=== PATIENT | male | born 1945 | race Caucasian/White ===

== ENCOUNTER → 2020-04-18 11:00 | Outpatient (BNVA) | payer OTHER, SELFPAY | PROVIDERS: Family Provider Internal Medicine; PCP Internal Medicine; Visit Provider Specialist | DX: G56.02 Carpal tunnel syndrome, left upper limb (principal) | CPT/HCPCS: 73080; 73110 ==

== ENCOUNTER → 2020-05-01 11:45 | Outpatient (BNVA) | payer OTHER, SELFPAY | PROVIDERS: Family Provider Internal Medicine; PCP Internal Medicine; Visit Provider Internal Medicine | DX: G56.02 Carpal tunnel syndrome, left upper limb (principal); G56.22 Lesion of ulnar nerve, left upper limb; Z20.828 Contact with and (suspected) exposure to other viral communicable diseases | CPT/HCPCS: 87635 ==

== ENCOUNTER 2020-05-04 10:02 | Outpatient (CLI) | payer OTHER, SELFPAY ==
[2020-05-03 15:31] VITALS: BMI 34.8
[2020-05-04 10:34] VITALS: BP 126/72; PULSE 68; RESP 20; TEMP 36.1; O2SAT 98
[2020-05-04] MEDS: CELEcoxib 200 mg Capsule 400 MG PO (10:34)
[2020-05-04] MEDS: sodium chloride 0.9% 1,000 ML 30 ML IV (10:51)
--- NOTE | 2020-05-04 10:52 | ANES.PREANE2 ---
Pre-Anesthetic Assessment Pre-Anesthetic Assessment: Height/Weight: Height 1.8 m Weight 113.398 kg Temp Pulse Resp BP Pulse Ox 97 F L 68 20 H 126/72 98 05/04/20 10:34 05/04/20 10:34 05/04/20 10:34 05/04/20 10:34 05/04/20 10:34 Preop Diagnosis: Left carpal tunnel syndrome Proposed Procedure: Operation Date: 05/04/20 11:30 Proposed Procedures p Carpal Tunnel Release 06103 G56.02(Left) - Dorothy Saavedra MD Familial anesthetic complications: None Was Beta Wilberto taken within 24 hours: N/A Last intake: Intake Last Liquid Date 05/03/20 Last Liquid Time 23:30 Last Solid Date 05/03/20 Last Solid Time 21:00 Social: Social History: No alcohol and No tobacco Comment: former smoker Exam: Pre-Anes Outpt Exam: alert, oriented x 3, clear to auscultation bilaterally and regular rate & rhythm Airway: Cervical ROM: WNL MP: 4 Dentition: Chipped and Other (missing) Pulmonary: Pulmonary: Asthma and COPD (2 L NC at [facility]) CV/HEM: CV/HEM: HTN GI: GI: GERD Metabolic: Metabolic: Hyperlipidemia and Morbid obesity Neuropsych: Neuropsych: TIA (last year ) Anesthetic Plan: ASA status: 3 Anesthesia: MAC and Regional (specify below) Risk of > 500 ml blood loss (7ml/kg in children): No Meds/Allergies Current Medications: Current Medications Generic Name Dose Route Start Last Admin Trade Name Freq PRN Reason Stop Dose Admin Sodium Chloride 1,000 mls @ 30 ml s/hr 05/04/20 10:15 05/04/20 10:51 Sodium Chloride 0.9% IV 05/05/20 10:14 30 mls/hr .Q24H CHRISTOPHER Administration PFSH Anesthesia PFSH: Medical History (Updated 04/19/20 @ 08:45 by Dorothy Saavedra MD) Carpal tunnel syndrome of left wrist Cervical radiculopathy Cubital tunnel syndrome on left Family History Denies family history of Diabetes CAD (coronary artery disease) Clotting disorder Dementia Hyperlipidemia Psychiatric illness Chronic kidney disease (CKD) Suicide Anesthesia complication Bleeding disorder Family history of premature coronary artery disease Lung disease Cancer Hypertension Stroke Social History Smoking and tobacco status: smoker, details unknown smokeless tobacco Smokeless tobacco user: chewing tobacco Alcohol intake: never Data Anesthesia Cardiac Studies: No Data to Display
--- NOTE | 2020-05-04 11:29 | P.HPUD_ITS ---
Surgery/Procedure H&P Update DATE OF PROCEDURE: May 04, 2020 DATE H&P PERFORMED: 04/18/20 H&P UPDATE INFORMATION: I have reviewed H&P completed within last 30 days, I have examined patient prior to procedure, No changes to prior documentation and H[place] is in [facility] [place] on date indicated PREOP DIAGNOSIS: Left carpal tunnel syndrome PLANNED PROCEDURE: Operation Date: 05/04/20 11:30 Proposed Procedures p Carpal Tunnel Release 86808 G56.02(Left) - Dorothy Saavedra MD Related Problem List Diagnoses (1) Carpal tunnel syndrome of left wrist:
[2020-05-04 12:23] VITALS: BP 108/60; PULSE 61; RESP 16; TEMP 37.3; O2SAT 98
[2020-05-04 12:36] VITALS: BP 109/62; PULSE 55; RESP 18; O2SAT 97
--- NOTE | 2020-05-04 12:56 | PM.OP ---
Operative Report Date of procedure: May 04, 2020 Pre-op Diagnosis: Left carpal tunnel syndrome Post-op diagnosis: same Procedure Done: Left carpal tunnel release Pathology: none sent Surgeon: Dorothy Saavedra Drug And Alcohol Treatment Specialist: None Anesthesia: MAC (With [place] block) Estimated blood loss (mL): 5 Tourniquet time (min): 31 Tourniquet time: at 250 mmHg IV fluids (mL): 300 Urine output (mL): 0 Urine output: No [place] Complications: None Findings: Significant compression across the median nerve with gross discoloration and purplish median nerve Condition: stable Disposition: same day Brief History: This 74-year-old gentleman presented with complaints consistent with carpal tunnel syndrome. He has significant symptoms which interfere with his activities of daily living. He wished to proceed with operative intervention. Risks and complications were again discussed with him. Consents were signed preoperatively. Procedure: The patient was brought to the operating theater. The patient had a Garry block with MAC. The tourniquet was elevated to 250 mmHg for a total tourniquet time of 31 minutes. The patient was also given Ancef 2 g preoperatively. The arm was then prepped and draped with DuraPrep in usual fashion with the arm draped free. A surgical pause was performed. At the time, the surgical pause, we confirmed the site and side of surgery. We also confirmed the patient's identity, appropriate and timely administration of preoperative antibiotics and preoperative surgical markings. An incision was then made along the thenar crease. The incision crossed the wrist joint in a curvilinear fashion. Dissection continued through skin and soft tissues using a scalpel. The palmaris longus was identified along with the transverse carpal ligament. Each of these was released carefully to avoid injury to the median nerve. We were able to dissect gently into the carpal canal which was noted to be quite tight with significant compression across the median nerve. The nerve was visualized and was an hourglass shape with purplish discoloration. The canal was subsequently palpated to assure there was no bony encroachment upon the canal. There was a quite thickened fibrous tissue within the canal, and this was opened longitudinally as well. The canal was then palpated distally and proximally to assure that my small finger was passed easily without impingement. Finding this to be so, attention was directed to closure. The wound was irrigated with Marcaine plain. It was then closed with 3-0 nylon in an interrupted mattress fashion. Sterile dressing was then placed consisting of Xeroform gauze, fluffed fluffs, sterile soft roll, a volar splint, and an Jaquan wrap. The tourniquet was released after 31 minutes. There were no complications. There were no specimens. The procedure was well tolerated. Plan is the patient will be discharged home. Associated Problem List Diagnoses (1) Carpal tunnel syndrome of left wrist:
[2020-05-04 12:59] VITALS: BP 110/62; PULSE 57; RESP 18
[2020-05-04 13:31] VITALS: BP 101/53; PULSE 56; RESP 18; O2SAT 95
--- NOTE | 2020-05-04 16:00 | ANE.PACU2 ---
Inpatient post-anesthesia follow up: Airway intact: Yes Vital signs: Temperature 99.1 F Pulse Rate 56 Respiratory Rate 18 Blood Pressure 101/53 Pulse Oximetry 95 Oxygen Delivery Me thod Room Air Oxygen Flow Rate 6 Fraction of Inspir ed Oxygen Hydration adequate: Yes Nausea and vomiting: No Pain level: 1 Mental status: Baseline
== END 2020-05-04 14:09 | disposition home or self-care (01) ==
LOC: OPS 10:03
PROVIDERS: PCP Internal Medicine; Visit Provider Specialist
PROC: (CPT 64721; principal; 2020-05-04 10:30)
DX: G56.02 Carpal tunnel syndrome, left upper limb (principal); J44.9 Chronic obstructive pulmonary disease, unspecified; Z99.81 Dependence on supplemental oxygen; I10 Essential (primary) hypertension; K21.9 Gastro-esophageal reflux disease without esophagitis; E78.5 Hyperlipidemia, unspecified; E66.01 Morbid (severe) obesity due to excess calories; Z68.34 Body mass index [BMI] 34.0-34.9, adult; Z86.73 Personal history of transient ischemic attack (TIA), and cerebral infarction without residual deficits; F17.220 Nicotine dependence, chewing tobacco, uncomplicated
CPT/HCPCS: 64721; 12345; 96365; 97760; J0131; J0690; J2405; J2704; J2765; J3010; J3490; J7030; L3908

== ENCOUNTER 2020-07-01 18:27 | Emergency (ER) | payer OTHER, MEDICARE, SELFPAY ==
[2020-07-01 18:32] VITALS: BP 126/80; PULSE 75; RESP 18; TEMP 37.1; O2SAT 93; BMI 37.3
--- NOTE | 2020-07-01 18:50 | W.ED.NECK ---
HPI - Neck Pain/Injury General: Chief Complaint: Neck Pain/Injury Stated Complaint: in pain everywhere/ out of meds Time Seen by Provider: 07/01/20 18:41 Source: patient Mode of arrival: ambulatory Limitations: no limitations History of Present Illness: HPI Narrative: Patient comes in for exacerbation of chronic pain. Patient reports chronic neck and back pain. Patient also has been having some foot and ankle pain. Patient appears well. Patient appears in no acute distress. Patient does appear in moderate pain. Patient denies any injury. Patient states he has not had pregabalin or hydrocodone for the last 2 months. complaint: neck pain Review of Systems General: Reports: 10 or more systems reviewed and unremarkable except in HPI and below Musc: Reports: neck pain and joint pain (Left ankle) PFS ED PFSH: Medical History (Updated 07/01/20 @ 18:57 by DAGMAR Lyman) Carpal tunnel syndrome of left wrist Cervical radiculopathy Cubital tunnel syndrome on left Family History Denies family history of Diabetes CAD (coronary artery disease) Clotting disorder Dementia Hyperlipidemia Psychiatric illness Chronic kidney disease (CKD) Suicide Anesthesia complication Bleeding disorder Family history of premature coronary artery disease Lung disease Cancer Hypertension Stroke Social History Smoking and tobacco status: smoker, details unknown smokeless tobacco Smokeless tobacco user: chewing tobacco Alcohol intake: never Physical Exam Const: COMMON NORMALS: no acute distress and patient oriented x3 GENERAL APPEARANCE: cooperative HENMT: COMMON NORMALS: normocephalic and Normal external nose present HEAD & SCALP: normal to inspection and normocephalic NOSE: Normal external nose present MOUTH: Normal oral and palatal mucosa present Eye: GENERAL EYE: appearance normal, both eyes and all related structures Neck/C-Spine: COMMON NORMALS: full ROM Chest: COMMONS NORMALS: normal inspection of the chest Resp: COMMON NORMALS: normal respiratory effort EFFORT & INSPECTION: Yes able to speak in complete sentences Cardio: COMMON NORMALS: regular rate and regular rhythm RATE: regular rate RHYTHM: regular rhythm GI: COMMON NORMALS: non-tender Back/Pelvis: COMMON NORMALS: thoracic and lumbar spine normal to inspection Extremity: NARRATIVE EXTREMITY EXAM: Bilateral ankle deformity recognizable as Charcot ankle syndrome. Left side is worse than the right. Neuro: COMMON NORMALS: patient oriented x3 and moves all extremities Psych: COMMON NORMALS: mental status grossly normal and cooperative Skin: COMMON NORMALS: no rashes or lesions noted GENERAL SKIN EXAM: no rashes or lesions noted Course Vital Signs: Vital signs: Vital Signs Temperature 98.8 F 07/01/20 18:32 Pulse Rate 75 07/01/20 18:32 Respiratory Rate 18 07/01/20 18:32 Blood Pressure 126/80 07/01/20 18:32 Pulse Oximetry 93 07/01/20 18:32 MDM - Neck Pain/Injury MDM Narrative: Medical decision making narrative: Patient comes in for aggravation of chronic neck pain. Patient has no medication at home to treat his pain. [facility], as voiced by patient. Patient appears well. Patient has some muscle tenderness in the neck. Abdomen soft nontender. Bowel sounds are present. Patient has some chronic deformity to bilateral ankles. Pulses are intact in all extremities. No significant swelling is noted. Differential diagnosis includes but not limited to torticollis, cervical radiculopathy, Charcot ankle syndrome. Reviewed exam with patient with recommendations for treatment and follow-up. Discussed need for pain management for management of chronic pain. [facility]. We will place a recommendation for case management to help with referral to pain management. Patient reported understanding and agreed to plan. Discharge Plan Discharge Patient Disposition: Home Clinical Impression: Cervical radiculopathy Charcot ankle Qualifiers: Laterality: unspecified laterality Qualified Code(s): M14.679 - Charcot's joint, unspecified ankle and foot Condition: Stable Prescriptions: New hydrocodone-acetaminophen 7.5-325 mg tablet 1 tab PO Q8H PRN (Reason: pain) Qty: 7 RF: 0 No Action albuterol sulfate 90 mcg/actuation HFA aerosol inhaler 2 puff INHALATION QID RF: 0 budesonide-formoterol 160-4.5 mcg/actuation HFA aerosol inhaler 2 puff INHALATION BID RF: 0 hydrocodone-acetaminophen 7.5-325 mg tablet 1 tab PO Q8H PRN (Reason: Pain) RF: 0 tamsulosin 0.4 mg capsule 0.4 mg PO DAILY RF: 0 pregabalin 150 mg capsule 150 mg PO BID RF: 0 pantoprazole 40 mg tablet,delayed release (DR/EC) 40 mg PO DAILY RF: 0 aspirin 81 mg tablet,delayed release (DR/EC) 81 mg PO DAILY RF: 0 amlodipine 10 mg tablet 10 mg PO DAILY RF: 0 simvastatin 80 mg tablet 80 mg PO DAILY RF: 0 lisinopril-hydrochlorothiazide 20-12.5 mg tablet 1 tab PO DAILY RF: 0 [place] 7.5-325 mg tablet 1 tab PO Q8H PRN (Reason: pain) Qty: 20 RF: 0 Discharge Orders: Discharge Order (Routine); Ordered 07/01/20 Ordered By: Perez Fernandez Discharge Diet: Usual diet Discharge Activity: Increase activity as tolerated Patient Instructions: Chronic Pain (ED) Activity Restrictions/Additional Instructions: Use hydrocodone sparingly. Use acetaminophen or ibuprofen for routine pain control. Follow-up with primary care for further treatment. Case management will contact you for further treatment and recommendations for referral for pain management. Return to the emergency department for new concerns. Coding Level of Care Code ED Belt Sander Stone for Shyla Ramos Exam Comprehensive
[2020-07-01] MEDS: dexamethasone 10 mg/mL INJ IM (19:08)
[2020-07-01] MEDS: ketorolac 30 mg/mL INJ IM (19:08)
[2020-07-01] MEDS: HYDROcodone-acetaminophen 10-325 mg Tablet 1 TAB PO (19:09)
[2020-07-01 19:16] VITALS: BP 110/58; PULSE 68; RESP 18; O2SAT 93
[2020-07-01 19:27] VITALS: BP 112/72; PULSE 68; RESP 18; TEMP 36.6; O2SAT 92
--- NOTE | 2020-07-02 14:06 | DCPLANNER ---
trauma program manager had message to make a referral to pain management. trauma program manager called patient to speak with patient about referral to pain management. trauma program manager wanted to explain to patient, that spring encaser could not make a referral to pain management, that a referral to pain management would have to come from patients primary care physician. trauma program manager was unable to speak with patient at this time, a voicemail was left for patient to return spring encaser phone call.
== END 2020-07-01 19:25 | disposition home or self-care (01) ==
PROVIDERS: Emergency Provider Nurse Practitioner Family
DX: M54.12 Radiculopathy, cervical region (principal); M14.679 Charcot's joint, unspecified ankle and foot; Z79.82 Long term (current) use of aspirin; F17.220 Nicotine dependence, chewing tobacco, uncomplicated
CPT/HCPCS: 12345; 96372; 99281; 99283; J1100; J1885

== ENCOUNTER 2020-09-07 18:08 | Inpatient (IN) | payer OTHER, MEDICARE, SELFPAY ==
[2020-09-07 18:15] VITALS: BP 124/87; PULSE 90; RESP 18; TEMP 36.8; O2SAT 93; BMI 33.9
--- NOTE | 2020-09-07 18:28 | ECG_ITS ---
[facility] Test Date: 2020-09-07 Pat Name: Caesar Josue Department: Room: Gender: Male Armed Security Officer: : 1945 Requested By: Ani Lr I Order Number: [id number] Markos MD: Filemon Hutchison M.D. Measurements Intervals [place] Rate: 86 P: 83 ME: 186 QRS: -61 QRSD: 151 T: 71 QT: 408 QTc: 488 Interpretive Statements SINUS RHYTHM WITH OCCASIONAL VENTRICULAR PREMATURE COMPLEXES WITH OCCASIONAL SUPRAVENTRICULAR PREMATURE COMPLEXES LEFT AXIS DEVIATION [QRS AXIS < -30] RIGHT BUNDLE BRANCH BLOCK [120+ ms QRS DURATION, UPRIGHT V1, 40+ ms S IN I/aVL/V4/V5/V6] No previous ECG available for comparison Electronically Signed On 09-07-2020 18:37:54 [facility] [place] [facility] by Filemon Hutchison M.D. [id number]
[2020-09-07 19:22] VITALS: BP 112/81; PULSE 81; RESP 26; O2SAT 93
--- NOTE | 2020-09-07 19:44 | PC.NURSE ---
Pt hotlined to [facility] . Spoke with Penny and report completed at this time.
[2020-09-07 20:30] VITALS: BP 124/74; PULSE 83; RESP 21; O2SAT 93
[2020-09-07 20:56] LABS: D Dimer 3.76 ug/mIFEU (0-0.59)
[2020-09-07 20:59] LABS: Lactate (Lactic Acid level) 0.2 mmol/L (0.5-2.2)
--- NOTE | 2020-09-07 21:01 | CTR_ITS ---
PROCEDURE INFORMATION: Exam: CT Angiography Chest With Contrast Exam date and time: 09/07/2020 9:05 PM Age: 75 years old Clinical indication: Shortness of breath; Additional info: SOB TECHNIQUE: Imaging protocol: Computed tomographic angiography of the chest with intravenous contrast. 3D rendering (Not supervised by radiologist): MIP and/or 3D reconstructed images were created by the technologist. Radiation optimization: All CT scans at this facility use at least one of these dose optimization techniques: automated exposure control; mA and/or kV adjustment per patient size (includes targeted exams where dose is matched to clinical indication); or iterative reconstruction. Contrast material: OMNI 350; Contrast volume: 79 ml; Contrast route: INTRAVENOUS (IV); COMPARISON: No relevant prior studies available. RADIATION DOSE METRICS: Total DLP (mGy-cm): 566.39 FINDINGS: Limitations: The study is limited due to patient respiratory motion. Pulmonary arteries: Pulmonary arteries are well opacified. Pulmonary arteries are normal in caliber. No filling defects are demonstrated. No evidence of pulmonary embolism. Aorta: Mild atherosclerosis of the thoracic aorta. No aortic aneurysm. No aortic dissection. Lungs: No consolidative pulmonary infiltrate noted. Pleural space: No pneumothorax. No pleural effusion. Heart: No evidence of RV enlargement or RV dysfunction. Mild cardiomegaly is noted. Lymph nodes: No pathologically enlarged lymph nodes are demonstrated. Bones/joints: Unremarkable. No acute fracture. Soft tissues: Unremarkable. CT/CT angio chest PE protcl [id number] IMPRESSION: 1. The study is limited due to patient respiratory motion. 2. No evidence of pulmonary embolism. 3. No evidence of aortic dissection. 4. Mild cardiomegaly is noted. No evidence of RV enlargement or RV dysfunction. 5. No consolidative pulmonary infiltrate noted. Radiation Dose CTDIVOL = (mGy): DLP = 566.39 (mGy-cm)
--- NOTE | 2020-09-07 21:01 | USR_ITS ---
PROCEDURE INFORMATION: Exam: US Duplex Lower Extremity Veins, Bilateral Exam date and time: 09/07/2020 10:01 PM Age: 75 years old Clinical indication: Swelling (edema) of limb; Lower extremity, bilateral; Additional info: Pain, swelling TECHNIQUE: Imaging protocol: Real-time duplex ultrasound of the extremities with 2-D melara scale, color Doppler flow and spectral waveform analysis with image documentation. Complete exam focused on the bilateral lower extremity veins. COMPARISON: No relevant prior studies available. FINDINGS: Right deep veins: Unremarkable. The common femoral, femoral, proximal profunda femoral and popliteal veins are patent without thrombus. Normal Doppler waveforms. Normal compressibility and/or augmentation response. Right superficial veins: Saphenofemoral junction is patent without thrombus. Left deep veins: Unremarkable. The common femoral, femoral, proximal profunda femoral and popliteal veins are patent without thrombus. Normal Doppler waveforms. Normal compressibility and/or augmentation response. Left superficial veins: Saphenofemoral junction is patent without thrombus. Soft tissues: Unremarkable. US/CV venous duplex [facility] [id number] IMPRESSION: No evidence of deep vein thrombosis, bilateral lower extremities.
[2020-09-07 21:03] LABS: Basophils % 0.1 %; Eosinophils % 0.1 %; Hematocrit 38.7 % (42.0-52.0); Hemoglobin 12.9 g/dL (11.7-16.6); Lymphocytes # 0.8 10^3/uL (0.8-4.8); Lymphocytes % 6.2 %; Mean Corpuscular HGB Conc 33.3 g/dL (30.0-36.0); Mean Corpuscular Hemoglobin 29.4 pg (28.0-34.0); Mean Corpuscular Volume 88.2 fL (80-94); Mean Platelet Volume 11.5 fL (7.4-10.4); Monocytes # 1.4 10^3/uL (0.2-0.9); Monocytes % 10.4 %; Neutrophils # 11.19 10^3/uL (1.8-7.7); Neutrophils % 82.8 %; Nucleated Red Blood Cells % 0 %; Platelet Count 471 10^3/cmm (130-400); Red Blood Count 4.39 10^6/uL (4.1-5.3); Red Cell Distribution Width 14.9 % (12.1-15.1); White Blood Count 13.5 10^3/uL (4.0-10.0)
[2020-09-07 21:10] LABS: Alanine Aminotransferase 22 U/L (0-41); Albumin Level 2.9 g/dL (3.5-5.2); Alkaline Phosphatase 92 IU/L (40-130); Aspartate Amino Transferase 50 U/L (0-40); Blood Urea Nitrogen 20 mg/dL (8-23); C Reactive Protein 280.4 mg/L (0.0-4.9); Calcium 8.5 mg/dL (8.5-10.5); Carbon Dioxide 31 mmol/L (22-29); Chloride 99 mmol/L (98-107); Creatinine Clr Calc Pharmacy 105.3241; Globulin 2.9 g/dL (1.3-4.6); Glucose 161 mg/dL (65-115); NT Pro B Type Natriuretic Pept 1039 pg/mL (0-125); Osmolality Calculated 296 mOsm/kg (285-295); Sodium 140 mmol/L (136-145); Total Bilirubin 0.7 mg/dL (0.15-1.2); Total Protein 5.8 g/dL (6.6-8.7)
--- NOTE | 2020-09-07 21:12 | PC.NURSE ---
patient readjusted in bed for comfort and lights turned off in room per patient request
[2020-09-07 21:15] LABS: Anion Gap 13.2 (5-19); Potassium 3.2 mmol/L (3.5-5.1)
--- NOTE | 2020-09-07 21:21 | PC.NURSE ---
patient given cold wet washcloth for left eye irritation per patient request.
[2020-09-07 21:28] VITALS: BP 124/85; PULSE 70; RESP 22; O2SAT 93
--- NOTE | 2020-09-07 21:43 | PC.NURSE ---
patient to CT
[2020-09-07] MEDS: iohexol 350 mg/mL 100 mL Btl IV (21:51)
[2020-09-07 21:54] LABS: Glucose Urine UA Norm (Normal); Ketones Urine 1+ (Negative); Protein Urine Trace (Negative); Specific Gravity, Urine 1.015 (1.005-1.030); Urine Appearance Clear (CLEAR); Urine Color Yellow (Yellow); pH Urine 5 (5-7)
[2020-09-07 21:55] LABS: Add Urine Microscopic? YES; Bilirubin Urine 1+ (Negative); Blood Urine 2+ (Negative); Leukocyte Esterase Urine Trace (Negative); Nitrate Urine Negative (Negative); Urobilinogen Urine 8 mg/dL (Negative)
[2020-09-07 22:04] LABS: Amphetamines Screen Urine Negative (Negative); Barbiturates Screen Urine Negative (Negative); Benzodiazepines Screen Urine Negative (Negative); Cocaine Screen Urine Negative (Negative); Opiate Screen Urine Negative (Negative); PCP Screen Urine Negative (Negative); THC Screen Urine Negative (Negative)
[2020-09-07 22:07] LABS: Add Urine Culture? No; Amorphous Sediment Urine TRACE /hpf; Bacteria Urine 1+ /hpf; Hyaline Casts Urine 0-4 /lpf; Mucus Urine 3+ /hpf; RBC Urine 0-4 /hpf (0-2); WBC Urine 0-4 /hpf (0-5)
[2020-09-07 22:28] VITALS: BP 133/85; PULSE 80; RESP 14; O2SAT 93
[2020-09-07 23:00] VITALS: BP 134/93; PULSE 78; RESP 16; O2SAT 93
--- NOTE | 2020-09-07 23:03 | PM.HP ---
Providers/Chief Complaint Chief Complaint: general weakness/ failure to thrive History of Present Illness Caesar Josue is a 75 year old male who was sent in via ambulance when neighbors found him soiled in feces and urine in his bed. Patient is stating that his in January 2020, since then he has been living alone, he cooks for himself, most of the time he stays in the bed because his left leg pain is making it impossible to go to the bathroom and that is why he has been voiding and defecating on his bed, he is denying suicidal ideation, suicidal attempt. He is not a reliable historian but able to tell me that he has been having diarrhea for last few weeks, he has not noticed any fever, chest pain or shortness of breath, he is concerned about his numbness of left leg which he feels infrequently. He is not able to tell me his medications, past surgical history. I have tried to access his chart from previous EMR which has limited information. However previous echo showed preserved ejection fraction diastolic dysfunction. Diagnosis in the ER revealed sepsis with tachypnea, leukocytosis high inflammatory markers Covid antigen negative, I requested ESR, left ankle CT scan, high D-dimer however no signs of PE, no signs of DVT. In the ER he was given 0.5 mg Dilaudid, Lyrica for his pain. He was awake alert oriented x3 no signs of meningitis or meningismus. Review of Systems Const: Reports: fever(s), body aches, change in appetite, change in weight, fatigue and malaise Eyes: Denies: change in vision ENMT: Denies: throat pain or dental pain Card: Denies: chest pain Resp: Reports: dyspnea GI: Reports: diarrhea; Denies: abdominal pain, nausea or vomiting : Denies: flank pain Musc: Reports: joint pain, joint swelling, joint stiffness, limited range of motion, muscle cramps and muscle weakness; Denies: neck pain, extremity swelling or joint warmth Skin/Breast: Denies: rash Neuro: Reports: behavioral changes and difficulty communicating thoughts Psych: Reports: depression; Denies: anxiety Endo: Denies: polyuria Truman/Lymph: Denies: easy bruising All/Imm: Denies: urticaria Medications/Allergies Home Medications Medication Instructions Recorded Confirmed Last Taken Type amlodipine 10 mg tablet 10 mg PO DAILY 02/09/07/20 05/04/20 07:30 History aspirin 81 mg tablet,delayed 81 mg PO DAILY 11/11/19 09/07/20 05/03/20 History release lisinopril 20 2 tab PO DAILY 11/11/19 09/07/20 05/04/20 07:30 History mg-hydrochlorothiazide 12.5 mg tablet pantoprazole 40 mg tablet,delayed 40 mg PO DAILY 11/11/19 09/07/20 05/04/20 07:30 History release pregabalin 150 mg capsule 150 mg PO BID 11/11/19 09/07/20 05/04/20 07:30 History simvastatin 80 mg tablet 40 mg PO QPM 11/11/19 09/07/20 05/03/20 History Allergies Allergy/AdvReac Type Severity Reaction Status Date / Time gabapentin Allergy algy-rash Verified 09/07/20 19:48 pravastatin Allergy algy-rash Verified 09/07/20 19:48 PFSH Acute PFSH: Medical History Asthma Carpal tunnel syndrome of left wrist Cervical radiculopathy Charcot's joint, 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 Hyperlipidemia Hypertension SLAC (scapholunate advanced collapse) of wrist Surgical History H/O knee surgery History of carpal tunnel surgery Family History Denies family history of Diabetes CAD (coronary artery disease) Clotting disorder Dementia Hyperlipidemia Psychiatric illness Chronic kidney disease (CKD) Suicide Anesthesia complication Bleeding disorder Family history of premature coronary artery disease Lung disease Cancer Hypertension Stroke Social History Smoking and tobacco status: former smoker Alcohol intake: never Substance/Drug Use: never Lives independently: Yes Housing: House Vitals/I&O/Wt Last Vital Signs Temp 98.3 F 09/07/20 18:15 Pulse 80 09/07/20 22:28 Resp 14 09/07/20 22:28 BP 133/85 09/07/20 22:28 Pulse Ox 93 09/07/20 22:28 Weight last 48 hrs Weight 113.398 kg Physical Exam Narrative: EXAM NARRATIVE: Elderly male who has very ungroomed and unkept appearance Not a good historian However cooperating during my interview Currently saturating well has audible wheezing when I entered the room, he is tachypneic respiratory rate in 20s Saturating well on room air Blood pressure 134 systolic millimeter mercury Not complaining of active chest pain or shortness of breath S1, S2 no tachycardia, did not appreciate any murmur Bilateral breath sounds upper airway bronchial sounds resonance, without active stridor, he is not using respiratory sand bobber muscles but is tachypneic in upper 20s, fine expiratory wheezing Abdomen distended nontender no signs of peritonitis multiple present Lower extremities not showing any signs of cellulitis or abscess collection I examined his back there is no decubitus ulcer Left ankle formed, Charcot arthropathy of left foot, paresthesias positive No signs of stroke NIH 0 Awake alert oriented x3 GCS 15 Data : 09/07/20 19:34 09/07/20 19:34 A&P Assessment and plan (1) Sepsis: Status: Acute (2) Hypokalemia: Status: Acute (3) Diarrhea: Status: Acute (4) Depression: Status: Acute (5) Sciatica: Status: Acute Additional A&P Information Sepsis Source unknown, he meets criteria with tachypnea, leukocytosis high inflammatory markers Covid antigen negative, procalcitonin unremarkable, no pulmonary infiltrate, no sacral ulcer, transaminases are normal, patient is awake and alert no signs of meningitis no meningismus I do have high suspicion for osteomyelitis considering high ESR and CRP &Charcot foot, however patient does not have history of diabetes I will start him on vancomycin and Zosyn, obtain blood cultures Ankle CT scan showed edema of left foot however clinically there are no signs of cellulitis, there is no open wound or abscess collection, currently consider ankle x-ray or MRI in the morning Patient is endorsing diarrhea for last few days, will obtain C. difficile panel, abdomen is nontender no acidosis lactic is normal, no signs of ischemic colitis clinically, will obtain coagulation profile to rule out DIC Hypokalemia most likely due to diarrhea Potassium repleted Would use D5 half-normal potassium supplementation maintenance fluid Check magnesium level Contraction alkalosis most likely secondary to diarrhea: Continue fluid resuscitation for now Sciatica Patient is endorsing tingling and numbness of left leg shooting pain towards his toes He has been taking Lyrica which I would continue for now Does not have typical spinal cord compression symptoms Diastolic congestive heart failure without acute exacerbation however BNP is 1000 PE ruled out clinically does not look fluid overloaded, he has contraction alkalosis evident on his BMP I would continue fluids for time being Full code DVT prophylaxis Lovenox Cardiac diet I would also add antidepressant, patient seems to exhibit signs of depression for which I would start low-dose Escitalopram, most likely he will need home health services versus rehab Attestations Medical Necessity Statement*: Anticipating stay in the hospital cross more than 2 midnights continued IV antibiotics for sepsis, source is unknown, patient seems to exhibit signs of depression with failure to thrive will need long-term rehab Time Spent in Patient Care: (>than 50% of time spent in counselling and/or direct pt care on unit). 50mins Coding Level of Care Code Acute Inspector Publications for [employer] Fwd Diagnoses Sepsis A41.9 Hypokalemia E87.6 Diarrhea R19.7 Depression F32.9 Sciatica M54.30
--- NOTE | 2020-09-07 23:18 | CTR_ITS ---
PROCEDURE INFORMATION: Exam: CT Left Lower Extremity Without Contrast, Ankle Exam date and time: 09/07/2020 11:33 PM Age: 75 years old Clinical indication: Edema; Yes, it is localized; Patient HX: Possible osteomylelitis. ; Additional info: Osteomyelitis TECHNIQUE: Imaging protocol: CT of the Left lower extremity without contrast was performed. Exam focused on the ankle. Radiation optimization: All CT scans at this facility use at least one of these dose optimization techniques: automated exposure control; mA and/or kV adjustment per patient size (includes targeted exams where dose is matched to clinical indication); or iterative reconstruction. COMPARISON: MRI Ankle w/o LEFT* [id number] 04/07/2018 7:33 AM RADIATION DOSE METRICS: Total DLP (mGy-cm): 115.57 FINDINGS: Bones/joints: Distal tibia and distal fibula are unremarkable. No acute abnormality of the talus or calcaneus. The included tarsal bones are intact. There is mild joint narrowing and osteophyte formation of the ankle joint, the subtalar joint, the calcaneocuboid and talonavicular joints. Calcification noted in the interosseous membrane, which may be related to old trauma. Soft tissues: Soft tissue edema noted of the ankle and hindfoot. Vasculature: There are atherosclerotic calcifications demonstrated. CT/CT ankle LT wo con* [id number] IMPRESSION: 1. Soft tissue edema noted of the ankle and hindfoot. This may represent cellulitis in the setting of infection. No fluid collection/abscess demonstrated. 2. Degenerative changes of the ankle and hindfoot. No CT evidence of osteomyelitis. Radiation Dose CTDIVOL = (mGy): DLP = 115.57 (mGy-cm)
[2020-09-07 23:39] LABS: Procalcitonin 0.24 ng/mL (0-0.5)
[2020-09-07 23:39] LABS: SARS Covid-2 Antigen Negative (Negative)
[2020-09-07 23:50] LABS: Creatine Phosphokinase 270 U/L (39-308)
[2020-09-08] VITALS (11 sets, daily range): BP systolic 115–144; BP diastolic 61–92; PULSE 16–82; RESP 16–57; TEMP 36.5–36.9; O2SAT 91–97
[2020-09-08 00:01] LABS: Erythrocyte Sedimentation Rate 98 mm/hr (0-10)
--- NOTE | 2020-09-08 00:20 | ED_ITS ---
HPI - Weakness General: Chief complaint: Weakness Stated complaint: general weakness/ failure to thrive Time Seen by Provider: 09/07/20 18:19 Source: patient and EMS Mode of arrival: EMS Limitations: other (patient is a poor historian.) History of Present Illness: HPI Narrative: Patient is a really poor historian and is unable to give me much of the history. Most of the history is obtained from the EMS staff although the patient told me a few things. Apparently the patient's decline started about 2 months ago when his . Since then he has been depressed and unable to care for himself. He has not left his bed for at least 1 week and has been urinating and defecating on himself in the bed. His neighbor checked in on him today and noticed that he had feces and urine all over himself and was in no shape to be left alone at home. EMS staff also confirmed the state that the patient was in. The patient does not tell me much other than he has neuropathy and he takes medication for this he states he takes gabapentin however on his chart it says he is allergic to gabapentin but he takes pregabalin. Unable to obtain much more from him. Review of Systems General: Reports: ROS unobtainable due to mental status PFSH ED PFSH: Medical History Asthma Carpal tunnel syndrome of left wrist Cervical radiculopathy Charcot's joint, 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 Hyperlipidemia Hypertension SLAC (scapholunate advanced collapse) of wrist Surgical History History of carpal tunnel surgery Family History Denies family history of Diabetes CAD (coronary artery disease) Clotting disorder Dementia Hyperlipidemia Psychiatric illness Chronic kidney disease (CKD) Suicide Anesthesia complication Bleeding disorder Family history of premature coronary artery disease Lung disease Cancer Hypertension Stroke Social History Smoking and tobacco status: smoker, details unknown smokeless tobacco Smokeless tobacco user: chewing tobacco Alcohol intake: never Substance/Drug Use: never Physical Exam Const: COMMON NORMALS: no acute distress, average body habitus, patient oriented x3, no limitations, healthy appearing, alert and well nourished HENMT: COMMON NORMALS: normocephalic, atraumatic and moist oral mucous membranes HEAD & SCALP: normocephalic and atraumatic MOUTH: Abnormal oral and palatal mucosa present other (dry mucus membranes) Neck/C-Spine: COMMON NORMALS: no meningeal signs and no JVD Resp: COMMON NORMALS: normal respiratory effort, No retractions, No use of accessory muscles, clear to auscultation bilaterally and percussion normal AUSCULTATION: clear to auscultation bilaterally PERCUSSION: percussion normal Cardio: COMMON NORMALS: no JVD, regular rate, regular rhythm, S1 normal heart sound present, S2 normal heart sound present, No gallops present (Cardio), No clicks present (Cardio), No murmurs present (Cardio), No rub (Cardio) and Peripheral pulses 2+ throughout RATE: regular rate RHYTHM: regular rhythm HEART SOUNDS: S1 normal heart sound present and S2 normal heart sound present PERIPHERAL PULSES: Peripheral pulses 2+ throughout GI: COMMON NORMALS: Normal to inspection, nondistended, normoactive bowel sounds present, Soft to palpation, non-tender, No hepatosplenomegaly present, no masses and no bruits PALPATION: Yes Soft to palpation and Yes No hepatosplenomegaly present Extremity: COMMON NORMALS: normal to inspection, full ROM, capillary refill normal, no calf tenderness and no pedal edema Neuro: COMMON NORMALS: patient oriented x3 SENSORIUM/ORIENTATION: Yes alert MENINGEAL SIGNS: Yes no meningeal signs Skin: COMMON NORMALS: no rashes or lesions noted, no wounds, turgor normal, no jaundice, no petechiae and no mottling GENERAL SKIN EXAM: no rashes or lesions noted and turgor normal Course Consultations: Consultation #1: Discussed the patient with Dr. Delatorre who kindly accepted the patient to his service Vital Signs: Vital signs: Vital Signs Temperature 98.3 F 09/07/20 18:15 Pulse Rate 78 09/07/20 23:00 Respiratory Rate 16 09/07/20 23:00 Blood Pressure 134/93 09/07/20 23:00 Pulse Oximetry 93 09/07/20 23:00 MDM - Weakness MDM Narrative: Medical decision making narrative: 75-year-old male who has obviously not been caring for himself over the last 2 months after his and is incapable of adequate self-care. He is not safe to be home, and is unable to tell me the medications he takes for his health conditions. Evaluation in the emergency department shows an elevated BNP suggestive of congestive heart failure. He has significantly elevated CRP which is indicative of an inflammatory condition but no source of an infection could be identified. Imaging was unremarkable, urine does not show a UTI. It is very unsafe to send him home and the patient is admitted for further work-up and management. The patient was hotlined and the department of adult services was contacted for safe disposition of this patient following his hospital stay. He will likely benefit from moving to a [facility] facility or long-term placement in a nursing facility. Medical Records: Attestation: I reviewed the patient's medical records. Lab Data: Attestation: I reviewed the patient's lab results. Labs: Lab Results 09/07/20 09/07/20 09/07/20 Range/Units 19:34 19:34 19:34 WBC 13.5 H (4.0-10.0) 10^3/ uL RBC 4.39 (4.1-5.3) 10^6/u L Hgb 12.9 (11.7-16.6) g/dL Hct 38.7 L (42.0-52.0) % MCV 88.2 (80-94) fL MCH 29.4 (28.0-34.0) pg MCHC 33.3 (30.0-36.0) g/dL RDW 14.9 (12.1-15.1) % Plt Count 471 H (130-400) 10^3/c mm MPV 11.5 H (7.4-10.4) fL Neut % (Auto) 82.8 % Lymph % (Auto) 6.2 % Howell % (Auto) 10.4 % Eos % (Auto) 0.1 % Baso % (Auto) 0.1 % Neut # (Auto) 11.19 H (1.8-7.7) 10^3/u L Lymph # (Auto) 0.8 (0.8-4.8) 10^3/u L Howell # (Auto) 1.4 H (0.2-0.9) 10^3/u L Eos # (Auto) 0.0 (0.0-0.8) 10^3/u L Baso # (Auto) 0.0 (0.0-0.1) 10^3/u L Nucleated RBC % (a uto) 0 % Nucleated RBCs # 0.0 /100WBC ESR (0-10) mm/hr D-Dimer 3.76 H (0-0.59) ug/mIFE U Sodium 140 (136-145) mmol/L Potassium 3.2 L (3.5-5.1) mmol/L Chloride 99 (98-107) mmol/L Carbon Dioxide 31 H (22-29) mmol/L Anion Gap 13.2 (5-19) BUN 20 (8-23) mg/dL Creatinine 0.8 (0.7-1.2) mg/dL GFR Calculation Not Reportable Glucose 161 H (65-115) mg/dL Calculated Osmolal ity 296 H (285-295) mOsm/k g Lactate (0.5-2.2) mmol/L Calcium 8.5 (8.5-10.5) mg/dL Total Bilirubin 0.7 (0.15-1.2) mg/dL AST 50 H (0-40) U/L ALT 22 (0-41) U/L Alkaline Phosphata se 92 (40-130) IU/L Creatine Kinase (39-308) U/L C-Reactive Protein 280.4 H (0.0-4.9) mg/L NT-Pro-B Natriuret Pep 1039 H (0-125) pg/mL Total Protein 5.8 L (6.6-8.7) g/dL Albumin 2.9 L (3.5-5.2) g/dL Globulin 2.9 (1.3-4.6) g/dL Procalcitonin (0-0.5) ng/mL Urine Color (Yellow) Urine Appearance (CLEAR) Urine pH (5-7) Ur Specific Gravit y (1.005-1.030) Urine Protein (Negative) Urine Glucose (UA) (Normal) Urine Ketones (Negative) Urine Blood (Negative) Urine Nitrate (Negative) Urine Bilirubin (Negative) Urine Urobilinogen (Negative) mg/dL Ur Leukocyte Mitra ase (Negative) Urine RBC (0-2) /hpf Urine WBC (0-5) /hpf Ur Squamous Epith Cells (0-5) /hpf Amorphous Sediment /hpf Urine Bacteria (NONE) /hpf Hyaline Casts /lpf Urine Mucus /hpf Urine Opiates Scre en (Negative) ng/mL Ur Barbiturates Sc reen (Negative) ng/mL Ur Phencyclidine S crn (Negative) ng/mL Ur Amphetamines Sc reen (Negative) ng/mL U Benzodiazepines Scrn (Negative) ng/mL Urine Cocaine Scre en (Negative) ng/mL U Marijuana (THC) Screen (Negative) ng/mL SARS-CoV-2 Ag (Rap id) (Negative) 09/07/20 09/07/20 09/07/20 Range/Units 19:34 19:39 19:39 WBC (4.0-10.0) 10^3/ uL RBC (4.1-5.3) 10^6/u L Hgb (11.7-16.6) g/dL Hct (42.0-52.0) % MCV (80-94) fL MCH (28.0-34.0) pg MCHC (30.0-36.0) g/dL RDW (12.1-15.1) % Plt Count (130-400) 10^3/c mm MPV (7.4-10.4) fL Neut % (Auto) % Lymph % (Auto) % Howell % (Auto) % Eos % (Auto) % Baso % (Auto) % Neut # (Auto) (1.8-7.7) 10^3/u L Lymph # (Auto) (0.8-4.8) 10^3/u L Howell # (Auto) (0.2-0.9) 10^3/u L Eos # (Auto) (0.0-0.8) 10^3/u L Baso # (Auto) (0.0-0.1) 10^3/u L Nucleated RBC % (a uto) % Nucleated RBCs # /100WBC ESR 98 H (0-10) mm/hr D-Dimer (0-0.59) ug/mIFE U Sodium (136-145) mmol/L Potassium (3.5-5.1) mmol/L Chloride (98-107) mmol/L Carbon Dioxide (22-29) mmol/L Anion Gap (5-19) BUN (8-23) mg/dL Creatinine (0.7-1.2) mg/dL GFR Calculation Glucose (65-115) mg/dL Calculated Osmolal ity (285-295) mOsm/k g Lactate 0.2 L (0.5-2.2) mmol/L Calcium (8.5-10.5) mg/dL Total Bilirubin (0.15-1.2) mg/dL AST (0-40) U/L ALT (0-41) U/L Alkaline Phosphata se (40-130) IU/L Creatine Kinase 270 (39-308) U/L C-Reactive Protein (0.0-4.9) mg/L NT-Pro-B Natriuret Pep (0-125) pg/mL Total Protein (6.6-8.7) g/dL Albumin (3.5-5.2) g/dL Globulin (1.3-4.6) g/dL Procalcitonin 0.24 (0-0.5) ng/mL Urine Color (Yellow) Urine Appearance (CLEAR) Urine pH (5-7) Ur Specific Gravit y (1.005-1.030) Urine Protein (Negative) Urine Glucose (UA) (Normal) Urine Ketones (Negative) Urine Blood (Negative) Urine Nitrate (Negative) Urine Bilirubin (Negative) Urine Urobilinogen (Negative) mg/dL Ur Leukocyte Mitra ase (Negative) Urine RBC (0-2) /hpf Urine WBC (0-5) /hpf Ur Squamous Epith Cells (0-5) /hpf Amorphous Sediment /hpf Urine Bacteria (NONE) /hpf Hyaline Casts /lpf Urine Mucus /hpf Urine Opiates Scre en (Negative) ng/mL Ur Barbiturates Sc reen (Negative) ng/mL Ur Phencyclidine S crn (Negative) ng/mL Ur Amphetamines Sc reen (Negative) ng/mL U Benzodiazepines Scrn (Negative) ng/mL Urine Cocaine Scre en (Negative) ng/mL U Marijuana (THC) Screen (Negative) ng/mL SARS-CoV-2 Ag (Rap id) (Negative) 09/07/20 09/07/20 09/07/20 Range/Units 21:35 21:35 23:13 WBC (4.0-10.0) 10^3/ uL RBC (4.1-5.3) 10^6/u L Hgb (11.7-16.6) g/dL Hct (42.0-52.0) % MCV (80-94) fL MCH (28.0-34.0) pg MCHC (30.0-36.0) g/dL RDW (12.1-15.1) % Plt Count (130-400) 10^3/c mm MPV (7.4-10.4) fL Neut % (Auto) % Lymph % (Auto) % Howell % (Auto) % Eos % (Auto) % Baso % (Auto) % Neut # (Auto) (1.8-7.7) 10^3/u L Lymph # (Auto) (0.8-4.8) 10^3/u L Howell # (Auto) (0.2-0.9) 10^3/u L Eos # (Auto) (0.0-0.8) 10^3/u L Baso # (Auto) (0.0-0.1) 10^3/u L Nucleated RBC % (a uto) % Nucleated RBCs # /100WBC ESR (0-10) mm/hr D-Dimer (0-0.59) ug/mIFE U Sodium (136-145) mmol/L Potassium (3.5-5.1) mmol/L Chloride (98-107) mmol/L Carbon Dioxide (22-29) mmol/L Anion Gap (5-19) BUN (8-23) mg/dL Creatinine (0.7-1.2) mg/dL GFR Calculation Glucose (65-115) mg/dL Calculated Osmolal ity (285-295) mOsm/k g Lactate (0.5-2.2) mmol/L Calcium (8.5-10.5) mg/dL Total Bilirubin (0.15-1.2) mg/dL AST (0-40) U/L ALT (0-41) U/L Alkaline Phosphata se (40-130) IU/L Creatine Kinase (39-308) U/L C-Reactive Protein (0.0-4.9) mg/L NT-Pro-B Natriuret Pep (0-125) pg/mL Total Protein (6.6-8.7) g/dL Albumin (3.5-5.2) g/dL Globulin (1.3-4.6) g/dL Procalcitonin (0-0.5) ng/mL Urine Color Yellow (Yellow) Urine Appearance Clear (CLEAR) Urine pH 5 (5-7) Ur Specific Gravit y 1.015 (1.005-1.030) Urine Protein Trace (Negative) Urine Glucose (UA) Norm (Normal) Urine Ketones 1+ H (Negative) Urine Blood 2+ H (Negative) Urine Nitrate Negative (Negative) Urine Bilirubin 1+ H (Negative) Urine Urobilinogen 8 H (Negative) mg/dL Ur Leukocyte Mitra ase Trace H (Negative) Urine RBC 0-4 H (0-2) /hpf Urine WBC 0-4 H (0-5) /hpf Ur Squamous Epith Cells 5-10 H (0-5) /hpf Amorphous Sediment Trace /hpf Urine Bacteria 1+ H (NONE) /hpf Hyaline Casts 0-4 H /lpf Urine Mucus 3+ /hpf Urine Opiates Scre en Negative (Negative) ng/mL Ur Barbiturates Sc reen Negative (Negative) ng/mL Ur Phencyclidine S crn Negative (Negative) ng/mL Ur Amphetamines Sc reen Negative (Negative) ng/mL U Benzodiazepines Scrn Negative (Negative) ng/mL Urine Cocaine Scre en Negative (Negative) ng/mL U Marijuana (THC) Screen Negative (Negative) ng/mL SARS-CoV-2 Ag (Rap id) Negative (Negative) Imaging Data^: CTA Chest: Radiologist's impression: [address] [address] [address] Scan Report Signed Patient: Caesar Josue #: [id number] : 6Acct#:[id number] Age/Sex: 75 / MADM Date: 09/07/20 Loc: ERRoom/Bed: Attending Dr: Ordering Provider/Ordering MD: Ani Lr MD, [facility] Date of Service: 09/07/20 Procedure(s): CT angio chest PE protcl [id number] Accession Number(s): [id number] Report Number: [id number] PROCEDURE INFORMATION: Exam: CT Angiography Chest With Contrast Exam date and time: 09/07/2020 9:05 PM Age: 75 years old Clinical indication: Shortness of breath; Additional info: SOB TECHNIQUE: Imaging protocol: Computed tomographic angiography of the chest with intravenous contrast. 3D rendering (Not supervised by radiologist): MIP and/or 3D reconstructed images were created by the technologist. Radiation optimization: All CT scans at this facility use at least one of these dose optimization techniques: automated exposure control; mA and/or kV adjustment per patient size (includes targeted exams where dose is matched to clinical indication); or iterative reconstruction. Contrast material: OMNI 350; Contrast volume: 79 ml; Contrast route: INTRAVENOUS (IV); COMPARISON: No relevant prior studies available. RADIATION DOSE METRICS: Total DLP (mGy-cm): 566.39 FINDINGS: Limitations: The study is limited due to patient respiratory motion. Pulmonary arteries: Pulmonary arteries are well opacified. Pulmonary arteries are normal in caliber. No filling defects are demonstrated. No evidence of pulmonary embolism. Aorta: Mild atherosclerosis of the thoracic aorta. No aortic aneurysm. No aortic dissection. Lungs: No consolidative pulmonary infiltrate noted. Pleural space: No pneumothorax. No pleural effusion. Heart: No evidence of RV enlargement or RV dysfunction. Mild cardiomegaly is noted. Lymph nodes: No pathologically enlarged lymph nodes are demonstrated. Bones/joints: Unremarkable. No acute fracture. Soft tissues: Unremarkable. CT/CT angio chest PE protcl [id number] IMPRESSION: 1. The study is limited due to patient respiratory motion. 2. No evidence of pulmonary embolism. 3. No evidence of aortic dissection. 4. Mild cardiomegaly is noted. No evidence of RV enlargement or RV dysfunction. 5. No consolidative pulmonary infiltrate noted. Radiation Dose CTDIVOL = (mGy): DLP = 566.39 (mGy-cm) Dictated By:Adilson Dill MD Signed By:Adilson Dill MDSigned Date/Time:09/07/202210 DD/ 09 US: Radiologist's impression: [address] [address] Ultrasound Report Signed Patient: Caesar Josue #: [id number] : 6[facility]#:[id number] Age/Sex: 75 / MADM Date: 09/07/20 Loc: ERRoom/Bed: Attending Dr: Ordering Provider/Ordering MD: Ani Lr MD, [facility] [place] Date of Service: 09/07/20 Procedure(s): [place] [id number] Accession Number(s): [id number] Report Number: [id number] PROCEDURE INFORMATION: Exam: US Duplex Lower Extremity Veins, Bilateral Exam date and time: 09/07/2020 10:01 PM Age: 75 years old Clinical indication: Swelling (edema) of limb; Lower extremity, bilateral; Additional info: Pain, swelling TECHNIQUE: Imaging protocol: Real-time duplex ultrasound of the extremities with 2-D melara scale, color Doppler flow and spectral waveform analysis with image documentation. Complete exam focused on the bilateral lower extremity veins. COMPARISON: No relevant prior studies available. FINDINGS: Right deep veins: Unremarkable. The common femoral, femoral, proximal profunda femoral and popliteal veins are patent without thrombus. Normal Doppler waveforms. Normal compressibility and/or augmentation response. Right superficial veins: Saphenofemoral junction is patent without thrombus. Left deep veins: Unremarkable. The common femoral, femoral, proximal profunda femoral and popliteal veins are patent without thrombus. Normal Doppler waveforms. Normal compressibility and/or augmentation response. Left superficial veins: Saphenofemoral junction is patent without thrombus. Soft tissues: Unremarkable. US/[place] [id number] IMPRESSION: No evidence of deep vein thrombosis, bilateral lower extremities. Dictated By:Adilson Dill MD Signed By:Adilson Dill MDSigned Date/Time:09/07/202231 DD/ 30 EKG Data^: EKG 1: Attestation: I personally reviewed and interpreted this EKG as follows: EKG interpretation date: 09/07/20 EKG interpretation time: 18: Prior EKG tracings: not available for review Interpretation: Sinus rhythm with occasional PVCs. Heart rate 86 bpm. Left axis deviation. Right bundle branch block. No ST changes. Discharge Plan Discharge Patient Disposition: Admitted As Inpatient Clinical Impression: Heart failure, Adult failure to thrive Condition: Stable Prescriptions: No Action pregabalin 150 mg capsule 150 mg PO BID RF: 0 pantoprazole 40 mg tablet,delayed release (/EC) 40 mg PO DAILY RF: 0 aspirin 81 mg tablet,delayed release (DR/EC) 81 mg PO DAILY RF: 0 amlodipine 10 mg tablet 10 mg PO DAILY RF: 0 simvastatin 80 mg tablet 40 mg PO QPM RF: 0 lisinopril-hydrochlorothiazide 20-12.5 mg tablet 2 tab PO DAILY RF: 0 Coding Level of Care Code ED Multiplex Operator for Shyla Ramos
[2020-09-08] MEDS: pregabalin 150 mg Capsule PO ×3 (00:26→17:45)
[2020-09-08] MEDS: HYDROmorphone 1 mg/mL INJ 1 mL 0.5 MG IVP (01:09)
--- NOTE | 2020-09-08 02:10 | XRR_ITS ---
PROCEDURE INFORMATION: Exam: XR Left Foot Exam date and time: 09/08/2020 9:59 AM Age: 75 years old Clinical indication: Pain; Foot; Left; Additional info: Rule out osteomyelitis, esr 98 TECHNIQUE: Imaging protocol: XR Left foot. Views: 1 or 2 views. COMPARISON: CT ankle LT wo con* [id number] 09/07/2020 11:39 PM FINDINGS: Bones/joints: Prominent chronic degenerative disease is present in the 1st metatarsophalangeal joint with narrowing sclerosis and osteophyte formation. Degenerative changes are present in the ankle and tarsal bones with joint space narrowing and osteophytes. No fracture or other acute abnormalities are seen. Soft tissues: There is soft tissue swelling around the foot. Vasculature: Prominent atherosclerotic calcifications are present. Other findings: The foot is flat. XR/XR foot LT 2V [id number] IMPRESSION: 1. Chronic degenerative joint disease. No acute bony abnormality. 2. Flatfoot. 3. Soft tissue swelling. Prominent atherosclerotic calcifications.
[2020-09-08] MEDS: enoxaparin 40 mg/0.4 mL Syringe SUBCUT (02:48)
[2020-09-08] MEDS: sodium chlor 0.45% +KCl 20 mEq 20 MEQ/1,000 ML BAG 75 MEQ IV ×2 (02:48→17:45)
[2020-09-08] MEDS: piperacillin-tazobactam 3.375 GM in sodium chloride 0.9% (plus) 50 ML IV (06:26)
[2020-09-08 06:58] LABS: Basophils % 0.2 %; Eosinophils # 0.1 10^3/uL (0.0-0.8); Eosinophils % 0.4 %; Hematocrit 34.6 % (42.0-52.0); Hemoglobin 11.2 g/dL (11.7-16.6); Lymphocytes # 1.6 10^3/uL (0.8-4.8); Lymphocytes % 11.8 %; Mean Corpuscular HGB Conc 32.4 g/dL (30.0-36.0); Mean Corpuscular Hemoglobin 28.6 pg (28.0-34.0); Mean Corpuscular Volume 88.3 fL (80-94); Mean Platelet Volume 11.1 fL (7.4-10.4); Monocytes # 1.6 10^3/uL (0.2-0.9); Monocytes % 12.1 %; Neutrophils # 9.88 10^3/uL (1.8-7.7); Nucleated Red Blood Cells % 0 %; Platelet Count 438 10^3/cmm (130-400); Red Blood Count 3.92 10^6/uL (4.1-5.3); Red Cell Distribution Width 15.1 % (12.1-15.1); White Blood Count 13.2 10^3/uL (4.0-10.0)
[2020-09-08 07:17] LABS: INR 1.42 (0.8-1.2)
[2020-09-08 07:18] LABS: Fibrinogen 840 mg/dL (174-498); Partial Thromboplastin Time 44.6 SECONDS (23.9-36.7)
[2020-09-08 07:54] LABS: Alanine Aminotransferase 35 U/L (0-41); Albumin Level 2.4 g/dL (3.5-5.2); Alkaline Phosphatase 93 IU/L (40-130); Anion Gap 12.2 (5-19); Aspartate Amino Transferase 73 U/L (0-40); Blood Urea Nitrogen 21 mg/dL (8-23); Calcium 8.6 mg/dL (8.5-10.5); Carbon Dioxide 30 mmol/L (22-29); Chloride 101 mmol/L (98-107); Creatinine Clr Calc Pharmacy 105.3241; Globulin 3.6 g/dL (1.3-4.6); Glucose 110 mg/dL (65-115); Osmolality Calculated 294 mOsm/kg (285-295); Potassium 3.2 mmol/L (3.5-5.1); Sodium 140 mmol/L (136-145); Total Bilirubin 0.7 mg/dL (0.15-1.2)
--- NOTE | 2020-09-08 08:19 | ECG_ITS ---
[facility] Test Date: 2020-09-08 Pat Name: Caesar Josue Department: Room: 254 Gender: Male Vp Project: : 1945 Requested By: Reggie Siddiqui Order Number: [id number] Markos MD: Rosa Frey M.D. Measurements Intervals [place] Rate: 58 P: 83 NC: 190 QRS: -58 QRSD: 153 T: -10 QT: 470 QTc: 462 Interpretive Statements SINUS BRADYCARDIA WITH FREQUENT VENTRICULAR PREMATURE COMPLEXES IN A BIGEMINAL PATTERN MARKED LEFT AXIS DEVIATION [QRS AXIS < -30] RIGHT BUNDLE BRANCH BLOCK [120+ ms QRS DURATION, UPRIGHT V1, 40+ ms S IN I/aVL/V4/V5/V6] Compared to ECG 09/07/2020 18:21:26 Sinus rhythm no longer present Electronically Signed On 09-08-2020 21:58:53 WEAVER APPRENTICE by Rosa Frey M.D. [id number] f
[2020-09-08] MEDS: aspirin 81 mg EC Tablet PO (08:25)
[2020-09-08] MEDS: lisinopril 20 mg Tablet PO (08:25)
[2020-09-08] MEDS: escitalopram 10 mg Tablet PO (08:25)
[2020-09-08] MEDS: amlodipine 10 mg Tablet PO (08:25)
[2020-09-08 09:23] LABS: Platelet Count 438 10^3/cmm (130-400)
[2020-09-08 09:25] LABS: Magnesium 1.8 mg/dL (1.7-2.3)
[2020-09-08 10:36] LABS: Free T4 Free Thyroxine 0.96 ng/dL (0.82-1.77); Thyroid Stimulating Hormone 1.63 uIU/mL (0.27-4.20)
[2020-09-08 11:19] LABS: Cortisol Random 23.56 ug/mL (2.47-19.5)
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
--- NOTE | 2020-09-08 12:57 | PC.CHAP ---
Pastoral Care Encounter/Spiritual Assessment Type of Contact [] Declined graphic technician visit [] Patient/Family/Request visit [] Outpatient visit [] Follow-up visit [] Physician referral [] Code/Alert [] Routine visit [] Staff referral [] Actively dying [X] Patient sleeping [] Family support [] [] Out of room [] Palliative care [] [] Receiving care in room [] Pre-surgical visit [] Trauma [] Long length of stay [] ICU visit [] Other: Relational/Emotional Strength [] Patient feels connected with others/family/visitors/staff [] Distress [] Loneliness/isolation [] Abandonment Spirituality of Patient [] Person of Fiona [] Attends Rastafarian of their Fiona [] Believes in Prayer [] Reads Bible or Mu-Ism materials [] There are Spiritual issues to be addressed Entry Level Drafter Interventions [] Prayer [] Active listening [] Non-anxious presence [] Spiritual/emotional support [] Crisis/trauma care [] Spiritual counseling [] Bereavement support [] Provided bereavement packet [] Provided Bible/devotional materials [] Provided toy/stuffed animal, coloring book to patient or family member [] Provided Communion [] Anointing/[place] [] Salvation [] Completed spiritual assessment [] Other: Impact on Illness or Injury [] Angry [] Fearful [] Anxious [] Often cries [] Exhaustion [] Unable to work [] Unable to attend amish [] Unable to walk/stand [] Unable to read [] Unable to drive [] Unable to eat/drink [] Unable to sleep [] Unable to be with family [] Patient intubated [] Other: Summary Time spent with patient
[2020-09-08] MEDS: cefTRIAXone 1,000 MG in sodium chloride 0.9% (plus) 50 ML 100 MG IV (13:23)
[2020-09-09] VITALS (9 sets, daily range): BP systolic 99–142; BP diastolic 63–88; PULSE 47–68; RESP 15–22; TEMP 36.6–37; O2SAT 93–95
[2020-09-09] MEDS: enoxaparin 40 mg/0.4 mL Syringe SUBCUT (02:04)
--- NOTE | 2020-09-09 05:22 | PC.NURSE ---
SHIFT SUMMARY Has rested well without c/o. IV fluids infusing at 75ml/hr rate. Wears brace to right wrist. Voids small amts per urinal.
[2020-09-09 05:33] LABS: Basophils % 0.4 %; Eosinophils # 0.2 10^3/uL (0.0-0.8); Eosinophils % 1.9 %; Hematocrit 35.7 % (42.0-52.0); Hemoglobin 11.4 g/dL (11.7-16.6); Lymphocytes # 1.7 10^3/uL (0.8-4.8); Lymphocytes % 16.7 %; Mean Corpuscular HGB Conc 31.9 g/dL (30.0-36.0); Mean Corpuscular Hemoglobin 28.8 pg (28.0-34.0); Mean Corpuscular Volume 90.2 fL (80-94); Monocytes # 1.2 10^3/uL (0.2-0.9); Neutrophils # 6.83 10^3/uL (1.8-7.7); Neutrophils % 68.7 %; Nucleated Red Blood Cells % 0 %; Platelet Count 441 10^3/cmm (130-400); Red Blood Count 3.96 10^6/uL (4.1-5.3); Red Cell Distribution Width 15.8 % (12.1-15.1); White Blood Count 9.9 10^3/uL (4.0-10.0)
[2020-09-09 06:04] LABS: Anion Gap 12.6 (5-19); Blood Urea Nitrogen 31 mg/dL (8-23); Calcium 8.2 mg/dL (8.5-10.5); Carbon Dioxide 28 mmol/L (22-29); Chloride 102 mmol/L (98-107); Creatinine Clr Calc Pharmacy 105.3241; Glucose 91 mg/dL (65-115); Osmolality Calculated 294 mOsm/kg (285-295); Potassium 3.6 mmol/L (3.5-5.1); Sodium 139 mmol/L (136-145)
[2020-09-09] MEDS: pregabalin 150 mg Capsule PO ×2 (08:17→17:19)
[2020-09-09] MEDS: lisinopril 20 mg Tablet PO (08:17)
[2020-09-09] MEDS: amlodipine 10 mg Tablet PO (08:17)
[2020-09-09] MEDS: escitalopram 10 mg Tablet PO (08:17)
[2020-09-09] MEDS: aspirin 81 mg EC Tablet PO (08:17)
[2020-09-09] MEDS: sodium chlor 0.45% +KCl 20 mEq 20 MEQ/1,000 ML BAG 75 MEQ IV ×2 (08:19→18:37)
[2020-09-09] MEDS: cefTRIAXone 1,000 MG in sodium chloride 0.9% (plus) 50 ML 100 MG IV (12:13)
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
[2020-09-10] VITALS (9 sets, daily range): BP systolic 106–124; BP diastolic 53–72; PULSE 54–80; RESP 16–18; TEMP 36.8–37.4; O2SAT 92–96
[2020-09-10] MEDS: enoxaparin 40 mg/0.4 mL Syringe SUBCUT (04:09)
[2020-09-10 05:34] LABS: Basophils % 0.5 %; Eosinophils # 0.2 10^3/uL (0.0-0.8); Eosinophils % 2.5 %; Hematocrit 34.1 % (42.0-52.0); Hemoglobin 10.6 g/dL (11.7-16.6); Lymphocytes # 1.9 10^3/uL (0.8-4.8); Lymphocytes % 22.2 %; Mean Corpuscular HGB Conc 31.1 g/dL (30.0-36.0); Mean Corpuscular Hemoglobin 28.7 pg (28.0-34.0); Mean Corpuscular Volume 92.4 fL (80-94); Mean Platelet Volume 10.7 fL (7.4-10.4); Monocytes # 1.1 10^3/uL (0.2-0.9); Monocytes % 12.4 %; Nucleated Red Blood Cells % 0 %; Platelet Count 429 10^3/cmm (130-400); Red Blood Count 3.69 10^6/uL (4.1-5.3); Red Cell Distribution Width 15.9 % (12.1-15.1); White Blood Count 8.5 10^3/uL (4.0-10.0)
[2020-09-10 05:52] LABS: Anion Gap 12.1 (5-19); Blood Urea Nitrogen 27 mg/dL (8-23); Calcium 8.3 mg/dL (8.5-10.5); Carbon Dioxide 28 mmol/L (22-29); Chloride 106 mmol/L (98-107); Creatinine Clr Calc Pharmacy 105.3241; Glucose 144 mg/dL (65-115); Osmolality Calculated 302 mOsm/kg (285-295); Potassium 4.1 mmol/L (3.5-5.1); Sodium 142 mmol/L (136-145)
--- NOTE | 2020-09-10 06:29 | PC.NURSE ---
Bladder Scan = 91 mls.
[2020-09-10] MEDS: aspirin 81 mg EC Tablet PO (08:31)
[2020-09-10] MEDS: pregabalin 150 mg Capsule PO ×2 (08:31→17:18)
[2020-09-10] MEDS: sodium chlor 0.45% +KCl 20 mEq 20 MEQ/1,000 ML BAG 75 MEQ IV ×2 (08:31→22:44)
[2020-09-10] MEDS: escitalopram 10 mg Tablet PO (08:31)
[2020-09-10] MEDS: amlodipine 10 mg Tablet PO (08:31)
[2020-09-10] MEDS: lisinopril 20 mg Tablet PO (08:31)
[2020-09-10] MEDS: cefTRIAXone 1,000 MG in sodium chloride 0.9% (plus) 50 ML 100 MG IV (12:18)
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
[2020-09-10 15:06] LABS: Uric Acid 5.3 mg/dL (3.4-7.0)
[2020-09-11] MEDS: enoxaparin 40 mg/0.4 mL Syringe SUBCUT (03:04)
[2020-09-11 03:26] VITALS: BP 109/58; PULSE 65; RESP 17; TEMP 37.2; O2SAT 97
[2020-09-11 07:32] VITALS: PULSE 59; RESP 18; O2SAT 95
[2020-09-11 07:55] VITALS: BP 120/70; PULSE 60; RESP 18; TEMP 36.6; O2SAT 97
[2020-09-11] MEDS: pregabalin 150 mg Capsule PO ×2 (08:59→18:01)
[2020-09-11] MEDS: aspirin 81 mg EC Tablet PO (09:00)
[2020-09-11] MEDS: escitalopram 10 mg Tablet PO (09:00)
[2020-09-11] MEDS: amlodipine 10 mg Tablet PO (09:00)
[2020-09-11] MEDS: lisinopril 20 mg Tablet PO (09:00)
[2020-09-11] MEDS: morphine 4 mg/mL SDV 1 mL 2 MG IVP (09:49)
--- NOTE | 2020-09-11 10:32 | PC.SOCIAL ---
IMM Update Pg.2 of IMM updated and reviewed with patient, who verbalized undertanding. Copy provided.
[2020-09-11 11:39] VITALS: BP 136/73; PULSE 41; RESP 18; TEMP 36.6; O2SAT 93
[2020-09-11] MEDS: sodium chlor 0.45% +KCl 20 mEq 20 MEQ/1,000 ML BAG 75 MEQ IV (11:46)
[2020-09-11] MEDS: cefTRIAXone 1,000 MG in sodium chloride 0.9% (plus) 50 ML 100 MG IV (11:47)
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
[2020-09-11 15:58] VITALS: BP 91/64; PULSE 70; RESP 18; TEMP 37.4; O2SAT 98
--- NOTE | 2020-09-11 18:49 | PC.NURSE ---
Patient discharged to [facility], discharge instructions sent with patient. No questions at this time. IV was removed, tip intact. Dressing applied. Patient tolerated well. Discharged with transport, via wheelchair.
[2020-09-11 19:04] VITALS: BP 91/64; PULSE 70; RESP 18; TEMP 37.4; O2SAT 98
== END 2020-09-11 18:45 | disposition skilled nursing facility (03) | DRG 872 ==
LOC: ER 09-08 00:35 → MEDSURG 09-08 01:31
PROVIDERS: Internal Medicine; Admitting Provider Internal Medicine; Emergency Provider Family Medicine; Visit Provider Internal Medicine
DX: A41.9 Sepsis, unspecified organism (principal); A52.16 Charcot's arthropathy (tabetic); I50.30 Unspecified diastolic (congestive) heart failure; T74.01XA Adult neglect or abandonment, confirmed, initial encounter; L03.116 Cellulitis of left lower limb; J44.9 Chronic obstructive pulmonary disease, unspecified; M54.12 Radiculopathy, cervical region; E78.5 Hyperlipidemia, unspecified; I11.0 Hypertensive heart disease with heart failure; Z87.891 Personal history of nicotine dependence; E87.6 Hypokalemia; R19.7 Diarrhea, unspecified; F32.9 Major depressive disorder, single episode, unspecified; M54.32 Sciatica, left side; E86.0 Dehydration; D64.9 Anemia, unspecified; R00.1 Bradycardia, unspecified; R62.7 Adult failure to thrive; Z68.33 Body mass index [BMI] 33.0-33.9, adult; Z79.82 Long term (current) use of aspirin; M79.675 Pain in left toe(s)
CPT/HCPCS: 12345; 36415; 71275; 73620; 73700; 80048; 80053; 80306; 81001; 82533; 82550; 83605; 83735; 83880; 84145; 84439; 84443; 84550; 85025; 85049; 85378; 85384; 85610; 85651; 85730; 86140; 87040; 87426; 93005; 93970; 96372; 96375; 97110; 97161; 97166; 97530; 99283; J0696; J1170; J1650; J2270; J2543; J3370; J7040; Q9967

== ENCOUNTER 2020-10-31 05:45 | Outpatient (CLI) | payer MEDICARE, SELFPAY ==
[2020-10-31 06:20] LABS: Basophils % 0.4 %; Eosinophils # 0.1 10^3/uL (0.0-0.8); Eosinophils % 1.1 %; Hematocrit 28.1 % (42.0-52.0); Hemoglobin 8.7 g/dL (11.7-16.6); Lymphocytes % 19.1 %; Mean Corpuscular Hemoglobin 26.5 pg (28.0-34.0); Mean Corpuscular Volume 85.7 fL (80-94); Mean Platelet Volume 10.3 fL (7.4-10.4); Monocytes # 1.4 10^3/uL (0.2-0.9); Monocytes % 12.8 %; Neutrophils % 65.8 %; Nucleated Red Blood Cells % 0 %; Platelet Count 457 10^3/cmm (130-400); Red Blood Count 3.28 10^6/uL (4.1-5.3); White Blood Count 10.6 10^3/uL (4.0-10.0)
[2020-10-31 06:30] LABS: Anion Gap 13.1 (5-19); Blood Urea Nitrogen 17 mg/dL (8-23); Calcium 7.9 mg/dL (8.5-10.5); Carbon Dioxide 28 mmol/L (22-29); Chloride 102 mmol/L (98-107); Glucose 90 mg/dL (65-115); Osmolality Calculated 289 mOsm/kg (285-295); Potassium 4.1 mmol/L (3.5-5.1); Sodium 139 mmol/L (136-145)
== END 2020-10-31 05:46 | disposition home or self-care (01) ==
PROVIDERS: Visit Provider Internal Medicine
DX: I10 Essential (primary) hypertension (principal); I11.0 Hypertensive heart disease with heart failure; E78.5 Hyperlipidemia, unspecified
CPT/HCPCS: 80048; 84443; 85025

== ENCOUNTER 2021-06-20 14:53 | Inpatient (IN) | payer OTHER, MEDICARE, SELFPAY ==
[2021-06-20 14:56] VITALS: BP 144/77; PULSE 60; RESP 25; TEMP 37.1; O2SAT 96; BMI 31.1
--- NOTE | 2021-06-20 16:01 | CTR_ITS ---
PROCEDURE INFORMATION: Exam: CT Head Without Contrast Exam date and time: 06/20/2021 4:01 PM Age: 75 years old Clinical indication: Altered mental status/memory loss TECHNIQUE: Imaging protocol: Computed tomography of the head without contrast. Radiation optimization: All CT scans at this facility use at least one of these dose optimization techniques: automated exposure control; mA and/or kV adjustment per patient size (includes targeted exams where dose is matched to clinical indication); or iterative reconstruction. COMPARISON: No relevant prior studies available. 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 No hemorrhage. Moderate diffuse cerebral atrophy. No mass effect. Cerebral ventricles: No ventriculomegaly. Paranasal sinuses: Mild mucosal thickening throughout the paranasal sinuses. Mastoid air cells: Visualized mastoid air cells are well aerated. Bones/joints: Unremarkable. No acute fracture. Soft tissues: Unremarkable. CT/CT head wo con* [id number] IMPRESSION: 1. No acute intracranial abnormality. 2. Moderate diffuse cerebral atrophy. 3. 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 Radiation Dose CTDIVOL = (mGy): DLP = 750.32 (mGy-cm)
--- NOTE | 2021-06-20 16:01 | XR_ITS ---
WS: [id number] Exam: XR chest 1V portable [id number] Date/Time of Exam: 06/20/2021 4:27 PM Reason For Exam: dyspnea/cough Comparison 10/11/2006 Mild infiltrate in the right lower lung zone. Remaining lung boo are clear. Heart size is normal. The mediastinum is not widened. Regional bony elements are intact. XR/XR chest 1V portable [id number] IMPRESSION: 1. Mild infiltrate in the right lower lung zone. Developing pneumonia is not ex cluded.
--- NOTE | 2021-06-20 16:07 | ED_ITS ---
HPI - SOB/Dyspnea General: Chief Complaint: Shortness of Breath/Dyspnea Stated Complaint: DIFF BREATHING Time Seen by Provider: 06/20/21 15:26 History of Present Illness: HPI Narrative: 75-year-old male presents emergency room confused and short of breath. He is at a local longterm last 3 to 4 days has had increasing shortness of breath markedly worse last hour and a half he is now requiring 3 to 4 L by nasal cannula were normal he is breathing on room air without difficulty. He is disoriented. He tells me he lives at home he gets confused as to whether or not his is still alive. he cannot really tell me anything about his medical history or reviewing his current symptoms other than he feels short of breath. He makes a mention of the fact that he normally is not on oxygen but was started a few days ago but cannot tell me how much or why they started him on it. MD elicited complaint: shortness of breath Pertinent past history: COPD Onset (ago): day(s) Timing: constant Severity: moderate Exacerbating factors: nothing Relieving factors: nothing Associated symptoms: Reports cough; Deny abdominal pain, chest congestion, chest pain, diaphoresis, dizziness, ext remity pain, fever(s), hemoptysis, lightheadedness, myalgias, nausea, orthopnea, palpitations, paresthesias, polydipsia, polyuria, rash, sense of impending doom, syncope or vomiting Treatment prior to arrival: oxygen Review of Systems Const: Denies: fever(s) or diaphoresis ENMT: Denies: throat pain, ear or mastoid pain, nasal discharge or nasal congestion Card: Denies: chest pain, palpitations, lightheadedness, syncope or orthopnea Resp: Denies: hemoptysis or chest congestion GI: Denies: abdominal pain, nausea or vomiting : Denies: flank pain, dysuria, urinary frequency or urinary urgency Musc: Denies: extremity pain Skin/Breast: Denies: rash or pruritus Neuro: Denies: dizziness Endo: Denies: polyuria or polydipsia PFSH ED 2 PFSH: Medical History Asthma Carpal tunnel syndrome of left wrist Cervical radiculopathy Charcot's joint, 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 Hyperlipidemia Hypertension SLAC (scapholunate advanced collapse) of wrist Surgical History H/O knee surgery History of carpal tunnel surgery Family History Denies family history of Diabetes CAD (coronary artery disease) Clotting disorder Dementia Hyperlipidemia Psychiatric illness Chronic kidney disease (CKD) Suicide Anesthesia complication Bleeding disorder Family history of premature coronary artery disease Lung disease Cancer Hypertension Stroke Social History Smoking and tobacco status: former smoker Alcohol intake: never Lives independently: No Housing: [facility] Physical Exam Const: COMMON NORMALS: no acute distress GENERAL APPEARANCE: cooperative and comfortable ORIENTATION/CONSCIOUSNESS: Yes awake HENMT: COMMON NORMALS: normocephalic, atraumatic and hearing grossly normal bilaterally HEAD & SCALP: normocephalic and atraumatic Resp: AUSCULTATION: rhonchi right lower and wheezes Cardio: COMMON NORMALS: regular rate, regular rhythm and No murmurs present (Cardio) RATE: regular rate RHYTHM: regular rhythm GI: COMMON NORMALS: Soft to palpation and No hepatosplenomegaly present AUSCULTATION: Yes normoactive bowel sounds PALPATION: Yes Soft to palpation, No Tenderness to palpation present (GI), No Guarding due to palpation present (GI) and Yes No hepatosplenomegaly present Extremity: COMMON NORMALS: normal to inspection, capillary refill normal, no clubbing, cyanosis or edema, no calf tenderness and no pedal edema Skin: COMMON NORMALS: no rashes or lesions noted GENERAL SKIN EXAM: no rashes or lesions noted Course Vital Signs: Vital signs: Vital Signs Temperature 97.9 F 06/25/21 07:32 Pulse Rate 57 L 06/25/21 07:32 Respiratory Rate 16 06/25/21 07:32 Blood Pressure 146/74 06/25/21 07:32 Pulse Oximetry 95 06/25/21 07:32 MDM - SOB/Dyspnea MDM Narrative: Medical decision making narrative: Reviewed labs and imaging on the chart. Worsening gotten admit the patient started on antibiotics with Zosyn and Vanco we have screened him for Covid as well. For mild anemia. Discussed Dr. Narvaez orders written Lab Data: Labs: Lab Results 06/20/21 06/20/21 06/20/21 15:28 15:28 15:28 WBC 6.5 10^3/uL 10^3/ uL (4.0-10.0) RBC 4.55 10^6/uL 10^6 /uL (4.1-5.3) Hgb 12.2 g/dL g/dL (11.7-16.6) Hct 39.4 % L % (42.0-52.0) MCV 86.6 fl fl (80-94) MCH 26.8 pg L pg (28.0-34.0) MCHC 31.0 g/dL g/dL (30.0-36.0) RDW 18.9 % H % (12.1-15.1) Plt Count 348 10^3/cmm 10^3 /cmm (130-400) MPV 10.0 fL fL (7.4-10.4) Neut % (Auto) 84.3 % % Lymph % (Auto) 12.6 % % [place] % (Auto) 1.8 % % Eos % (Auto) 0.5 % % Baso % (Auto) 0.5 % % Neut # (Auto) 5.47 10^3/uL 10^3 /uL (1.8-7.7) Lymph # (Auto) 0.8 10^3/uL 10^3/ uL (0.8-4.8) [place] # (Auto) 0.1 10^3/uL L 10^ 3/uL (0.2-0.9) Eos # (Auto) 0.0 10^3/uL 10^3/ uL (0.0-0.8) Baso # (Auto) 0.0 10^3/uL 10^3/ uL (0.0-0.1) Nucleated RBC % (a uto) 0 % % Nucleated RBCs # 0.0 /100WBC /100W BC Specimen Type Sample Site ABG pH ABG pCO2 ABG pO2 ABG HCO3 ABG O2 Saturation ABG Base Excess Shubham Test A-a O2 Gradient Hematocrit Hgb O2 Saturation Carboxyhemoglobin Methemoglobin Total Hemoglobin Ionized Calcium O2 Delivery Device O2 Liters/Min FiO2 American Sign Language Teacher ID Sodium 136 mmol/L mmol/L (136-145) Potassium 4.2 mmol/L mmol/L (3.5-5.1) Chloride 96 mmol/L L mmol/ L (98-107) Carbon Dioxide 33 mmol/L H mmol/ L (22-29) Anion Gap 11.2 (5-19) BUN 16 mg/dL mg/dL (8-23) Creatinine 0.5 mg/dL L mg/dL (0.7-1.2) GFR Calculation Not Reportable Glucose 149 mg/dL H mg/dL (65-115) Calculated Osmolal ity 286 mOsm/kg mOsm/ kg (285-295) Lactic Acid 1.0 mmol/L mmol/L (0.5-2.2) Calcium 8.9 mg/dL mg/dL (8.5-10.5) Magnesium 1.9 mg/dL mg/dL (1.7-2.3) Total Bilirubin 0.2 mg/dL mg/dL (0.15-1.2) AST 13 U/L U/L (0-40) ALT < 5 U/L U/L (0-41) Alkaline Phosphata se 66 IU/L IU/L (40-130) Creatine Kinase 96 U/L U/L (39-308) Total Protein 7.1 g/dL g/dL (6.6-8.7) Albumin 3.7 g/dL g/dL (3.5-5.2) Globulin 3.4 g/dL g/dL (1.3-4.6) Lipase 19 U/L U/L (13-60) Nasal/Oral COVID-1 9 PCR SARS-CoV-2 Ag (Rap id) 06/20/21 06/20/21 06/20/21 16:52 17:35 17:35 WBC RBC Hgb Hct MCV MCH MCHC RDW Plt Count MPV Neut % (Auto) Lymph % (Auto) [place] % (Auto) Eos % (Auto) Baso % (Auto) Neut # (Auto) Lymph # (Auto) [place] # (Auto) Eos # (Auto) Baso # (Auto) Nucleated RBC % (a uto) Nucleated RBCs # Specimen Type Arterial Sample Site Radial, right ABG pH 7.35 (7.35-7.45) ABG pCO2 66.1 mmHg H* mmHg (35-45) ABG pO2 185.0 mmHg H mmHg (80.0-100.0) ABG HCO3 36.6 mmol/L H mmo l/L (22-26) ABG O2 Saturation 99.8 ABG Base Excess 8.7 mmol/L H mmol /L (-2.0-2.0) Shubham Test Pos A-a O2 Gradient Not Reportable Hematocrit 38.3 % L % (42-52) Hgb O2 Saturation 98.1 % % (95-100) Carboxyhemoglobin 0.6 %THgb %THgb (0.4-20.1) Methemoglobin 1.1 % % (0.4-1.5) Total Hemoglobin 12.5 g/dL L g/dL (14-18) Ionized Calcium 1.2 mmol/L mmol/L (1.1-1.4) O2 Delivery Device Nc O2 Liters/Min 3.0 % % FiO2 32.0 % % American Sign Language Teacher ID [place]ro Sodium 143.0 mmol/L mmol /L (131-143) Potassium 4.2 mmol/L mmol/L (3.5-5.0) Chloride Carbon Dioxide Anion Gap BUN Creatinine GFR Calculation Glucose 162.0 mg/dL H mg/ dL (70-115) Calculated Osmolal ity Lactic Acid Calcium Magnesium Total Bilirubin AST ALT Alkaline Phosphata se Creatine Kinase Total Protein Albumin Globulin Lipase Nasal/Oral COVID-1 9 PCR Not detected SARS-CoV-2 Ag (Rap id) Negative (Negative) Discharge Plan Discharge Patient Disposition: Admitted As Inpatient Admit Provider: Jose Narvaez Clinical Impression: Asthma exacerbation, Pneumonia, Hypoxia, Hypertension, Anemia Condition: Stable Coding Level of Care Code ED Medical Policy Specialist for g Fwd Exam Detailed
[2021-06-20 16:13] LABS: Basophils % 0.5 %; Eosinophils % 0.5 %; Hematocrit 39.4 % (42.0-52.0); Hemoglobin 12.2 g/dL (11.7-16.6); Lymphocytes # 0.8 10^3/uL (0.8-4.8); Lymphocytes % 12.6 %; Mean Corpuscular Hemoglobin 26.8 pg (28.0-34.0); Mean Corpuscular Volume 86.6 fl (80-94); Monocytes # 0.1 10^3/uL (0.2-0.9); Monocytes % 1.8 %; Neutrophils # 5.47 10^3/uL (1.8-7.7); Neutrophils % 84.3 %; Nucleated Red Blood Cells % 0 %; Platelet Count 348 10^3/cmm (130-400); Red Blood Count 4.55 10^6/uL (4.1-5.3); Red Cell Distribution Width 18.9 % (12.1-15.1); White Blood Count 6.5 10^3/uL (4.0-10.0)
[2021-06-20 16:24] LABS: Alanine Aminotransferase < 5 U/L (0-41); Albumin Level 3.7 g/dL (3.5-5.2); Alkaline Phosphatase 66 IU/L (40-130); Anion Gap 11.2 (5-19); Aspartate Amino Transferase 13 U/L (0-40); Blood Urea Nitrogen 16 mg/dL (8-23); Calcium 8.9 mg/dL (8.5-10.5); Carbon Dioxide 33 mmol/L (22-29); Chloride 96 mmol/L (98-107); Creatine Phosphokinase 96 U/L (39-308); Creatinine Clr Calc Pharmacy 101.1661; Globulin 3.4 g/dL (1.3-4.6); Glucose 149 mg/dL (65-115); Lipase 19 U/L (13-60); Magnesium 1.9 mg/dL (1.7-2.3); Osmolality Calculated 286 mOsm/kg (285-295); Potassium 4.2 mmol/L (3.5-5.1); Sodium 136 mmol/L (136-145); Total Bilirubin 0.2 mg/dL (0.15-1.2); Total Protein 7.1 g/dL (6.6-8.7)
[2021-06-20 17:05] LABS: ABG PH Result 7.35 (7.35-7.45); Arterial Blood Gas Hematocrit 38.3 % (42-52); Base Excess ABG 8.7 mmol/L (-2.0-2.0); Blood Gas Allen Test Pos; Blood Gas Operator Identificat MONRO; Blood Gas Sample Site Radial, right; Blood Gas Sample Type Arterial; Carboxyhemoglobin 0.6 %THgb (0.4-20.1); HCO3 ABG 36.6 mmol/L (22-26); HGB O2 Sat 98.1 % (95-100); Ionized Calcium Level - ABG 1.2 mmol/L (1.1-1.4); Methemoglobin 1.1 % (0.4-1.5); Oxygen Device NC; Oxygen Saturation ABG 99.8; Potassium Level - ABG 4.2 mmol/L (3.5-5.0); Total Hemoglobin 12.5 g/dL (14-18)
--- NOTE | 2021-06-20 17:38 | PC.PHAR ---
PT IS FROM [facility] SNF-DOXYCYCLINE HYCLATE 100MG BID AND PREDNISONE 40MG DAILY IS NOT ON PTS MAR BUT MELANIE FROM [facility] STATES THE JUST ORDERED THIS MEDICATION FOR THE PT TODAY
[2021-06-20] MEDS: piperacillin-tazobactam 3.375 GM in sodium chloride 0.9% (plus) 50 ML IV (17:50)
[2021-06-20 17:51] VITALS: BP 144/85; PULSE 54; RESP 20; O2SAT 97
[2021-06-20 18:25] LABS: SARS Covid-2 Antigen Negative (Negative)
[2021-06-20 18:38] VITALS: BP 139/80; PULSE 54; RESP 20; O2SAT 98
--- NOTE | 2021-06-20 19:57 | P.HP_ITS ---
Providers/Chief Complaint Chief Complaint: DIFF BREATHING History of Present Illness 75-year-old gentleman prison resident at [facility], nonambulatory, unable to stand to transfer with help of sit to stand, with cognitive impairment, was referred to the hospital ER for evaluation due to respiratory distress noted with respirations in the 30s, audible respirations. Earlier this morning noted to have x-ray showing emphysema, with concern for possible pneumonia started on doxycycline, also prednisone. Also today started on Bumex and potassium. However, without improvement and with worsening of respirations to the condition as noted above. In ER noted to be newly hypoxic, tachypneic to 25 bpm, not normally requiring oxygen, started on 3 L oxygen supplementation. Noted afebrile, without leukocytosis, chest x-ray with mild infiltrate in the right lower lung zone with possible pneumonia. Noted confused. Per discussion with prison staff memory issues are not new and are rather his baseline. Discussing with him he is not aware where he is, but is able to tell the year is 2020. He is not sure entirely why he is here, although states would have been disappointed returning to prison after all the waiting he had done here. Denies any pain or discomfort. Reports some cough. Mild headache. Denies nausea vomiting or diarrhea. Discussion with prison staff, no other recent complaints. Has not had vaccination for COVID-19. Not noted coughing with food or drink. Review of Systems Narrative: ROS limited due to patient's memory problems, obtained from patient, nursing staff, ER staff. Const: Denies: fever(s), chills, body aches or malaise Eyes: Denies: change in vision or eye redness ENMT: Denies: throat pain Card: Denies: chest pain, edema, pre-syncope or dyspnea on exertion Resp: Reports: dyspnea and productive cough GI: Denies: abdominal pain, nausea, vomiting, diarrhea, constipation, hematochezia or melena : Denies: flank pain, difficulty urinating, urinary frequency or hematuria Skin/Breast: Denies: rash, sores or new lesions Neuro: Reports: weakness in extremities (Chronic); Denies: headache(s), numbness in extremities or seizure-like activity All/Imm: Denies: urticaria Medications/Allergies Home Medications Medication Instructions Recorded Confirmed Last Taken Type amlodipine 10 mg tablet 10 mg PO DAILY@08 11/11/19 09/30/21 09/30/21 08:02 History aspirin 81 mg tablet,delayed 81 mg PO DAILY@11/11/19 06/20/21 06/20/21 08:02 History release pantoprazole 40 mg tablet,delayed 40 mg PO DAILY@11/11/19 06/20/21 06/20/21 05:11 History release pregabalin 150 mg capsule 150 mg PO BID 11/11/19 06/20/21 06/20/21 08:02 History acetaminophen [Tylenol] 650 mg PO Q6H PRN 06/20/21 06/20/21 Unknown History albuterol sulfate 2.5 mg INHALATION Q4H PRN 06/20/21 06/20/21 Unknown History bisacodyl [Dulcolax (bisacodyl)] 10 mg PO DAILY PRN 06/20/21 06/20/21 Unknown Hi story bisacodyl [Dulcolax (bisacodyl)] 10 mg FL DAILY PRN 06/20/21 06/20/21 Unknown History budesonide 0.25 mg INHALATION BID 06/20/21 06/20/21 06/20/21 History bumetanide 2 mg PO DAILY@06/20/21 06/20/21 06/20/21 History doxycycline hyclate 100 mg PO BID 06/20/21 06/20/21 06/20/21 12:00 History escitalopram oxalate 20 mg PO DAILY@06/20/21 06/20/21 06/20/21 History ferrous sulfate 325 mg PO DAILY@06/20/21 06/20/21 06/20/21 History ipratropium-albuterol 3 ml INHALATION TID 06/20/21 06/20/21 06/20/21 12:05 History magnesium hydroxide [Milk of 30 ml PO DAILY PRN 06/20/21 06/20/21 Unknown History Magnesia] potassium chloride 20 meq PO DAILY@06/20/21 06/20/21 06/20/21 History prednisone 40 mg PO DAILY 06/20/21 06/20/21 06/20/21 12:00 History simvastatin 40 mg PO BEDTIME@06/20/21 06/20/21 06/19/21 History sodium phosphates [Fleet Enema] 118 ml FL DAILY PRN 06/20/21 06/20/21 Unknown History Allergies Allergy/AdvReac Type Severity Reaction Status Date / Time gabapentin Allergy algy-rash Verified 06/20/21 17:21 pravastatin Allergy algy-rash Verified 06/20/21 17:21 PFSH Acute PFSH: Medical History Asthma Carpal tunnel syndrome of left wrist Cervical radiculopathy Charcot's joint, 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 Hyperlipidemia Hypertension SLAC (scapholunate advanced collapse) of wrist Surgical History H/O knee surgery History of carpal tunnel surgery Family History Denies family history of Diabetes CAD (coronary artery disease) Clotting disorder Dementia Hyperlipidemia Psychiatric illness Chronic kidney disease (CKD) Suicide Anesthesia complication Bleeding disorder Family history of premature coronary artery disease Lung disease Cancer Hypertension Stroke Social History Smoking and tobacco status: former smoker Alcohol intake: never Lives independently: No Housing: Intermediate Vitals/I&O/Wt Last Vital Signs Temp 98.7 F 06/20/21 14:56 Pulse 54 L 06/20/21 18:38 Resp 20 H 06/20/21 18:38 BP 139/80 06/20/21 18:38 Pulse Ox 98 06/20/21 18:38 06/20/21 06/20/21 06/20/21 06:59 14:59 22:59 Intake Total 50 / 50 Balance 50 / 50 Weight last 48 hrs Weight 104.326 kg Physical Exam Const: COMMON NORMALS: no acute distress; negative for patient oriented x3 GENERAL APPEARANCE: cooperative NUTRITIONAL APPEARANCE: obese ORIENTATION/CONSCIOUSNESS: Yes awake and Yes confused HENMT: COMMON NORMALS: oropharynx normal Neck/C-Spine: COMMON NORMALS: no JVD Resp: AUSCULTATION: rhonchi, wheezes and diminished lung sounds Cardio: COMMON NORMALS: no JVD, regular rhythm, S1 normal heart sound present, S2 normal heart sound present and No murmurs present (Cardio) RATE: bradycardic HEART SOUNDS: S1 normal heart sound present and S2 normal heart sound present GI: COMMON NORMALS: Normal to inspection, nondistended, normoactive bowel sounds present, Soft to palpation and non-tender PALPATION: Yes Soft to pal pation Extremity: COMMON NORMALS: no joint enlargement GENERAL: Yes edema (trace) OTHER: BL foot deformities Neuro: COMMON NORMALS: patient oriented x3 and moves all extremities Skin: COMMON NORMALS: no rashes or lesions noted GENERAL SKIN EXAM: no rashes or lesions noted Data : 06/20/21 15:28 06/20/21 15:28 A&P Assessment and plan (1) Asthma exacerbation: Noted in respiratory distress earlier today, with audible breathing, air entry, also rhonchi. Noted asthma history. Continue oxygen support. Breathing treatments, inhaled budesonide. No started on prednisone will switch to methylprednisolone given has not responded well, although appears to be improving overall. Tachypnea improving. Saturating well on 2 L oxygen. Status: Acute (2) Pneumonia: Right lower lobe pneumonia. Continue Zosyn. Collect sputum cultures if will provide. Urine bacterial antigens. MRSA PCR. Monitor for aspiration, although per discussion with prison staff not coughing with food or drink. Rapid COVID-19 negative. PCR pending. Is not vaccinated for COVID-19. Status: Acute (3) Chronic respiratory acidosis: Status: Acute (4) Hypoxia: New Status: Acute Additional A&P Information Nonambulatory at baseline Cognitive impairment at baseline HTN HLD Attestations Medical Necessity Statement*: Admission of over 2 midnights is currently needed for assessment management of new hypoxia with asthma exacerbation, pneumonia with worsening despite initiation of outpatient treatment. Coding Level of Care Code Acute Logistics Account Manager for [facility] Fwd Diagnoses Asthma exacerbation J45.901 Pneumonia J18.9 Chronic respiratory acidosis E87.2 Hypoxia R09.02
[2021-06-20 21:03] VITALS: BP 143/80; PULSE 65; RESP 15; TEMP 36.4; O2SAT 93
[2021-06-20 21:09] VITALS: BP 136/89; PULSE 99; RESP 22; O2SAT 98
[2021-06-20 21:14] VITALS: BMI 30.9
[2021-06-20] MEDS: heparin 5,000 unit/mL INJ 1 mL 5000 UNIT SUBCUT (21:29)
[2021-06-20] MEDS: sodium chloride 0.9% 1,000 ML 100 ML IV (21:29)
[2021-06-20] MEDS: atorvastatin 40 mg Tablet 20 MG PO (21:30)
[2021-06-21] VITALS (12 sets, daily range): BP systolic 115–155; BP diastolic 68–88; PULSE 60–95; RESP 17–18; TEMP 36.4–37.1; O2SAT 88–95
[2021-06-21] MEDS: piperacillin-tazobactam 3.375 GM in sodium chloride 0.9% (plus) 50 ML IV ×3 (00:26→16:31)
[2021-06-21] MEDS: pantoprazole DR 40 mg Tablet PO (05:01)
[2021-06-21] MEDS: heparin 5,000 unit/mL INJ 1 mL 5000 UNIT SUBCUT ×3 (05:01→20:04)
[2021-06-21 06:06] LABS: Basophils % 0.2 %; Hematocrit 37.5 % (42.0-52.0); Lymphocytes # 0.9 10^3/uL (0.8-4.8); Lymphocytes % 17.1 %; Mean Corpuscular Hemoglobin 27.4 pg (28.0-34.0); Mean Corpuscular Volume 85.6 fl (80-94); Mean Platelet Volume 9.9 fL (7.4-10.4); Monocytes % 0.4 %; Neutrophils # 4.12 10^3/uL (1.8-7.7); Neutrophils % 81.9 %; Nucleated Red Blood Cells % 0 %; Platelet Count 338 10^3/cmm (130-400); Red Blood Count 4.38 10^6/uL (4.1-5.3); Red Cell Distribution Width 18.5 % (12.1-15.1)
[2021-06-21 06:23] LABS: Anion Gap 12.8 (5-19); Blood Urea Nitrogen 18 mg/dL (8-23); Calcium 8.9 mg/dL (8.5-10.5); Carbon Dioxide 30 mmol/L (22-29); Chloride 102 mmol/L (98-107); Glucose 144 mg/dL (65-115); Osmolality Calculated 296 mOsm/kg (285-295); Potassium 3.8 mmol/L (3.5-5.1); Sodium 141 mmol/L (136-145)
[2021-06-21] MEDS: ipratropium-albuterol 3 mL Neb INHALATION ×3 (08:02→20:00)
[2021-06-21] MEDS: budesonide 0.5 mg/2 mL Neb 0.25 MG INHALATION ×2 (08:02→19:51)
[2021-06-21] MEDS: sodium chloride 0.9% 1,000 ML 100 ML IV (08:37)
[2021-06-21] MEDS: pregabalin 150 mg Capsule PO ×2 (08:38→17:03)
[2021-06-21] MEDS: amlodipine 10 mg Tablet 5 MG PO (08:38)
[2021-06-21] MEDS: aspirin 81 mg EC Tablet PO (08:39)
[2021-06-21] MEDS: escitalopram 10 mg Tablet 20 MG PO (08:39)
[2021-06-21] MEDS: acetaminophen 325 mg Tablet 650 MG PO (08:55)
--- NOTE | 2021-06-21 14:39 | PC.CHAP ---
Pastoral Care Encounter/Spiritual Assessment Type of Contact [] Declined neuropsychology division chief visit [] Patient/Family/Request visit [] Outpatient visit [] Follow-up visit [] Physician referral [] Code/Alert [] Routine visit [] Staff referral [] Actively dying [] Patient sleeping [] Family support [] [] Out of room [] Palliative care [] [] Receiving care in room [] Pre-surgical visit [] Trauma [] Long length of stay [] ICU visit [XX] Other: ISOLATION Relational/Emotional Strength [] Patient feels connected with others/family/visitors/staff [] Distress [] Loneliness/isolation [] Abandonment Spirituality of Patient [] Person of Fiona [] Attends Quaker of their Fiona [] Believes in Prayer [] Reads Bible or Christian materials [] There are Spiritual issues to be addressed Data Base Administrator Interventions [] Prayer [] Active listening [] Non-anxious presence [] Spiritual/emotional support [] Crisis/trauma care [] Spiritual counseling [] Bereavement support [] Provided bereavement packet [] Provided Bible/devotional materials [] Provided toy/stuffed animal, coloring book to patient or family member [] Provided Communion [] Anointing/[place] [] Salvation [] Completed spiritual assessment [] Other: Impact on Illness or Injury [] Angry [] Fearful [] Anxious [] Often cries [] Exhaustion [] Unable to work [] Unable to attend moravian [] Unable to walk/stand [] Unable to read [] Unable to drive [] Unable to eat/drink [] Unable to sleep [] Unable to be with family [] Patient intubated [] Other: Summary Time spent with patient
[2021-06-21 15:39] LABS: Coronavirus Test Green County Not Detected
[2021-06-21 17:29] LABS: ABG PCO2 66.1 mmHg (35-45)
[2021-06-21] MEDS: atorvastatin 40 mg Tablet 20 MG PO (20:04)
--- NOTE | 2021-06-21 20:33 | P.PN_ITS ---
Subjective Subjective: Interval history: Appears less confused today. Knows he is in some kind of healthcare facility . Reports he is feeling better. Still coughing. Vitals/I&O/Wt Last Vital Signs Temp 98.2 F 06/21/21 16:00 Pulse 72 06/21/21 19:57 Resp 18 06/21/21 19:57 BP 130/82 06/21/21 16:00 Pulse Ox 92 06/21/21 19:57 06/21/21 06/21/21 06/21/21 06:59 14:59 22:59 Intake Total 50 / 100 1290 / 1290 Balance 50 / 100 1290 / 1290 Weight last 48 hrs Weight 103.419 kg Weight 104.326 kg Physical Exam Const: COMMON NORMALS: no acute distress and patient oriented x3 GENERAL APPEARANCE: cooperative NUTRITIONAL APPEARANCE: obese ORIENTATION/CONSCIOUSNESS: Yes awake and Yes confused HENMT: COMMON NORMALS: oropharynx normal Neck/C-Spine: COMMON NORMALS: no JVD Resp: AUSCULTATION: wheezes (Still wheezing, diminished air entry, but wheezing less pronounced compared) and diminished lung sounds (Moving more air) Cardio: COMMON NORMALS: no JVD, regular rhythm, S1 normal heart sound present, S2 normal heart sound present and No murmurs present (Cardio) RATE: br adycardic RHYTHM: regular rhythm HEART SOUNDS: S1 normal heart sound present and S2 normal heart sound present GI: COMMON NORMALS: Normal to inspection, nondistended, normoactive bowel sounds present, Soft to palpation and non-tender PALPATION: Yes Soft to palpation Extremity: COMMON NORMALS: no joint enlargement GENERAL: Yes edema (trace) OTHER: BL foot deformities Neuro: COMMON NORMALS: patient oriented x3 and moves all extremities Skin: COMMON NORMALS: no rashes or lesions noted GENERAL SKIN EXAM: no rashes or lesions noted Data : 06/21/21 05:57 06/21/21 05:57 Micro: Microbiology 06/20/21 21:30 MRSA Culture - Final Nose A&P Assessment and plan (1) Asthma exacerbation: Asthma exacerbation appears to be gradually improving. 92%, but weaning down to room air. Desaturated to as low as 88%. Still wheezing. Continue steroids by IV. Inhaled steroid. Continue Zosyn. Noted asthma history. Status: Acute (2) Pneumonia: Right lower lobe pneumonia. Continue Zosyn. Collect sputum cultures if will provide. Urine bacterial antigens. MRSA PCR. Monitor for aspiration, although per discussion with [facility] staff not coughing with food or drink. Rapid COVID-19 negative. PCR negative. Is not vaccinated for COVID-19. Status: Acute (3) Chronic respiratory acidosis: Status: Acute (4) Hypoxia: New. Improving. Status: Acute Additional A&P Information Nonambulatory at baseline Cognitive impairment at baseline HTN HLD Attestations Medical Necessity Statement*: Continue admission for assessment and management of new hypoxia, bronchospasm with asthma exacerbation and pneumonia. Coding Level of Care Code Acute Senior Manager Quality Assurance for [facility] Fwd Diagnoses Asthma exacerbation J45.901 Pneumonia J18.9 Chronic respiratory acidosis E87.2 Hypoxia R09.02
[2021-06-22] VITALS (13 sets, daily range): BP systolic 124–143; BP diastolic 45–87; PULSE 60–77; RESP 16–18; TEMP 36.6–37; O2SAT 91–96
[2021-06-22] MEDS: piperacillin-tazobactam 3.375 GM in sodium chloride 0.9% (plus) 50 ML IV ×3 (01:38→17:06)
--- NOTE | 2021-06-22 05:01 | PC.NURSE ---
Bladder scan 169 pre-void. Patient was able to void 125 ml and post void residual was 46 ml.
[2021-06-22 05:04] LABS: Add Urine Microscopic? NO; Charge for UA Resulting for Rev
[2021-06-22 05:06] LABS: Bilirubin Urine Neg (Negative); Blood Urine Neg (Negative); Glucose Urine UA Norm (Normal); Ketones Urine Negative (Negative); Leukocyte Esterase Urine Negative (Negative); Nitrate Urine Negative (Negative); Protein Urine Neg (Negative); Urine Appearance Clear (CLEAR); Urine Color Yellow (Yellow); Urobilinogen Urine Norm (Negative); pH Urine 5 (5-7)
[2021-06-22] MEDS: pantoprazole DR 40 mg Tablet PO (05:15)
[2021-06-22] MEDS: heparin 5,000 unit/mL INJ 1 mL 5000 UNIT SUBCUT ×3 (05:15→20:03)
[2021-06-22 05:27] LABS: Hematocrit 35.8 % (42.0-52.0); Hemoglobin 11.4 g/dL (11.7-16.6); Lymphocytes # 1.2 10^3/uL (0.8-4.8); Lymphocytes % 17.6 %; Mean Corpuscular HGB Conc 31.8 g/dL (30.0-36.0); Mean Corpuscular Hemoglobin 27.3 pg (28.0-34.0); Mean Corpuscular Volume 85.6 fl (80-94); Mean Platelet Volume 10.5 fL (7.4-10.4); Monocytes # 0.2 10^3/uL (0.2-0.9); Monocytes % 2.9 %; Neutrophils # 5.52 10^3/uL (1.8-7.7); Neutrophils % 79.1 %; Nucleated Red Blood Cells % 0 %; Platelet Count 335 10^3/cmm (130-400); Red Blood Count 4.18 10^6/uL (4.1-5.3); Red Cell Distribution Width 18.6 % (12.1-15.1)
[2021-06-22 05:55] LABS: Anion Gap 11.8 (5-19); Blood Urea Nitrogen 28 mg/dL (8-23); Calcium 8.9 mg/dL (8.5-10.5); Carbon Dioxide 31 mmol/L (22-29); Chloride 102 mmol/L (98-107); Glucose 141 mg/dL (65-115); Osmolality Calculated 300 mOsm/kg (285-295); Potassium 3.8 mmol/L (3.5-5.1); Sodium 141 mmol/L (136-145)
[2021-06-22] MEDS: escitalopram 10 mg Tablet 20 MG PO (08:39)
[2021-06-22] MEDS: pregabalin 150 mg Capsule PO ×2 (08:39→17:07)
[2021-06-22] MEDS: aspirin 81 mg EC Tablet PO (08:39)
[2021-06-22] MEDS: amlodipine 10 mg Tablet 5 MG PO (08:39)
[2021-06-22] MEDS: ipratropium-albuterol 3 mL Neb INHALATION ×3 (09:58→20:23)
[2021-06-22] MEDS: budesonide 0.5 mg/2 mL Neb 0.25 MG INHALATION ×2 (09:58→20:21)
[2021-06-22] MEDS: atorvastatin 40 mg Tablet 20 MG PO (20:03)
--- NOTE | 2021-06-22 20:37 | PM.PN ---
Subjective Subjective: Interval history: He is doing overall little bit better. He is confused as to his location, states he is at a security facility. Reports breathing is a little better. Still coughing. Vitals/I&O/Wt Last Vital Signs Temp 98.5 F 06/22/21 19:17 Pulse 68 06/22/21 19:17 Resp 18 06/22/21 19:17 BP 127/70 06/22/21 19:17 Pulse Ox 96 06/22/21 19:17 06/22/21 06/22/21 06/22/21 06:59 14:59 22:59 Intake Total 50 / 1390 1650 / 1650 Output Total 125 / 125 Balance -75 / 1265 1650 / 1650 Weight last 48 hrs Weight 104.78 kg Weight 103.419 kg Physical Exam Const: COMMON NORMALS: no acute distress; negative for patient oriented x3 GENERAL APPEARANCE: cooperative NUTRITIONAL APPEARANCE: obese ORIENTATION/CONSCIOUSNESS: Yes awake and Yes confused HENMT: COMMON NORMALS: oropharynx normal Neck/C-Spine: COMMON NORMALS: no JVD Resp: AUSCULTATION: no wheezes (Still wheezing, diminished air entry, but wheezing less pronounced compared) and diminished lung sounds (Moving more air) Cardio: COMMON NORMALS: no JVD, regular rhythm, S1 normal heart sound present, S2 normal heart sound present and No murmurs present (Cardio) RATE: bradycardic RHYTHM: regular rhythm HEART SOUNDS: S1 normal heart sound present and S2 normal heart sound present GI: COMMON NORMALS: Normal to inspection, nondistended, normoactive bowel sounds present, Soft to palpation and non-tender PALPATION: Yes Soft to palpation Extremity: COMMON NORMALS: no joint enlargement GENERAL: Yes edema (trace) OTHER: BL foot deformities Neuro: COMMON NORMALS: moves all extremities; negative for patient oriented x3 Skin: COMMON NORMALS: no rashes or lesions noted GENERAL SKIN EXAM: no rashes or lesions noted Data : 06/22/21 04:09 06/22/21 04:09 Micro: Microbiology 06/22/21 04:56 Legionella Urinary Antigen - Final Urine,Clean Catch Bacterial Antigens - Final A&P Assessment and plan (1) Pneumonia: Still hypoxic. Bronchospasm component appears to be improving. Wean down steroids as below. Continue Zosyn for pneumonia. Continue oxygen support. Currently requiring 3 L of oxygen. Not normally needing oxygen support. Right lower lobe pneumonia. Continue Zosyn. Collect sputum cultures if will provide. Urine bacterial antigens including Legionella negative. MRSA PCR negative. Monitor for aspiration, although per discussion with [facility] staff not coughing with food or drink. If not improving, consider MBS. Rapid COVID-19 negative. PCR negative. Is not vaccinated for COVID-19. Status: Acute (2) Asthma exacerbation: Today for the first time he is not wheezing. He is still sounding tight, but is moving more air. As such we will attempt to transition him off of the IV steroid to prednisone. Asthma exacerbation gradually improving. Inhaled steroid. Continue Zosyn. Noted asthma history. Status: Acute (3) Chronic respiratory acidosis: Status: Acute (4) Hypoxia: New. Improving. Status: Acute Additional A&P Information Nonambulatory at baseline Cognitive impairment at baseline HTN HLD Attestations Medical Necessity Statement*: Continue admission for assessment management of pneumonia, hypoxia, with bronchospasm component/improving asthma exacerbation. Coding Level of Care Code Acute Head Gauge Unit Operator for [facility] Fwd Exam Comprehensive Diagnoses Pneumonia J18.9 Asthma exacerbation J45.901 Chronic respiratory acidosis E87.2 Hypoxia R09.02
[2021-06-23] VITALS (11 sets, daily range): BP systolic 129–148; BP diastolic 68–85; PULSE 57–76; RESP 16–19; TEMP 36.7–36.9; O2SAT 93–97
[2021-06-23] MEDS: piperacillin-tazobactam 3.375 GM in sodium chloride 0.9% (plus) 50 ML IV ×3 (00:54→17:32)
[2021-06-23] MEDS: pantoprazole DR 40 mg Tablet PO (04:59)
[2021-06-23] MEDS: heparin 5,000 unit/mL INJ 1 mL 5000 UNIT SUBCUT ×3 (04:59→21:44)
[2021-06-23 05:14] LABS: Hematocrit 34.6 % (42.0-52.0); Hemoglobin 10.8 g/dL (11.7-16.6); Lymphocytes # 0.8 10^3/uL (0.8-4.8); Lymphocytes % 10.3 %; Mean Corpuscular HGB Conc 31.2 g/dL (30.0-36.0); Mean Corpuscular Volume 86.5 fl (80-94); Mean Platelet Volume 10.7 fL (7.4-10.4); Monocytes # 0.2 10^3/uL (0.2-0.9); Monocytes % 2.7 %; Neutrophils # 6.38 10^3/uL (1.8-7.7); Neutrophils % 86.7 %; Nucleated Red Blood Cells % 0 %; Platelet Count 324 10^3/cmm (130-400); Red Cell Distribution Width 18.9 % (12.1-15.1); White Blood Count 7.4 10^3/uL (4.0-10.0)
[2021-06-23 05:37] LABS: Blood Urea Nitrogen 34 mg/dL (8-23); Calcium 8.3 mg/dL (8.5-10.5); Carbon Dioxide 30 mmol/L (22-29); Chloride 104 mmol/L (98-107); Glucose 143 mg/dL (65-115); Osmolality Calculated 304 mOsm/kg (285-295); Sodium 142 mmol/L (136-145)
[2021-06-23 05:42] LABS: Anion Gap 11.9 (5-19); Potassium 3.9 mmol/L (3.5-5.1)
[2021-06-23] MEDS: ipratropium-albuterol 3 mL Neb INHALATION ×2 (08:35→20:22)
[2021-06-23] MEDS: budesonide 0.5 mg/2 mL Neb 0.25 MG INHALATION ×2 (08:35→20:21)
[2021-06-23] MEDS: pregabalin 150 mg Capsule PO ×2 (09:57→17:32)
[2021-06-23] MEDS: predniSONE 20 mg Tablet 60 MG PO (09:57)
[2021-06-23] MEDS: amlodipine 10 mg Tablet 5 MG PO (09:58)
[2021-06-23] MEDS: escitalopram 10 mg Tablet 20 MG PO (09:58)
[2021-06-23] MEDS: aspirin 81 mg EC Tablet PO (09:58)
--- NOTE | 2021-06-23 11:04 | PC.SOCIAL ---
Pg 2 IMM Explained to pt's sister via phone, Pg 2 IMM. No questions voiced. Provided pt a copy. Initialed, dated, & timed a copy & placed in chart.
--- NOTE | 2021-06-23 15:07 | PC.NURSE ---
updated patient's sister Alexa on patient. her number is [phone].
--- NOTE | 2021-06-23 20:46 | PM.PN ---
Subjective Subjective: Interval history: He overall feels is slowly improving, but still feeling congested. Still coughing. Denies chest pain. No nausea vomiting or diarrhea. Vitals/I&O/Wt Last Vital Signs Temp 98.3 F 06/23/21 15:47 Pulse 67 06/23/21 15:47 Resp 18 06/23/21 15:47 BP 147/82 06/23/21 15:47 Pulse Ox 94 06/23/21 15:47 06/23/21 06/23/21 06/23/21 06:59 14:59 22:59 Intake Total 50 / 1750 50 / 50 240 / 290 Output Total 225 / 225 500 / 725 Balance 50 / 1750 -175 / -175 -260 / -435 Weight last 48 hrs Weight 105.052 kg Weight 104.78 kg Physical Exam Const: COMMON NORMALS: no acute distress; negative for patient oriented x3 GENERAL APPEARANCE: cooperative NUTRITIONAL APPEARANCE: obese ORIENTATION/CONSCIOUSNESS: Yes awake and Yes confused OTHER: Pleasant, conversant. Hard of hearing. HENMT: COMMON NORMALS: oropharynx normal Neck/C-Spine: COMMON NORMALS: no JVD Resp: AUSCULTATION: wheezes and diminished lung sounds (Moving more air) Cardio: COMMON NORMALS: no JVD, regular rhythm, S1 normal heart sound present, S2 normal heart sound present and No murmurs present (Cardio) RATE: bradycardic RHYTHM: regular rhythm HEART SOUNDS: S1 normal heart sound present and S2 normal heart sound present GI: COMMON NORMALS: Normal to inspection, nondistended, normoactive bowel sounds present, Soft to palpation and non-tender PALPATION: Yes Soft to palpation Extremity: COMMON NORMALS: no joint enlargement GENERAL: Yes edema (trace) OTHER: BL foot deformities Neuro: COMMON NORMALS: moves all extremities; negative for patient oriented x3 Skin: COMMON NORMALS: no rashes or lesions noted GENERAL SKIN EXAM: no rashes or lesions noted Data : 06/23/21 04:20 06/23/21 04:20 A&P Assessment and plan (1) Pneumonia: Continues to require 2 L of oxygen. Very slow improvement. Again some wheezing today. Transitioning attempt to oral steroids. Continue Zosyn for pneumonia. Continue oxygen support. Not normally needing oxygen support. Right lower lobe pneumonia. Collect sputum cultures if will provide. Urine bacterial antigens including Legionella negative. MRSA PCR negative. Monitor for aspiration, although per discussion with shelter staff not coughing with food or drink. Will obtain MBS. Rapid COVID-19 negative. PCR negative. Is not vaccinated for COVID-19. PT, OT evaluation. Will need prior to authorization to return back to shelter. Status: Acute (2) Asthma exacerbation: Attempt to transition to oral steroids. Somewhat worse today, again wheezing. Continue for now on higher dose prednisone, but if further worsening switch back to IV steroid. Asthma exacerbation gradually improving. Inhaled steroid. Continue Zosyn. Noted asthma history. Status: Acute (3) Chronic respiratory acidosis: Status: Acute (4) Hypoxia: New. Slowly improving. Status: Acute Additional A&P Information Nonambulatory at baseline Cognitive impairment at baseline HTN HLD Attestations Medical Necessity Statement*: Continue admission for assessment of management of ongoing hypoxia, pneumonia with bronchospasm, additional assessment for aspiration with modified barium swallow evaluation. Coding Level of Care Code Acute [employer]ney Construction Supervisor for [facility] Fwd Diagnoses Pneumonia J18.9 Asthma exacerbation J45.901 Chronic respiratory acidosis E87.2 Hypoxia R09.02
--- NOTE | 2021-06-23 20:57 | PC.NURSE ---
i reported low pulse 58 to nurse
[2021-06-23] MEDS: atorvastatin 40 mg Tablet 20 MG PO (21:41)
[2021-06-24] VITALS (11 sets, daily range): BP systolic 128–156; BP diastolic 73–87; PULSE 50–66; RESP 16–20; TEMP 36.6–37.2; O2SAT 95–97; BMI 31.4
--- NOTE | 2021-06-24 00:03 | PC.NURSE ---
i reported low pulse 56 to nurse
[2021-06-24] MEDS: piperacillin-tazobactam 3.375 GM in sodium chloride 0.9% (plus) 50 ML IV ×3 (00:41→17:33)
--- NOTE | 2021-06-24 04:36 | PC.NURSE ---
i reported low pulse 55 to nurse
[2021-06-24 05:11] LABS: Hematocrit 37.5 % (42.0-52.0); Hemoglobin 11.6 g/dL (11.7-16.6); Lymphocytes # 1.1 10^3/uL (0.8-4.8); Lymphocytes % 14.7 %; Mean Corpuscular HGB Conc 30.9 g/dL (30.0-36.0); Mean Corpuscular Volume 87.2 fl (80-94); Mean Platelet Volume 10.5 fL (7.4-10.4); Monocytes # 0.8 10^3/uL (0.2-0.9); Nucleated Red Blood Cells % 0 %; Platelet Count 317 10^3/cmm (130-400); Red Cell Distribution Width 19.1 % (12.1-15.1); White Blood Count 7.5 10^3/uL (4.0-10.0)
[2021-06-24 05:43] LABS: Anion Gap 10.9 (5-19); Blood Urea Nitrogen 30 mg/dL (8-23); Calcium 8.8 mg/dL (8.5-10.5); Carbon Dioxide 34 mmol/L (22-29); Chloride 106 mmol/L (98-107); Glucose 117 mg/dL (65-115); Osmolality Calculated 311 mOsm/kg (285-295); Potassium 3.9 mmol/L (3.5-5.1); Sodium 147 mmol/L (136-145)
[2021-06-24] MEDS: heparin 5,000 unit/mL INJ 1 mL 5000 UNIT SUBCUT ×3 (05:49→20:20)
[2021-06-24] MEDS: pantoprazole DR 40 mg Tablet PO (05:49)
[2021-06-24] MEDS: pregabalin 150 mg Capsule PO ×2 (08:28→17:33)
[2021-06-24] MEDS: predniSONE 20 mg Tablet 60 MG PO (08:28)
[2021-06-24] MEDS: aspirin 81 mg EC Tablet PO (08:28)
[2021-06-24] MEDS: escitalopram 10 mg Tablet 20 MG PO (08:29)
[2021-06-24] MEDS: amlodipine 10 mg Tablet 5 MG PO (08:29)
[2021-06-24] MEDS: budesonide 0.5 mg/2 mL Neb 0.25 MG INHALATION ×2 (09:36→21:10)
[2021-06-24] MEDS: ipratropium-albuterol 3 mL Neb INHALATION ×2 (09:36→21:10)
--- NOTE | 2021-06-24 11:37 | PC.OT ---
OT EVALUATION ATTEMPTED. PATIENT OFF FLOOR TO X-RAY. WILL ATTEMPT AGAIN AT A LATER TIME.
[2021-06-24 13:12] LABS: NT Pro B Type Natriuretic Pept 890 pg/mL (0-125)
--- NOTE | 2021-06-24 17:37 | P.PN_ITS ---
Subjective Subjective: Interval history: Hospital course, labs appreciated. On examination patient sitting up in chair. On 2 L nasal cannula satting 97%. Complaining of feeling some tightness in chest but states better than before. Denies any nausea vomiting, headache. Does complain of occasional cough while eating. Vitals/I&O/Wt Last Vital Signs Temp 98.5 F 06/24/21 15:36 Pulse 50 L 06/24/21 15:36 Resp 20 H 06/24/21 15:36 BP 128/73 06/24/21 15:36 Pulse Ox 97 06/24/21 15:36 06/24/21 06/24/21 06/24/21 06:59 14:59 22:59 Intake Total 50 / 390 650 / 650 Output Total 100 / 825 Balance -50 / -435 650 / 650 Weight last 48 hrs Weight 105.052 kg Weight 105.052 kg Physical Exam Const: COMMON NORMALS: no acute distress; negative for patient oriented x3 GENERAL APPEARANCE: cooperative NUTRITIONAL APPEARANCE: obese ORIENTATION/CONSCIOUSNESS: Yes awake and Yes confused OTHER: Pleasant, conversant. Hard of hearing. HENMT: COMMON NORMALS: oropharynx normal Neck/C-Spine: COMMON NORMALS: no JVD Resp: AUSCULTATION: wheezes and diminished lung sounds (Moving more air) Cardio: COMMON NORMALS: no JVD, regular rhythm, S1 normal heart sound present, S2 normal heart sound present and No murmurs present (Cardio) RATE: bradycardic RHYTHM: regular rhythm HEART SOUNDS: S1 normal heart sound present and S2 normal heart sound present GI: COMMON NORMALS: Normal to inspection, nondistended, normoactive bowel sounds present, Soft to palpation and non-tender PALPATION: Yes Soft to palpation Extremity: COMMON NORMALS: no joint enlargement GENERAL: Yes edema (trace) OTHER: BL foot deformities Neuro: COMMON NORMALS: moves all extremities; negative for patient oriented x3 Skin: COMMON NORMALS: no rashes or lesions noted GENERAL SKIN EXAM: no rashes or lesions noted Data : 06/24/21 04:35 06/24/21 04:35 Micro: Microbiology 06/23/21 22:10 Gram Stain - Final Sputum - Expectorated Sputum A&P Assessment and plan (1) Pneumonia: Most likely mild aspiration pneumonia. Continue with Zosyn. Follow sputum culture. Urine Legionella bacterial antigen, MRSA swab negative. Modified barium swallow results appreciated. Swallow evaluation and recommendations. PT, OT evaluation. Will need prior to authorization to return back to residential. Status: Acute (2) Asthma exacerbation: Budesonide twice daily, DuoNebs 3 times daily. Continue with oral steroids. Will require slow taper as an outpatient. Noted asthma history. Status: Acute (3) Chronic respiratory acidosis: Status: Acute (4) Hypoxia: New. Slowly improving. Status: Acute Additional A&P Information Nonambulatory at baseline Cognitive impairment at baseline HTN HLD PT/OT/speech evaluation. Discharge planning: Plan to discharge tomorrow back to residential. Awaiting prior authorization. Patient will not require any antibiotics on discharge. Will require home O2 evaluation prior to discharge. Attestations Medical Necessity Statement*: For management of hypoxia secondary to aspiration pneumonia, COPD/asthma exacerbation Time Spent in Patient Care: Greater than 35 minutes (>than 50% of time spent in counselling and/or direct pt care on unit) . Coding Level of Care Code Acute Physical Education Specialist for [facility] Diagnoses Pneumonia J18.9 Asthma exacerbation J45.901 Chronic respiratory acidosis E87.2 Hypoxia R09.02
--- NOTE | 2021-06-24 19:38 | PC.NURSE ---
i reported low pulse 56 to nurse
[2021-06-24] MEDS: atorvastatin 40 mg Tablet 20 MG PO (20:19)
--- NOTE | 2021-06-24 20:49 | FL_ITS ---
WS: [id number] FL barium swallow modifd [id number] REASON FOR EXAM: Oropharyngeal dysphagia FLUOROSCOPY TIME: 2.7 minutes FINDINGS: The swallowing of various consistencies of barium meals was observed and recorded fluoroscopically. A detailed report of the analysis of the fluoroscopic recording of the swallowing will be rendered by the speech therapy department. No aspiration was identified. No significant tertiary contractions. FL/FL barium swallow modifd [id number] IMPRESSION: Modified barium swallow as above.
[2021-06-25] VITALS (10 sets, daily range): BP systolic 118–146; BP diastolic 68–85; PULSE 49–62; RESP 16–18; TEMP 36.5–37.2; O2SAT 95–99
--- NOTE | 2021-06-25 00:04 | PC.NURSE ---
i reported low pulse 58 to nurse
[2021-06-25] MEDS: piperacillin-tazobactam 3.375 GM in sodium chloride 0.9% (plus) 50 ML IV ×2 (01:02→10:00)
[2021-06-25] MEDS: pantoprazole DR 40 mg Tablet PO (05:24)
[2021-06-25] MEDS: heparin 5,000 unit/mL INJ 1 mL 5000 UNIT SUBCUT ×2 (05:24→13:25)
[2021-06-25 06:18] LABS: Hematocrit 35.3 % (42.0-52.0); Hemoglobin 10.9 g/dL (11.7-16.6); Lymphocytes # 1.5 10^3/uL (0.8-4.8); Lymphocytes % 21.7 %; Mean Corpuscular HGB Conc 30.9 g/dL (30.0-36.0); Mean Corpuscular Hemoglobin 26.7 pg (28.0-34.0); Mean Corpuscular Volume 86.3 fl (80-94); Mean Platelet Volume 10.6 fL (7.4-10.4); Monocytes # 0.7 10^3/uL (0.2-0.9); Monocytes % 10.3 %; Neutrophils # 4.66 10^3/uL (1.8-7.7); Neutrophils % 67.7 %; Nucleated Red Blood Cells % 0 %; Platelet Count 283 10^3/cmm (130-400); Red Blood Count 4.09 10^6/uL (4.1-5.3); Red Cell Distribution Width 18.7 % (12.1-15.1); White Blood Count 6.9 10^3/uL (4.0-10.0)
[2021-06-25 06:25] LABS: Anion Gap 8.6 (5-19); Blood Urea Nitrogen 28 mg/dL (8-23); Calcium 8.4 mg/dL (8.5-10.5); Carbon Dioxide 35 mmol/L (22-29); Chloride 105 mmol/L (98-107); Glucose 102 mg/dL (65-115); Osmolality Calculated 306 mOsm/kg (285-295); Potassium 3.6 mmol/L (3.5-5.1); Sodium 145 mmol/L (136-145)
[2021-06-25] MEDS: amlodipine 10 mg Tablet 5 MG PO (08:00)
[2021-06-25] MEDS: escitalopram 10 mg Tablet 20 MG PO (08:00)
[2021-06-25] MEDS: aspirin 81 mg EC Tablet PO (08:00)
[2021-06-25] MEDS: pregabalin 150 mg Capsule PO (08:00)
[2021-06-25] MEDS: predniSONE 20 mg Tablet 60 MG PO (08:01)
[2021-06-25] MEDS: budesonide 0.5 mg/2 mL Neb 0.25 MG INHALATION (08:25)
[2021-06-25] MEDS: ipratropium-albuterol 3 mL Neb INHALATION (08:25)
--- NOTE | 2021-06-25 10:25 | PC.CHAP ---
Pastoral Care Encounter/Spiritual Assessment Type of Contact [] Declined weave room supervisor visit [] Patient/Family/Request visit [] Outpatient visit [] Follow-up visit [] Physician referral [] Code/Alert [] Routine visit [] Staff referral [] Actively dying [] Patient sleeping [] Family support [] [x] Out of room [] Palliative care [] [] Receiving care in room [] Pre-surgical visit [] Trauma [] Long length of stay [] ICU visit [] Other: Relational/Emotional Strength [] Patient feels connected with others/family/visitors/staff [] Distress [] Loneliness/isolation [] Abandonment Spirituality of Patient [] Person of Fiona [] Attends Protestant of their Fiona [] Believes in Prayer [] Reads Bible or Yazdanism materials [] There are Spiritual issues to be addressed Radio Interference Trouble Shooter Interventions [] Prayer [] Active listening [] Non-anxious presence [] Spiritual/emotional support [] Crisis/trauma care [] Spiritual counseling [] Bereavement support [] Provided bereavement packet [] Provided Bible/devotional materials [] Provided toy/stuffed animal, coloring book to patient or family member [] Provided Communion [] Anointing/[place] [] Salvation [] Completed spiritual assessment [] Other: Impact on Illness or Injury [] Angry [] Fearful [] Anxious [] Often cries [] Exhaustion [] Unable to work [] Unable to attend religion [] Unable to walk/stand [] Unable to read [] Unable to drive [] Unable to eat/drink [] Unable to sleep [] Unable to be with family [] Patient intubated [] Other: Summary Time spent with patient
--- NOTE | 2021-06-25 14:13 | P.DS_ITS ---
Discharge Providers Date of Admission: 06/20/21 21:03 Date of Discharge: June 25, 2021 Attending Provider at Admission: Jose Narvaez Attending Provider at Discharge: Mick Banks MD Diagnoses at Discharge Discharge Diagnosis (1) Pneumonia: Status: Acute (2) Asthma exacerbation: Status: Acute (3) Chronic respiratory acidosis: Status: Acute (4) Hypoxia: Status: Acute Reason for Visit Reason for Visit: DIFF BREATHING Hospital Course Hospital Course 75-year-old gentleman snf resident at [facility], nonambulatory, unable to stand to transfer with help of sit to stand, with cognitive impairment, was referred to the hospital ER for evaluation due to respiratory distress noted with respirations in the 30s, audible respirations. Earlier this morning noted to have x-ray showing emphysema, with concern for possible pneumonia started on doxycycline, also prednisone. Also today started on Bumex and potassium. However, without improvement and with worsening of respirations to the condition as noted above. In ER noted to be newly hypoxic, tachypneic to 25 bpm, not normally requiring oxygen, started on 3 L oxygen supplementation. Patient was admitted to hospital for acute hypoxia and worsening respiratory acidosis most likely secondary to aspiration pneumonia leading to asthma exacerbation. He was started on broad-spectrum antibiotics, nebulization treatment and IV steroids. COVID-19 antigen and PCR came back negative. It is believed patient pneumonia is most likely secondary to aspiration. Modified barium swallow was done and diet consistency was changed as per swallow evaluation. Patient's steroids were tapered down gradually. Home O2 evaluation has been done prior to discharge. Patient is being discharged in hemodynamically stable condition on oral Augmentin and Levaquin for 3 more days. He needs to take mechanical soft diet going forward and is advised to make sure that he is sitting up for next 45 minutes to 1 hour post meals. He is discharged on nebulization treatment with duo nebs and budesonide with steroid taper as directed. Bumex has been withheld. Physical Exam Const: COMMON NORMALS: no acute distress; negative for patient oriented x3 GENERAL APPEARANCE: cooperative NUTRITIONAL APPEARANCE: obese ORIENTATION/CONSCIOUSNESS: Yes awake and Yes confused OTHER: Pleasant, conversant. Hard of hearing. HENMT: COMMON NORMALS: oropharynx normal Neck/C-Spine: COMMON NORMALS: no JVD Resp: AUSCULTATION: wheezes and diminished lung sounds (Moving more air) Cardio: COMMON NORMALS: no JVD, regular rhythm, S1 normal heart sound present, S2 normal heart sound present and No murmurs present (Cardio) RATE: bradycardic RHYTHM: regular rhythm HEART SOUNDS: S1 normal heart sound present and S2 normal heart sound present GI: COMMON NORMALS: Normal to inspection, nondistended, normoactive bowel sounds present, Soft to palpation and non-tender PALPATION: Yes Soft to palpation Extremity: COMMON NORMALS: no joint enlargement GENERAL: Yes edema (trace) OTHER: BL foot deformities Neuro: COMMON NORMALS: moves all extremities; negative for patient oriented x3 Skin: COMMON NORMALS: no rashes or lesions noted GENERAL SKIN EXAM: no rashes or lesions noted Discharge Data Data Completed and Pending: Completed Studies During Hospitalization Category Date Time Status CT head wo con* 7 [id number] Stat Cat Scan 06/20/21 16:01 Completed [place] barium swallow modifd 52420 Rout ine Exams 06/24/21 20:49 Completed XR chest 1V tate ble [id number] Stat Exams 06/20/21 16:01 Completed Pending at discharge Category Date Time Status Basic Metabolic P cricket AM LABS Lab 06/26/21 04:00 Ordered Complete Blood Co unt w/Auto AM LABS Lab 06/26/21 04:00 Ordered Sputum Culture an d Gram Stain [facility] ne Lab 06/23/21 22:10 Results Labs from last 24 hours 06/25/21 06/25/21 05:08 05:08 WBC 6.9 RBC 4.09 L Hgb 10.9 L Hct 35.3 L MCV 86.3 MCH 26.7 L MCHC 30.9 RDW 18.7 H Plt Count 283 MPV 10.6 H Neut % (Auto) 67.7 Lymph % (Auto) 21.7 [place] % (Auto) 10.3 Eos % (Auto) 0.0 Baso % (Auto) 0.0 Neut # (Auto) 4.66 Lymph # (Auto) 1.5 [place] # (Auto) 0.7 Eos # (Auto) 0.0 Baso # (Auto) 0.0 Nucleated RBC % (a uto) 0 Nucleated RBCs # 0.0 Sodium 145 Potassium 3.6 Chloride 105 Carbon Dioxide 35 H Anion Gap 8.6 BUN 28 H Creatinine 0.6 L GFR Calculation Not Reportable Glucose 102 Calculated Osmolal ity 306 H Calcium 8.4 L Addt'l Data from Hospital Stay: Laboratory Results WBC 6.9 10^3/uL (4.0- 10.0) 06/25/21 05:08 RBC 4.09 10^6/uL (4.1 -5.3) L 06/25/21 05:08 Hgb 10.9 g/dL (11.7-1 6.6) L 06/25/21 05:08 Hct 35.3 % (42.0-52.0 ) L 06/25/21 05:08 MCV 86.3 fl (80-94) 06/25/21 05:08 MCH 26.7 pg (28.0-34. 0) L 06/25/21 05:08 MCHC 30.9 g/dL (30.0-3 6.0) 06/25/21 05:08 RDW 18.7 % (12.1-15.1 ) H 06/25/21 05:08 Plt Count 283 10^3/cmm (130 -400) 06/25/21 05:08 MPV 10.6 fL (7.4-10.4 ) H 06/25/21 05:08 Neut % (Auto) 67.7 % 06/25/21 05:08 Lymph % (Auto) 21.7 % 06/25/21 05:08 [place] % (Auto) 10.3 % 06/25/21 05:08 Eos % (Auto) 0.0 % 06/25/21 05:08 Baso % (Auto) 0.0 % 06/25/21 05:08 Neut # (Auto) 4.66 10^3/uL (1.8 -7.7) 06/25/21 05:08 Lymph # (Auto) 1.5 10^3/uL (0.8- 4.8) 06/25/21 05:08 [place] # (Auto) 0.7 10^3/uL (0.2- 0.9) 06/25/21 05:08 Eos # (Auto) 0.0 10^3/uL (0.0- 0.8) 06/25/21 05:08 Baso # (Auto) 0.0 10^3/uL (0.0- 0.1) 06/25/21 05:08 Nucleated RBC % (a uto) 0 % 06/25/21 05:08 Nucleated RBCs # 0.0 /100WBC 06/25/21 05:08 Specimen Type Arterial 06/20/21 16:52 Sample Site Radial, right 06/20/21 16:52 ABG pH 7.35 (7.35-7.45) 06/20/21 16:52 ABG pCO2 66.1 mmHg (35-45) H* 06/20/21 16:52 ABG pO2 185.0 mmHg (80.0- 100.0) H 06/20/21 16:52 ABG HCO3 36.6 mmol/L (22-2 6) H 06/20/21 16:52 ABG O2 Saturation 99.8 06/20/21 16:52 ABG Base Excess 8.7 mmol/L (-2.0- 2.0) H 06/20/21 16:52 Shubham Test Pos 06/20/21 16:52 A-a O2 Gradient Not Reportable 06/20/21 16:52 Hematocrit 38.3 % (42-52) L 06/20/21 16:52 Hgb O2 Saturation 98.1 % (95-100) 06/20/21 16:52 Carboxyhemoglobin 0.6 %THgb (0.4-20 .1) 06/20/21 16:52 Methemoglobin 1.1 % (0.4-1.5) 06/20/21 16:52 Total Hemoglobin 12.5 g/dL (14-18) L 06/20/21 16:52 Sodium 143.0 mmol/L (131 -143) 06/20/21 16:52 Potassium 4.2 mmol/L (3.5-5 .0) 06/20/21 16:52 Glucose 162.0 mg/dL (70-1 15) H 06/20/21 16:52 Ionized Calcium 1.2 mmol/L (1.1-1 .4) 06/20/21 16:52 O2 Delivery Device Nc 06/20/21 16:52 O2 Liters/Min 3.0 % 06/20/21 16:52 FiO2 32.0 % 06/20/21 16:52 Electrician Locomotive ID [place] 06/20/21 16:52 Sodium 145 mmol/L (136-1 45) 06/25/21 05:08 Potassium 3.6 mmol/L (3.5-5 .1) 06/25/21 05:08 Chloride 105 mmol/L (98-10 7) 06/25/21 05:08 Carbon Dioxide 35 mmol/L (22-29) H 06/25/21 05:08 Anion Gap 8.6 (5-19) 06/25/21 05:08 BUN 28 mg/dL (8-23) H 06/25/21 05:08 Creatinine 0.6 mg/dL (0.7-1. 2) L 06/25/21 05:08 GFR Calculation Not Reportable 06/25/21 05:08 Glucose 102 mg/dL (65-115 ) 06/25/21 05:08 Calculated Osmolal ity 306 mOsm/kg (285- 295) H 06/25/21 05:08 Lactic Acid 1.0 mmol/L (0.5-2 .2) 06/20/21 15:28 Calcium 8.4 mg/dL (8.5-10 .5) L 06/25/21 05:08 Magnesium 1.9 mg/dL (1.7-2. 3) 06/20/21 15:28 Total Bilirubin 0.2 mg/dL (0.15-1 .2) 06/20/21 15:28 AST 13 U/L (0-40) 06/20/21 15:28 ALT < 5 U/L (0-41) 06/20/21 15:28 Alkaline Phosphata se 66 IU/L (40-130) 06/20/21 15:28 Creatine Kinase 96 U/L (39-308) 06/20/21 15:28 NT-Pro-B Natriuret Pep 890 pg/mL (0-125) H 06/24/21 04:35 Total Protein 7.1 g/dL (6.6-8.7 ) 06/20/21 15:28 Albumin 3.7 g/dL (3.5-5.2 ) 06/20/21 15:28 Globulin 3.4 g/dL (1.3-4.6 ) 06/20/21 15:28 Lipase 19 U/L (13-60) 06/20/21 15:28 Urine Color Yellow (Yellow) 06/22/21 04:56 Urine Appearance Clear (CLEAR) 06/22/21 04:56 Urine pH 5 (5-7) 06/22/21 04:56 Ur Specific Gravit y 1.020 (1.005-1.0 30) 06/22/21 04:56 Urine Protein Neg (Negative) 06/22/21 04:56 Urine Glucose (UA) Norm (Normal) 06/22/21 04:56 Urine Ketones Negative (Negati ve) 06/22/21 04:56 Urine Blood Neg (Negative) 06/22/21 04:56 Urine Nitrate Negative (Negati ve) 06/22/21 04:56 Urine Bilirubin Neg (Negative) 06/22/21 04:56 Urine Urobilinogen Norm mg/dL (Negat nu) 06/22/21 04:56 Ur Leukocyte Mitra ase Negative (Negati ve) 06/22/21 04:56 Nasal/Oral COVID-1 9 PCR Not detected 06/20/21 17:35 SARS-CoV-2 Ag (Rap id) Negative (Negati ve) 06/20/21 17:35 Impressions Chest X-Ray 06/20/21 16:01 IMPRESSION: 1. Mild infiltrate in the right lower lung zone. Developing pneumonia is not excluded. Head CT 06/20/21 16:01 IMPRESSION: 1. No acute intracranial abnormality. 2. Moderate diffuse cerebral atrophy. 3. 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 Radiation Dose CTDIVOL = (mGy): DLP = 750.32 (mGy-cm) Modified Barium Swallow 06/24/21 20:49 IMPRESSION: Modified barium swallow as above. Vitals: Last Vital Signs Temp 97.7 F 06/25/21 11:27 Pulse 52 L 06/25/21 11:27 Resp 17 06/25/21 11:27 BP 139/85 06/25/21 11:27 Pulse Ox 97 06/25/21 11:27 Discharge Plan Discharge Patient Disposition: Xfer SNF Condition: Stable Prescriptions: New levofloxacin 500 mg tablet 500 mg PO Q24H 3 Days Qty: 3 RF: 0 Augmentin 500-125 mg tablet 1 tab PO BID 3 Days Qty: 6 RF: 0 prednisone 10 mg tablet See Taper mg PO DAILY Qty: 42 RF: 0 Continued pregabalin 150 mg capsule 150 mg PO BID RF: 0 pantoprazole 40 mg tablet,delayed release (DR/EC) 40 mg PO DAILY@05 RF: 0 aspirin 81 mg tablet,delayed release (DR/EC) 81 mg PO DAILY@08 RF: 0 amlodipine 10 mg tablet 10 mg PO DAILY@08 RF: 0 Tylenol 325 mg Tablet 650 mg PO Q6H PRN (Reason: Pain) RF: 0 albuterol sulfate 2.5 mg /3 mL (0.083 %) Solution For Nebulization 2.5 mg INHALATION Q4H PRN (Reason: Dyspnea) RF: 0 simvastatin 40 mg Tablet 40 mg PO BEDTIME@20 RF: 0 Milk of Magnesia 400 mg/5 mL Suspension 30 ml PO DAILY PRN (Reason: Constipation) RF: 0 Dulcolax (bisacodyl) 10 mg Suppository 10 mg NH DAILY PRN (Reason: Constipation) RF: 0 ferrous sulfate 325 mg (65 mg iron) Tablet 325 mg PO DAILY@08 RF: 0 Fleet Enema 19-7 gram/118 mL Enema 118 ml NH DAILY PRN (Reason: Constipation) RF: 0 budesonide 0.25 mg/2 mL Suspension For Nebulization 0.25 mg INHALATION BID RF: 0 Dulcolax (bisacodyl) 5 mg Tablet,Delayed Release (Dr/Ec) 10 mg PO DAILY PRN (Reason: Constipation) RF: 0 ipratropium-albuterol 0.5 mg-3 mg(2.5 mg base)/3 mL solution for nebulization 3 ml inhalation TID RF: 0 escitalopram oxalate 10 mg tablet 20 mg PO DAILY@08 RF: 0 Discontinued doxycycline hyclate 100 mg Capsule 100 mg PO BID RF: 0 bumetanide 2 mg Tablet 2 mg PO DAILY@08 RF: 0 prednisone 20 mg Tablet 40 mg PO DAILY RF: 0 potassium chloride 20 mEq Tablet Extended Release 20 meq PO DAILY@08 RF: 0 Discharge Orders: Discharge Order (Routine); Ordered 06/25/21 Ordered By: Mick Banks Discharge Diet: As Directed and Soft Mechanical Discharge Activity: Resume usual activity Patient Instructions: Prednisone (By mouth), Amoxicillin/Clavulanate Potassium (By mouth), Levofloxacin (By mouth), Opioid Safety Activity Restrictions/Additional Instructions: Diet has been changed to mechanical soft as per swallow evaluation and modified barium swallow evaluation. Continue taking Augmentin and levofloxacin for 3 more days. Home O2 evaluation has been done. Please make sure patient is sitting up for at least 45 minutes to 1 hour post meals Discharge Attestations Time Spent in Discharge Care*: greater than 30 min Specific Discharge Activities: educating patient, discussing with pcp/other providers, discussing with nurse case manager/social workers/dc planners, documenting/other paperwork and evaluating patient/reviewing data Status at Discharge: Cognitive status at discharge: mildly impaired cognition , Behavioral status at discharge: cooperative , Functional status at discharge: other assisted ambulation Overall status at discharge: patient is back to baseline Quality Metrics Clinical Quality Measures During this hospital stay, did patient experience: None Coding Level of Care Code Acute Chg FW DC note Exam Comprehensive Diagnoses Pneumonia J18.9 Asthma exacerbation J45.901 Chronic respiratory acidosis E87.2 Hypoxia R09.02
--- NOTE | 2021-06-25 14:36 | PC.SOCIAL ---
IMM Update pg 2 of IMM updated and reviewed w/ patient. Copy provided. IMM also updated via phone w/ patients contact Arnold Saha.
--- NOTE | 2021-06-26 13:15 | PC.SOCIAL ---
discharge follow up call made, spoke with Juhi, patients nurse at [facility]. she reports pt is doing good, sitting up in his room at the present time. she denies any questions or concerns with discharge plan and orders.
== END 2021-06-25 16:00 | disposition skilled nursing facility (03) | DRG 178 ==
LOC: ER 19:43 → MEDSURG 21:00
PROVIDERS: Admitting Provider Internal Medicine; Emergency Provider Family Medicine; Visit Provider Student in an Organized Health Care Education/Training Program
DX: J69.0 Pneumonitis due to inhalation of food and vomit (principal); J45.901 Unspecified asthma with (acute) exacerbation; A52.16 Charcot's arthropathy (tabetic); E87.2 Acidosis; M54.12 Radiculopathy, cervical region; E78.5 Hyperlipidemia, unspecified; I10 Essential (primary) hypertension; Z87.891 Personal history of nicotine dependence; D64.9 Anemia, unspecified; J43.9 Emphysema, unspecified; Z79.82 Long term (current) use of aspirin; Z79.51 Long term (current) use of inhaled steroids
CPT/HCPCS: 36415; 36600; 51798; 70450; 71045; 74230; 80048; 80051; 80053; 81003; 82330; 82550; 82805; 83605; 83690; 83735; 83880; 85025; 86403; 87070; 87205; 87426; 87449; 87635; 87641; 92610; 92611; 94640; 94664; 96365; 96372; 97161; 97165; 97530; 99285; J1644; J2543; J2930; J7030; J7512; J7626

== ENCOUNTER 2021-08-27 11:51 | Outpatient (CLI) | payer MEDICARE, SELFPAY ==
[2021-08-27 13:47] VITALS: BP 150/91; PULSE 56; RESP 20; TEMP 36.9; O2SAT 97; BMI 36.6
[2021-08-27 14:09] VITALS: BP 137/85; PULSE 56; RESP 20; O2SAT 94
[2021-08-27 15:08] VITALS: BP 129/85; PULSE 56; RESP 20; O2SAT 94
== END 2021-08-27 11:52 | disposition home or self-care (01) ==
LOC: OPS 11:53
PROVIDERS: PCP Internal Medicine; Visit Provider Internal Medicine
DX: U07.1 COVID-19 (principal)
CPT/HCPCS: 96365

== ENCOUNTER 2021-09-06 17:28 | Inpatient (IN) | payer OTHER, MEDICARE, SELFPAY ==
--- NOTE | 2021-09-06 17:34 | W.ED.SEIZURE ---
Documented by User: Abel Garcia DO 09/10/21 06:51 HPI - Seizure General: Chief Complaint: ER Hold Stated Complaint: SEIZURES Time Seen by Provider: 09/06/21 17:33 History of Present Illness: HPI Narrative: 76-year-old male [facility] the [facility] completely unresponsive he was reported to have several seizures and was given Ativan. He has no known history of seizures he is not on any anticoagulants. There is no reported trauma. He was given 2 doses of Ativan in route they witnessed 2 grand mal seizures and one episode of what sounds like a partial complex seizure affecting his right side particularly the right arm. complaint: seizure Onset (ago): minute(s) Witnessed: No Trauma: No Seizure History: No Possible Precipitating Event: none Associated symptoms: Reports no associated symptoms Treatments prior to arrival: none Review of Systems General: Reports: ROS unobtainable due to medical condition PFS ED PFSH: Medical History Anemia Asthma Carpal tunnel syndrome of left wrist Cervical radiculopathy Charcot's joint, 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 Hyperlipidemia Hypertension Hypertension SLAC (scapholunate advanced collapse) of wrist Surgical History H/O knee surgery History of carpal tunnel surgery Family History Denies family history of Diabetes CAD (coronary artery disease) Clotting disorder Dementia Hyperlipidemia Psychiatric illness Chronic kidney disease (CKD) Suicide Anesthesia complication Bleeding disorder Family history of premature coronary artery disease Lung disease Cancer Hypertension Stroke Social History Smoking and tobacco status: former smoker Alcohol intake: never Lives independently: No Housing: Longterm Physical Exam HENMT: COMMON NORMALS: normocephalic, atraumatic and hearing grossly normal bilaterally HEAD & SCALP: normocephalic and atraumatic Resp: COMMON NORMALS: normal respiratory effort, No retractions, No use of accessory muscles and clear to auscultation bilaterally AUSCULTATION: clear to auscultation bilaterally Cardio: COMMON NORMALS: regular rate, regular rhythm and No murmurs present (Cardio) RATE: regular rate RHYTHM: regular rhythm GI: COMMON NORMALS: Soft to palpation and No hepatosplenomegaly present AUSCULTATION: Yes normoactive bowel sounds PALPATION: Yes Soft to palpation, No Tenderness to palpation present (GI), No Guarding due to palpation present (GI) and Yes No hepatosplenomegaly present Extremity: GENERAL: Yes edema (+1) Skin: COMMON NORMALS: no rashes or lesions noted GENERAL SKIN EXAM: no rashes or lesions noted Course Vital Signs: Vital signs: Vital Signs Temperature 98.0 F 09/09/21 15:46 Pulse Rate 77 09/09/21 15:46 Respiratory Rate 16 09/09/21 15:46 Blood Pressure 144/85 09/09/21 15:46 Pulse Oximetry 95 09/09/21 15:46 MDM - Seizure MDM Narrative: Medical decision making narrative: Care turned over to Dr. Mcqueen at change shift see his note from diagnosis and disposition. Lab Data: Labs: Lab Results 09/06/21 09/06/21 09/06/21 18:25 18:25 18:25 WBC 15.0 10^3/uL H 10 ^3/uL (4.0-10.0) RBC 4.80 10^6/uL 10^6 /uL (4.1-5.3) Hgb 13.3 g/dL g/dL (11.7-16.6) Hct 41.3 % L % (42.0-52.0) MCV 86.0 fl fl (80-94) MCH 27.7 pg L pg (28.0-34.0) MCHC 32.2 g/dL g/dL (30.0-36.0) RDW 18.0 % H % (12.1-15.1) Plt Count 311 10^3/cmm 10^3 /cmm (130-400) MPV 10.4 fL fL (7.4-10.4) Neut % (Auto) 69.3 % % Lymph % (Auto) 17.2 % % Crockett % (Auto) 11.7 % % Eos % (Auto) 0.9 % % Baso % (Auto) 0.3 % % Neut # (Auto) 10.39 10^3/uL H 1 0^3/uL (1.8-7.7) Lymph # (Auto) 2.6 10^3/uL 10^3/ uL (0.8-4.8) [place]ett # (Auto) 1.8 10^3/uL H 10^ 3/uL (0.2-0.9) Eos # (Auto) 0.1 10^3/uL 10^3/ uL (0.0-0.8) Baso # (Auto) 0.1 10^3/uL 10^3/ uL (0.0-0.1) Nucleated RBC % (a uto) 0 % % Nucleated RBCs # 0.0 /100WBC /100W BC PT INR APTT D-Dimer Specimen Type Sample Site ABG pH ABG pCO2 ABG pO2 ABG HCO3 ABG O2 Saturation ABG Base Excess Shubham Test A-a O2 Gradient Hematocrit Hgb O2 Saturation Carboxyhemoglobin Methemoglobin Total Hemoglobin Ionized Calcium O2 Delivery Device O2 Liters/Min FiO2 Clam Digger ID Sodium 138 mmol/L mmol/L (136-145) Potassium 4.2 mmol/L mmol/L (3.5-5.1) Chloride 98 mmol/L mmol/L (98-107) Carbon Dioxide 19 mmol/L L mmol/ L (22-29) Anion Gap 25.2 H (5-19) BUN 24 mg/dL H mg/dL (8-23) Creatinine 0.9 mg/dL mg/dL (0.7-1.2) GFR Calculation Not Reportable Glucose 146 mg/dL H mg/dL (65-115) Calculated Osmolal ity 293 mOsm/kg mOsm/ kg (285-295) Lactic Acid 6.6 mmol/L H* mmo l/L (0.5-2.2) Lactic Acid (Sepsi s) Calcium 8.2 mg/dL L mg/dL (8.5-10.5) Magnesium 2.0 mg/dL mg/dL (1.7-2.3) Total Bilirubin 0.2 mg/dL mg/dL (0.15-1.2) AST 11 U/L U/L (0-40) ALT 9 U/L U/L (0-41) Alkaline Phosphata se 72 IU/L IU/L (40-130) Creatine Kinase 60 U/L U/L (39-308) Troponin T Baselin e Troponin T 120 Min chilkat Delta Troponin T C-Reactive Protein Total Protein 6.7 g/dL g/dL (6.6-8.7) Albumin 3.9 g/dL g/dL (3.5-5.2) Globulin 2.8 g/dL g/dL (1.3-4.6) Urine Color Urine Appearance Urine pH Ur Specific Gravit y Urine Protein Urine Glucose (UA) Urine Ketones Urine Blood Urine Nitrate Urine Bilirubin Urine Urobilinogen Ur Leukocyte Mitra ase Urine RBC Urine WBC Ur Squamous Epith Cells Amorphous Sediment Urine Bacteria Hyaline Casts 09/06/21 09/06/21 09/06/21 18:25 18:25 18:25 WBC RBC Hgb Hct MCV MCH MCHC RDW Plt Count MPV Neut % (Auto) Lymph % (Auto) Crockett % (Auto) Eos % (Auto) Baso % (Auto) Neut # (Auto) Lymph # (Auto) [place] # (Auto) Eos # (Auto) Baso # (Auto) Nucleated RBC % (a uto) Nucleated RBCs # PT 14.00 SECONDS SEC ONDS (12.1-14.9) INR 1.05 (0.8-1.2) APTT 29.3 SECONDS SECO NDS (23.9-36.7) D-Dimer Specimen Type Sample Site ABG pH ABG pCO2 ABG pO2 ABG HCO3 ABG O2 Saturation ABG Base Excess Shubham Test A-a O2 Gradient Hematocrit Hgb O2 Saturation Carboxyhemoglobin Methemoglobin Total Hemoglobin Ionized Calcium O2 Delivery Device O2 Liters/Min FiO2 Clam Digger ID Sodium Potassium Chloride Carbon Dioxide Anion Gap BUN Creatinine GFR Calculation Glucose Calculated Osmolal ity Lactic Acid Lactic Acid (Sepsi s) Calcium Magnesium Total Bilirubin AST ALT Alkaline Phosphata se Creatine Kinase Troponin T Baselin e 26 ng/L H ng/L (0-15) Troponin T 120 Min chilkat Delta Troponin T C-Reactive Protein 22.5 mg/L H mg/L (0.0-4.9) Total Protein Albumin Globulin Urine Color Urine Appearance Urine pH Ur Specific Gravit y Urine Protein Urine Glucose (UA) Urine Ketones Urine Blood Urine Nitrate Urine Bilirubin Urine Urobilinogen Ur Leukocyte Mitra ase Urine RBC Urine WBC Ur Squamous Epith Cells Amorphous Sediment Urine Bacteria Hyaline Casts 09/06/21 09/06/21 09/06/21 18:25 18:30 18:45 WBC RBC Hgb Hct MCV MCH MCHC RDW Plt Count MPV Neut % (Auto) Lymph % (Auto) Crockett % (Auto) Eos % (Auto) Baso % (Auto) Neut # (Auto) Lymph # (Auto) [place] # (Auto) Eos # (Auto) Baso # (Auto) Nucleated RBC % (a uto) Nucleated RBCs # PT INR APTT D-Dimer 1.37 ug/mIFEU H u g/mIFEU (0-0.59) Specimen Type Arterial Sample Site Radial, right ABG pH 7.32 L (7.35-7.45) ABG pCO2 55.3 mmHg H mmHg (35-45) ABG pO2 93.3 mmHg mmHg (80.0-100.0) ABG HCO3 28.3 mmol/L H mmo l/L (22-26) ABG O2 Saturation 96.9 ABG Base Excess 1.1 mmol/L mmol/L (-2.0-2.0) Shubham Test Pos A-a O2 Gradient 16.1 mmHg H mmHg (5-10) Hematocrit 40.8 % L % (42-52) Hgb O2 Saturation 95.3 % % (95-100) Carboxyhemoglobin 0.6 %THgb %THgb (0.4-20.1) Methemoglobin 1.0 % % (0.4-1.5) Total Hemoglobin 13.3 g/dL L g/dL (14-18) Ionized Calcium 1.2 mmol/L mmol/L (1.1-1.4) O2 Delivery Device Nc O2 Liters/Min 5.0 % % FiO2 40.0 % % Clam Digger ID Monro Sodium 139.0 mmol/L mmol /L (131-143) Potassium 4.2 mmol/L mmol/L (3.5-5.0) Chloride Carbon Dioxide Anion Gap BUN Creatinine GFR Calculation Glucose 141.0 mg/dL H mg/ dL (70-115) Calculated Osmolal ity Lactic Acid Lactic Acid (Sepsi s) Calcium Magnesium Total Bilirubin AST ALT Alkaline Phosphata se Creatine Kinase Troponin T Baselin e Troponin T 120 Min ch[place] Troponin T C-Reactive Protein Total Protein Albumin Globulin Urine Color Yellow (Yellow) Urine Appearance Clear (CLEAR) Urine pH 5 (5-7) Ur Specific Gravit y 1.025 (1.005-1.030) Urine Protein Neg (Negative) Urine Glucose (UA) Norm (Normal) Urine Ketones Negative (Negative) Urine Blood 2+ H (Negative) Urine Nitrate Negative (Negative) Urine Bilirubin Neg (Negative) Urine Urobilinogen 1 mg/dL H mg/dL (Negative) Ur Leukocyte Mitra ase Negative (Negative) Urine RBC 5-10 /hpf H /hpf (0-2) Urine WBC 0-4 /hpf H /hpf (0-5) Ur Squamous Epith Cells 15-25 /hpf H /hpf (0-5) Amorphous Sediment Not Reportable Urine Bacteria 2+ /hpf H /hpf (NONE) Hyaline Casts 10-15 /lpf H /lpf 09/06/21 09/06/21 21:00 21:00 WBC RBC Hgb Hct MCV MCH MCHC RDW Plt Count MPV Neut % (Auto) Lymph % (Auto) Crockett % (Auto) Eos % (Auto) Baso % (Auto) Neut # (Auto) Lymph # (Auto) [place] # (Auto) Eos # (Auto) Baso # (Auto) Nucleated RBC % (a uto) Nucleated RBCs # PT INR APTT D-Dimer Specimen Type Sample Site ABG pH ABG pCO2 ABG pO2 ABG HCO3 ABG O2 Saturation ABG Base Excess Shubham Test A-a O2 Gradient Hematocrit Hgb O2 Saturation Carboxyhemoglobin Methemoglobin Total Hemoglobin Ionized Calcium O2 Delivery Device O2 Liters/Min FiO2 Clam Digger ID Sodium Potassium Chloride Carbon Dioxide Anion Gap BUN Creatinine GFR Calculation Glucose Calculated Osmolal ity Lactic Acid Lactic Acid (Sepsi s) 0.7 mmol/L mmol/L (0.5-2.2) Calcium Magnesium Total Bilirubin AST ALT Alkaline Phosphata se Creatine Kinase Troponin T Baselin e Troponin T 120 Min chilkat 37.09 ng/L H ng/L (0-15) Delta Troponin T 11.09 ABS# H* ABS # (0-10) C-Reactive Protein Total Protein Albumin Globulin Urine Color Urine Appearance Urine pH Ur Specific Gravit y Urine Protein Urine Glucose (UA) Urine Ketones Urine Blood Urine Nitrate Urine Bilirubin Urine Urobilinogen Ur Leukocyte Mitra ase Urine RBC Urine WBC Ur Squamous Epith Cells Amorphous Sediment Urine Bacteria Hyaline Casts Discharge Plan Discharge Patient Disposition: Admitted As Inpatient Admit Provider: Valerie Cosby Clinical Impression: Generalized seizure, Acute alteration in mental status Condition: Stable Coding Level of Care Code ED Currency Exchange Specialist for g Fwd Exam Detailed Documented by User: Vijay Mcqueen, DO 09/07/21 01:55 HPI - Seizure General: Chief Complaint: ER Hold Stated Complaint: SEIZURES Time Seen by Provider: 09/06/21 17:33 PFSH ED PFSH: Medical History Anemia Asthma Carpal tunnel syndrome of left wrist Cervical radiculopathy Charcot's joint, 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 Hyperlipidemia Hypertension Hypertension SLAC (scapholunate advanced collapse) of wrist Surgical History H/O knee surgery History of carpal tunnel surgery Family History Denies family history of Diabetes CAD (coronary artery disease) Clotting disorder Dementia Hyperlipidemia Psychiatric illness Chronic kidney disease (CKD) Suicide Anesthesia complication Bleeding disorder Family history of premature coronary artery disease Lung disease Cancer Hypertension Stroke Social History Smoking and tobacco status: former smoker Alcohol intake: never Lives independently: No Housing: Longterm Course Consultations: Consultation #1: judi Time: 22:18 Vital Signs: Vital signs: Vital Signs Temperature 98.0 F 09/09/21 15:46 Pulse Rate 77 09/09/21 15:46 Respiratory Rate 16 09/09/21 15:46 Blood Pressure 144/85 09/09/21 15:46 Pulse Oximetry 95 09/09/21 15:46 MDM - Seizure MDM Narrative: Medical decision making narrative: 76[facility] patient checked out to me by Dr. Garcia at shift change. This gentleman came in after having seizures in the [facility]. He was given Ativan in route to the hospital for tonic-clonic seizure. On arrival, he has been minimally responsive. He withdraws purposefully to pain. He was not opening his eyes or saying words. Currently, he has opened his eyes spontaneously at times, makes purposeful movements to noxious stimuli, and makes sounds. I believe some of his obtundation is likely Ativan, although some of it is likely his seizure/postictal state. 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 CTA did not reveal any occlusion. Because of his seizure at presentation, obtundation, etc., he is not a good TPA candidate. Laboratory shows white blood cell count of 15, hemoglobin 13, bicarbonate 19. He does have a 2-hour delta of 11 with no acute changes of ST elevation [place] on EKG. Currently vital signs show heart rate 70, blood pressure 138/93, saturations 96% on 4 L. He has some coarse breath sounds now on repeat exam. Had a lengthy discussion with his family. The question is how he will do post seizure, and is this or is this not a sequelae of stroke. It was made clear to them that we do not have neurology service here this weekend, and would not be able to obtain an EEG. Neurology and EEG services would require transfer to an outside facility. The option was given to them to keep him here, mainly on comfort measures, as a DO NOT INTUBATE DO NOT RESUSCITATE status patient. They discussed with other family members, and agreed to admission here, to keep the patient comfortable, treat seizures as necessary, and see how he recovers. Hospitalist was consulted, has seen the patient in the ER, and agrees with plan Lab Data: Labs: Lab Results 09/06/21 09/06/21 09/06/21 18:25 18:25 18:25 WBC 15.0 10^3/uL H 10 ^3/uL (4.0-10.0) RBC 4.80 10^6/uL 10^6 /uL (4.1-5.3) Hgb 13.3 g/dL g/dL (11.7-16.6) Hct 41.3 % L % (42.0-52.0) MCV 86.0 fl fl (80-94) MCH 27.7 pg L pg (28.0-34.0) MCHC 32.2 g/dL g/dL (30.0-36.0) RDW 18.0 % H % (12.1-15.1) Plt Count 311 10^3/cmm 10^3 /cmm (130-400) MPV 10.4 fL fL (7.4-10.4) Neut % (Auto) 69.3 % % Lymph % (Auto) 17.2 % % Crockett % (Auto) 11.7 % % Eos % (Auto) 0.9 % % Baso % (Auto) 0.3 % % Neut # (Auto) 10.39 10^3/uL H 1 0^3/uL (1.8-7.7) Lymph # (Auto) 2.6 10^3/uL 10^3/ uL (0.8-4.8) [place] # (Auto) 1.8 10^3/uL H 10^ 3/uL (0.2-0.9) Eos # (Auto) 0.1 10^3/uL 10^3/ uL (0.0-0.8) Baso # (Auto) 0.1 10^3/uL 10^3/ uL (0.0-0.1) Nucleated RBC % (a uto) 0 % % Nucleated RBCs # 0.0 /100WBC /100W BC PT INR APTT D-Dimer Specimen Type Sample Site ABG pH ABG pCO2 ABG pO2 ABG HCO3 ABG O2 Saturation ABG Base Excess Shubham Test A-a O2 Gradient Hematocrit Hgb O2 Saturation Carboxyhemoglobin Methemoglobin Total Hemoglobin Ionized Calcium O2 Delivery Device O2 Liters/Min FiO2 Clam Digger ID Sodium 138 mmol/L mmol/L (136-145) Potassium 4.2 mmol/L mmol/L (3.5-5.1) Chloride 98 mmol/L mmol/L (98-107) Carbon Dioxide 19 mmol/L L mmol/ L (22-29) Anion Gap 25.2 H (5-19) BUN 24 mg/dL H mg/dL (8-23) Creatinine 0.9 mg/dL mg/dL (0.7-1.2) GFR Calculation Not Reportable Glucose 146 mg/dL H mg/dL (65-115) Calculated Osmolal ity 293 mOsm/kg mOsm/ kg (285-295) Lactic Acid 6.6 mmol/L H* mmo l/L (0.5-2.2) Lactic Acid (Sepsi s) Calcium 8.2 mg/dL L mg/dL (8.5-10.5) Magnesium 2.0 mg/dL mg/dL (1.7-2.3) Total Bilirubin 0.2 mg/dL mg/dL (0.15-1.2) AST 11 U/L U/L (0-40) ALT 9 U/L U/L (0-41) Alkaline Phosphata se 72 IU/L IU/L (40-130) Creatine Kinase 60 U/L U/L (39-308) Troponin T Baselin e Troponin T 120 Min chilkat Delta Troponin T C-Reactive Protein Total Protein 6.7 g/dL g/dL (6.6-8.7) Albumin 3.9 g/dL g/dL (3.5-5.2) Globulin 2.8 g/dL g/dL (1.3-4.6) Urine Color Urine Appearance Urine pH Ur Specific Gravit y Urine Protein Urine Glucose (UA) Urine Ketones Urine Blood Urine Nitrate Urine Bilirubin Urine Urobilinogen Ur Leukocyte Mitra ase Urine RBC Urine WBC Ur Squamous Epith Cells Amorphous Sediment Urine Bacteria Hyaline Casts 09/06/21 09/06/21 09/06/21 18:25 18:25 18:25 WBC RBC Hgb Hct MCV MCH MCHC RDW Plt Count MPV Neut % (Auto) Lymph % (Auto) [place] % (Auto) Eos % (Auto) Baso % (Auto) Neut # (Auto) Lymph # (Auto) [place] # (Auto) Eos # (Auto) Baso # (Auto) Nucleated RBC % (a uto) Nucleated RBCs # PT 14.00 SECONDS SEC ONDS (12.1-14.9) INR 1.05 (0.8-1.2) APTT 29.3 SECONDS SECO NDS (23.9-36.7) D-Dimer Specimen Type Sample Site ABG pH ABG pCO2 ABG pO2 ABG HCO3 ABG O2 Saturation ABG Base Excess Shubham Test A-a O2 Gradient Hematocrit Hgb O2 Saturation Carboxyhemoglobin Methemoglobin Total Hemoglobin Ionized Calcium O2 Delivery Device O2 Liters/Min FiO2 Clam Digger ID Sodium Potassium Chloride Carbon Dioxide Anion Gap BUN Creatinine GFR Calculation Glucose Calculated Osmolal ity Lactic Acid Lactic Acid (Sepsi s) Calcium Magnesium Total Bilirubin AST ALT Alkaline Phosphata se Creatine Kinase Troponin T Baselin e 26 ng/L H ng/L (0-15) Troponin T 120 Min chil[place] Troponin T C-Reactive Protein 22.5 mg/L H mg/L (0.0-4.9) Total Protein Albumin Globulin Urine Color Urine Appearance Urine pH Ur Specific Gravit y Urine Protein Urine Glucose (UA) Urine Ketones Urine Blood Urine Nitrate Urine Bilirubin Urine Urobilinogen Ur Leukocyte Mitra ase Urine RBC Urine WBC Ur Squamous Epith Cells Amorphous Sediment Urine Bacteria Hyaline Casts 09/06/21 09/06/21 09/06/21 18:25 18:30 18:45 WBC RBC Hgb Hct MCV MCH MCHC RDW Plt Count MPV Neut % (Auto) Lymph % (Auto) [place]ett % (Auto) Eos % (Auto) Baso % (Auto) Neut # (Auto) Lymph # (Auto) [place] # (Auto) Eos # (Auto) Baso # (Auto) Nucleated RBC % (a uto) Nucleated RBCs # PT INR APTT D-Dimer 1.37 ug/mIFEU H u g/mIFEU (0-0.59) Specimen Type Arterial Sample Site Radial, right ABG pH 7.32 L (7.35-7.45) ABG pCO2 55.3 mmHg H mmHg (35-45) ABG pO2 93.3 mmHg mmHg (80.0-100.0) ABG HCO3 28.3 mmol/L H mmo l/L (22-26) ABG O2 Saturation 96.9 ABG Base Excess 1.1 mmol/L mmol/L (-2.0-2.0) Shubham Test Pos A-a O2 Gradient 16.1 mmHg H mmHg (5-10) Hematocrit 40.8 % L % (42-52) Hgb O2 Saturation 95.3 % % (95-100) Carboxyhemoglobin 0.6 %THgb %THgb (0.4-20.1) Methemoglobin 1.0 % % (0.4-1.5) Total Hemoglobin 13.3 g/dL L g/dL (14-18) Ionized Calcium 1.2 mmol/L mmol/L (1.1-1.4) O2 Delivery Device Nc O2 Liters/Min 5.0 % % FiO2 40.0 % % Clam Digger ID Monro Sodium 139.0 mmol/L mmol /L (131-143) Potassium 4.2 mmol/L mmol/L (3.5-5.0) Chloride Carbon Dioxide Anion Gap BUN Creatinine GFR Calculation Glucose 141.0 mg/dL H mg/ dL (70-115) Calculated Osmolal ity Lactic Acid Lactic Acid (Sepsi s) Calcium Magnesium Total Bilirubin AST ALT Alkaline Phosphata se Creatine Kinase Troponin T Baselin e Troponin T 120 Min ch[place] Troponin T C-Reactive Protein Total Protein Albumin Globulin Urine Color Yellow (Yellow) Urine Appearance Clear (CLEAR) Urine pH 5 (5-7) Ur Specific Gravit y 1.025 (1.005-1.030) Urine Protein Neg (Negative) Urine Glucose (UA) Norm (Normal) Urine Ketones Negative (Negative) Urine Blood 2+ H (Negative) Urine Nitrate Negative (Negative) Urine Bilirubin Neg (Negative) Urine Urobilinogen 1 mg/dL H mg/dL (Negative) Ur Leukocyte Mitra ase Negative (Negative) Urine RBC 5-10 /hpf H /hpf (0-2) Urine WBC 0-4 /hpf H /hpf (0-5) Ur Squamous Epith Cells 15-25 /hpf H /hpf (0-5) Amorphous Sediment Not Reportable Urine Bacteria 2+ /hpf H /hpf (NONE) Hyaline Casts 10-15 /lpf H /lpf 09/06/21 09/06/21 21:00 21:00 WBC RBC Hgb Hct MCV MCH MCHC RDW Plt Count MPV Neut % (Auto) Lymph % (Auto) Crockett % (Auto) Eos % (Auto) Baso % (Auto) Neut # (Auto) Lymph # (Auto) [place] # (Auto) Eos # (Auto) Baso # (Auto) Nucleated RBC % (a uto) Nucleated RBCs # PT INR APTT D-Dimer Specimen Type Sample Site ABG pH ABG pCO2 ABG pO2 ABG HCO3 ABG O2 Saturation ABG Base Excess Shubham Test A-a O2 Gradient Hematocrit Hgb O2 Saturation Carboxyhemoglobin Methemoglobin Total Hemoglobin Ionized Calcium O2 Delivery Device O2 Liters/Min FiO2 Clam Digger ID Sodium Potassium Chloride Carbon Dioxide Anion Gap BUN Creatinine GFR Calculation Glucose Calculated Osmolal ity Lactic Acid Lactic Acid (Sepsi s) 0.7 mmol/L mmol/L (0.5-2.2) Calcium Magnesium Total Bilirubin AST ALT Alkaline Phosphata se Creatine Kinase Troponin T Baselin e Troponin T 120 Min chilkat 37.09 ng/L H ng/L (0-15) Delta Troponin T 11.09 ABS# H* ABS # (0-10) C-Reactive Protein Total Protein Albumin Globulin Urine Color Urine Appearance Urine pH Ur Specific Gravit y Urine Protein Urine Glucose (UA) Urine Ketones Urine Blood Urine Nitrate Urine Bilirubin Urine Urobilinogen Ur Leukocyte Mitra ase Urine RBC Urine WBC Ur Squamous Epith Cells Amorphous Sediment Urine Bacteria Hyaline Casts Discharge Plan Discharge Patient Disposition: Admitted As Inpatient Admit Provider: Valerie Cosby Clinical Impression: Generalized seizure, Acute alteration in mental status Condition: Stable Coding Level of Care Code ED Currency Exchange Specialist for Chg Fwd Exam Detailed
--- NOTE | 2021-09-06 17:35 | CTR_ITS ---
PROCEDURE INFORMATION: Exam: CT Head Without Contrast Exam date and time: 09/06/2021 5:35 PM Age: 76 years old Clinical indication: Patient HX: New onset seizures TECHNIQUE: Imaging protocol: Computed tomography of the head without contrast. Radiation optimization: All CT scans at this facility use at least one of these dose optimization techniques: automated exposure control; mA and/or kV adjustment per patient size (includes targeted exams where dose is matched to clinical indication); or iterative reconstruction. COMPARISON: CT head wo con* [id number] 06/20/2021 4:19 PM RADIATION DOSE METRICS: Total DLP (mGy-cm): 1780.23 FINDINGS: Brain: There is bilateral occipital encephalomalacia, greater on the left. There is mild diffuse cerebral atrophy. There is no acute intracranial hemorrhage. Cerebral ventricles: There is mild ex vacuo dilation of the lateral ventricles. The basal cisterns are unremarkable. Paranasal sinuses: The paranasal sinuses are clear. Mastoid air cells: The mastoid air cells are clear. Bones/joints: The calvarium is intact. Soft tissues: The visible extracranial soft tissues are unremarkable. CT/CT head wo con* [id number] IMPRESSION: 1. No acute intracranial abnormality. 2. 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
--- NOTE | 2021-09-06 17:35 | ECG_ITS ---
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 Measurements Intervals [place] Rate: 88 P: 85 [place]: 209 QRS: -69 QRSD: 153 T: 65 QT: 396 QTc: 481 Interpretive Statements SINUS RHYTHM WITH FREQUENT VENTRICULAR PREMATURE COMPLEXES LEFT AXIS DEVIATION [QRS AXIS < -30] RIGHT BUNDLE BRANCH BLOCK [120+ ms QRS DURATION, UPRIGHT V1, 40+ ms S IN I/aVL/V4/V5/V6] Compared to ECG 09/08/2020 08:16:33 Sinus bradycardia no longer present Electronically Signed On 09-07-2021 7:32:00 APPLIED PSYCHOLOGY PROFESSOR by Rosa Frey M.D. [id number]
--- NOTE | 2021-09-06 18:31 | ECG_ITS ---
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 Measurements Intervals [place] Rate: 90 P: 67 ID: [id number] QRS: -68 QRSD: 149 T: 65 QT: 398 QTc: 488 Interpretive Statements SINUS RHYTHM WITH FIRST DEGREE AV BLOCK WITH FREQUENT VENTRICULAR PREMATURE COMPLEXES LEFT AXIS DEVIATION [QRS AXIS < -30] RIGHT BUNDLE BRANCH BLOCK [120+ ms QRS DURATION, UPRIGHT V1, 40+ ms S IN I/aVL/V4/V5/V6] Compared to ECG 09/08/2020 08:16:33 First degree AV block now present Sinus bradycardia no longer present Electronically Signed On 09-07-2021 7:31:38 EXTENSION EDUCATOR by Rosa Frey M.D. [id number]
[2021-09-06 18:35] LABS: Basophils # 0.1 10^3/uL (0.0-0.1); Basophils % 0.3 %; Eosinophils # 0.1 10^3/uL (0.0-0.8); Eosinophils % 0.9 %; Hematocrit 41.3 % (42.0-52.0); Hemoglobin 13.3 g/dL (11.7-16.6); Lymphocytes # 2.6 10^3/uL (0.8-4.8); Lymphocytes % 17.2 %; Mean Corpuscular HGB Conc 32.2 g/dL (30.0-36.0); Mean Corpuscular Hemoglobin 27.7 pg (28.0-34.0); Mean Platelet Volume 10.4 fL (7.4-10.4); Monocytes # 1.8 10^3/uL (0.2-0.9); Monocytes % 11.7 %; Neutrophils # 10.39 10^3/uL (1.8-7.7); Neutrophils % 69.3 %; Nucleated Red Blood Cells % 0 %; Platelet Count 311 10^3/cmm (130-400)
[2021-09-06 18:42] LABS: ABG PCO2 55.3 mmHg (35-45); ABG PH Result 7.32 (7.35-7.45); Arterial Blood Gas Hematocrit 40.8 % (42-52); Base Excess ABG 1.1 mmol/L (-2.0-2.0); Blood Gas Allen Test Pos; Blood Gas Sample Type Arterial; Carboxyhemoglobin 0.6 %THgb (0.4-20.1); HCO3 ABG 28.3 mmol/L (22-26); HGB O2 Sat 95.3 % (95-100); Ionized Calcium Level - ABG 1.2 mmol/L (1.1-1.4); Oxygen Saturation ABG 96.9; PO2 ABG 93.3 mmHg (80.0-100.0); Potassium Level - ABG 4.2 mmol/L (3.5-5.0); Total Hemoglobin 13.3 g/dL (14-18)
[2021-09-06 18:43] LABS: Alveolar-Arterial Oxygen Gradi 16.1 mmHg (5-10); Blood Gas Operator Identificat MONRO; Blood Gas Sample Site Radial, right; Oxygen Device NC
--- NOTE | 2021-09-06 18:43 | CTR_ITS ---
PROCEDURE INFORMATION: Exam: CT Angiography Head With Contrast, Arteriography Exam date and time: 09/06/2021 6:43 PM Age: 76 years old Clinical indication: Convulsions / seizures; Additional info: AMS TECHNIQUE: Imaging protocol: Computed tomography angiography of the head with contrast. Exam focused on the arteries. 3D rendering (Not supervised by radiologist): MIP and/or 3D reconstructed images were created by the technologist. Radiation optimization: All CT scans at this facility use at least one of these dose optimization techniques: automated exposure control; mA and/or kV adjustment per patient size (includes targeted exams where dose is matched to clinical indication); or iterative reconstruction. Contrast material: OMNI 350; Contrast volume: 95 ml; Contrast route: INTRAVENOUS (IV); COMPARISON: CT head wo con* [id number] 09/06/2021 5:54 PM RADIATION DOSE METRICS: Total DLP (mGy-cm): 2610.98 FINDINGS: ANTERIOR CIRCULATION: Right internal carotid artery: Unremarkable. Intracranial segment is patent with no significant stenosis. No aneurysm. Right middle cerebral artery: Unremarkable. No occlusion or significant stenosis. No aneurysm. Right anterior cerebral artery: Unremarkable. No occlusion or significant stenosis. No aneurysm. Left internal carotid artery: Unremarkable. Intracranial segment is patent with no significant stenosis. No aneurysm. Left middle cerebral artery: Unremarkable. No occlusion or significant stenosis. No aneurysm. Left anterior cerebral artery: Unremarkable. No occlusion or significant stenosis. No aneurysm. POSTERIOR CIRCULATION: Right vertebral artery: The right vertebral artery is markedly hypoplastic and there is no definite contrast in the vessel beyond the skull base. The right vertebral artery does not contribute to the basilar artery. Left vertebral artery: Unremarkable. No occlusion or significant stenosis. No aneurysm. Basilar artery: Unremarkable. No occlusion or significant stenosis. No aneurysm. Right posterior cerebral artery: Unremarkable. No occlusion or significant stenosis. No aneurysm. Left posterior cerebral artery: Unremarkable. No occlusion or significant stenosis. No aneurysm. Veins: Dural venous sinuses are patent. Brain: There is bilateral occipital encephalomalacia. There is mild diffuse cerebral atrophy. Cerebral ventricles: There is mild ex vacuo dilation of the lateral ventricles. The basal cisterns are unremarkable. Bones/joints: Unremarkable. No acute fracture. Soft tissues: Unremarkable. PROCEDURE INFORMATION: Exam: CT Angiography Neck With Contrast Exam date and time: 09/06/2021 6:43 PM Age: 76 years old Clinical indication: Convulsions / seizures; Additional info: AMS TECHNIQUE: Imaging protocol: Computed tomography angiography of the neck with contrast. 3D rendering (Not supervised by radiologist): MIP and/or 3D reconstructed images were created by the technologist. Radiation optimization: All CT scans at this facility use at least one of these dose optimization techniques: automated exposure control; mA and/or kV adjustment per patient size (includes targeted exams where dose is matched to clinical indication); or iterative reconstruction. Contrast material: OMNI 350; Contrast volume: 95 ml; Contrast route: INTRAVENOUS (IV); COMPARISON: CT head wo con* [id number] 09/06/2021 5:54 PM RADIATION DOSE METRICS: Total DLP (mGy-cm): 2610.98 FINDINGS: Right common carotid artery: No stenosis. No dissection or occlusion. Right internal carotid artery: There is mild atherosclerotic disease at the origin of the right internal carotid artery with less than 50% stenosis. Right external carotid artery: No occlusion or stenosis of the origin. Left common carotid artery: No stenosis. No dissection or occlusion. Left internal carotid artery: There is mild atherosclerotic disease at the origin of the left internal carotid artery with less than 50% stenosis. Left external carotid artery: No occlusion or stenosis of the origin. Right vertebral artery: Right vertebral artery is hypoplastic but patent in the neck. Left vertebral artery: The left dominant vertebral artery is normal. Soft tissues: Soft tissues in the neck and thoracic inlet are unremarkable. Bones/joints: No acute fracture. Multilevel disc findings: There is moderate degenerative disc disease in the cervical spine. Lungs: Lung apices are clear. CT/CT angio headneck* [id number] IMPRESSION: 1. No acute arterial occlusion or aneurysm. 2. 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 Patency is uncertain. This vessel does not contribute to the basilar artery. IMPRESSION: No significant arterial stenosis, occlusion or dissection. REFERENCES: NASCET CRITERIA. The degree of internal carotid artery stenosis is based on NASCET criteria. Normal is no stenosis. Mild is less than 50% stenosis. Moderate is 50-69% stenosis. Severe is 70% to 99% stenosis. Total occlusion is no detectable patent lumen.
[2021-09-06 18:47] VITALS: BP 102/71; PULSE 88; RESP 19; TEMP 36.3; O2SAT 94
[2021-09-06 18:49] LABS: INR 1.05 (0.8-1.2)
[2021-09-06 18:50] LABS: Partial Thromboplastin Time 29.3 SECONDS (23.9-36.7)
[2021-09-06 18:53] LABS: Troponin(5th) Baseline 26 ng/L (0-15)
[2021-09-06 18:54] VITALS: BP 102/71; PULSE 88; RESP 19; TEMP 36.3; O2SAT 94
[2021-09-06 18:54] LABS: Alanine Aminotransferase 9 U/L (0-41); Albumin Level 3.9 g/dL (3.5-5.2); Alkaline Phosphatase 72 IU/L (40-130); Anion Gap 25.2 (5-19); Aspartate Amino Transferase 11 U/L (0-40); Blood Urea Nitrogen 24 mg/dL (8-23); Calcium 8.2 mg/dL (8.5-10.5); Carbon Dioxide 19 mmol/L (22-29); Chloride 98 mmol/L (98-107); Creatine Phosphokinase 60 U/L (39-308); Globulin 2.8 g/dL (1.3-4.6); Glucose 146 mg/dL (65-115); Lactic Sepsis W/Reflex 6.6 mmol/L (0.5-2.2); Osmolality Calculated 293 mOsm/kg (285-295); Potassium 4.2 mmol/L (3.5-5.1); Sodium 138 mmol/L (136-145); Total Bilirubin 0.2 mg/dL (0.15-1.2); Total Protein 6.7 g/dL (6.6-8.7)
[2021-09-06] MEDS: iohexol 350 mg/mL 100 mL Btl IV (19:14)
[2021-09-06 19:21] LABS: Add Urine Microscopic? YES; Bilirubin Urine Neg (Negative); Blood Urine 2+ (Negative); Glucose Urine UA Norm (Normal); Ketones Urine Negative (Negative); Leukocyte Esterase Urine Negative (Negative); Nitrate Urine Negative (Negative); Protein Urine Neg (Negative); Specific Gravity, Urine 1.025 (1.005-1.030); Urine Appearance Clear (CLEAR); Urine Color Yellow (Yellow); Urobilinogen Urine 1 mg/dL (Negative); pH Urine 5 (5-7)
--- NOTE | 2021-09-06 19:21 | PC.NURSE ---
Pt arrived via EMS from care facility where he lives. Staff reports pt was witnessed to have multiple Grand Mal seizures over roughly 15 minutes. EMS reports when they arrived pt was still seizing, EMS gave 2mg Ativan on scene and transported pt, pt seized approximately 5 minutes after recieving Ativan . Per staff at care facility pt is on 4L NC at baseline. EMS reports pt was placed on non rebreather @ 15L. Pt arrived and noted to have teofilo blood coming from right side of mouth, bleeding is controlled. Blood appears to be from pt biting tongue. Pt has a hx of COPD, HTN, no known seizure hx, pts blood glucose 199. Per EMS pt responds to painful stimuli. VS taken, pt placed on monitor, daughter at bedside
[2021-09-06 19:22] LABS: Squamous Epithelial Cell Urine 15-25 /hpf (0-5); WBC Urine 0-4 /hpf (0-5)
[2021-09-06 19:23] LABS: Add Urine Culture? No; Bacteria Urine 2+ /hpf
[2021-09-06 20:00] VITALS: BP 113/74; PULSE 71; RESP 18; O2SAT 97
[2021-09-06 20:19] LABS: Reflex Lactate Order REFLEX LACTIC ORDERD
--- NOTE | 2021-09-06 20:31 | ECG_ITS ---
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 Measurements Intervals [place] Rate: 78 P: 62 DC: 231 QRS: -67 QRSD: 169 T: 60 QT: 436 QTc: 498 Interpretive Statements SINUS RHYTHM WITH FIRST DEGREE AV BLOCK WITH OCCASIONAL VENTRICULAR PREMATURE COMPLEXES RIGHT BUNDLE BRANCH BLOCK [120+ ms QRS DURATION, UPRIGHT V1, 40+ ms S IN I/aVL/V4/V5/V6] LEFT ANTERIOR FASCICULAR BLOCK [QRS AXIS <= -45, QR IN I, RS IN II] Compared to ECG 09/06/2021 18:49:42 Left anterior fascicular block now present Left-axis deviation no longer present Electronically Signed On 09-07-2021 7:39:45 ADVANCED MANUFACTURING ENGINEER by Rosa Frey M.D. [id number]
[2021-09-06 21:01] VITALS: PULSE 86; RESP 18; O2SAT 95
[2021-09-06] MEDS: ipratropium-albuterol 3 mL Neb INHALATION (21:01)
[2021-09-06 21:11] VITALS: PULSE 88; RESP 18; O2SAT 97
[2021-09-06 21:24] LABS: Troponin 5 2HR 37.09 ng/L (0-15)
[2021-09-06 21:26] LABS: Lactic Acid level (Lactate) 0.7 mmol/L (0.5-2.2); Troponin 5 2HR Delta 11.09 ABS# (0-10)
[2021-09-07] VITALS (17 sets, daily range): BP systolic 116–146; BP diastolic 71–81; PULSE 58–82; RESP 15–20; TEMP 36.9; O2SAT 94–98; BMI 33.7
--- NOTE | 2021-09-07 00:07 | XRR_ITS ---
PROCEDURE INFORMATION: Exam: XR Chest Exam date and time: 09/07/2021 12:07 AM Age: 76 years old Clinical indication: Dyspnea; Additional info: [place] for pneumonia, recent covid TECHNIQUE: Imaging protocol: XR of the chest. Views: 1 view. COMPARISON: CR XR chest 1V portable [id number] 06/20/2021 4:26 PM FINDINGS: Lungs: There is no consolidation. Pleural spaces: There is no pleural effusion or pneumothorax. Heart/Mediastinum: There is moderate enlargement of the cardiac silhouette. Bones/joints: Bones are unremarkable. XR/XR chest 1V portable [id number] IMPRESSION: No acute findings.
--- NOTE | 2021-09-07 00:31 | ECG_ITS ---
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1945 Requested By: Vijay Chaney Order Number: [id number] Reading MD: JERSON BROWER Measurements Intervals [place] Rate: 70 P: 43 UT: 232 QRS: -60 QRSD: 160 T: 60 QT: 442 QTc: 479 Interpretive Statements SINUS RHYTHM WITH FIRST DEGREE AV BLOCK LEFT AXIS DEVIATION [QRS AXIS < -30] RIGHT BUNDLE BRANCH BLOCK [120+ ms QRS DURATION, UPRIGHT V1, 40+ ms S IN I/aVL/V4/V5/V6] Compared to ECG 09/06/2021 21:07:09 Left-axis deviation now present Ventricular premature complex(es) no longer present Left anterior fascicular block no longer present Electronically Signed On 09-08-2021 20:00:12 MACHINE SHOP INSPECTOR by JERSON BROWER [id number]
[2021-09-07 01:05] LABS: D Dimer 1.37 ug/mIFEU (0-0.59)
[2021-09-07 01:11] LABS: C Reactive Protein 22.5 mg/L (0.0-4.9)
[2021-09-07] MEDS: famotidine 20 mg/2 mL INJ IVP ×2 (01:26→15:17)
[2021-09-07] MEDS: enoxaparin 40 mg/0.4 mL Syringe SUBCUT (01:26)
[2021-09-07] MEDS: cefTRIAXone 1,000 MG in sodium chloride 0.9% (plus) 50 ML 100 MG IV (01:27)
[2021-09-07] MEDS: azithromycin 500 MG in sodium chloride 0.9% 250 ML 250 MG IV (01:27)
[2021-09-07 02:20] LABS: Troponin 5 6HR 43.97 ng/L (0-15)
[2021-09-07 02:28] LABS: Troponin 5 6HR Delta 17.97 ng/L (0-12)
[2021-09-07] MEDS: ipratropium-albuterol 3 mL Neb INHALATION ×4 (05:25→20:46)
--- NOTE | 2021-09-07 06:57 | P.HP_ITS ---
Providers/Chief Complaint Admitting Physician: Valerie Cosby MD Primary Care Provider: Walter Marte DO Chief Complaint: SEIZURES History of Present Illness Caesar Josue is a 76 year old male with past medical history of COPD, retirement resident at [facility], recently with Covid nineteen diagnosis on August 22, 2021 following which patient had a monoclonal antibody infusion. Reportedly per retirement had been relatively asymptomatic from a Covid standpoint. He was continuing to be on room air. He had been afebrile. He had been sitting up and extended time through the day today when suddenly he was noted to have violent shaking movements all over followed by an episode of unresponsiveness. He was afebrile at the time, temperature 97.6, no hypoxia noted at the retirement. In route into the ER reportedly had 2 other episodes for which she received Ativan. There have been no further seizures since arrival into the emergency room. His GCS was low at 6, initially intubation was recommended by ER physician for airway protection to the family, however after an extensive discussion patient has in fact been changed CODE STATUS to DNR/DNI with goals to remain on medical management only. CT head is negative for any acute intracranial events. Review of Systems General: Reports: ROS unobtainable due to medical condition and ROS unobtainable due to mental status Medications/Allergies Home Medications Medication Instructions Recorded Confirmed Last Taken Type amlodipine 10 mg tablet 10 mg PO DAILY@11/11/19 06/20/21 06/20/21 08:02 History aspirin 81 mg tablet,delayed 81 mg PO DAILY@11/11/19 06/20/21 06/20/21 08:02 History release pantoprazole 40 mg tablet,delayed 40 mg PO DAILY@11/11/19 06/20/21 06/20/21 05:11 History release pregabalin 150 mg capsule 150 mg PO BID 11/11/19 06/20/21 06/20/21 08:02 History Dulcolax (bisacodyl) 10 mg PO DAILY PRN 06/20/21 06/20/21 Unknown History Dulcolax (bisacodyl) 10 mg DE DAILY PRN 06/20/21 06/20/21 Unknown History Fleet Enema 118 ml DE DAILY PRN 06/20/21 06/20/21 Unknown History Milk of Magnesia 30 ml PO DAILY PRN 06/20/21 06/20/21 Unknown History Tylenol 650 mg PO Q6H PRN 06/20/21 06/20/21 Unknown History albuterol sulfate 2.5 mg INHALATION Q4H PRN 06/20/21 06/20/21 Unknown History budesonide 0.25 mg INHALATION BID 06/20/21 06/20/21 06/20/21 History escitalopram oxalate 20 mg PO DAILY@06/20/21 06/20/21 06/20/21 History ferrous sulfate 325 mg PO DAILY@06/20/21 06/20/21 06/20/21 History ipratropium-albuterol 3 ml INHALATION TID 06/20/21 06/20/21 06/20/21 12:05 History simvastatin 40 mg PO BEDTIME@06/20/21 06/20/21 06/19/21 History prednisone See Taper PO DAILY #42 tab 06/25/21 Unknown Rx Allergies Allergy/AdvReac Type Severity Reaction Status Date / Time gabapentin Allergy algy-rash Verified 06/20/21 17:21 pravastatin Allergy algy-rash Verified 06/20/21 17:21 PFSH Acute PFSH: Medical History Anemia Asthma Carpal tunnel syndrome of left wrist Cervical radiculopathy Charcot's joint, 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 Hyperlipidemia Hypertension Hypertension SLAC (scapholunate advanced collapse) of wrist Surgical History H/O knee surgery History of carpal tunnel surgery Family History Denies family history of Diabetes CAD (coronary artery disease) Clotting disorder Dementia Hyperlipidemia Psychiatric illness Chronic kidney disease (CKD) Suicide Anesthesia complication Bleeding disorder Family history of premature coronary artery disease Lung disease Cancer Hypertension Stroke Social History Smoking and tobacco status: former smoker Alcohol intake: never Lives independently: No Housing: [facility] Vitals/I&O/Wt Last Vital Signs Temp 97.3 F L 09/06/21 18:54 Pulse 59 L 09/07/21 05:30 Resp 20 H 09/07/21 05:25 BP 146/77 09/07/21 05:04 Pulse Ox 97 09/07/21 05:25 Physical Exam Narrative: EXAM NARRATIVE: General: Elderly male laying in bed, lethargic, winces to pain, opens eyes to calling name, however unable to follow commands. Does withdraw from pain, attempts to resist placement of Driscoll catheter. HEENT: PERRLA, pupils bilaterally equal and reactive, pallors not present Chest: Coarse crackles to auscultation CVS: S1-S2 regular, no murmurs, no tachycardia, no gallops, no rubs Abdomen: Soft, nontender, no organomegaly, bowel sounds present Neuro:As above Ext: mild non pitting edema B/L Data : 09/06/21 18:25 09/06/21 18:25 A&P Assessment and plan (1) Generalized seizure: Presenting today with 3 episodes of seizures without any past history of the same. Received Ativan in route, no further seizure episodes since presentation to the ER. Start Keppra 500 mg IV every 12 hours. As needed Ativan for seizures. Currently alteration in mental status appears to be related to postictal state most likely given acuity of onset of symptoms immediately after the seizure episode. Low GCS of 6 upon arrival, recommended intubation, however goals of care changed to DNR/DNI with close observation with medical management. Status: Acute (2) Acute alteration in mental status: Status: Acute (3) Hypoxia: Likely related to poor respiratory effort from low GCS. ABG with mild hypercapnia PCO2 55, appears to be out of proportion to level of obtundation. Last PCO2 dating back to May 2021 at 66 with normal pH. Patient has a history of COPD and may have a higher than normal baseline. Will repeat blood gas in the morning. Repeat chest x-ray to be taken given recent history of Covid, may have secondary bacterial pneumonia, given also leukocytosis. Ceftriaxone 1 g IV every 24 hours in the interim. Check UA and urine culture. Status: Acute Additional A&P Information Recent Covid pneumonia, positive PCR on 08/22/2021 status post monoclonal antibody. Reportedly patient had been on room air and afebrile at the retirement. Since over 14 days have passed since his diagnosis and no current symptoms will likely not need isolation precautions if chest x-ray currently comes back without any acute infiltrates. Baseline troponin mildly elevated at 37, 2-hour delta at 11, suspect this to be related to demand supply mismatch from acute stress of his seizure, will await 6-hour troponin. Attestations Medical Necessity Statement*: Anticipate greater than 2 midnight admission for management of above issues Coding Level of Care Code Acute Moto Mix Operator for Darreng Fwd Diagnoses Generalized seizure R56.9 Acute alteration in mental status R41.82 Hypoxia R09.02
[2021-09-07 07:40] LABS: ABG PCO2 50.4 mmHg (35-45); ABG PH Result 7.41 (7.35-7.45); Arterial Blood Gas Hematocrit 34.5 % (42-52); Base Excess ABG 5.8 mmol/L (-2.0-2.0); Blood Gas Sample Site Brachial, right; Blood Gas Sample Type Arterial; HCO3 ABG 31.5 mmol/L (22-26); Oxygen Device NC; PO2 ABG 99.2 mmHg (80.0-100.0)
--- NOTE | 2021-09-07 08:14 | USR_ITS ---
PROCEDURE INFORMATION: Exam: US Duplex Lower Extremity Veins, Bilateral Exam date and time: 09/07/2021 8:14 AM Age: 76 years old Clinical indication: Edema, localized; Lower extremity, bilateral; Additional info: HX of raiza teixeirae TECHNIQUE: Imaging protocol: Real-time duplex ultrasound of the extremities with 2-D melara scale, color Doppler flow and spectral waveform analysis with image documentation. Complete exam focused on the bilateral lower extremity veins. COMPARISON: CT ankle LT wo con* [id number] 09/07/2020 11:39 PM FINDINGS: Right deep veins: No deep venous thrombosis in the visualized right common femoral, profunda femoris, superficial femoral, popliteal, or posterior tibial veins. Right superficial veins: Saphenofemoral junction is patent without thrombus. Left deep veins: No deep venous thrombosis in the visualized left common femoral, profunda femoris, superficial femoral, popliteal, or posterior tibial veins. Left superficial veins: Saphenofemoral junction is patent without thrombus. Soft tissues: Subcutaneous edema. US/CV venous duplex [facility] [id number] IMPRESSION: No deep venous thrombosis in the visualized bilateral lower extremities.
--- NOTE | 2021-09-07 08:14 | CTR_ITS ---
PROCEDURE INFORMATION: Exam: CTA Chest With Contrast Exam date and time: 09/07/2021 8:14 AM Age: 76 years old Clinical indication: Other: Elevated trop, resp failure, covid 19 HX TECHNIQUE: Imaging protocol: Computed tomographic angiography of the chest with contrast. 3D rendering (Not supervised by radiologist): MIP and/or 3D reconstructed images were created by the technologist. Radiation optimization: All CT scans at this facility use at least one of these dose optimization techniques: automated exposure control; mA and/or kV adjustment per patient size (includes targeted exams where dose is matched to clinical indication); or iterative reconstruction. Contrast material: OMNI 350; Contrast volume: 95 ml; Contrast route: INTRAVENOUS (IV); COMPARISON: CT angio chest PE protcl [id number] 09/07/2020 9:39 PM RADIATION DOSE METRICS: Total DLP (mGy-cm): 621.94 FINDINGS: Pulmonary arteries: Evaluation of the pulmonary arteries is limited by motion artifact. No gross evidence for pulmonary embolus in the visualized pulmonary arteries. Aorta: Ectasia of the thoracic aorta. Lungs: Evaluation of the lung boo is limited by motion artifact. Trace basilar airspace disease. Pleural spaces: No pleural effusion. Heart: Cardiomegaly and coronary artery calcification. Lymph nodes: Subcentimeter lymph nodes. Bones/joints: Schmorl's nodes, degenerative change, and mild scoliosis. Soft tissues: Subcutaneous edema. Upper abdomen: 2.4 cm nodular lesion of fat attenuation in the hepatic dome. Prominent stool. CT/CT angio chest PE protcl [id number] IMPRESSION: 1. Evaluation of the pulmonary arteries is limited by motion artifact. No gross evidence for pulmonary embolus in the visualized pulmonary arteries. 2. Additional findings as described above.
--- NOTE | 2021-09-07 08:14 | USCV_ITS ---
Caesar Josue Age: 76 Gender: M : 1945 Exam Date: 09/07/2021 09:04 Ordering Phys: Syed Jose MD Technologist: ARSENIO Exam Location: [facility] Indication: NSTEMI BP: 146 / 77 HR: 54 Rhythm: Sinus Technical Quality: Fair MEASUREMENTS (Male / Female) Normal Values 2D ECHO LV Diastolic Diameter PLAX 5.8 cm 4.2 - 5.9 / 3.9 - 5.3 cm LV Systolic Diameter PLAX 3.4 cm IVS Diastolic Thickness 1.4 cm 0.6 - 1.0 / 0.6 - 0.9 cm IVS Systolic Thickness 1.6 cm LVPW Diastolic Thickness 1.1 cm 0.6 - 1.0 / 0.6 - 0.9 cm LVPW Systolic Thickness 1.1 cm RV Chamber Size 2.8 cm LVOT Diameter 2.0 cm LV Ejection Fraction 2D Teich 71.8 % LV Ejection Fraction MOD 2C 57.6 % LV Ejection Fraction 2C AL 58.2 % LA Diameter 3.5 cm LA Width 4.0 cm LA Height 6.3 cm RA Width 3.1 cm RA Height 5.9 cm Aorta at Sinotubular Diameter 2.6 cm M-MODE Aortic Annulus Diameter 3.3 cm LA Ao Ratio MM 1.3 DOPPLER AV Peak Velocity 145.0 cm/s LVOT Peak Velocity 117.0 cm/s AV Area Cont Eq vti 2.3 cm squared AV Area Cont Eq pk 2.5 cm squared MV Area PHT 4.6 cm squared Mitral E to A Ratio 0.8 MV E' Velocity 50.5 cm/s Mitral E to MV E' Ratio 8.0 Mitral E to LV E' Lateral Ratio 6.2 Mitral E to LV E' Septal Ratio 11.1 TR Peak Velocity 226.3 cm/s TR Peak Gradient 20.5 mmHg TV Peak E Velocity 45.0 cm/s Right Atrial Pressure 3.0 mmHg Pulmonary Artery Systolic Pressu 23.5 mmHg RV Acceleration Time 0.1 s RV Ejection Time 0.3 s RV AcT/ET 0.3 FINDINGS Left Ventricle Normal left ventricular cavity size. Normal left ventricular systolic function. Left ventricular ejection fraction is estimated at 60 %. Abnormal septal motion consistent with conduction abnormality. Grade I/IV diastolic dysfunction (abnormal relaxation filling pattern), normal to mildly elevated filling pressures. Right Ventricle The right ventricle is normal in size and function. Right Atrium The right atrium is normal in size. Left Atrium The left atrium is normal in size. Mitral Valve Structurally normal mitral valve without significant stenosis or prolapse. There is no mitral regurgitation. Aortic Valve Structurally normal aortic valve without significant sclerosis or stenosis. There is no aortic regurgitation. Tricuspid Valve Structurally normal tricuspid valve without significant stenosis or regurgitation. Pulmonary artery systolic pressure is normal. Pulmonic Valve Structurally normal pulmonic valve without significant stenosis. There is no pulmonic regurgitation. Pericardium Normal pericardium without effusion. Aorta Normal ascending aorta dimension. CONCLUSIONS 1-Normal left ventricular cavity size. Normal left ventricular systolic function. Left ventricular ejection fraction is estimated at 60 %. Abnormal septal motion consistent with conduction abnormality. Grade I/IV diastolic dysfunction (abnormal relaxation filling pattern), normal to mildly elevated filling pressures. 2-There is no pericardial effusion. 3-No significant valve abnormalities. 4-Pulmonary artery systolic pressure is within normal limits. 5-Right atrial pressure is around 5 mm of mercury. 6-There are no prior echocardiogram studies to compare. Tha Williamson MD (Electronically Signed) Final Date: 07 September 2021 15:44 S
[2021-09-07] MEDS: budesonide 0.5 mg/2 mL Neb INHALATION ×2 (08:19→20:46)
[2021-09-07 09:47] LABS: NT Pro B Type Natriuretic Pept 331 pg/mL (0-450)
[2021-09-07] MEDS: piperacillin-tazobactam 3.375 GM in sodium chloride 0.9% (plus) 50 ML IV ×2 (10:37→17:19)
[2021-09-07] MEDS: vancomycin 1,500 MG/300 ML PIGGYBACK 200 MG IV ×2 (12:42→21:13)
--- NOTE | 2021-09-07 13:34 | PM.PN ---
Subjective Subjective: Interval history: Patient was seen this morning, he is alert to person, not to place, time, he does follow commands, squeezes my fingers, wiggles his toes, he is on nasal cannula, normotensive, normal sinus rhythm, he has no complaints, he does not know where he is, he falls back asleep is quite drowsy Patient was reexamined this afternoon, son is at bedside, son tells me that his mentation has improved compared to last night, he actually recognized him Vitals/I&O/Wt Last Vital Signs Temp 97.3 F L 09/06/21 18:54 Pulse 67 09/07/21 12:45 Resp 15 09/07/21 12:45 BP 121/71 09/07/21 12:45 Pulse Ox 94 09/07/21 12:45 09/06/21 09/07/21 09/07/21 22:59 06:59 14:59 Intake Total 105 / 105 Balance 105 / 105 Weight last 48 hrs Weight 109.769 kg Physical Exam Const: COMMON NORMALS: no acute distress ORIENTATION/CONSCIOUSNESS: Yes awake, Yes oriented to person and Yes confused; not oriented to place and not oriented to time Resp: COMMON NORMALS: normal respiratory effort, No retractions and No use of accessory muscles Cardio: COMMON NORMALS: regular rate, regular rhythm, S1 normal heart sound present and S2 normal heart sound present RATE: regular rate RHYTHM: regular rhythm HEART SOUNDS: S1 normal heart sound present and S2 normal heart sound present GI: COMMON NORMALS: Normal to inspection, nondistended, normoactive bowel sounds present, Soft to palpation and non-tender PALPATION: Yes Soft to palpation Extremity: NARRATIVE EXTREMITY EXAM: 2+ pitting edema bilateral extremities Neuro: SENSORIUM/ORIENTATION: Yes oriented to person, No oriented to place and No oriented to time Urinary Catheter Management^: Driscoll: Cath Placed During This Visit: no Reason for Continuing Indwelling Catheter: Other Data : 09/06/21 18:25 09/06/21 18:25 A&P Assessment and plan (1) Generalized seizure: Presenting today with 3 episodes of seizures without any past history of the same. Received Ativan in route, no further seizure episodes since presentation to the ER. Currently alert to person, to place, not to time, no recurrent seizure-like episodes, continues to be confused Continue Keppra 500 mg IV every 12 hours. As needed Ativan for seizures. Low GCS of 6 upon arrival, recommended intubation, however goals of care changed to DNR/DNI with close observation with medical management. Remains on room air, maintaining his airway, continue to monitor Status: Acute (2) Acute alteration in mental status: -Secondary to generalized seizure, postictal state, -Possible aspiration event -CT of the head shows bilateral occipital encephalomalacia consistent with remote infarction -CT angiogram head and neck -1. No acute arterial occlusion or aneurysm. 2. 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 Patency is uncertain. This vessel does not contribute to the basilar artery. -Start broad-spectrum antibiotic therapy vancomycin, Zosyn -Neurochecks, aspiration precautions, seizure precautions Status: Acute (3) Hypoxia: Aspiration event ABG with mild hypercapnia PCO2 55, appears to be out of proportion to level of obtundation. Last PCO2 dating back to May 2021 at 66 with normal pH. Patient has a history of COPD and may have a higher than normal baseline. Will repeat blood gas in the morning. Does have leukocytosis Will do CT angiogram the chest to evaluate for pulmonary emboli Continue broad-spectrum antibiotic therapy UA unremarkable for UTI Bilateral hand edema, Lasix 40 mg IV every 12 hours for 2 doses Status: Acute (4) Altered mental status: Status: Acute (5) NSTEMI (non-ST elevated myocardial infarction): -Secondary to post ictal state, hypoxia, however cannot rule out underlying cardiac etiology -EKG no acute ST-T wave changes -6-hour troponin 43.9, delta 17.97 -Continue aspirin, statin -Cardiac echo Status: Acute Additional A&P Information Recent Covid pneumonia, positive PCR on 08/22/2021 status post monoclonal antibody. Reportedly patient had been on room air and afebrile at the group home. work-up as above Baseline troponin mildly elevated at 37, 2-hour delta at 11, suspect this to be related to demand supply mismatch from acute stress of his seizure, will await 6-hour troponin. Attestations Medical Necessity Statement*: Patient requires hospitalization for altered mental status, seizures, hypoxia, NSTEMI, inpatient, greater than 2 midnights Coding Level of Care Code Acute Director Patient for [facility] Richard Diagnoses Generalized seizure R56.9 Acute alteration in mental status R41.82 Hypoxia R09.02 Altered mental status R41.82 NSTEMI (non-ST elevated myocardial infarction) I21.4
[2021-09-07] MEDS: iohexol 350 mg/mL 100 mL Btl IV (14:09)
[2021-09-07 14:59] LABS: Lactate (Lactic Acid level) 0.8 mmol/L (0.5-2.2)
[2021-09-07] MEDS: FUROsemide 10 mg/mL SDV 4mL 40 MG IVP (15:17)
[2021-09-07 17:27] LABS: Glucose Point of Care 89 mg/dL (70-110)
[2021-09-08] VITALS (13 sets, daily range): BP systolic 131–145; BP diastolic 72–86; PULSE 57–79; RESP 15–18; TEMP 36.9–37.1; O2SAT 91–95
[2021-09-08] MEDS: piperacillin-tazobactam 3.375 GM in sodium chloride 0.9% (plus) 50 ML IV ×3 (00:12→17:49)
[2021-09-08] MEDS: famotidine 20 mg/2 mL INJ IVP ×2 (00:12→12:46)
[2021-09-08] MEDS: enoxaparin 40 mg/0.4 mL Syringe SUBCUT (00:12)
[2021-09-08] MEDS: FUROsemide 10 mg/mL SDV 4mL 40 MG IVP (00:12)
--- NOTE | 2021-09-08 00:24 | PC.NURSE ---
During shift assessment pt would not speak to this nurse but would answer RT. Uncooperative or unable to follow commands and assist with assesment. At this time ELECTRICAL CONTROLS ENGINEER notified RN that patient refused blood pressure and temperature and laughed. This RN went to administer medication as ordered. Pt allowed RN to administer medication and verbalized understanding. During administration of lovenox injection pt pushed RN away. When RN asked pt where he believes he is at he laughed and stated where do you think we are? . RN encouraged pt to answer the question. Pt laughed and stated in a parking lot . When asked what year it is pt stated hell if I know . Then continued to decline to answer and further questions for this RN.
--- NOTE | 2021-09-08 00:35 | PC.NURSE ---
patient refused to let aide get bp and a temp
[2021-09-08] MEDS: ipratropium-albuterol 3 mL Neb INHALATION ×4 (03:29→20:40)
--- NOTE | 2021-09-08 04:46 | PC.NURSE ---
RT notified this nurse that pt refused neb tx and told her to get out . Pt refused for this RN to flush IV after zosyn completed and then began laughing as he pulled his arm away and grabbed this nurse's wrist. Education completed. Pt unable to comprehend.
--- NOTE | 2021-09-08 05:08 | PC.NURSE ---
Lily in lab attempted to get mornings. Pt agreeable then pulled arm away and began laughing. Education performed. Pt continued to refuse. Someone in lab will reattempt later this morning.
--- NOTE | 2021-09-08 06:39 | PC.NURSE ---
Pt refused morning blood sugar check
[2021-09-08 07:15] LABS: Glucose Point of Care 127 mg/dL (70-110)
[2021-09-08] MEDS: vancomycin 1,500 MG/300 ML PIGGYBACK 200 MG IV ×2 (09:16→21:17)
[2021-09-08] MEDS: budesonide 0.5 mg/2 mL Neb INHALATION ×2 (10:12→20:40)
--- NOTE | 2021-09-08 10:15 | PC.CHAP ---
Pastoral Care Encounter/Spiritual Assessment Type of Contact [] Declined wool carder visit [] Patient/Family/Request visit [] Outpatient visit [] Follow-up visit [] Physician referral [] Code/Alert [x] Routine visit [] Staff referral [] Actively dying [] Patient sleeping [] Family support [] [] Out of room [] Palliative care [] [] Receiving care in room [] Pre-surgical visit [] Trauma [] Long length of stay [] ICU visit [] Other: Relational/Emotional Strength [x] Patient feels connected with others/family/visitors/staff [] Distress [] Loneliness/isolation [] Abandonment Spirituality of Patient [x] Person of Fiona [] Attends Adventist of their Fiona [x] Believes in Prayer [] Reads Bible or Christianity materials [] There are Spiritual issues to be addressed Distribution Systems Serviceperson Interventions [x] Prayer [x] Active listening [x] Non-anxious presence [x] Spiritual/emotional support [] Crisis/trauma care [] Spiritual counseling [] Bereavement support [] Provided bereavement packet [] Provided Bible/devotional materials [] Provided toy/stuffed animal, coloring book to patient or family member [] Provided Communion [] Anointing/[place] [] Salvation [x] Completed spiritual assessment [] Other: Impact on Illness or Injury [] Angry [] Fearful [] Anxious [] Often cries [] Exhaustion [] Unable to work [] Unable to attend jainism [] Unable to walk/stand [] Unable to read [] Unable to drive [] Unable to eat/drink [] Unable to sleep [] Unable to be with family [] Patient intubated [] Other: Summary Distribution Systems Serviceperson prayed with Patient. Time spent with patient 8 minutes.
--- NOTE | 2021-09-08 14:43 | P.PN_ITS ---
Subjective Subjective: Interval history: Patient was seen this morning, he is alert to person, not to place, not to time, he does follow commands, according to nursing staff he was very agitated, is very agitated with lens grinder rough, he has no complaints, denies chest pain, denies any shortness of breath, when I tell him if he is in the hospital he starts laughing, I told him that he had a seizure he laughing, he asks for his son Vitals/I&O/Wt Last Vital Signs Temp 98.5 F 09/08/21 12:00 Pulse 68 09/08/21 12:00 Resp 16 09/08/21 12:00 BP 132/72 09/08/21 12:00 Pulse Ox 95 09/08/21 12:00 09/07/21 09/08/21 09/08/21 22:59 06:59 14:59 Intake Total 1225 / 1330 50 / 1380 465 / 465 Output Total 3000 / 3000 3900 / 6900 Balance -1775 / -1670 -3850 / -5520 465 / 465 Weight last 48 hrs Weight 109.769 kg Weight 109.769 kg Physical Exam Const: COMMON NORMALS: no acute distress ORIENTATION/CONSCIOUSNESS: Yes awake and Yes oriented to person; not oriented to place and not oriented to time Resp: COMMON NORMALS: normal respiratory effort, No retractions, No use of accessory muscles and clear to auscultation bilaterally AUSCULTATION: clear to auscultation bilaterally Cardio: COMMON NORMALS: regular rate, regular rhythm, S1 normal heart sound present and S2 normal heart sound present RATE: regular rate RHYTHM: regular rhythm HEART SOUNDS: S1 normal heart sound present and S2 normal heart sound present GI: COMMON NORMALS: Normal to inspection, nondistended, normoactive bowel sounds present, Soft to palpation and non-tender PALPATION: Yes Soft to palpation Neuro: SENSORIUM/ORIENTATION: Yes oriented to person, No oriented to place and No oriented to time OTHER: He does follow commands such as squeezing my fingers bilaterally He Has Good Strength Upper Extremities, Good Strength Bilateral Extremities, Wiggles His Toes, Is Able to Smile for Me at Other Times He Does Not Follow Commands Urinary Catheter Management^: Driscoll: Cath Placed During This Visit: no Reason for Continuing Indwelling Catheter: Accurate Measurement of Urinary Output in Critically Ill Patients Data : 09/06/21 18:25 09/06/21 18:25 Micro: Microbiology 09/08/21 11:55 Bacterial Antigens - Final Urine,Clean Catch A&P Assessment and plan (1) Generalized seizure: Presenting today with 3 episodes of seizures without any past history of the same. Received Ativan in route, no further seizure episodes since presentation to the ER. Currently alert to person, to place, not to time, no recurrent seizure-like episodes, continues to be confused Continue Keppra 500 mg IV every 12 hours. As needed Ativan for seizures. Low GCS of 6 upon arrival, recommended intubation, however goals of care changed to DNR/DNI with close observation with medical management. Remains on room air, maintaining his airway, continue to monitor We will do EEG Continue to monitor mentation Status: Acute (2) Acute alteration in mental status: -Secondary to generalized seizure, postictal state, possible infection -Possible aspiration event -Urine culture pending -CT of the head shows bilateral occipital encephalomalacia consistent with remote infarction -CT angiogram head and neck -1. No acute arterial occlusion or aneurysm. 2. 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 Patency is uncertain. This vessel does not contribute to the basilar artery. -Venous lower extremity negative for DVT -Start broad-spectrum antibiotic therapy vancomycin, Zosyn -Neurochecks, aspiration precautions, seizure precautions Status: Acute (3) Hypoxia: Aspiration event ABG with mild hypercapnia PCO2 55, appears to be out of proportion to level of obtundation. Last PCO2 dating back to May 2021 at 66 with normal pH. Patient has a history of COPD and may have a higher than normal baseline. Will repeat blood gas in the morning. Does have leukocytosis CT angiogram negative for PE Continue broad-spectrum antibiotic therapy UA unremarkable for UTI Edema has resolved, hold Lasix Status: Acute (4) Altered mental status: Status: Acute (5) NSTEMI (non-ST elevated myocardial infarction): -Secondary to post ictal state, hypoxia, however cannot rule out underlying cardiac etiology -EKG no acute ST-T wave changes -6-hour troponin 43.9, delta 17.97 -Continue aspirin, statin -Cardiac echo shows an EF of 60%, grade 1 out of 4 diastolic dysfunction, abnormal septal motion consistent with conduction abnormalities Status: Acute Additional A&P Information Recent Covid pneumonia, positive PCR on 08/22/2021 status post monoclonal antibody. Reportedly [facility] work-up as above Baseline troponin mildly elevated at 37, 2-hour delta at 11, suspect this to be related to demand supply mismatch from acute stress of his seizure, will await 6-hour troponin. Attestations Medical Necessity Statement*: Patient requires hospitalization for generalized seizure, hypoxia, leukocytosis, aspiration pneumonia Coding Level of Care Code Acute Client Server Programmer for [facility] Richard Diagnoses Generalized seizure R56.9 Acute alteration in mental status R41.82 Hypoxia R09.02 Altered mental status R41.82 NSTEMI (non-ST elevated myocardial infarction) I21.4
[2021-09-08 17:31] LABS: Glucose Point of Care 99 mg/dL (70-110)
[2021-09-08 19:51] LABS: Basophils # 0.1 10^3/uL (0.0-0.1); Basophils % 0.4 %; Eosinophils # 0.1 10^3/uL (0.0-0.8); Hematocrit 39.2 % (42.0-52.0); Hemoglobin 12.8 g/dL (11.7-16.6); Lymphocytes # 1.7 10^3/uL (0.8-4.8); Lymphocytes % 14.8 %; Mean Corpuscular HGB Conc 32.7 g/dL (30.0-36.0); Mean Corpuscular Hemoglobin 27.6 pg (28.0-34.0); Mean Corpuscular Volume 84.5 fl (80-94); Mean Platelet Volume 10.3 fL (7.4-10.4); Monocytes # 1.1 10^3/uL (0.2-0.9); Monocytes % 10.2 %; Neutrophils # 8.14 10^3/uL (1.8-7.7); Neutrophils % 73.2 %; Nucleated Red Blood Cells % 0 %; Platelet Count 294 10^3/cmm (130-400); Red Blood Count 4.64 10^6/uL (4.1-5.3); Red Cell Distribution Width 17.8 % (12.1-15.1); White Blood Count 11.1 10^3/uL (4.0-10.0)
[2021-09-08 20:30] LABS: Alanine Aminotransferase 6 U/L (0-41); Albumin Level 3.7 g/dL (3.5-5.2); Alkaline Phosphatase 63 IU/L (40-130); Anion Gap 18.2 (5-19); Aspartate Amino Transferase 11 U/L (0-40); Blood Urea Nitrogen 12 mg/dL (8-23); Calcium 8.3 mg/dL (8.5-10.5); Carbon Dioxide 28 mmol/L (22-29); Chloride 97 mmol/L (98-107); Globulin 2.5 g/dL (1.3-4.6); Glucose 128 mg/dL (65-115); Osmolality Calculated 291 mOsm/kg (285-295); Potassium 3.2 mmol/L (3.5-5.1); Sodium 140 mmol/L (136-145); Thyroid Stimulating Hormone 4.38 uIU/mL (0.27-4.20); Total Bilirubin 0.5 mg/dL (0.15-1.2); Total Protein 6.2 g/dL (6.6-8.7)
[2021-09-08 20:31] LABS: Procalcitonin 0.07 ng/mL (0-0.5)
[2021-09-08 20:50] LABS: Magnesium 1.7 mg/dL (1.7-2.3); NT Pro B Type Natriuretic Pept 284 pg/mL (0-450); Phosphorus 2.7 mg/dL (2.5-4.5)
[2021-09-08 20:51] LABS: C Reactive Protein 46.3 mg/L (0.0-4.9)
[2021-09-08 20:59] LABS: Glucose Point of Care 140 mg/dL (70-110)
[2021-09-08] MEDS: atorvastatin 40 mg Tablet PO (21:16)
[2021-09-09] VITALS (9 sets, daily range): BP systolic 128–145; BP diastolic 74–85; PULSE 56–77; RESP 16–18; TEMP 36.6–37.1; O2SAT 91–95
[2021-09-09] MEDS: enoxaparin 40 mg/0.4 mL Syringe SUBCUT (01:05)
[2021-09-09 03:45] LABS: C Reactive Protein 47.2 mg/L (0.0-4.9); Magnesium 1.7 mg/dL (1.7-2.3); NT Pro B Type Natriuretic Pept 287 pg/mL (0-450); Phosphorus 2.8 mg/dL (2.5-4.5)
[2021-09-09] MEDS: piperacillin-tazobactam 3.375 GM in sodium chloride 0.9% (plus) 50 ML IV (04:01)
[2021-09-09 06:44] LABS: Glucose Point of Care 91 mg/dL (70-110)
[2021-09-09] MEDS: vancomycin 1,500 MG/300 ML PIGGYBACK 200 MG IV (08:09)
[2021-09-09] MEDS: aspirin 81 mg EC Tablet PO (08:09)
--- NOTE | 2021-09-09 09:34 | PC.CHAP ---
Pastoral Care Encounter/Spiritual Assessment Type of Contact [] Declined x ray equipment servicer visit [] Patient/Family/Request visit [] Outpatient visit [] Follow-up visit [] Physician referral [] Code/Alert [x] Routine visit [] Staff referral [] Actively dying [] Patient sleeping [] Family support [] [] Out of room [] Palliative care [] [] Receiving care in room [] Pre-surgical visit [] Trauma [] Long length of stay [] ICU visit [] Other: Relational/Emotional Strength [x] Patient feels connected with others/family/visitors/staff [] Distress [] Loneliness/isolation [] Abandonment Spirituality of Patient [x] Person of Fiona [x] Attends Yazidi of their Fiona [x] Believes in Prayer [] Reads Bible or Jainism materials [] There are Spiritual issues to be addressed Security Shift Supervisor Interventions [x] Prayer [x] Active listening [] Non-anxious presence [] Spiritual/emotional support [] Crisis/trauma care [] Spiritual counseling [] Bereavement support [] Provided bereavement packet [] Provided Bible/devotional materials [] Provided toy/stuffed animal, coloring book to patient or family member [] Provided Communion [] Anointing/[place] [] Salvation [x] Completed spiritual assessment [] Other: Impact on Illness or Injury [] Angry [] Fearful [] Anxious [] Often cries [] Exhaustion [] Unable to work [] Unable to attend religion [] Unable to walk/stand [] Unable to read [] Unable to drive [] Unable to eat/drink [] Unable to sleep [] Unable to be with family [] Patient intubated [] Other: Summary Time spent with patient 5 min
[2021-09-09] MEDS: budesonide 0.5 mg/2 mL Neb INHALATION (09:42)
[2021-09-09] MEDS: ipratropium-albuterol 3 mL Neb INHALATION ×2 (09:42→14:19)
--- NOTE | 2021-09-09 09:51 | PC.NURSE ---
returned call to patient's sister Alexa [phone].
--- NOTE | 2021-09-09 10:46 | PM.DCS ---
Discharge Providers Date of Admission: 09/07/21 00:00 Date of Discharge: September 09, 2021 Attending Provider at Admission: Valerie Cosby MD Attending Provider at Discharge: Reggie Siddiqui MD Primary Care Provider: Walter Marte DO Diagnoses at Discharge Discharge Diagnosis (1) Generalized seizure: Status: Acute (2) Acute alteration in mental status: Status: Acute (3) Hypoxia: Status: Acute (4) Altered mental status: Status: Acute (5) NSTEMI (non-ST elevated myocardial infarction): Status: Acute Reason for Visit Reason for Visit: SEIZURES Hospital Course Hospital Course 76 year old male with past medical history of COPD, detention resident at [facility], recently with Covid nineteen diagnosis on August 22, 2021 following which patient had a monoclonal antibody infusion. Reportedly per detention had been relatively asymptomatic from a Covid standpoint. He was continuing to be on room air. He had been afebrile. On the day of admission he was sitting up for extended time through the day today when suddenly he was noted to have violent shaking movements all over followed by an episode of unresponsiveness. He was admitted for the management of generalized tonic-clonic seizure: 3 episodes no past medical history of seizure, he had received Ativan en route to hospital. Upon arrival in the ER he was worked up for above-mentioned complaint.C.T Head Without contrast no acute intracranial pathology, shows bilateral occipital encephalomalacia consistent with remote infarction.C T angiogram head and neck: No acute arterial occlusion or aneurysm. 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 Venous lower extremity negative for DVT. Patient was started on Keppra IV, and was discharged on p.o. Keppra.Neurochecks, aspiration precautions, seizure precautions. He was empirically kept on broad-spectrum antibiotic for hypoxia likely secondary to aspiration, CT angiogram negative for PE, patient was also managed for NSTEMI type II, EKG showed no acute ST-T wave changes, he was continued on aspirin and statin, 2D echo EF of 60%, grade 1 out of 4 diastolic dysfunction, abnormal septal motion consistent with conduction abnormalities. Patient responded well to above medical management and was discharged in stable condition to detention. Follow neurology as an outpatient, EEG can be done as an outpatient, no seizure episode while in hospital. Physical Exam Narrative: EXAM NARRATIVE: Alert and awake HENMT: COMMON NORMALS: normocephalic and atraumatic HEAD & SCALP: normocephalic and atraumatic Resp: COMMON NORMALS: clear to auscultation bilaterally AUSCULTATION: clear to auscultation bilaterally Cardio: COMMON NORMALS: regular rate, regular rhythm, S1 normal heart sound present, S2 normal heart sound present, No gallops present (Cardio), No murmurs present (Cardio), No rub (Cardio) and Peripheral pulses 2+ throughout RATE: regular rate RHYTHM: regular rhythm HEART SOUNDS: S1 normal heart sound present and S2 normal heart sound present PERIPHERAL PULSES: Peripheral pulses 2+ throughout GI: COMMON NORMALS: Normal to inspection, nondistended, normoactive bowel sounds present, Soft to palpation, non-tender, No hepatosplenomegaly present and no masses AUSCULTATION: Yes normoactive bowel sounds PALPATION: Yes Soft to palpation and Yes No hepatosplenomegaly present RECTAL EXAM: Yes deferred Extremity: COMMON NORMALS: no clubbing, cyanosis or edema and no pedal edema Urinary Catheter Management^: Driscoll: Cath Placed During This Visit: yes Reason for Continuing Indwelling Catheter: Accurate Measurement of Urinary Output in Critically Ill Patients Urinary Catheter Date of Insertion: 09/06/21 Discharge Data Data Completed and Pending: Completed Studies During Hospitalization Category Date Time Status CT angio chest PE protcl [id number] Rout ine Cat Scan 09/07/21 08:[address] angio headneck * [id number] Urge nt Cat Scan 09/06/21 18:[address] head wo con* [id number] Stat Cat Scan 09/06/21 17:35 Completed XR chest 1V tate ble [id number] Stat Exams 09/07/21 00:07 [place] [id number] Routin e Ultrasound 09/07/21 08:14 Completed CV. echo complete * [id number] Routine Ultrasound 09/07/21 08:14 Completed Pending at discharge Category Date Time Status EEG electroenceph alogram Routine Exams 09/08/21 10:18 Ordered Bacterial Antigen Stat Lab 09/08/21 11:55 Results Blood Culture AM LABS Lab 09/08/21 19:40 Results C Reactive Protei n AM LABS Lab 09/10/21 04:00 Ordered Magnesium AM LABS Lab 09/10/21 04:00 Ordered NT Pro B Type May riuretic Pept QAM Lab 09/10/21 06:00 Ordered Phosphorus AM LAB S Lab 09/10/21 04:00 Ordered Sputum Culture an d Gram Stain Stat Lab 09/08/21 10:16 Uncollected Urine Culture Sta t Lab 09/08/21 11:55 Results Labs from last 24 hours 09/09/21 09/09/21 09/08/21 06:33 02:55 20:45 WBC RBC Hgb Hct MCV MCH MCHC RDW Plt Count MPV Neut % (Auto) Lymph % (Auto) [place] % (Auto) Eos % (Auto) Baso % (Auto) Neut # (Auto) Lymph # (Auto) [place] # (Auto) Eos # (Auto) Baso # (Auto) Nucleated RBC % (a uto) Nucleated RBCs # Sodium Potassium Chloride Carbon Dioxide Anion Gap BUN Creatinine GFR Calculation Glucose POC Glucose 91 140 H Calculated Osmolal ity Calcium Phosphorus 2.8 Magnesium 1.7 Total Bilirubin AST ALT Alkaline Phosphata se C-Reactive Protein 47.2 H NT-Pro-B Natriuret Pep 287 Total Protein Albumin Globulin Procalcitonin TSH Vancomycin Trough 09/08/21 09/08/21 09/08/21 19:40 19:40 19:40 WBC RBC Hgb Hct MCV MCH MCHC RDW Plt Count MPV Neut % (Auto) Lymph % (Auto) [place] % (Auto) Eos % (Auto) Baso % (Auto) Neut # (Auto) Lymph # (Auto) [place] # (Auto) Eos # (Auto) Baso # (Auto) Nucleated RBC % (a uto) Nucleated RBCs # Sodium Potassium Chloride Carbon Dioxide Anion Gap BUN Creatinine GFR Calculation Glucose POC Glucose Calculated Osmolal ity Calcium Phosphorus 2.7 Magnesium 1.7 Total Bilirubin AST ALT Alkaline Phosphata se C-Reactive Protein 46.3 H NT-Pro-B Natriuret Pep 284 Total Protein Albumin Globulin Procalcitonin 0.07 TSH Vancomycin Trough 18.0 H 09/08/21 09/08/21 09/08/21 19:40 19:40 17:07 WBC 11.1 H RBC 4.64 Hgb 12.8 Hct 39.2 L MCV 84.5 MCH 27.6 L MCHC 32.7 RDW 17.8 H Plt Count 294 MPV 10.3 Neut % (Auto) 73.2 Lymph % (Auto) 14.8 [place] % (Auto) 10.2 Eos % (Auto) 1.0 Baso % (Auto) 0.4 Neut # (Auto) 8.14 H Lymph # (Auto) 1.7 [place] # (Auto) 1.1 H Eos # (Auto) 0.1 Baso # (Auto) 0.1 Nucleated RBC % (a uto) 0 Nucleated RBCs # 0.0 Sodium 140 Potassium 3.2 L Chloride 97 L Carbon Dioxide 28 Anion Gap 18.2 BUN 12 Creatinine 0.6 L GFR Calculation Not Reportable Glucose 128 H POC Glucose 99 Calculated Osmolal ity 291 Calcium 8.3 L Phosphorus Magnesium Total Bilirubin 0.5 AST 11 ALT 6 Alkaline Phosphata se 63 C-Reactive Protein NT-Pro-B Natriuret Pep Total Protein 6.2 L Albumin 3.7 Globulin 2.5 Procalcitonin TSH 4.38 H Vancomycin Trough Vitals: Last Vital Signs Temp 97.9 F 09/09/21 08:14 Pulse 77 09/09/21 09:51 Resp 16 09/09/21 09:51 BP 132/82 09/09/21 08:14 Pulse Ox 94 09/09/21 09:51 Discharge Plan Discharge Patient Disposition: Home Condition: Stable Prescriptions: New Keppra 500 mg tablet 500 mg PO BID Qty: 60 RF: 3 Continued pregabalin 150 mg capsule 150 mg PO BID RF: 0 pantoprazole 40 mg tablet,delayed release (DR/EC) 40 mg PO DAILY@05 RF: 0 aspirin 81 mg tablet,delayed release (DR/EC) 81 mg PO DAILY@08 RF: 0 amlodipine 10 mg tablet 10 mg PO DAILY@08 RF: 0 acetaminophen [Tylenol] 325 mg Tablet 650 mg PO Q6H PRN (Reason: Pain) RF: 0 albuterol sulfate 2.5 mg /3 mL (0.083 %) Solution For Nebulization 2.5 mg INHALATION Q4H PRN (Reason: Dyspnea) RF: 0 simvastatin 40 mg Tablet 40 mg PO BEDTIME@20 RF: 0 magnesium hydroxide [Milk of Magnesia] 400 mg/5 mL Suspension 30 ml PO DAILY PRN (Reason: Constipation) RF: 0 bisacodyl [Dulcolax (bisacodyl)] 10 mg Suppository 10 mg [place] DAILY PRN (Reason: Constipation) RF: 0 ferrous sulfate 325 mg (65 mg iron) Tablet 325 mg PO DAILY@08 RF: 0 Fleet Enema 19-7 gram/118 mL Enema 118 ml [place] DAILY PRN (Reason: Constipation) RF: 0 bisacodyl [Dulcolax (bisacodyl)] 5 mg Tablet,Delayed Release (Dr/Ec) 10 mg PO DAILY PRN (Reason: Constipation) RF: 0 ipratropium-albuterol 0.5 mg-3 mg(2.5 mg base)/3 mL solution for nebulization 3 ml inhalation TID RF: 0 escitalopram oxalate 10 mg tablet 20 mg PO DAILY@08 RF: 0 Discharge Orders: Discharge Order (Routine); Ordered 09/09/21 Ordered By: Reggie Siddiqui Referrals: Ibis Stout MD [Physician] - 10/10/21 10:00 am Walter Marte DO [Primary Care Provider] - 2 weeks (Please call to make an appointment to be seen in two weeks.) Patient Instructions: Levetiracetam (By mouth), Opioid Safety Discharge Attestations Time Spent in Discharge Care*: less than 30 min Specific Discharge Activities: educating patient, educating and/or supporting family/caregiver, discussing with pcp/other providers, discussing with residential case manager/social workers/dc planners, documenting/other paperwork and evaluating patient/reviewing data Status at Discharge: Cognitive status at discharge: mildly impaired cognition, Behavioral status at discharge: cooperative, Quality Metrics Clinical Quality Measures During this hospital stay, did patient experience: None Coding Level of Care Code Acute Chg FW DC note Diagnoses Generalized seizure R56.9 Acute alteration in mental status R41.82 Hypoxia R09.02 Altered mental status R41.82 NSTEMI (non-ST elevated myocardial infarction) I21.4
--- NOTE | 2021-09-09 12:14 | PC.NURSE ---
rcvd verbal order from Dr Siddiqui to remove johnson catheter.
--- NOTE | 2021-09-09 12:56 | PC.NURSE ---
Called report to [facility] and spoke with ARIANA Hernandez. Notified Patient's sister Alexa [phone] that patient is being discharged today to SNF
[2021-09-09 13:32] LABS: Adenovirus Not Detected (NOT DETECT); Chlamydia Pneumoniae Not Detected (NOT DETECT); Coronavirus 229E,HKU1,NL63,OC4 Not Detected (NOT DETECT); Human Metapneumovirus Not Detected (NOT DETECT); Human Rhinovirus/Enterovirus Not Detected (NOT DETECT); Influenza A Not Detected (NOT DETECT); Influenza A H1 Not Detected (NOT DETECT); Influenza A H1-2009 Not Detected (NOT DETECT); Influenza A H3 Not Detected (NOT DETECT); Influenza B Not Detected (NOT DETECT); Mycoplasma Pneumoniae Not Detected (NOT DETECT); Parainfluenza Virus Type 1 Not Detected (NOT DETECT); Parainfluenza Virus Type 2 Not Detected (NOT DETECT); Parainfluenza Virus Type 3 Not Detected (NOT DETECT); Parainfluenza Virus Type 4 Not Detected (NOT DETECT); Respiratory Syncytial Virus A Not Detected (NOT DETECT); Respiratory Syncytial Virus B Not Detected (NOT DETECT); SARS-COV-2 Not Detected (NOT DETECT)
--- NOTE | 2021-09-09 15:42 | PC.NURSE ---
patient discharged to SNF via wheelchair by SNF Staff.
[2021-09-09 17:26] LABS: Glucose Point of Care 103 mg/dL (70-110)
== END 2021-09-09 15:47 | disposition skilled nursing facility (03) | DRG 100 ==
LOC: ER 22:26 → ER IP 23:01 → MEDSURG 09-07 15:29
PROVIDERS: Family Medicine; Admitting Provider Student in an Organized Health Care Education/Training Program; Emergency Provider Emergency Medicine; PCP Internal Medicine; Visit Provider Internal Medicine
DX: G40.209 Localization-related (focal) (partial) symptomatic epilepsy and epileptic syndromes with complex partial seizures, not intractable, without status epilepticus (principal); J69.0 Pneumonitis due to inhalation of food and vomit; I21.A1 Myocardial infarction type 2; A52.16 Charcot's arthropathy (tabetic); D64.9 Anemia, unspecified; J44.9 Chronic obstructive pulmonary disease, unspecified; M54.12 Radiculopathy, cervical region; E78.5 Hyperlipidemia, unspecified; I10 Essential (primary) hypertension; Z87.891 Personal history of nicotine dependence; Z86.16 Personal history of COVID-19; Z66 Do not resuscitate; I69.398 Other sequelae of cerebral infarction; G93.89 Other specified disorders of brain; Z87.01 Personal history of pneumonia (recurrent); Z79.82 Long term (current) use of aspirin
CPT/HCPCS: 36415; 36416; 36600; 70450; 70496; 70498; 71045; 71275; 80051; 80053; 80202; 81001; 82330; 82550; 82803; 82805; 82962; 83605; 83735; 83880; 84100; 84145; 84443; 84484; 85025; 85378; 85610; 85730; 86140; 86403; 87040; 87086; 87635; 92526; 92610; 93005; 93306; 93970; 94640; 94664; 96365; 96367; 96372; 96375; 99285; J0456; J0696; J1650; J1940; J1953; J2543; J3370; J3490; J7050; J7626; Q9967

== ENCOUNTER 2021-11-03 03:55 | Emergency (ER) | payer OTHER, MEDICARE, SELFPAY ==
[2021-11-03 03:56] VITALS: BP 137/70; PULSE 70; RESP 18; O2SAT 92; BMI 34.8
--- NOTE | 2021-11-03 04:06 | ED_ITS ---
HPI - Fall General: Chief Complaint: Fall Stated Complaint: FALL/ LACERATION TO HEAD Time Seen by Provider: 11/03/21 03:57 Source: patient and EMS History of Present Illness: 76-year-old residential patient who fell, apparently after getting up to change the channel this morning. He does not remember how he fell. He states that he was feeling fine prior. He denies any chest discomfort. He does complain of headache after his fall. Onset (ago): minute(s) Fall from: standing Fall witnessed: no Place fall occurred: residential/SNF Loss of consciousness: None Prolonged down time: no Symptoms prior to fall: none Context: other Location of injury: head Severity: moderate Quality: aching Associated symptoms-after fall: Reports headache(s); Denies abdominal pain, chest pain, confusion (at baseline), neck pain, numbness, short of breath or weakness Review of Systems Const: Denies: fever(s) Eyes: Denies: change in vision Card: Denies: chest pain GI: Denies: abdominal pain Musc: Denies: neck pain Neuro: Reports: headache(s); Denies: confusion (at baseline) PFSH ED PFSH: Medical History Anemia Asthma Carpal tunnel syndrome of left wrist Cervical radiculopathy Charcot's joint, 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 Hyperlipidemia Hypertension Hypertension SLAC (scapholunate advanced collapse) of wrist Surgical History H/O knee surgery History of carpal tunnel surgery Family History Denies family history of Diabetes CAD (coronary artery disease) Clotting disorder Dementia Hyperlipidemia Psychiatric illness Chronic kidney disease (CKD) Suicide Anesthesia complication Bleeding disorder Family history of premature coronary artery disease Lung disease Cancer Hypertension Stroke Social History Smoking and tobacco status: former smoker Alcohol intake: never Lives independently: No Housing: [facility] Physical Exam HENMT: COMMON NORMALS: Normal external nose present HEAD & SCALP: contusion (small forehead) and laceration (6 cm forehead lac) FACE & SINUS: normal facial exam NOSE: Normal external nose present and Normal nares present MOUTH: Normal oral and palatal mucosa present Eye: COMMON NORMALS: Equal, round and reactive pupils present and EOMs intact bilaterally PUPIL: Yes Equal, round and reactive pupils present Chest: COMMONS NORMALS: normal inspection of the chest Resp: COMMON NORMALS: normal respiratory effort, No use of accessory muscles and clear to auscultation bilaterally AUSCULTATION: clear to auscultation bilaterally Cardio: COMMON NORMALS: regular rate and regular rhythm RATE: regular rate RHYTHM: regular rhythm PERIPHERAL PULSES: radial pulses present GI: COMMON NORMALS: Normal to inspection, nondistended, normoactive bowel sounds present, Soft to palpation and non-tender PALPATION: Yes Soft to palpation Procedures Laceration Laceration 1: Site: face Side (If applicable): left Size (cm): 6 Description: linear Depth: simple, single layer Local Anesthetic: lidocaine 1% and with epi Amount of anesthesia used (mL): 6 Skin layer closed with: nylon (5-0) Number of sutures: 9 Course Vital Signs: Vital signs: Vital Signs Pulse Rate 70 11/03/21 03:56 Respiratory Rate 18 11/03/21 05:33 Blood Pressure 137/70 11/03/21 03:56 Pulse Oximetry 92 11/03/21 03:56 MDM - Fall Medical Decision Making Labs benign, head CT negative. Chest x-ray negative. Left tib-fib x-ray due to patient pain when weightbearing. It is negative as well. He will be allowed back to the residential. Laceration is repaired. Lab Data : 11/03/21 04:23 11/03/21 04:23 Radiology Impressions Chest X-Ray 11/03/21 04:07 IMPRESSION: No acute findings. Head CT 11/03/21 04:07 IMPRESSION: 1. Soft tissue swelling/hematoma over the left forehead with soft tissue emphysema suggesting laceration. 2. No acute intracranial findings. Tibia/Fibula X-Ray 11/03/21 04:26 IMPRESSION: No acute findings. Laboratory Results WBC 7.0 10^3/uL (4.0-10.0) 11/03/21 04:23 RBC 4.03 10^6/uL (4.1-5.3) L 11/03/21 04:23 Hgb 11.7 g/dL (11.7-16.6) 11/03/21 04:23 Hct 36.1 % (42.0-52.0) L 11/03/21 04:23 MCV 89.6 fl (80-94) 11/03/21 04:23 MCH 29.0 pg (28.0-34.0) 11/03/21 04:23 MCHC 32.4 g/dL (30.0-36.0) 11/03/21 04:23 RDW 16.2 % (12.1-15.1) H 11/03/21 04:23 Plt Count 279 10^3/cmm (130-400) 11/03/21 04:23 MPV 10.5 fL (7.4-10.4) H 11/03/21 04:23 Neut % (Auto) 49.3 % 11/03/21 04:23 Lymph % (Auto) 29.8 % 11/03/21 04:23 [place] % (Auto) 13.5 % 11/03/21 04:23 Eos % (Auto) 6.2 % 11/03/21 04:23 Baso % (Auto) 1.1 % 11/03/21 04:23 Neut # (Auto) 3.44 10^3/uL (1.8-7.7) 11/03/21 04:23 Lymph # (Auto) 2.1 10^3/uL (0.8-4.8) 11/03/21 04:23 [place] # (Auto) 0.9 10^3/uL (0.2-0.9) 11/03/21 04: Eos # (Auto) 0.4 10^3/uL (0.0-0.8) 11/03/21 04:23 Baso # (Auto) 0.1 10^3/uL (0.0-0.1) 11/03/21 04:23 Nucleated RBC % (auto) 0 % 11/03/21 04: Nucleated RBCs # 0.0 /100WBC 11/03/21 04:23 Sodium 139 mmol/L (136-145) 11/03/21 04:23 Potassium 4.2 mmol/L (3.5-5.1) 11/03/21 04:23 Chloride 98 mmol/L (98-107) 11/03/21 04:23 Carbon Dioxide 31 mmol/L (22-29) H 11/03/21 04:23 Anion Gap 14.2 (5-19) 11/03/21 04:23 BUN 20 mg/dL (8-23) 11/03/21 04:23 Creatinine 0.8 mg/dL (0.7-1.2) 11/03/21 04:23 GFR Calculation Not Reportable 11/03/21 04:23 Glucose 96 mg/dL (65-115) 11/03/21 04:23 Calculated Osmolality 290 mOsm/kg (285-295) 11/03/21 04:23 Calcium 8.6 mg/dL (8.5-10.5) 11/03/21 04:23 Total Bilirubin 0.4 mg/dL (0.15-1.2) 11/03/21 04:23 AST 20 U/L (0-40) 11/03/21 04:23 ALT 7 U/L (0-41) 11/03/21 04:23 Alkaline Phosphatase 75 IU/L (40-130) 11/03/21 04:23 Total Protein 6.6 g/dL (6.6-8.7) 11/03/21 04:23 Albumin 3.9 g/dL (3.5-5.2) 11/03/21 04:23 Globulin 2.7 g/dL (1.3-4.6) 11/03/21 04:23 Discharge Plan Discharge Patient Disposition: Home Clinical Impression: Concussion without loss of consciousness, Forehead laceration Condition: Stable Prescriptions: No Action pregabalin 150 mg capsule 150 mg PO BID 0RF pantoprazole 40 mg tablet,delayed release (DR/EC) 40 mg PO DAILY@05 0RF aspirin 81 mg tablet,delayed release (DR/EC) 81 mg PO DAILY@08 0RF amlodipine 10 mg tablet 10 mg PO DAILY@08 0RF acetaminophen [Tylenol] 325 mg Tablet 650 mg PO Q6H PRN (Reason: Pain) 0RF albuterol sulfate 2.5 mg /3 mL (0.083 %) Solution For Nebulization 2.5 mg INHALATION Q4H PRN (Reason: Dyspnea) 0RF simvastatin 40 mg Tablet 40 mg PO BEDTIME@20 0RF magnesium hydroxide [Milk of Magnesia] 400 mg/5 mL Suspension 30 ml PO DAILY PRN (Reason: Constipation) 0RF Rx Instructions: IF NO BM IN 3 DAYS, DO NOT GIVE TO RENAL PTS GO TO DULCOLAX ORDERS bisacodyl [Dulcolax (bisacodyl)] 10 mg Suppository 10 mg [place] DAILY PRN (Reason: Constipation) 0RF ferrous sulfate 325 mg (65 mg iron) Tablet 325 mg PO DAILY@08 0RF Fleet Enema 19-7 gram/118 mL Enema 118 ml [place] DAILY PRN (Reason: Constipation) 0RF Rx Instructions: GIVE IF NO RESULTS FROM MOM AND DULCOLAX bisacodyl [Dulcolax (bisacodyl)] 5 mg Tablet,Delayed Release (Dr/Ec) 10 mg PO DAILY PRN (Reason: Constipation) 0RF Rx Instructions: GIVE IF NO RESULTS FROM MOM ipratropium-albuterol 0.5 mg-3 mg(2.5 mg base)/3 mL solution for nebulization 3 ml inhalation TID 0RF escitalopram oxalate 10 mg tablet 20 mg PO DAILY@08 0RF Keppra 500 mg tablet 500 mg PO BID Qty: 60 3RF Discharge Orders: Discharge ED (Routine); Ordered 11/03/21 Ordered By: Vijay Mcqueen Referrals: Walter Marte DO [Primary Care Provider] - 4-7 days Patient Instructions: Opioid Safety Activity Restrictions/Additional Instructions: Return for mental status changes, worsening headache despite treatment, vomiting, other concerning symptoms. Coding Level of Care Code ED Fuel Cell Test Engineer for Shyla Fwd Exam Detailed
--- NOTE | 2021-11-03 04:07 | XRR_ITS ---
PROCEDURE INFORMATION: Exam: XR Chest Exam date and time: 11/03/2021 4:07 AM Age: 76 years old Clinical indication: Injury or trauma; Fall; Blunt trauma (contusions or hematomas) TECHNIQUE: Imaging protocol: XR of the chest. Views: 1 view. COMPARISON: CR XR chest 1V portable [id number] 09/07/2021 12:17 AM FINDINGS: Lungs: Unremarkable. No consolidation. Pleural spaces: Unremarkable. No pleural effusion. No pneumothorax. Heart/Mediastinum: Stable valve annulus calcifications. 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 XR/XR chest 1V portable [id number] IMPRESSION: No acute findings.
--- NOTE | 2021-11-03 04:07 | ECG_ITS ---
[facility] Test Date: 2021-11-03 Pat Name: Caesar Josue Department: Room: Gender: Male Apron Man: : 1945 Requested By: Vijay Chaney Order Number: [id number] Markos MD: Lambert Sierra M.D. Measurements Intervals [place] Rate: 66 P: 241 AK: 326 QRS: -64 QRSD: 155 T: 68 QT: 463 QTc: 487 Interpretive Statements ELECTRONIC ATRIAL PACEMAKER RIGHT BUNDLE BRANCH BLOCK [120+ ms QRS DURATION, UPRIGHT V1, 40+ ms S IN I/aVL/V4/V5/V6] LEFT ANTERIOR FASCICULAR BLOCK [QRS AXIS <= -45, QR IN I, RS IN II] Compared to ECG 09/07/2021 00:14:18 Left anterior fascicular block now present Sinus rhythm no longer present First degree AV block no longer present Left-axis deviation no longer present Electronically Signed On 11-04-2021 8:52:34 BRANDS EDITOR by Lambert Sierra M.D. [email or web address]
--- NOTE | 2021-11-03 04:07 | CTR_ITS ---
PROCEDURE INFORMATION: Exam: CT Head Without Contrast Exam date and time: 11/03/2021 4:07 AM Age: 76 years old Clinical indication: Injury or trauma; Fall; Blunt trauma (contusions or hematomas); Consciousness not specified; Additional info: Fall head injury TECHNIQUE: Imaging protocol: Computed tomography of the head without contrast. Radiation optimization: All CT scans at this facility use at least one of these dose optimization techniques: automated exposure control; mA and/or kV adjustment per patient size (includes targeted exams where dose is matched to clinical indication); or iterative reconstruction. 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 Mild to moderate cerebral atrophy and ischemic leukoencephalopathy. Cerebral ventricles: No ventriculomegaly. Paranasal sinuses: Visualized sinuses are unremarkable. No fluid levels. Mastoid air cells: Visualized mastoid air cells are well aerated. Vasculature: Moderate calcified intracranial atherosclerotic vessel disease. Bones/joints: Unremarkable. No acute fracture. Soft tissues: Soft tissue swelling/hematoma over the left forehead with soft tissue emphysema suggesting laceration. Other findings: Examination is limited secondary to motion artifact. CT/CT head wo con* [id number] IMPRESSION: 1. Soft tissue swelling/hematoma over the left forehead with soft tissue emphysema suggesting laceration. 2. No acute intracranial findings.
--- NOTE | 2021-11-03 04:26 | XRR_ITS ---
PROCEDURE INFORMATION: Exam: XR Left Tibia and Fibula Exam date and time: 11/03/2021 4:26 AM Age: 76 years old Clinical indication: Injury or trauma; Fall; Blunt trauma; Lower leg; Left; Additional info: Fall injury TECHNIQUE: Imaging protocol: XR Left tibia and fibula. Views: 2 views. COMPARISON: CT ankle LT wo con* [id number] 09/07/2020 11:39 PM FINDINGS: Bones/joints: Mild lateral knee compartment primary osteoarthritis. Mild to moderate patellofemoral primary osteoarthritis. Probable secondary posttraumatic talotibial osteoarthritis. Calcaneal spur. Soft tissues: Normal. Vasculature: Moderate calcified peripheral vascular disease. XR/XR tibia fibula LT 2V [id number] IMPRESSION: No acute findings.
[2021-11-03 04:27] LABS: Basophils # 0.1 10^3/uL (0.0-0.1); Basophils % 1.1 %; Eosinophils # 0.4 10^3/uL (0.0-0.8); Eosinophils % 6.2 %; Hematocrit 36.1 % (42.0-52.0); Hemoglobin 11.7 g/dL (11.7-16.6); Lymphocytes # 2.1 10^3/uL (0.8-4.8); Lymphocytes % 29.8 %; Mean Corpuscular HGB Conc 32.4 g/dL (30.0-36.0); Mean Corpuscular Volume 89.6 fl (80-94); Mean Platelet Volume 10.5 fL (7.4-10.4); Monocytes # 0.9 10^3/uL (0.2-0.9); Monocytes % 13.5 %; Neutrophils # 3.44 10^3/uL (1.8-7.7); Neutrophils % 49.3 %; Nucleated Red Blood Cells % 0 %; Platelet Count 279 10^3/cmm (130-400); Red Blood Count 4.03 10^6/uL (4.1-5.3); Red Cell Distribution Width 16.2 % (12.1-15.1)
--- NOTE | 2021-11-03 04:28 | PC.NURSE ---
patient received s/p fall, does not remember why he fell, history of confusion/ dementia, noted with laceration to forehead, 3+ pitting edema to right leg 2+ edema to left leg reports pain to right leg around the knee. pain to right arm and back. speech clear.
[2021-11-03] MEDS: morphine 4 mg/mL SDV 1 mL IVP (04:32)
[2021-11-03] MEDS: ondansetron 2 mg/ML SDV 2 mL 4 MG IVP (04:33)
[2021-11-03 04:48] LABS: Alanine Aminotransferase 7 U/L (0-41); Albumin Level 3.9 g/dL (3.5-5.2); Alkaline Phosphatase 75 IU/L (40-130); Blood Urea Nitrogen 20 mg/dL (8-23); Calcium 8.6 mg/dL (8.5-10.5); Carbon Dioxide 31 mmol/L (22-29); Chloride 98 mmol/L (98-107); Globulin 2.7 g/dL (1.3-4.6); Glucose 96 mg/dL (65-115); Osmolality Calculated 290 mOsm/kg (285-295); Sodium 139 mmol/L (136-145); Total Bilirubin 0.4 mg/dL (0.15-1.2); Total Protein 6.6 g/dL (6.6-8.7)
[2021-11-03 04:57] LABS: Anion Gap 14.2 (5-19); Aspartate Amino Transferase 20 U/L (0-40); Potassium 4.2 mmol/L (3.5-5.1)
[2021-11-03 05:33] VITALS: RESP 18
[2021-11-03] MEDS: fentaNYL 50 mcg/mL INJ 2mL IVP (05:33)
[2021-11-03 07:49] VITALS: BP 123/72; PULSE 57; RESP 18; O2SAT 96
[2021-11-03 08:10] VITALS: BP 123/72; PULSE 57; RESP 18; O2SAT 96
== END 2021-11-03 08:25 | disposition home or self-care (01) ==
PROVIDERS: Emergency Provider Emergency Medicine; PCP Internal Medicine
DX: S06.0X0A Concussion without loss of consciousness, initial encounter (principal); S01.81XA Laceration without foreign body of other part of head, initial encounter; Z79.82 Long term (current) use of aspirin; E78.5 Hyperlipidemia, unspecified; I10 Essential (primary) hypertension; Z87.891 Personal history of nicotine dependence; W19.XXXA Unspecified fall, initial encounter
CPT/HCPCS: 12014; 70450; 71045; 73590; 80053; 85025; 93005; 96374; 96375; 99284; J2270; J2405; J3010

== ENCOUNTER 2022-04-02 11:22 | Inpatient (IN) | payer OTHER, MEDICARE, SELFPAY ==
[2022-04-02] VITALS (43 sets, daily range): BP systolic 93–182; BP diastolic 59–110; PULSE 54–112; RESP 16–24; TEMP 36.8; O2SAT 84–97; BMI 34.8
--- NOTE | 2022-04-02 11:35 | CT_ITS ---
WS: [id number] CT HEAD NONCONTRAST HISTORY: Seizures. TECHNIQUE: Contiguous axial imaging performed through the brain in 2.5 mm imaging. Bone and soft tiss ue windows. Sagittal and coronal reformats reviewed. All CT scans at [facility] use at least one of these dose optimization techniques: automated exposure control; mA and/or kV adjustment per pa tient size (includes targeted exams where dose is matched to clinical indication); or iterative recon struction. DLP: 1102.05 mGy.cm COMPARISON: 11/03/2021 No acute intracranial hemorrhage, midline shift or mass effect. Large remote LEFT occipital lobe infarct with encephalomalacia. Smaller infarct in the RIGHT occipita l lobe is also unchanged. Small lacunar infarcts insular ribbons bilaterally. Prior lacunar infarct i n the RIGHT caudate. Ventricles: Mild ventriculomegaly on the basis of atrophy and prior infarcts. No inferior displacement of cerebellar tonsils. Paranasal sinuses: As visualized are clear. Mastoid air cells: Well pneumatized. Calvarium and scalp: Skull is intact with no soft tissue edema or swelling. CT/CT head wo con* [id number] IMPRESSION: 1. No acute intracranial hemorrhage or edema. 2. 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 Small er RIGHT occipital lobe infarct. 3. Additional small vessel ischemic disease and lacunar infarcts as above. No change since 11/03/2021.
[2022-04-02] MEDS: LORazepam 2 mg/mL INJ 1 mL (11:40)
[2022-04-02 11:49] LABS: Basophils # 0.1 10^3/uL (0.0-0.1); Basophils % 0.9 %; Eosinophils # 0.4 10^3/uL (0.0-0.8); Hemoglobin 14.7 g/dL (11.7-16.6); Lymphocytes # 5.6 10^3/uL (0.8-4.8); Lymphocytes % 39.4 %; Mean Corpuscular HGB Conc 32.7 g/dL (30.0-36.0); Mean Corpuscular Volume 88.8 fl (80-94); Mean Platelet Volume 10.5 fL (7.4-10.4); Monocytes # 1.2 10^3/uL (0.2-0.9); Monocytes % 8.6 %; Neutrophils # 6.71 10^3/uL (1.8-7.7); Neutrophils % 47.5 %; Nucleated Red Blood Cells % 0 %; Platelet Count 379 10^3/cmm (130-400); Red Blood Count 5.07 10^6/uL (4.1-5.3); Red Cell Distribution Width 15.4 % (12.1-15.1); White Blood Count 14.1 10^3/uL (4.0-10.0)
[2022-04-02 12:02] LABS: Alanine Aminotransferase 11 U/L (0-41); Albumin Level 4.3 g/dL (3.5-5.2); Alkaline Phosphatase 73 IU/L (40-130); Anion Gap 18.9 (5-19); Aspartate Amino Transferase 17 U/L (0-40); Blood Urea Nitrogen 16 mg/dL (8-23); Calcium 9.2 mg/dL (8.5-10.5); Carbon Dioxide 27 mmol/L (22-29); Chloride 97 mmol/L (98-107); Globulin 3.4 g/dL (1.3-4.6); Glucose 130 mg/dL (65-115); Magnesium 2.1 mg/dL (1.7-2.3); Osmolality Calculated 291 mOsm/kg (285-295); Potassium 3.9 mmol/L (3.5-5.1); Sodium 139 mmol/L (136-145); Total Bilirubin 0.3 mg/dL (0.15-1.2); Total Protein 7.7 g/dL (6.6-8.7)
--- NOTE | 2022-04-02 12:12 | XR_ITS ---
WS: [id number] PORTABLE CHEST HISTORY: ET tube placement COMPARISON: 11/03/2021 Endotracheal tube terminates 1.5 cm above the aura. Mild elevation of the LEFT hemidiaphragm with LEFT basilar atelectasis. Mild stranding at the RIGHT h ilum may be due to supine position. This can be further evaluated on follow-up radiographs. No pleura l effusion or pneumothorax. Cardiac size: Normal. Mediastinum/Aorta: Mild atherosclerosis aorta. No osseous abnormality seen. XR/XR chest 1V portable [id number] IMPRESSION: 1. Endotracheal tube terminates 1.5 cm above the aura. 2. Mild fullness at the RIGHT hilum may be due to supine position of the patie nt and rotation. This can be reevaluated on follow-up radiographs.
--- NOTE | 2022-04-02 12:13 | PC.PHAR ---
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
[2022-04-02 12:41] LABS: ABG PCO2 46.3 mmHg (35-45); ABG PH Result 7.39 (7.35-7.45); Alveolar-Arterial Oxygen Gradi 46.9 mmHg (5-10); Arterial Blood Gas Hematocrit 44.9 % (42-52); Base Excess ABG 2.1 mmol/L (-2.0-2.0); Blood Gas Allen Test Pos; Blood Gas Operator Identificat CAK; Blood Gas Sample Site Radial, left; Blood Gas Sample Type Arterial; Blood Gas Tidal Volume 0.55; Carboxyhemoglobin 0.3 %THgb (0.4-20.1); HCO3 ABG 27.8 mmol/L (22-26); HGB O2 Sat 99.2 % (95-100); Ionized Calcium Level - ABG 1.2 mmol/L (1.1-1.4); Methemoglobin 0.5 % (0.4-1.5); Oxygen Device VENT; Potassium Level - ABG 3.9 mmol/L (3.5-5.0); Total Hemoglobin 14.6 g/dL (14-18)
[2022-04-02 12:42] LABS: Lipase 23 U/L (13-60)
[2022-04-02 12:44] LABS: Lactic Sepsis W/Reflex 5.2 mmol/L (0.5-2.2)
[2022-04-02 12:54] LABS: Slide Review Slide Review Perform
--- NOTE | 2022-04-02 13:04 | XR_ITS ---
WS: [id number] Portable AP semiupright chest, 04/02/2022, 1 3159 hours Clinical Data: OG tube placement Comparison: Portable chest, 04/02/2022, 1220 hours Findings: The OG tube barely enters the fundus of the stomach. The endotracheal tube is above the car chandler. XR/XR chest 1V [id number] Impression: NG tube barely enteris the fundus of the stomach.
[2022-04-02] MEDS: propofol 10 mg/mL SDV 20 mL 200 MG (13:29)
--- NOTE | 2022-04-02 13:41 | ED_ITS ---
HPI - Seizure General: Chief Complaint: Seizure Stated Complaint: seizure Time Seen by Provider: 04/02/22 11:33 Source: EMS Mode of arrival: EMS Limitations: altered mental status History of Present Illness: HPI Narrative: 76-year-old male brought in by EMS from local [facility] is a history of seizures. He had a witnessed seizures reported lasted for minutes at the [facility]dc he had 2 more in route he was given Ativan and then seized after he arrived here. Quick review his medication showed that he is on Keppra who given another dose of Ativan and then Keppra was ordered. Is concerned that he may have some head injury so a CT was ordered nursing and RT reported that while at the CT suite he began to decompensate and deoxygenated he was given supplemental oxygen and emergently return to the trauma bay. When I came to find the patient he was mildly hypoxic and was had poor respiratory effort when witnessed another small seizure. Patient was not able at any time to give any information or express any symptoms. He was intubated emergently. MD complaint: seizure Onset (ago): minute(s) Description of Episode: tonic-clonic movement Witnessed: Yes - by EMS Seizure History: No Place: Home Review of Systems General: Reports: ROS unobtainable due to medical condition PFSH ED PFSH: Medical History Acute alteration in mental status Altered mental status Anemia Asthma Carpal tunnel syndrome of left wrist Cervical radiculopathy Charcot's joint, 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 Generalized seizure Hyperlipidemia Hypertension Hypertension Hypoxia NSTEMI (non-ST elevated myocardial infarction) SLAC (scapholunate advanced collapse) of wrist Surgical History H/O knee surgery History of carpal tunnel surgery Family History Denies family history of Diabetes CAD (coronary artery disease) Clotting disorder Dementia Hyperlipidemia Psychiatric illness Chronic kidney disease (CKD) Suicide Anesthesia complication Bleeding disorder Family history of premature coronary artery disease Lung disease Cancer Hypertension Stroke Social History Smoking and tobacco status: former smoker Alcohol intake: never Lives independently: No Housing: [facility] Physical Exam Const: GENERAL APPEARANCE: lethargic ORIENTATION/CONSCIOUSNESS: Yes patient obtunded and Yes lethargic HENMT: COMMON NORMALS: normocephalic and atraumatic HEAD & SCALP: normocephalic and atraumatic Resp: EFFORT & INSPECTION: Yes abnormal respiratory pattern and Yes decreased respiratory effort Cardio: COMMON NORMALS: regular rate, regular rhythm and No murmurs present (Cardio) RATE: regular rate RHYTHM: regular rhythm GI: COMMON NORMALS: Soft to palpation and No hepatosplenomegaly present AUSCULTATION: Yes normoactive bowel sounds PALPATION: Yes Soft to palpation, No Tenderness to palpation present (GI), No Guarding due to palpation present (GI) and Yes No hepatosplenomegaly present Extremity: GENERAL: Yes edema Neuro: SENSORIUM/ORIENTATION: Yes lethargic Skin: COMMON NORMALS: no rashes or lesions noted GENERAL SKIN EXAM: no rashes or lesions noted Procedures Intubation Time out performed: Yes sedative: Etomidate paralytic: Vecuronium Laryngoscope: fiber optic video scope Assist Device Used: fiber optic device ET Tube Size: 8 ET Tube Uncuffed: No Tube Secured Depth (cm): 24 Tube Secured Location: teeth Tube Placement Confirmation: visualized tube passing through cords, equal breath sounds bilaterally, no breath sounds over epigastrium and confirmation by capnometry Patient Tolerated Procedure: well Intubation Complications: none Additional Comments: Initial ET tube placed confirmed placement went back to laryngoscope and confirmed again however having trouble ventilating him when I went to confirm placement could see air leaking around the tube in the form of bubbles with every ventilation. Tube was removed and he was reintubated with a slightly larger tube and 8 5 did well at that point was easily ventilated. Course Vital Signs: Vital signs: Vital Signs Pulse Rate 54 L 04/02/22 15:00 Respiratory Rate 16 04/02/22 15:07 Blood Pressure 151/92 04/02/22 15:00 Pulse Oximetry 97 04/02/22 15:00 MDM - Seizure Lab Data Result diagrams: 04/02/22 11:30 04/02/22 11:30 Labs: Radiology Impressions Head CT 04/02/22 11:35 IMPRESSION: 1. No acute intracranial hemorrhage or edema. 2. 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 Smaller RIGHT occipital lobe infarct. 3. Additional small vessel ischemic disease and lacunar infarcts as above. No change since 11/03/2021. Chest X-Ray 04/02/22 13:04 Impression: NG tube barely enteris the fundus of the stomach. Laboratory Results WBC 14.1 10^3/uL (4.0-10.0) H 04/02/22 11:30 RBC 5.07 10^6/uL (4.1-5.3) 04/02/22 11:30 Hgb 14.7 g/dL (11.7-16.6) 04/02/22 11:30 Hct 45.0 % (42.0-52.0) 04/02/22 11:30 MCV 88.8 fl (80-94) 04/02/22 11:30 MCH 29.0 pg (28.0-34.0) 04/02/22 11:30 MCHC 32.7 g/dL (30.0-36.0) 04/02/22 11:30 RDW 15.4 % (12.1-15.1) H 04/02/22 11:30 Plt Count 379 10^3/cmm (130-400) 04/02/22 11:30 MPV 10.5 fL (7.4-10.4) H 04/02/22 11:30 Neut % (Auto) 47.5 % 04/02/22 11:30 Lymph % (Auto) 39.4 % 04/02/22 11:30 [place] % (Auto) 8.6 % 04/02/22 11:30 Eos % (Auto) 3.0 % 04/02/22 11:30 Baso % (Auto) 0.9 % 04/02/22 11:30 Neut # (Auto) 6.71 10^3/uL (1.8-7.7) 04/02/22 11:30 Lymph # (Auto) 5.6 10^3/uL (0.8-4.8) H 04/02/22 11:30 [place] # (Auto) 1.2 10^3/uL (0.2-0.9) H 04/02/22 11:30 Eos # (Auto) 0.4 10^3/uL (0.0-0.8) 04/02/22 11:30 Baso # (Auto) 0.1 10^3/uL (0.0-0.1) 04/02/22 11:30 Nucleated RBC % (auto) 0 % 04/02/22 11:30 Nucleated RBCs # 0.0 /100WBC 04/02/22 11:30 Specimen Type Arterial 04/02/22 12:29 Sample Site Radial, left 04/02/22 12:29 ABG pH 7.39 (7.35-7.45) 04/02/22 12:29 ABG pCO2 46.3 mmHg (35-45) H 04/02/22 12:29 ABG pO2 291.0 mmHg (80.0-100.0) H 04/02/22 12:29 ABG HCO3 27.8 mmol/L (22-26) H 04/02/22 12:29 ABG O2 Saturation 100.0 04/02/22 12: ABG Base Excess 2.1 mmol/L (-2.0-2.0) H 04/02/22 12:29 Shubham Test Pos 04/02/22 12:29 A-a O2 Gradient 46.9 mmHg (5-10) H 04/02/22 12:29 Hematocrit 44.9 % (42-52) 04/02/22 12:29 Hgb O2 Saturation 99.2 % (95-100) 04/02/22 12:29 Carboxyhemoglobin 0.3 %THgb (0.4-20.1) L 04/02/22 12:29 Methemoglobin 0.5 % (0.4-1.5) 04/02/22 12:29 Total Hemoglobin 14.6 g/dL (14-18) 04/02/22 12:29 Sodium 140.0 mmol/L (131-143) 04/02/22 12:29 Potassium 3.9 mmol/L (3.5-5.0) 04/02/22 12:29 Glucose 167.0 mg/dL (70-115) H 04/02/22 12:29 Ionized Calcium 1.2 mmol/L (1.1-1.4) 04/02/22 12:29 O2 Delivery Device Vent 04/02/22 12:29 FiO2 100.0 % 04/02/22 12:29 Tidal Volume 0.55 04/02/22 12:29 PEEP 10.0 cmH20 04/02/22 12:29 Unarmed Security Guard ID Cak 04/02/22 12:29 Sodium 139 mmol/L (136-145) 04/02/22 11:30 Potassium 3.9 mmol/L (3.5-5.1) 04/02/22 11:30 Chloride 97 mmol/L (98-107) L 04/02/22 11:30 Carbon Dioxide 27 mmol/L (22-29) 04/02/22 11:30 Anion Gap 18.9 (5-19) 04/02/22 11:30 BUN 16 mg/dL (8-23) 04/02/22 11:30 Creatinine 0.9 mg/dL (0.7-1.2) 04/02/22 11:30 GFR Calculation Not Reportable 04/02/22 11:30 Glucose 130 mg/dL (65-115) H 04/02/22 11:30 Calculated Osmolality 291 mOsm/kg (285-295) 04/02/22 11:30 Lactic Acid 5.2 mmol/L (0.5-2.2) H* 04/02/22 11:30 Calcium 9.2 mg/dL (8.5-10.5) 04/02/22 11:30 Magnesium 2.1 mg/dL (1.7-2.3) 04/02/22 11:30 Total Bilirubin 0.3 mg/dL (0.15-1.2) 04/02/22 11:30 AST 17 U/L (0-40) 04/02/22 11:30 ALT 11 U/L (0-41) 04/02/22 11:30 Alkaline Phosphatase 73 IU/L (40-130) 04/02/22 11:30 Total Protein 7.7 g/dL (6.6-8.7) 04/02/22 11:30 Albumin 4.3 g/dL (3.5-5.2) 04/02/22 11:30 Globulin 3.4 g/dL (1.3-4.6) 04/02/22 11:30 Lipase 23 U/L (13-60) 04/02/22 11:30 Urine Color Yellow (Yellow) 04/02/22 13:40 Urine Appearance Clear (CLEAR) 04/02/22 13:40 Urine pH 5 (5-7) 04/02/22 13:40 Ur Specific [place] 1.015 (1.005-1.030) 04/02/22 13:40 Urine Protein Neg (Negative) 04/02/22 13:40 Urine Glucose (UA) Norm (Normal) 04/02/22 13:40 Urine Ketones Negative (Negative) 04/02/22 13:40 Urine Blood 2+ (Negative) H 04/02/22 13:40 Urine Nitrate Negative (Negative) 04/02/22 13:40 Urine Bilirubin Neg (Negative) 04/02/22 13:40 Urine Urobilinogen Norm mg/dL (Negative) 04/02/22 13:40 Ur Leukocyte Esterase Negative (Negative) 04/02/22 13:40 Urine RBC 0-4 /hpf (0-2) H 04/02/22 13:40 Urine WBC None /hpf (0-5) 04/02/22 13:40 Ur Squamous Epith Cells 0-4 /hpf (0-5) H 04/02/22 13:40 Amorphous Sediment Not Reportable 04/02/22 13:40 Urine Bacteria None /hpf (NONE) 04/02/22 13:40 Serum Ketones Negative (Negative) 04/02/22 13:10 Critical Care Time Critical Care Time: Critical Care Time: Yes Total Critical Care Time: 60 Attestation: The high probability of a clinically significant, sudden or life threatening deterioration of the patient's neurologic respiratory system(s) required my full and direct attention, intervention and personal management. The critical care time is as shown. This time is in addition to time spent performing any reported procedures but includes the following: [x] Data and vital sign review and interpretation [x] Patient assessment, examination and intervention [x] Documentation [x] Medication orders and management Discharge Plan Discharge Patient Disposition: Admitted As Inpatient Admit Provider: Horacio Russell Clinical Impression: Seizure, Respiratory failure Condition: Stable Coding Level of Care Code ED Art Objects Salesperson for Shyla Ramos
[2022-04-02 13:53] LABS: Add Urine Microscopic? YES; Bilirubin Urine Neg (Negative); Blood Urine 2+ (Negative); Glucose Urine UA Norm (Normal); Ketones Urine Negative (Negative); Leukocyte Esterase Urine Negative (Negative); Nitrate Urine Negative (Negative); Protein Urine Neg (Negative); Specific Gravity, Urine 1.015 (1.005-1.030); Urine Appearance Clear (CLEAR); Urine Color Yellow (Yellow); Urobilinogen Urine Norm (Negative); pH Urine 5 (5-7)
--- NOTE | 2022-04-02 13:55 | P.HP_ITS ---
Providers/Chief Complaint Admitting Physician: Horacio Russell Primary Care Provider: Walter Marte DO Chief Complaint: seizure History of Present Illness Caesar Josue is a 76 year old male who presents from [facility]. He has past history of seizure disorder for which she is on Keppra. Apparently at the nursing facility he was wheeling down the hallway in his wheelchair and nursing noted that he did not look good. He became unresponsive, eyes rolled back in his head, and he had generalized shaking. They report they lowered him to the floor, put him on his side and the shaking eventually subsided. EMR was called. He began to awaken, and look around. They report that there was some concerns that he just did not feel good the day prior, but had not been ill with any fever, cough, or any other symptoms. In route I heard that he had several short generalized shaking episodes consistent with seizures, and in the emergency department he had generalized shaking as well. He received Ativan in route as well as Ativan in the ER. Upon returning from CT scan he did not appear to be adequately protecting his airway and he was intubated. Transient hypotension was noted with intubation. In the emergency department besides getting a dose of Ativan 2 mg he was started on fentanyl and Versed following intubation. He has received 1000 mg of Keppra IV. prison staff report that his baseline is conversant, very weak in his lo wer extremities, requiring a wheelchair but can feed himself. They report he is a full code and a daughter helps him make medical decisions. Review of Systems General: Reports: ROS unobtainable due to endotracheal tube and ROS unobtainable due to mental status Medications/Allergies Home Medications Medication Instructions Recorded Confirmed Last Taken Type aspirin 81 mg tablet,delayed 81 mg PO DAILY@11/11/19 04/02/22 04/02/22 08:21 History release pantoprazole 40 mg tablet,delayed 40 mg PO DAILY@11/11/19 04/02/22 04/02/22 08:21 History release acetaminophen 325 mg tablet 650 mg PO Q6H PRN 06/20/21 04/02/22 Unknown History (Tylenol) bisacodyl 10 mg rectal suppository 10 mg WI DAILY PRN 06/20/21 04/02/22 Unknown History (Dulcolax (bisacodyl)) bisacodyl 5 mg tablet,delayed 10 mg PO DAILY PRN 06/20/21 04/02/22 Unknown History release (Dulcolax (bisacodyl)) ferrous sulfate 325 mg (65 mg 325 mg PO DAILY@06/20/21 04/02/22 04/02/22 History iron) tablet ipratropium 0.5 mg-albuterol 3 mg 3 ml INHALATION TID PRN 06/20/21 04/02/22 06/20/21 12:05 History (2.5 mg base)/3 mL nebulization soln magnesium hydroxide 400 mg/5 mL 30 ml PO DAILY PRN 06/20/21 04/02/22 Unknown History oral suspension (Milk of Magnesia) simvastatin 40 mg tablet 40 mg PO BEDTIME@06/20/21 04/02/22 04/01/22 History sodium phosphates 19 gram-7 118 ml WI DAILY PRN 06/20/21 04/02/22 Unknown History gram/118 mL enema (Fleet Enema) levetiracetam 500 mg tablet 500 mg PO BID #60 tab 09/09/21 04/02/22 04/02/22 Rx (Keppra) amlodipine 5 mg tablet 5 mg PO DAILY@04/02/22 04/02/22 04/02/22 08:21 History furosemide 20 mg tablet 20 mg PO DAILY@04/02/22 04/02/22 04/02/22 History levofloxacin 750 mg tablet 750 mg PO EVERY OTHER DAY 04/02/22 04/02/22 04/01/22 History potassium chloride 10 mEq 10 meq PO DAILY@04/02/22 04/02/22 04/02/22 History tablet,extended release Allergies Allergy/AdvReac Type Severity Reaction Status Date / Time gabapentin Allergy Unknown Verified 04/02/22 11:53 pravastatin Allergy Unknown Verified 04/02/22 11:53 PFSH Acute PFSH: Medical History Acute alteration in mental status Altered mental status Anemia Asthma Carpal tunnel syndrome of left wrist Cervical radiculopathy Charcot's joint, 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 Generalized seizure Hyperlipidemia Hypertension Hypertension Hypoxia NSTEMI (non-ST elevated myocardial infarction) SLAC (scapholunate advanced collapse) of wrist Surgical History H/O knee surgery History of carpal tunnel surgery Family History Denies family history of Diabetes CAD (coronary artery disease) Clotting disorder Dementia Hyperlipidemia Psychiatric illness Chronic kidney disease (CKD) Suicide Anesthesia complication Bleeding disorder Family history of premature coronary artery disease Lung disease Cancer Hypertension Stroke Social History Smoking and tobacco status: former smoker Alcohol intake: never Lives independently: No Housing: [facility] Vitals/I&O/Wt Last Vital Signs Pulse 67 04/02/22 13:38 Resp 16 04/02/22 13:38 BP 151/92 04/02/22 13:38 Pulse Ox 96 04/02/22 13:38 04/01/22 04/02/22 04/02/22 22:59 06:59 14:59 Intake Total 110 / 110 Balance 110 / 110 Weight last 48 hrs Weight 113.398 kg Physical Exam Narrative: General exam is an intubated and sedated white male. HEENT: No obvious trauma. Pupils equally round. Oropharynx with endotracheal tube, and orogastric tube. Neck is supple no lymphadenopathy or thyromegaly Cardiovascular regular rate and rhythm, no murmur Lungs few coarse breath sounds bilaterally. No wheezes. No crackles. Abdomen is soft, positive bowel sounds. No obvious organomegaly. exam demonstrates [place] Extremities show trace edema bilaterally. No cyanosis or clubbing. Skin no rash Neurologic: Intubated and sedated. From discussion with nursing when sedation had been lessened he does spontaneously move. Data : 04/02/22 11:30 04/02/22 11:30 Other Labs: ABG performed presumably after intubation demonstrated a pH of 7.39, PCO2 46, PO2 of 291 on 100% FiO2 with a 550 tidal volume and 10 of PEEP. Lactic acid 5.2 LFTs normal Calcium 9.2 Urinalysis negative Keppra level sent Ketones pending Magnesium level normal Chest x-ray tubes okay, NG somewhat high and is already been advanced. No obvious pneumonia. Head CT demonstrated prior large remote left occipital lobe infarct and smaller right occipital lobe infarct. No acute findings. Micro: Microbiology 04/02/22 13:14 Blood Culture - Preliminary Blood SPECIMEN COLLECTED 04/02/22 13:10 Blood Culture - Preliminary Blood SPECIMEN COLLECTED A&P Assessment and plan (1) Seizure: Patient with history of seizure at the nursing facility, and then at least 3 seizure episodes subsequent, 2 in route and 1 in the emergency department. This was consistent with status considering 4 separate seizures in a limited timespan and respiratory difficulty. Keppra 1000 mg IV was initiated by the emergency department physician. Continue with 1000 mg of Keppra every 12 hours Try to lessen sedation, and extubate quickly to be able to determine neurologic status. Will need outpatient neurology follow-up for his seizure disorder. Ativan for any breakthrough seizures Note that he was recently placed on Levaquin for LRI. This was started on 03/26. Will check Covid rapid and PCR Status: Acute (2) Respiratory failure: Patient's respiratory failure presumably secondary to seizure and/or Ativan use to treat. Currently intubated and sedated Try to wean sedation and ventilator and proceed with extubation as soon as possible so neurologic evaluation can occur. I do not see any reason to continue antibiotics at this time. Status: Acute Plan History of asthma. DuoNeb scheduled. Budesonide scheduled. Past history of CVA, on CT with encephalomalacia. Continue statin and aspirin Attestations Medical Necessity Statement*: Will need greater than 2 midnight stay for evaluation and treatment of multiple seizures leading to respiratory failure Critical Care Time: The high probability of a clinically significant, sudden or life threatening deterioration of the patient's [neurologic, pulmonary system(s) required my full and direct attention, intervention and personal management. The critical care time is as shown. This time is in addition to time spent performing any reported procedures but includes the following: [x] Data and vital sign review and interpretation [x] Patient assessment, examination and intervention [x] Documentation [x] Medication orders and management Critical Care Time (min): 66 Coding Level of Care Code Acute School Nurse for Shyla Ramos Diagnoses Seizure R56.9 Respiratory failure J96.90
[2022-04-02 14:01] LABS: RBC Urine 0-4 /hpf (0-2); Squamous Epithelial Cell Urine 0-4 /hpf (0-5)
[2022-04-02 14:02] LABS: Add Urine Culture? No
[2022-04-02 14:12] LABS: Reflex Lactate Order REFLEX LACTIC ORDERD
[2022-04-02 14:16] LABS: Ketone (Acetest) Serum Negative (Negative)
--- NOTE | 2022-04-02 15:11 | ECG_ITS ---
[facility] Test Date: 2022-04-02 Pat Name: Caesar Josue Department: Room: Gender: Male Employment Attorney: : 1945 Requested By: Abel Mcelroy Order Number: [id number] Markos MD: Filemon Hutchison M.D. Measurements Intervals [place] Rate: 103 P: 130 SD: 223 QRS: -73 QRSD: 148 T: 84 QT: 358 QTc: 469 Interpretive Statements ECTOPIC ATRIAL TACHYCARDIA WITH FIRST DEGREE AV BLOCK WITH OCCASIONAL VENTRICULAR PREMATURE COMPLEXES LEFT AXIS DEVIATION [QRS AXIS < -30] RIGHT BUNDLE BRANCH BLOCK [120+ ms QRS DURATION, UPRIGHT V1, 40+ ms S IN I/aVL/V4/V5/V6] Compared to ECG 11/03/2021 04:16:49 First degree AV block now present Ventricular premature complex(es) now present Left-axis deviation now present Atrial-paced complex(es) or rhythm no longer present Left anterior fascicular block no longer present Electronically Signed On 04-02-2022 23:47:24 CDT by Filemon Hutchison M.D. [id number]
[2022-04-02 15:57] LABS: Lactic Acid level (Lactate) 1.1 mmol/L (0.5-2.2)
[2022-04-02] MEDS: budesonide 0.5 mg/2 mL Neb INHALATION (16:14)
--- NOTE | 2022-04-02 16:31 | P.CONIM_ITS ---
Providers/Reason For Consult Consulting Physician/Specialty*: Dr. Pascual and Dr. Garcia Reason for Consult*: status epilepticus Requesting Physician: Dr. Garcia Attending Physician: Horacio Russell MD Primary Care Provider: Walter Marte DO History of Present Illness History of Present Illness Caesar Josue is a 76 year old man who is been a resident at [facility] for some time. Normally he is unable to ambulate and he has significant cognitive impairment. He came here with new onset of a generalized tonic-clonic seizure 09/06/2021 and was hospitalized. He had 2 generalized tonic-clonic seizures before he got here. He was loaded with Keppra and was discharged on oral Keppra 500 mg twice daily Today he presented with multiple generalized tonic-clonic seizures. He had 2 generalized seizures at the retirement and then another seizure in the emergency department. Dr. Garcia called me after he had already intubated the patient for airway protection and gave him the 1000 mg of Keppra IV. Since he arrived in the ICU he has not had any further seizures. Looks like he was admitted to the retirement in August 2020. His in January and he had been trying to function on his own but he was brought to the ER drenched in excrement. He has severe ankle deformities and severe chronic pain. He has had several visits back for shortness of breath and has demonstrated cognitive impairment and inability to stand up because of his foot deformities. His dementia has been established to be progressive. He had CT scan of the head that shows remote left occipital infarct and smaller right occipital infarct. He has marked diffuse atrophy. No change since October of this year. Those images were reviewed. Review of Systems General: Reports: ROS unobtainable due to endotracheal tube and Other (Reportedly, he was being wheeled down the [place]ar[place] when he had a seizure ) Medications/Allergies Home Medications Medication Instructions Recorded Confirmed Last Taken Type aspirin 81 mg tablet,delayed 81 mg PO DAILY@11/11/19 04/02/22 04/02/22 08:21 History release pantoprazole 40 mg tablet,delayed 40 mg PO DAILY@11/11/19 04/02/22 04/02/22 08:21 History release acetaminophen 325 mg tablet 650 mg PO Q6H PRN 06/20/21 04/02/22 Unknown History (Tylenol) bisacodyl 10 mg rectal suppository [address] DAILY PRN 06/20/21 04/02/22 Unknown History (Dulcolax (bisacodyl)) bisacodyl 5 mg tablet,delayed 10 mg PO DAILY PRN 06/20/21 04/02/22 Unknown History release (Dulcolax (bisacodyl)) ferrous sulfate 325 mg (65 mg 325 mg PO DAILY@06/20/21 04/02/22 04/02/22 History iron) tablet ipratropium 0.5 mg-albuterol 3 mg 3 ml INHALATION TID PRN 06/20/21 04/02/22 06/20/21 12:05 History (2.5 mg base)/3 mL nebulization soln magnesium hydroxide 400 mg/5 mL 30 ml PO DAILY PRN 06/20/21 04/02/22 Unknown History oral suspension (Milk of Magnesia) simvastatin 40 mg tablet 40 mg PO BEDTIME@06/20/21 04/02/22 04/01/22 History sodium phosphates 19 gram-[address] DAILY PRN 06/20/21 04/02/22 Unknown History gram/118 mL enema (Fleet Enema) levetiracetam 500 mg tablet 500 mg PO BID #60 tab 09/09/21 04/02/22 04/02/22 Rx (Toña) amlodipine 5 mg tablet 5 mg PO DAILY@04/02/22 04/02/22 04/02/22 08:21 History furosemide 20 mg tablet 20 mg PO DAILY@04/02/22 04/02/22 04/02/22 History levofloxacin 750 mg tablet 750 mg PO EVERY OTHER DAY 04/02/22 04/02/22 04/01/22 History potassium chloride 10 mEq 10 meq PO DAILY@04/02/22 04/02/22 04/02/22 History tablet,extended release Allergies Allergy/AdvReac Type Severity Reaction Status Date / Time gabapentin Allergy Unknown Verified 04/02/22 11:53 pravastatin Allergy Unknown Verified 04/02/22 11:53 Current Medications Generic Name Dose Route Start Last Admin Trade Name Freq PRN Reason Stop Dose Admin Fentanyl 2,500 mcg/ Sodium 250 mls @ 0 mls/hr 04/02/22 12:15 04/02/22 13:26 Chloride IV 75 mcg/hr .Q0M CHRISTOPHER 7.5 mls/hr Administration Protocol Per Protocol Midazolam HCl 100 mg/ Sodium 100 mls @ 0 mls/hr 04/02/22 12:15 04/02/22 14:50 Chloride IV 5 mg/hr .Q0M CHRISTOPHER 5 mls/hr Titration Protocol Per Protocol PFSH Acute PFSH: Medical History Acute alteration in mental status Altered mental status Anemia Asthma Carpal tunnel syndrome of left wrist Cervical radiculopathy Charcot's joint, 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 Generalized seizure Hyperlipidemia Hypertension Hypertension Hypoxia NSTEMI (non-ST elevated myocardial infarction) SLAC (scapholunate advanced collapse) of wrist Surgical History H/O knee surgery History of carpal tunnel surgery Family History Denies family history of Diabetes CAD (coronary artery disease) Clotting disorder Dementia Hyperlipidemia Psychiatric illness Chronic kidney disease (CKD) Suicide Anesthesia complication Bleeding disorder Family history of premature coronary artery disease Lung disease Cancer Hypertension Stroke Social History Smoking and tobacco status: former smoker Alcohol intake: never Lives independently: No Housing: Senior Care Vitals/I&O/Wt Last Vital Signs Pulse 68 04/02/22 16:23 Resp 16 04/02/22 16:23 BP 151/92 04/02/22 15:00 Pulse Ox 97 04/02/22 16:23 04/02/22 04/02/22 04/02/22 06:59 14:59 22:59 Intake Total 118.2 / 118.2 Balance 118.2 / 118.2 Weight last 48 hrs Weight 250 lb Physical Exam Narrative: The patient is intubated in ICU 3. Mental status exam he does not follow commands. He responds to pain by appropriate withdrawal in all 4 extremities. Cranial nerves: Corneals intact. PERRL. Oculocephalic movements intact. Facial grimace to brow pressure. Sensory/motor: He appropriately withdraws from pain in all 4 extremities. Deep tendon reflexes absent at the knees and ankles. Toes are upgoing bilaterally. Motor: He has severe foot deformities on both sides consistent with neuropathic joints. Cardiac: S1 and S2 normal without murmur or gallop. Chest: Clear to auscultation Data : 04/02/22 11:30 04/02/22 11:30 Micro: Microbiology 04/02/22 13:14 Blood Culture - Preliminary Blood SPECIMEN COLLECTED 04/02/22 13:10 Blood Culture - Preliminary Blood SPECIMEN COLLECTED A&P Assessment and plan (1) Status epilepticus due to complex partial seizure: 76-year-old man with multiple generalized tonic-clonic seizures. Focal onset was not witnessed but his age it is presumed that these are focal in origin. These may be related to his advanced dementia as patients with Alzheimer disease are at increased risk of seizures. Is appropriate to increase his Keppra 1000 mg twice daily and would be very reasonable to discharge him on that dosage if it keeps him from having further seizures. I will be nearbyif needed. I came as soon as I could from the clinic and I talked with Dr. Garcia earlier today. Status: Acute (2) Alzheimer disease: Progressive cognitive dysfunction I would presume he has Alzheimer disease. His gait disorder is explained by his severe neuropathy. Status: Acute (3) Peripheral neuropathy: He has severe neuropathic joints in the feet. I would presume this is from a chronic neuropathy but he is no longer ambulatory and there is no reason to work it up further. Status: Acute Coding Level of Care Code Acute Industrial Energy Engineer for [facility] Fwd Diagnoses Status epilepticus due to complex partial seizure G40.201 Alzheimer disease G30.9; F02.80 Peripheral neuropathy G62.9
[2022-04-02] MEDS: ipratropium-albuterol 3 mL Neb INHALATION ×2 (16:37→20:13)
[2022-04-02 16:47] LABS: SARS Covid-2 Antigen Negative (Negative)
[2022-04-02] MEDS: sodium chlor 0.9% + KCl 20 mEq 20 MEQ/1,000 ML BAG 75 MEQ IV (17:33)
[2022-04-02] MEDS: enoxaparin 40 mg/0.4 mL Syringe SUBCUT (17:33)
[2022-04-02 18:36] LABS: ABG PCO2 36.6 mmHg (35-45); Base Excess ABG 4.9 mmol/L (-2.0-2.0); Blood Gas Allen Test Pos; Blood Gas Operator Identificat CAK; Blood Gas Sample Site Radial, left; Blood Gas Sample Type Arterial; HCO3 ABG 28.3 mmol/L (22-26); Oxygen Device VENT; PO2 ABG 79.9 mmHg (80.0-100.0)
--- NOTE | 2022-04-02 19:40 | PC.NURSE ---
Pt's sister and stepdaughter discussed pt's wishes and decided to change code status to AND. Dr Russell notified.
--- NOTE | 2022-04-02 20:24 | XRR_ITS ---
PROCEDURE INFORMATION: Exam: XR Abdomen Exam date and time: 04/02/2022 8:32 PM Age: 76 years old Clinical indication: Device placement; Gi device; Nasogastric tube; Patient HX: Ng tube placement; Additional info: Line placement verification TECHNIQUE: Imaging protocol: Radiologic exam of the abdomen. Views: Frontal supine view of the abdomen. 1 View. COMPARISON: CR XR chest 1V [id number] 04/02/2022 1:12 PM FINDINGS: Gastrointestinal tract: NG tube terminates in the stomach. Bones/joints: Unremarkable. XR/XR KUB portable [id number] IMPRESSION: NG tube terminates in the stomach.
--- NOTE | 2022-04-02 20:48 | PC.NURSE ---
KUB ordered for OGT placement verification. Currently measuring 67.5cm at Lip. ETT 24 at Lip, size 8.5
[2022-04-02] MEDS: atorvastatin 40 mg Tablet 20 MG PO (21:09)
--- NOTE | 2022-04-02 23:27 | PC.NURSE ---
Leti from [facility] called for update on patient. All questions answered.
[2022-04-03] VITALS (84 sets, daily range): BP systolic 80–168; BP diastolic 50–94; PULSE 57–100; RESP 8–34; TEMP 37.2–37.8; O2SAT 92–97
[2022-04-03] MEDS: ipratropium-albuterol 3 mL Neb INHALATION ×4 (03:19→19:59)
[2022-04-03 04:46] LABS: ABG PCO2 42.4 mmHg (35-45); ABG PH Result 7.44 (7.35-7.45); Arterial Blood Gas Hematocrit 38.4 % (42-52); Base Excess ABG 4.3 mmol/L (-2.0-2.0); Blood Gas Operator Identificat JB; Blood Gas Sample Site Brachial, right; Blood Gas Sample Type Arterial; Carboxyhemoglobin 0.5 %THgb (0.4-20.1); HGB O2 Sat 93.2 % (95-100); Ionized Calcium Level - ABG 1.2 mmol/L (1.1-1.4); Methemoglobin 1.2 % (0.4-1.5); Oxygen Device VENT; Oxygen Saturation ABG 94.8; Potassium Level - ABG 3.5 mmol/L (3.5-5.0); Total Hemoglobin 12.5 g/dL (14-18)
[2022-04-03 04:47] LABS: Alveolar-Arterial Oxygen Gradi 16.2 mmHg (5-10)
[2022-04-03 06:22] LABS: Basophils # 0.1 10^3/uL (0.0-0.1); Basophils % 0.7 %; Eosinophils # 0.1 10^3/uL (0.0-0.8); Eosinophils % 1.4 %; Hematocrit 33.6 % (42.0-52.0); Hemoglobin 11.4 g/dL (11.7-16.6); Lymphocytes # 1.7 10^3/uL (0.8-4.8); Lymphocytes % 19.8 %; Mean Corpuscular HGB Conc 33.9 g/dL (30.0-36.0); Mean Corpuscular Hemoglobin 28.5 pg (28.0-34.0); Mean Platelet Volume 10.7 fL (7.4-10.4); Monocytes # 1.1 10^3/uL (0.2-0.9); Monocytes % 12.5 %; Neutrophils # 5.75 10^3/uL (1.8-7.7); Neutrophils % 65.1 %; Nucleated Red Blood Cells % 0 %; Platelet Count 302 10^3/cmm (130-400); Red Cell Distribution Width 14.8 % (12.1-15.1); White Blood Count 8.8 10^3/uL (4.0-10.0)
[2022-04-03 06:51] LABS: Alanine Aminotransferase 23 U/L (0-41); Albumin Level 3.1 g/dL (3.5-5.2); Alkaline Phosphatase 88 IU/L (40-130); Anion Gap 14.3 (5-19); Aspartate Amino Transferase 38 U/L (0-40); Blood Urea Nitrogen 22 mg/dL (8-23); Calcium 8.6 mg/dL (8.5-10.5); Carbon Dioxide 26 mmol/L (22-29); Chloride 102 mmol/L (98-107); Creatinine Clr Calc Pharmacy 81.7368; Globulin 2.6 g/dL (1.3-4.6); Glucose 119 mg/dL (65-115); Magnesium 1.7 mg/dL (1.7-2.3); Osmolality Calculated 292 mOsm/kg (285-295); Potassium 3.3 mmol/L (3.5-5.1); Sodium 139 mmol/L (136-145); Total Bilirubin 0.6 mg/dL (0.15-1.2); Total Protein 5.7 g/dL (6.6-8.7)
--- NOTE | 2022-04-03 07:02 | XRR_ITS ---
PROCEDURE INFORMATION: Exam: XR Chest Exam date and time: 04/03/2022 7:15 AM Age: 76 years old Clinical indication: Condition or disease; Lung condition and disease; Respiratory failure; Status not specified; Additional info: Resp failure TECHNIQUE: Imaging protocol: Radiologic exam of the chest. Views: 1 view. COMPARISON: CR XR chest 1V [id number] 04/02/2022 1:12 PM FINDINGS: Tubes, catheters and devices: Endotracheal tube is once again seen with tip in the midline. The tip is noted to be 7 mm from the aura. Recommend repositioning. Interval advancement of the nasogastric tube with proximal side hole seen in the midline upper abdominal region. The tip is not visualized on the exam. Lungs: There are decreased lung volumes with increased mild perihilar pulmonary vascular congestion and minimal bibasilar atelectasis. Pleural spaces: Tiny left pleural effusion is seen. No pneumothorax. Heart/Mediastinum: Mild prominence of the cardiac silhouette on this chest radiograph. Unchanged mild to moderately tortuous thoracic aorta is seen. The trachea is midline. Bones/joints: No acute osseous abnormalities seen. Mild bilateral shoulder degenerative changes are seen. Soft tissues: Multiple external densities are seen overlying the chest, limiting assessment. XR/XR chest 1V portable [id number] IMPRESSION: 1. Endotracheal tube and nasogastric tube, as noted above. 2. Decreased lung volumes with increased mild perihilar pulmonary vascular congestion and minimal bibasilar atelectasis. Tiny left pleural effusion.
[2022-04-03] MEDS: sodium chlor 0.9% + KCl 20 mEq 20 MEQ/1,000 ML BAG 75 MEQ IV (07:41)
[2022-04-03] MEDS: aspirin 81 mg EC Tablet PO (07:41)
[2022-04-03] MEDS: pantoprazole DR 40 mg Tablet PO (07:41)
[2022-04-03] MEDS: lidocaine 1% 5 ML in potassium chloride premix 100 ML 25 ML IV (07:43)
--- NOTE | 2022-04-03 08:49 | P.PN_ITS ---
Subjective Subjective: Caesar awakens on the ventilator. There hopes he can be extubated today. He is still sedated. Medications: Reviewed: Yes Vitals/I&O/Wt Last Vital Signs Temp 99.3 F 04/03/22 00:00 Pulse 84 04/03/22 08:09 Resp 16 04/03/22 08:04 BP 96/57 04/03/22 06:30 Pulse Ox 94 04/03/22 08:04 04/02/22 04/03/22 04/03/22 22:59 06:59 14:59 Intake Total 92.375 / 879.324 9491.350 / 1440.925 10.783 / 10.783 Output Total 150 / 150 100 / 250 Balance -57.625 / 60.575 1130.350 / 1190.925 10.783 / 10.783 Weight last 48 hrs Weight 117.934 kg Weight 113.398 kg Physical Exam Narrative: General exam is an intubated and sedated white male. HEENT: No obvious trauma. Pupils equally round. Oropharynx with endotracheal tube, and orogastric tube. Neck is supple no lymphadenopathy or thyromegaly Cardiovascular regular rate and rhythm, no murmur Lungs clear bilaterally Abdomen is soft, positive bowel sounds. No obvious organomegaly. exam demonstrates Driscoll Extremities show trace edema bilaterally. No cyanosis or clubbing. Skin no rash Neurologic: Intubated and sedated. He appears to be moving extremities spontaneously. Data : 04/03/22 05:38 04/03/22 05:38 Micro: Microbiology 04/02/22 13:14 Blood Culture - Preliminary Blood SPECIMEN COLLECTED 04/02/22 13:10 Blood Culture - Preliminary Blood SPECIMEN COLLECTED A&P Assessment and plan (1) Seizure: Patient with history of seizure at the nursing facility, and then at least 3 seizure episodes subsequent, 2 in route and 1 in the emergency department. This was consistent with status considering 4 separate seizures in a limited timespan and respiratory difficulty. Keppra 1000 mg IV was initiated by the emergency department physician. Continuing Keppra 1000 mg IV every 12 hours. Changed to p.o. once extubated and taking p.o. Try to lessen sedation, and extubate quickly to be able to determine neurologic status. Will need outpatient neurology follow-up for his seizure disorder. Ativan for any breakthrough seizures Note that he was recently placed on Levaquin for LRI. This was started on 03/26. Rapid COVID-negative. PCR pending Status: Acute (2) Respiratory failure: Patient's respiratory failure presumably secondary to seizure and/or Ativan use to treat. Currently intubated and sedated Try to wean off ventilator and extubate today. No evidence of pneumonia currently. Status: Acute Plan History of asthma. DuoNeb scheduled. Budesonide scheduled. Past history of CVA, on CT with encephalomalacia. Continue statin and aspirin Attestations Medical Necessity Statement*: Needs continued hospital stay secondary to respiratory failure from status epilepticus requiring mechanical ventilation. Critical Care Time: The high probability of a clinically significant, sudden or life threatening deterioration of the patient's [pulmonary, neurologic system(s) required my full and direct attention, intervention and personal management. The critical care time is as shown. This time is in addition to time spent performing any reported procedures but includes the following: [x] Data and vital sign review and interpretation [x] Patient assessment, examination and intervention [x] Documentation [x] Medication orders and management Critical Care Time (min): 35 Coding Level of Care Code Acute Belt Puncher for [facility] Fwd Diagnoses Seizure R56.9 Respiratory failure J96.90
--- NOTE | 2022-04-03 09:01 | P.PN_ITS ---
Subjective Subjective: Sedation is being weaned. He is restless and moving about. Vitals/I&O/Wt Last Vital Signs Temp 99.3 F 04/03/22 00:00 Pulse 84 04/03/22 08:30 Resp 16 04/03/22 08:04 BP 110/70 04/03/22 08:30 Pulse Ox 93 04/03/22 08:30 04/02/22 04/03/22 04/03/22 22:59 06:59 14:59 Intake Total 92.375 / 913.647 7685.350 / 1440.925 10.783 / 10.783 Output Total 150 / 150 100 / 250 Balance -57.625 / 60.575 1130.350 / 1190.925 10.783 / 10.783 Weight last 48 hrs Weight 260 lb Weight 250 lb Physical Exam Narrative: He is moving all 4 extremities vigorously. He does not follow commands. Data : 04/03/22 05:38 04/03/22 05:38 Micro: Microbiology 04/02/22 13:14 Blood Culture - Preliminary Blood SPECIMEN COLLECTED 04/02/22 13:10 Blood Culture - Preliminary Blood SPECIMEN COLLECTED A&P Assessment and plan (1) Alzheimer disease: Status: Acute (2) Peripheral neuropathy: Status: Acute (3) Seizure: He had multiple witnessed generalized tonic-clonic seizures at the [facility], in route and again in the ER. He received a loading dose of Keppra. Plan on increasing his Keppra 1000 mg twice daily when he returns to the [facility]. Dr. Russell is in the process of weaning him from respiratory support. Discussed with Dr. Russell. Status: Acute Attestations Medical Necessity Statement*: Status epilepticus requiring ICU care and intubation for airway protection. Coding Level of Care Code Acute Microelectronics Engineer for [facility] Fw Diagnoses Alzheimer disease G30.9; F02.80 Peripheral neuropathy G62.9 Seizure R56.9
[2022-04-03 09:18] LABS: Levetiracetam Immunoassy 27.2 mcg/mL (6.0-46.0)
[2022-04-03 14:24] LABS: Quest SARS-CoV-2 RNA NOT DETECTED (NOT DETECTED)
[2022-04-03] MEDS: enoxaparin 40 mg/0.4 mL Syringe SUBCUT (16:14)
--- NOTE | 2022-04-03 17:30 | PC.NURSE ---
NUrse recieved report from KISHOR flanagan. Currently weaning off of thevent. Sedation has been turn off completely for 9 hours. Patient withdraws pain. Patient occaisonally responds to commands to squeeze hands or open eyes, but it is very unreliable. Patient is having occaisonal periods of apnea lasting 8-10 seconds.
--- NOTE | 2022-04-03 18:12 | PC.NURSE ---
SHift SUmmary: Patient has remained intubated throughout the shift. Sedation was turned off at 0700. Patient has become more alert, but is still unable to reliably follow commands. Still is having periods of apnea, but they are decreasing in frequency.
[2022-04-03] MEDS: FUROsemide 10 mg/mL SDV 4mL 40 MG IVP (19:17)
[2022-04-03] MEDS: piperacillin-tazobactam 3.375 GM in sodium chloride 0.9% (plus) 50 ML IV (19:17)
--- NOTE | 2022-04-03 19:51 | XRR_ITS ---
PROCEDURE INFORMATION: Exam: XR Abdomen Exam date and time: 04/03/2022 8:03 PM Age: 76 years old Clinical indication: Device placement; Gi device; Nasogastric tube; Additional info: Ogt verification, ogt advanced 44cm, need reverification. TECHNIQUE: Imaging protocol: Radiologic exam of the abdomen. Views: Frontal supine view of the abdomen. 1 View. COMPARISON: CR (ABDOMEN, ) 04/02/2022 8:32 PM FINDINGS: Tubes, catheters and devices: Enteric tube position is significantly advanced compared with prior and may cross the pylorus extending to the duodenal jejunal junction. Endotracheal tube position is unremarkable. Gastrointestinal tract: Normal. No bowel dilation. Bones/joints: Unremarkable. XR/XR KUB portable [id number] IMPRESSION: Enteric tube is likely post pyloric terminating at the duodenal jejunal junction.
--- NOTE | 2022-04-03 20:16 | PC.NURSE ---
Patient anxious, currently easy to soothe. OGT very clearly advanced. Current measurements 23.5cm, advanced 44cm since last measurement, new KUB ordered for verification. Unable to aspirate gastric contents. ETT measures at 24cm at lip, site CDI. Bilateral wrist restraints in place, no breakdown noted. Patient continues to intermittently follow commands at this time. He is able to answer simple yes or no questions by nodding his head but he does appear to gag on ETT and OGT when answering questions. Called [facility] and spoke with Griselda to obtain patient baseline to compare to current patient condition. Reported that patient intermittently follows commands and can be gruff with staff depending on mood. Dislikes being rolled but is generally agreeable. Oriented x2 recently. Focusing on wanting to go home, unable to reorient at facility. Elopement risk, did leave facility and make it to stoplight before staff was able to stop him. Griselda did report that patient not recognizing family is a new symptom and that he is generally able to recognize most staff. This baseline is consistent with current findings for patient.
--- NOTE | 2022-04-03 20:57 | PC.NURSE ---
Addendum entered by Juhi Toro RN 04/03/22 22:43: Witnessed narcotic waste with KISHOR Jimenez Fentanyl 118.625cc Versed 29.667cc Original Note: Wasted narcotics. Deposited in Black pharmaceutical box Fentanyl 118.625cc Versed 29.667cc Witnessed by Lindsey Toro RN
--- NOTE | 2022-04-03 21:32 | PC.NURSE ---
No apnea alarms during this shift, patient adequately ventilating on CPAP support from ventilator. Currently resting without signs of discomfort.
[2022-04-03 21:45] LABS: ABG PCO2 44.8 mmHg (35-45); ABG PH Result 7.43 (7.35-7.45); Alveolar-Arterial Oxygen Gradi 10.6 mmHg (5-10); Arterial Blood Gas Hematocrit 40.7 % (42-52); Base Excess ABG 4.7 mmol/L (-2.0-2.0); Blood Gas Operator Identificat JB; Blood Gas Sample Site Brachial, right; Blood Gas Sample Type Arterial; Carboxyhemoglobin 0.8 %THgb (0.4-20.1); HCO3 ABG 29.8 mmol/L (22-26); HGB O2 Sat 93.3 % (95-100); Ionized Calcium Level - ABG 1.1 mmol/L (1.1-1.4); Methemoglobin 0.8 % (0.4-1.5); Oxygen Device VENT; Oxygen Saturation ABG 94.9; PO2 ABG 77.3 mmHg (80.0-100.0); Potassium Level - ABG 3.5 mmol/L (3.5-5.0); Total Hemoglobin 13.3 g/dL (14-18)
[2022-04-03] MEDS: atorvastatin 40 mg Tablet 20 MG PO (21:46)
--- NOTE | 2022-04-03 22:12 | PC.NURSE ---
Extubated at 2205, notified Daughter of extubation, she had no further questions at this time. Patient currently on 3L NC, sleeping without signs of distress.
--- NOTE | 2022-04-03 22:20 | PC.NURSE ---
Restraints removed 2204 by DEONTE IVERSON
--- NOTE | 2022-04-03 22:30 | PC.RESP ---
pt was extubated to 3lm nc without incident
[2022-04-04] VITALS (64 sets, daily range): BP systolic 130–159; BP diastolic 64–90; PULSE 55–81; RESP 16–33; TEMP 36.8–37.3; O2SAT 91–98
--- NOTE | 2022-04-04 00:36 | PC.NURSE ---
Patient sleeping, easy to rouse, voice is hoarse and patient is unable to verbalize meaningful statements at this time. Intermittently answering yes and no questions by shaking his head. This is still consistent with baseline received earlier in report from Griselda at [facility].
[2022-04-04] MEDS: piperacillin-tazobactam 3.375 GM in sodium chloride 0.9% (plus) 50 ML IV ×3 (02:20→17:36)
[2022-04-04] MEDS: ipratropium-albuterol 3 mL Neb INHALATION ×4 (03:36→20:15)
--- NOTE | 2022-04-04 04:00 | PC.NURSE ---
0315, patient woke up, confused and irritated. Repeatedly saying Torture . Patient pulled right upper arm IV out and was attempting to remove other attached equipment. Easily redirected and soothed. Patient still only answering yes or no questions, oriented to person only. Attempted to place new IV x2, when blood return was achieved, patient jerked both times and said Torture . Patient then fell asleep while cleaning up, will attempt to place new IV if needed, otherwise, will allow patient to rest.
[2022-04-04 05:21] LABS: Basophils # 0.1 10^3/uL (0.0-0.1); Basophils % 0.7 %; Eosinophils # 0.4 10^3/uL (0.0-0.8); Eosinophils % 4.4 %; Hematocrit 36.8 % (42.0-52.0); Hemoglobin 12.2 g/dL (11.7-16.6); Lymphocytes # 1.8 10^3/uL (0.8-4.8); Lymphocytes % 18.1 %; Mean Corpuscular HGB Conc 33.2 g/dL (30.0-36.0); Mean Corpuscular Hemoglobin 28.7 pg (28.0-34.0); Mean Corpuscular Volume 86.6 fl (80-94); Mean Platelet Volume 10.8 fL (7.4-10.4); Monocytes # 1.3 10^3/uL (0.2-0.9); Monocytes % 12.9 %; Neutrophils % 63.5 %; Nucleated Red Blood Cells % 0 %; Platelet Count 291 10^3/cmm (130-400); Red Blood Count 4.25 10^6/uL (4.1-5.3); Red Cell Distribution Width 15.9 % (12.1-15.1); White Blood Count 10.1 10^3/uL (4.0-10.0)
[2022-04-04 05:47] LABS: Anion Gap 11.3 (5-19); Blood Urea Nitrogen 14 mg/dL (8-23); Calcium 8.5 mg/dL (8.5-10.5); Carbon Dioxide 32 mmol/L (22-29); Chloride 102 mmol/L (98-107); Glucose 102 mg/dL (65-115); Magnesium 1.6 mg/dL (1.7-2.3); Osmolality Calculated 295 mOsm/kg (285-295); Potassium 3.3 mmol/L (3.5-5.1); Sodium 142 mmol/L (136-145)
[2022-04-04] MEDS: lidocaine 1% 5 ML in potassium chloride premix 100 ML 25 ML IV (06:41)
--- NOTE | 2022-04-04 07:18 | PM.PN ---
Subjective Subjective: Sleepy but awakens with stimulation. Denies any pain. Reports he is thirsty. Extubated last night. Medications: Reviewed: Yes Vitals/I&O/Wt Last Vital Signs Temp 98.9 F 04/04/22 04:00 Pulse 67 04/04/22 06:15 Resp 23 H 04/04/22 06:15 BP 137/69 04/04/22 06:15 Pulse Ox 94 04/04/22 06:15 04/03/22 04/04/22 04/04/22 22:59 06:59 14:59 Intake Total 215 / 225.783 210 / 435.783 Output Total 2300 / 2300 1950 / 4250 Balance -2085 / -2074.217 -1740 / -3814.217 Weight last 48 hrs Weight 117.934 kg Weight 113.398 kg Physical Exam Narrative: General exam sleeping male who awakens with stimulation Neck is supple no lymphadenopathy or thyromegaly Cardiovascular regular rate and rhythm, no murmur Lungs a few coarse breath sounds bibasilar Abdomen is soft, positive bowel sounds. No obvious organomegaly. exam demonstrates Driscoll Extremities show no cyanosis clubbing or edema. Skin no rash Neurologic: Moves extremities. Converses. No obvious neurologic deficit. Urinary Catheter Management: Drisocll: Cath Placed During This Visit: yes Reason for Continuing Indwelling Catheter: Accurate Measurement of Urinary Output in Critically Ill Patients Urinary Catheter Date of Insertion: 04/02/22 Urinary Catheter Time of Insertion: 13:40 Data : 04/04/22 04:26 04/04/22 04:26 Micro: Microbiology 04/02/22 13:14 Blood Culture - Preliminary Blood NEGATIVE TO DATE 04/02/22 13:10 Blood Culture - Preliminary Blood NEGATIVE TO DATE 04/02/22 12:30 Gram Stain - Final Sputum - Endotracheal Tube Aspirate Sputum Culture - Preliminary A&P Assessment and plan (1) Seizure: Patient with history of seizure at the nursing facility, and then at least 3 seizure episodes subsequent, 2 in route and 1 in the emergency department. This was consistent with status considering 4 separate seizures in a limited timespan and respiratory difficulty. Keppra 1000 mg IV was initiated by the emergency department physician. Continuing Keppra 1000 mg IV every 12 hours. Changed to p.o. once extubated and taking p.o. Will need outpatient neurology follow-up for his seizure disorder. Consultation was obtained inpatient as well. Ativan for any breakthrough seizures Note that he was recently placed on Levaquin for LRI. This was started on 03/26. Rapid COVID-negative. PCR negative Status: Acute (2) Respiratory failure: Patient's respiratory failure presumably secondary to seizure and/or Ativan use to treat. Currently intubated and sedated Extubated 04/03 evening. On 04/03 he had some low-grade temperatures. X-ray that morning could not rule out a bibasilar infiltrate. Zosyn was initiated. Sputum culture pending. Following extubation he is somewhat sleepy. Speech therapy evaluation has been entered. Await their evaluation prior to p.o. intake. Wean oxygen as tolerated. Currently on 2 to 3 L. Status: Acute Plan History of asthma. DuoNeb scheduled. Budesonide scheduled. Past history of CVA, on CT with encephalomalacia. Continue statin and aspirin Hypokalemia, supplement Hypomagnesemia, supplement Allow natural Lovenox for DVT prophylaxis Attestations Medical Necessity Statement*: Needs continued hospitalization for close monitoring following extubation for status epilepticus. Need speech therapy evaluation, initiation of medicines to p.o., Wean oxygen to room air. Possible discharge back to the nursing facility 1 to 2 days. Coding Level of Care Code Acute Filler Machine Operator for [facility] Diagnoses Seizure R56.9 Respiratory failure J96.90
[2022-04-04] MEDS: magnesium sulfate premix 2 GM/50 ML PIGGYBACK IV (07:36)
[2022-04-04] MEDS: pantoprazole DR 40 mg Tablet PO (07:37)
[2022-04-04] MEDS: aspirin 81 mg EC Tablet PO (07:37)
--- NOTE | 2022-04-04 08:04 | PC.NURSE ---
Patient is sleeping very soundly, tried rousing him to take his PO meds and he did not wake up. Patients vitals are stable.
[2022-04-04] MEDS: levETIRAcetam 500 mg Tablet 1000 MG PO ×2 (09:53→17:36)
--- NOTE | 2022-04-04 11:03 | PC.CHAP ---
Pastoral Care Encounter/Spiritual Assessment Type of Contact [] Declined flow worker visit [] Patient/Family/Request visit [] Outpatient visit [] Follow-up visit [] Physician referral [] Code/Alert [x] Routine visit [] Staff referral [] Actively dying [x] Patient sleeping [] Family support [] [] Out of room [] Palliative care [] [] Receiving care in room [] Pre-surgical visit [] Trauma [] Long length of stay [x] ICU visit [] Other: Relational/Emotional Strength [] Patient feels connected with others/family/visitors/staff [] Distress [] Loneliness/isolation [] Abandonment Spirituality of Patient [] Person of Fiona [] Attends Faith of their Fiona [] Believes in Prayer [] Reads Bible or Zoroastrianism materials [] There are Spiritual issues to be addressed Drawing Hand Interventions [x] Prayer [] Active listening [] Non-anxious presence [] Spiritual/emotional support [] Crisis/trauma care [] Spiritual counseling [] Bereavement support [] Provided bereavement packet [] Provided Bible/devotional materials [] Provided toy/stuffed animal, coloring book to patient or family member [] Provided Communion [] Anointing/[place] [] Salvation [x] Completed spiritual assessment [] Other: Impact on Illness or Injury [] Angry [] Fearful [] Anxious [] Often cries [] Exhaustion [] Unable to work [] Unable to attend pentecostal [] Unable to walk/stand [] Unable to read [] Unable to drive [] Unable to eat/drink [] Unable to sleep [] Unable to be with family [] Patient intubated [] Other: Summary Time spent with patient
--- NOTE | 2022-04-04 15:19 | PC.NURSE ---
report given and transfered to floor at this time
--- NOTE | 2022-04-04 15:24 | PC.SLP ---
Two attempts made to assess patient's ability to swallow safely. Patient was not alert enough to fully participate in his evaluation. Will continue to follow and assess when he can fully participate in his evaluation.
--- NOTE | 2022-04-04 15:32 | PC.NURSE ---
received report, assumed care of patient. oriented pt to room, call light, tv. verbalized understanding, no needs identified at this time. pt repositioned in bed for optimal ventilation. tele and cont pulse ox placed on patient.
[2022-04-04] MEDS: enoxaparin 40 mg/0.4 mL Syringe SUBCUT (17:35)
--- NOTE | 2022-04-04 17:56 | XRR_ITS ---
PROCEDURE INFORMATION: Exam: XR Left Wrist Exam date and time: 04/04/2022 6:13 PM Age: 76 years old Clinical indication: Pain; Wrist; Left TECHNIQUE: Imaging protocol: Radiologic exam of the Left wrist. Views: 1 or 2 views. 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 There is interposition of the capitate between the dysmorphic lunate and scaphoid with foreshortening of the wrist and overlapping of the proximal and distal carpal row. There is marked widening of the scapholunate interval. There is marked 1st carpometacarpal DJD. No acute fracture. Soft tissues: Vascular calcification is present. Visible soft tissues are unremarkable. XR/XR wrist LT 2V [id number] IMPRESSION: 1. No acute fracture. 2. 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
[2022-04-04] MEDS: atorvastatin 40 mg Tablet 20 MG PO (19:24)
[2022-04-05] VITALS (10 sets, daily range): BP systolic 129–189; BP diastolic 75–98; PULSE 60–72; RESP 17–20; TEMP 36.4–36.7; O2SAT 93–97
[2022-04-05] MEDS: piperacillin-tazobactam 3.375 GM in sodium chloride 0.9% (plus) 50 ML IV ×2 (02:34→10:14)
[2022-04-05] MEDS: ipratropium-albuterol 3 mL Neb INHALATION ×2 (02:51→08:46)
[2022-04-05 05:33] LABS: Basophils # 0.1 10^3/uL (0.0-0.1); Basophils % 0.5 %; Eosinophils # 0.4 10^3/uL (0.0-0.8); Eosinophils % 3.6 %; Hematocrit 37.8 % (42.0-52.0); Hemoglobin 12.1 g/dL (11.7-16.6); Lymphocytes # 1.7 10^3/uL (0.8-4.8); Lymphocytes % 13.5 %; Mean Corpuscular Hemoglobin 28.8 pg (28.0-34.0); Mean Platelet Volume 10.2 fL (7.4-10.4); Monocytes # 1.4 10^3/uL (0.2-0.9); Monocytes % 11.1 %; Neutrophils # 8.66 10^3/uL (1.8-7.7); Neutrophils % 70.9 %; Nucleated Red Blood Cells % 0 %; Platelet Count 275 10^3/cmm (130-400); Red Cell Distribution Width 16.1 % (12.1-15.1); White Blood Count 12.2 10^3/uL (4.0-10.0)
[2022-04-05 06:00] LABS: Anion Gap 11.8 (5-19); Blood Urea Nitrogen 9 mg/dL (8-23); Calcium 8.3 mg/dL (8.5-10.5); Carbon Dioxide 30 mmol/L (22-29); Chloride 103 mmol/L (98-107); Glucose 94 mg/dL (65-115); Magnesium 2.1 mg/dL (1.7-2.3); Osmolality Calculated 290 mOsm/kg (285-295); Potassium 3.8 mmol/L (3.5-5.1); Sodium 141 mmol/L (136-145)
[2022-04-05] MEDS: pantoprazole DR 40 mg Tablet PO (09:20)
[2022-04-05] MEDS: aspirin 81 mg EC Tablet PO (09:20)
[2022-04-05] MEDS: levETIRAcetam 500 mg Tablet 1000 MG PO (09:20)
--- NOTE | 2022-04-05 10:24 | PC.SOCIAL ---
Pg 2 IMM Explained to pt Pg 2 IMM. No questions voiced. Provided pt a copy. Initialed, dated, & timed a copy & placed in chart.
--- NOTE | 2022-04-05 12:41 | PM.DCS ---
Discharge Providers Date of Admission: 04/02/22 16:33 Date of Discharge: April 05, 2022 Attending Provider at Admission: Horacio Russell MD Attending Provider at Discharge: Tha Delatorre MD Primary Care Provider: Walter Marte DO Diagnoses at Discharge Discharge Diagnosis (1) Seizure: Status: Acute (2) Respiratory failure: Status: Acute Reason for Visit Reason for Visit: seizure Hospital Course Hospital Course 76-year-old gentleman who carries history of seizure takes Keppra at the long-term, he was noted to have multiple tonic-clonic seizures on 04/02, in the ER he was not able to protect his airway after getting Ativan, he was intubated, successfully extubated on 04/03, patient was treated for possible aspiration pneumonia, chest x-ray consistent with vascular congestion, he is requiring 2 L of nasal cannula, his EF is 60% grade 1 diastolic dysfunction, he does carry history of COPD, previous history of COVID-19 as well in 2020 at this point I am not clear whether he required oxygen Dr. Siddiqui's discharge summary did not mention oxygen supplementation at the time of discharge however 06/25/[address] Norton mention patient requiring 3 L of oxygen. Patient will be discharged on Keppra 1000 mg twice daily as per Dr. Stout's recommendation. At baseline patient is nonambulatory resident of [facility]. He has been treated for aspiration pneumonia multiple times last year. Medication at the time of discharge Keppra 1000 mg twice daily, Augmentin 5-day course. Continue Lasix with potassium supplementation CODE STATUS is DNR/DNI White count is 12,000 at the time of discharge, he has been afebrile, cultures negative to date Physical Exam Narrative: Patient is somnolent however when awake able to tell me his name, date of and tell me that he is in the hospital Abdomen is soft, he had 1 bowel movement this morning Driscoll catheter with clear urine Lower extremity with trace edema Currently on 2 to 3 L nasal cannula Urinary Catheter Management: Driscoll: Cath Placed During This Visit: yes Reason for Continuing Indwelling Catheter: Accurate Measurement of Urinary Output in Critically Ill Patients Urinary Catheter Date of Insertion: 04/02/22 Urinary Catheter Time of Insertion: 13:40 Discharge Data Studies Completed and Pending Completed Studies During Hospitalization Category Date Time Status CT head wo con* [id number] Stat Cat Scan 04/02/22 11:35 Completed XR KUB portable [id number] Routine Exams 04/02/22 20:24 Completed XR KUB portable [id number] Routine Exams 04/03/22 19:51 Completed XR chest 1V [id number] Stat Exams 04/02/22 13:04 Completed XR chest 1V portable [id number] Routine Exams 04/03/22 07:02 Completed XR chest 1V portable [id number] Stat Exams 04/02/22 12:12 Completed XR wrist LT 2V [id number] Routine Exams 04/04/22 17:56 Completed Pending at discharge Category Date Time Status Blood Culture Stat Lab 04/02/22 13:14 Results Radiology Impressions Head CT 04/02/22 11:35 IMPRESSION: 1. No acute intracranial hemorrhage or edema. 2. 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 Smaller RIGHT occipital lobe infarct. 3. Additional small vessel ischemic disease and lacunar infarcts as above. No change since 11/03/2021. Chest X-Ray 04/03/22 07:02 IMPRESSION: 1. Endotracheal tube and nasogastric tube, as noted above. 2. Decreased lung volumes with increased mild perihilar pulmonary vascular congestion and minimal bibasilar atelectasis. Tiny left pleural effusion. KUB X-Ray 04/03/22 19:51 IMPRESSION: Enteric tube is likely post pyloric terminating at the duodenal jejunal junction. Wrist X-Ray 04/04/22 17:56 IMPRESSION: 1. No acute fracture. 2. 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 Laboratory Results WBC 12.2 10^3/uL (4.0-10.0) H 04/05/22 05:15 RBC 4.20 10^6/uL (4.1-5.3) 04/05/22 05:15 Hgb 12.1 g/dL (11.7-16.6) 04/05/22 05:15 Hct 37.8 % (42.0-52.0) L 04/05/22 05:15 MCV 90.0 fl (80-94) 04/05/22 05:15 MCH 28.8 pg (28.0-34.0) 04/05/22 05:15 MCHC 32.0 g/dL (30.0-36.0) 04/05/22 05:15 RDW 16.1 % (12.1-15.1) H 04/05/22 05:15 Plt Count 275 10^3/cmm (130-400) 04/05/22 05:15 MPV 10.2 fL (7.4-10.4) 04/05/22 05:15 Neut % (Auto) 70.9 % 04/05/22 05:15 Lymph % (Auto) 13.5 % 04/05/22 05:15 [place] % (Auto) 11.1 % 04/05/22 05:15 Eos % (Auto) 3.6 % 04/05/22 05:15 Baso % (Auto) 0.5 % 04/05/22 05:15 Neut # (Auto) 8.66 10^3/uL (1.8-7.7) H 04/05/22 05:15 Lymph # (Auto) 1.7 10^3/uL (0.8-4.8) 04/05/22 05:15 [place] # (Auto) 1.4 10^3/uL (0.2-0.9) H 04/05/22 05:15 Eos # (Auto) 0.4 10^3/uL (0.0-0.8) 04/05/22 05:15 Baso # (Auto) 0.1 10^3/uL (0.0-0.1) 04/05/22 05:15 Nucleated RBC % (auto) 0 % 04/05/22 05:15 Nucleated RBCs # 0.0 /100WBC 04/05/22 05:15 Specimen Type Arterial 04/03/22 21:31 Sample Site Brachial, right 04/03/22 21:31 ABG pH 7.43 (7.35-7.45) 04/03/22 21:31 ABG pCO2 44.8 mmHg (35-45) 04/03/22 21:31 ABG pO2 77.3 mmHg (80.0-100.0) L 04/03/22 21:31 ABG HCO3 29.8 mmol/L (22-26) H 04/03/22 21:31 ABG O2 Saturation 94.9 04/03/22 21:31 ABG Base Excess 4.7 mmol/L (-2.0-2.0) H 04/03/22 21:31 Shubham Test N/a 04/03/22 21:31 A-a O2 Gradient 10.6 mmHg (5-10) H 04/03/22 21:31 Hematocrit 40.7 % (42-52) L 04/03/22 21:31 Hgb O2 Saturation 93.3 % (95-100) L 04/03/22 21:31 Carboxyhemoglobin 0.8 %THgb (0.4-20.1) 04/03/22 21:31 Methemoglobin 0.8 % (0.4-1.5) 04/03/22 21:31 Total Hemoglobin 13.3 g/dL (14-18) L 04/03/22 21:31 Sodium 143.0 mmol/L (131-143) 04/03/22 21:31 Potassium 3.5 mmol/L (3.5-5.0) 04/03/22 21:31 Glucose 118.0 mg/dL (70-115) H 04/03/22 21:31 Ionized Calcium 1.1 mmol/L (1.1-1.4) 04/03/22 21:31 O2 Delivery Device Vent 04/03/22 21:31 FiO2 30.0 % 04/03/22 21:31 Tidal Volume 0.50 04/03/22 04:33 PEEP 6.0 cmH20 04/03/22 21:31 Medical Billing Associate ID Matthew 04/03/22 21:31 Sodium 141 mmol/L (136-145) 04/05/22 05:15 Potassium 3.8 mmol/L (3.5-5.1) 04/05/22 05:15 Chloride 103 mmol/L (98-107) 04/05/22 05:15 Carbon Dioxide 30 mmol/L (22-29) H 04/05/22 05:15 Anion Gap 11.8 (5-19) 04/05/22 05:15 BUN 9 mg/dL (8-23) 04/05/22 05:15 Creatinine 0.6 mg/dL (0.7-1.2) L 04/05/22 05:15 GFR Calculation Not Reportable 04/05/22 05:15 Glucose 94 mg/dL (65-115) 04/05/22 05:15 Calculated Osmolality 290 mOsm/kg (285-295) 04/05/22 05:15 Lactic Acid 5.2 mmol/L (0.5-2.2) H* 04/02/22 11:30 Lactic Acid (Sepsis) 1.1 mmol/L (0.5-2.2) 04/02/22 15:28 Calcium 8.3 mg/dL (8.5-10.5) L 04/05/22 05:15 Magnesium 2.1 mg/dL (1.7-2.3) 04/05/22 05:15 Total Bilirubin 0.6 mg/dL (0.15-1.2) 04/03/22 05:38 AST 38 U/L (0-40) 04/03/22 05:38 ALT 23 U/L (0-41) 04/03/22 05:38 Alkaline Phosphatase 88 IU/L (40-130) 04/03/22 05:38 Total Protein 5.7 g/dL (6.6-8.7) L D 04/03/22 05:38 Albumin 3.1 g/dL (3.5-5.2) L 04/03/22 05:38 Globulin 2.6 g/dL (1.3-4.6) 04/03/22 05:38 Lipase 23 U/L (13-60) 04/02/22 11:30 Urine Color Yellow (Yellow) 04/02/22 13:40 Urine Appearance Clear (CLEAR) 04/02/22 13:40 Urine pH 5 (5-7) 04/02/22 13:40 Ur Specific [place] 1.015 (1.005-1.030) 04/02/22 13:40 Urine Protein Neg (Negative) 04/02/22 13:40 Urine Glucose (UA) Norm (Normal) 04/02/22 13:40 Urine Ketones Negative (Negative) 04/02/22 13:40 Urine Blood 2+ (Negative) H 04/02/22 13:40 Urine Nitrate Negative (Negative) 04/02/22 13:40 Urine Bilirubin Neg (Negative) 04/02/22 13:40 Urine Urobilinogen Norm mg/dL (Negative) 04/02/22 13:40 Ur Leukocyte Esterase Negative (Negative) 04/02/22 13:40 Urine RBC 0-4 /hpf (0-2) H 04/02/22 13:40 Urine WBC None /hpf (0-5) 04/02/22 13:40 Ur Squamous Epith Cells 0-4 /hpf (0-5) H 04/02/22 13:40 Amorphous Sediment Not Reportable 04/02/22 13:40 Urine Bacteria None /hpf (NONE) 04/02/22 13:40 Levetiracetam 27.2 mcg/mL (6.0-46.0) 04/02/22 11:30 Serum Ketones Negative (Negative) 04/02/22 13:10 SARS-CoV-2 RNA (RT-PCR) Not detected (NOT DETECTED) 04/02/22 16:10 SARS-CoV-2 Ag (Rapid) Negative (Negative) 04/02/22 16:10 Vitals Last Vital Signs Temp 98.0 F 04/05/22 07:53 Pulse 68 04/05/22 11:24 Resp 20 H 04/05/22 11:24 BP 146/81 04/05/22 11:24 Pulse Ox 94 04/05/22 11:24 Discharge Plan Discharge Patient Disposition: Xfer SNF Condition: Stable Prescriptions: New levetiracetam 500 mg Tablet 1,000 mg PO BID Qty: 60 3RF Augmentin 500-125 mg tablet 1 tab PO BID Qty: 10 0RF Continued pantoprazole 40 mg tablet,delayed release (DR/EC) 40 mg PO DAILY@08 0RF aspirin 81 mg tablet,delayed release (DR/EC) 81 mg PO DAILY@08 0RF acetaminophen [Tylenol] 325 mg Tablet 650 mg PO Q6H PRN (Reason: Pain) 0RF simvastatin 40 mg Tablet 40 mg PO BEDTIME@20 0RF magnesium hydroxide [Milk of Magnesia] 400 mg/5 mL Suspension 30 ml PO DAILY PRN (Reason: Constipation) 0RF Rx Instructions: IF NO BM IN 3 DAYS, DO NOT GIVE TO RENAL PTS GO TO DULCOLAX ORDERS bisacodyl [Dulcolax (bisacodyl)] 10 mg Suppository 10 mg [place] DAILY PRN (Reason: Constipation) 0RF Rx Instructions: give pr if cant take po -if no results from mom ferrous sulfate 325 mg (65 mg iron) Tablet 325 mg PO DAILY@08 0RF Fleet Enema 19-7 gram/118 mL Enema 118 ml [place] DAILY PRN (Reason: Constipation) 0RF Rx Instructions: GIVE IF NO RESULTS FROM MOM AND DULCOLAX bisacodyl [Dulcolax (bisacodyl)] 5 mg Tablet,Delayed Release (Dr/Ec) 10 mg PO DAILY PRN (Reason: Constipation) 0RF Rx Instructions: GIVE IF NO RESULTS FROM MOM ipratropium-albuterol 0.5 mg-3 mg(2.5 mg base)/3 mL solution for nebulization 3 ml inhalation TID PRN (Reason: copd) 0RF amlodipine 5 mg tablet 5 mg PO DAILY@08 0RF furosemide 20 mg Tablet 20 mg PO DAILY@08 0RF potassium chloride 10 mEq Tablet Extended Release 10 meq PO DAILY@08 0RF Discontinued levetiracetam [Keppra] 500 mg tablet 500 mg PO BID Qty: 60 3RF levofloxacin 750 mg tablet 750 mg PO EVERY OTHER DAY 0RF Rx Instructions: end date 04/05/22 Discharge Orders: Discharge Order (Routine); Ordered 04/05/22 Ordered By: Tha Delatorre Referrals: [facility] [Outside] Ibis Stout MD [Physician] - 7-10 days (Please call Dr. Stout's Office at [phone] to schedule a follow up appointment for 7-10 days. Thank you.) Discharge Diet: As Directed Discharge Activity: Wheelchair as instructed and Bedrest Patient Instructions: Amoxicillin/Clavulanate Potassium (By mouth) (Augmentin, Augmentin..., Levetiracetam (By mouth) (Keppra, Keppra XR, Spritam), Seizures Activity Restrictions/Additional Instructions: Patient will need dysphagia level 3 diet Discharge Attestations Time Spent in Discharge Care*: less than 30 min Status at Discharge: Cognitive status at discharge: mildly impaired cognition, Behavioral status at discharge: cooperative, Quality Metrics Clinical Quality Measures [ No reported AMI, CVA or VTE this stay] Coding Level of Care Code Acute Chg FW DC note Diagnoses Seizure R56.9 Respiratory failure J96.90
--- NOTE | 2022-04-05 14:27 | PC.NURSE ---
Report called to Lani at [facility] for patient to return to facility.
== END 2022-04-05 15:00 | disposition skilled nursing facility (03) | DRG 100 ==
LOC: ER 12:44 → ICU 15:48 → MEDSURG 04-04 17:07
PROVIDERS: Admitting Provider Internal Medicine; Emergency Provider Family Medicine; PCP Internal Medicine; Visit Provider Internal Medicine
DX: G40.201 Localization-related (focal) (partial) symptomatic epilepsy and epileptic syndromes with complex partial seizures, not intractable, with status epilepticus (principal); J69.0 Pneumonitis due to inhalation of food and vomit; J96.90 Respiratory failure, unspecified, unspecified whether with hypoxia or hypercapnia; A52.16 Charcot's arthropathy (tabetic); J44.9 Chronic obstructive pulmonary disease, unspecified; E78.5 Hyperlipidemia, unspecified; I10 Essential (primary) hypertension; I25.2 Old myocardial infarction; Z87.891 Personal history of nicotine dependence; I69.398 Other sequelae of cerebral infarction; G93.89 Other specified disorders of brain; G89.29 Other chronic pain; G30.9 Alzheimer's disease, unspecified; F02.80 Dementia in other diseases classified elsewhere, unspecified severity, without behavioral disturbance, psychotic disturbance, mood disturbance, and anxiety; G62.9 Polyneuropathy, unspecified; Z79.82 Long term (current) use of aspirin; Z66 Do not resuscitate; Z86.16 Personal history of COVID-19; M19.032 Primary osteoarthritis, left wrist
CPT/HCPCS: 31500; 36415; 36600; 51702; 70450; 71045; 73100; 74018; 80048; 80051; 80053; 80177; 81001; 82009; 82330; 82803; 82805; 83605; 83690; 83735; 85025; 87040; 87070; 87205; 87426; 87635; 92523; 92610; 93005; 94002; 94003; 94640; 94799; 96365; 96366; 96367; 96372; 99291; 99292; J1650; J1940; J1953; J2060; J2250; J2543; J2704; J3010; J3475; J3480; J7050; J7626

== ENCOUNTER 2022-07-19 11:32 | Emergency (ER) | payer OTHER, SELFPAY ==
--- NOTE | 2022-07-19 11:36 | W.ED.ABDPA2 ---
HPI - Abdominal Pain General: Chief Complaint: General Medical Stated Complaint: LEFT INGUINAL HERNIA PAIN Time Seen by Provider: 07/19/22 11:34 History of Present Illness: Mr. Josue is a 76-year-old gentleman with history of asthma, depression, heart failure, cognitive decline presenting to the emergency room due to concern over hernia. [facility] and they noticed a hernia today which they apparently tried to reduce but was unsuccessful. Patient does report intermittent mild discomfort rarely, he felt that they thought that he had a crystal umbilical hernia though he more often notices left groin swelling. Denies changes in amount of pain or nature of pain. No changes in bowel habits. No other specific changes in health, exacerbating, or alleviating factors identified. Onset (ago): month(s) Pain Consistency: intermittent Location: Periumbilical and Groin Severity: mild Associated Symptoms: Denies change in bowel habits, change in stool character, constipation, hematochezia, hematemesis and melena Review of Systems General: Reports: 10 or more systems reviewed and unremarkable except in HPI and below GI: Denies: hematemesis, constipation, change in bowel habits, change in stool character, hematochezia or melena PFSH ED PFSH: Medical History Acute alteration in mental status Altered mental status Alzheimer disease Anemia Asthma Carpal tunnel syndrome of left wrist Cervical radiculopathy Charcot's joint, 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 Generalized seizure Hyperlipidemia Hypertension Hypertension Hypoxia NSTEMI (non-ST elevated myocardial infarction) Peripheral neuropathy SLAC (scapholunate advanced collapse) of wrist Surgical History H/O knee surgery History of carpal tunnel surgery Family History Denies family history of Diabetes CAD (coronary artery disease) Clotting disorder Dementia Hyperlipidemia Psychiatric illness Chronic kidney disease (CKD) Suicide Anesthesia complication Bleeding disorder Family history of premature coronary artery disease Lung disease Cancer Hypertension Stroke Social History Smoking and tobacco status: former smoker Alcohol intake: never Lives independently: No Housing: Longterm Physical Exam Const: COMMON NORMALS: alert GENERAL APPEARANCE: cooperative and well developed HENMT: COMMON NORMALS: normocephalic and atraumatic HEAD & SCALP: normocephalic and atraumatic Eye: COMMON NORMALS: conjunctivae normal CONJUNCTIVA: Yes conjunctivae normal SCLERA: sclerae normal Neck/C-Spine: COMMON NORMALS: supple GENERAL: Yes trachea midline Resp: COMMON NORMALS: normal respiratory effort EFFORT & INSPECTION: Yes able to speak in complete sentences Cardio: COMMON NORMALS: regular rate and regular rhythm RATE: regular rate RHYTHM: regular rhythm GI: COMMON NORMALS: Soft to palpation PALPATION: Yes Soft to palpation and No Tenderness to palpation present (GI) : OTHER: Left reducible inguinal hernia, no significant tenderness to palpation, no overlying skin changes Extremity: GENERAL: Yes normal exam except as noted and No edema Neuro: COMMON NORMALS: moves all extremities SENSORIUM/ORIENTATION: Yes alert and No Orientation impaired Psych: COMMON NORMALS: mental status grossly normal and Normal thought process present THOUGHT PROCESS: Normal thought process present Course Vital Signs: Vital signs: Vital Signs Pulse Rate 68 07/19/22 11:44 Respiratory Rate 20 H 07/19/22 11:44 Pulse Oximetry 100 07/19/22 15:11 MDM - Abdominal Pain Medical Decision Making 76-year-old gentleman presenting for evaluation of hernia. On exam no periumbilical hernia is identified however there is a left inguinal hernia, somewhat unclear history compared to reported history. Patient overall somewhat worse historian though denies any red flags regarding hernias. Laboratory studies without significant abnormality compared to prior. CT with diastases recti without umbilical hernia, left indirect inguinal hernia containing colon without obstruction or strangulation. This correlates with physical exam. Plan to have patient follow-up in the outpatient setting with general surgery. The results of ED evaluation were discussed with the patient including prescriptions and/or symptomatic cares (if applicable) including appropriate and responsible use, followup plan, and return precautions. The patient verbalized understanding and felt safe for discharge. Medical Records I reviewed the patient's medical records. Lab Data I reviewed the patient's lab results. : 07/19/22 12:10 07/19/22 12:10 Labs/Radiology: Radiology Impressions Abdomen/Pelvis CT 07/19/22 12:03 IMPRESSION: 1. Diastasis recti without a teofilo umbilical hernia. 2. Left indirect inguinal hernia containing colon without bowel obstruction or strangulation. Laboratory Results WBC 9.7 10^3/uL (4.0-10.0) 07/19/22 12:10 RBC 4.04 10^6/uL (4.1-5.3) L 07/19/22 12:10 Hgb 12.2 g/dL (11.7-16.6) 07/19/22 12:10 Hct 37.7 % (42.0-52.0) L 07/19/22 12:10 MCV 93.3 fl (80-94) 07/19/22 12:10 MCH 30.2 pg (28.0-34.0) 07/19/22 12:10 MCHC 32.4 g/dL (30.0-36.0) 07/19/22 12:10 RDW 14.9 % (12.1-15.1) 07/19/22 12:10 Plt Count 295 10^3/cmm (130-400) 07/19/22 12:10 MPV 10.0 fL (7.4-10.4) 07/19/22 12:10 Neut % (Auto) 81.7 % 07/19/22 12:10 Lymph % (Auto) 11.9 % 07/19/22 12:10 [place] % (Auto) 4.9 % 07/19/22 12:10 Eos % (Auto) 0.6 % 07/19/22 12:10 Baso % (Auto) 0.3 % 07/19/22 12:10 Neut # (Auto) 7.89 10^3/uL (1.8-7.7) H 07/19/22 12:10 Lymph # (Auto) 1.2 10^3/uL (0.8-4.8) 07/19/22 12:10 [place] # (Auto) 0.5 10^3/uL (0.2-0.9) 07/19/22 12:10 Eos # (Auto) 0.1 10^3/uL (0.0-0.8) 07/19/22 12:10 Baso # (Auto) 0.0 10^3/uL (0.0-0.1) 07/19/22 12:10 Nucleated RBC % (auto) 0 % 07/19/22 12:10 Nucleated RBCs # 0.0 /100WBC 07/19/22 12:10 Sodium 138 mmol/L (136-145) 07/19/22 12:10 Potassium 4.6 mmol/L (3.5-5.1) 07/19/22 12:10 Chloride 99 mmol/L (98-107) 07/19/22 12:10 Carbon Dioxide 30 mmol/L (22-29) H 07/19/22 12:10 Anion Gap 13.6 (5-19) 07/19/22 12:10 BUN 28 mg/dL (8-23) H 07/19/22 12:10 Creatinine 1.0 mg/dL (0.7-1.2) 07/19/22 12:10 GFR Calculation Not Reportable 07/19/22 12:10 Glucose 124 mg/dL (65-115) H 07/19/22 12:10 Calculated Osmolality 293 mOsm/kg (285-295) 07/19/22 12:10 Lactate 1.7 mmol/L (0.5-2.2) 07/19/22 12:10 Calcium 8.8 mg/dL (8.5-10.5) 07/19/22 12:10 Total Bilirubin 0.2 mg/dL (0.15-1.2) 07/19/22 12:10 AST 16 U/L (0-40) 07/19/22 12:10 ALT 8 U/L (0-41) 07/19/22 12:10 Alkaline Phosphatase 65 U/L (40-130) 07/19/22 12:10 Total Protein 6.8 g/dL (6.6-8.7) 07/19/22 12:10 Albumin 3.8 g/dL (3.5-5.2) 07/19/22 12:10 Globulin 3.0 g/dL (1.3-4.6) 07/19/22 12:10 Discharge Plan Discharge Patient Disposition: Home Clinical Impression: Inguinal hernia, Diastasis recti Condition: Stable Prescriptions: No Action pantoprazole 40 mg tablet,delayed release (DR/EC) 40 mg PO DAILY@08 aspirin 81 mg tablet,delayed release (DR/EC) 81 mg PO DAILY@08 acetaminophen [Tylenol] 325 mg Tablet 650 mg PO Q6H PRN (Reason: Pain) simvastatin 40 mg Tablet 40 mg PO BEDTIME@20 magnesium hydroxide [Milk of Magnesia] 400 mg/5 mL Suspension 30 ml PO DAILY PRN (Reason: Constipation) Rx Instructions: IF NO BM IN 3 DAYS, DO NOT GIVE TO RENAL PTS GO TO DULCOLAX ORDERS bisacodyl [Dulcolax (bisacodyl)] 10 mg Suppository 10 mg [place] DAILY PRN (Reason: Constipation) Rx Instructions: give pr if cant take po -if no results from mom ferrous sulfate 325 mg (65 mg iron) Tablet 325 mg PO DAILY@08 Fleet Enema 19-7 gram/118 mL Enema 118 ml [place] DAILY PRN (Reason: Constipation) Rx Instructions: GIVE IF NO RESULTS FROM MOM AND DULCOLAX bisacodyl [Dulcolax (bisacodyl)] 5 mg Tablet,Delayed Release (Dr/Ec) 10 mg PO DAILY PRN (Reason: Constipation) Rx Instructions: GIVE IF NO RESULTS FROM MOM ipratropium-albuterol 0.5 mg-3 mg(2.5 mg base)/3 mL solution for nebulization 3 ml inhalation TID PRN (Reason: copd) amlodipine 5 mg tablet 5 mg PO DAILY@08 furosemide 20 mg Tablet 20 mg PO DAILY@08 potassium chloride 10 mEq Tablet Extended Release 10 meq PO DAILY@08 levetiracetam 500 mg Tablet 1,000 mg PO BID Qty: 60 3RF Augmentin 500-125 mg tablet 1 tab PO BID Qty: 10 0RF Discharge Orders: Discharge ED (Routine); Ordered 07/19/22 Ordered By: Layo Leyva Referrals: Walter Marte DO [Primary Care Provider] - Discharge Diet: Usual diet Discharge Activity: Increase activity as tolerated Patient Instructions: Inguinal Hernia (ED) Activity Restrictions/Additional Instructions: Thank you for visiting the emergency department. You were seen and evaluated for concern over hernia. You do have what is called diastases recti which is separation of abdominal wall muscles and also a left inguinal hernia. I will message case management for a referral to general surgery. Please also follow-up with your primary care provider. Return to the emergency department for any change in ability to have bowel movements, overlying skin changes in the groin region or abdominal region, increased pain, or anything else that you are concerned about a feel needs emergency department evaluation. Coding Level of Care Code ED Signal Intelligence/Electronic Warfare for Shyla Ramos
[2022-07-19 11:44] VITALS: PULSE 68; RESP 20; BMI 33.9
--- NOTE | 2022-07-19 12:03 | CTR_ITS ---
PROCEDURE INFORMATION: Exam: CT Abdomen And Pelvis With Contrast Exam date and time: 07/19/2022 1:06 PM Age: 76 years old Clinical indication: Abdominal pain; Periumbilical; Additional info: Periumbilical pain, ? hernia TECHNIQUE: Imaging protocol: Computed tomography of the abdomen and pelvis with contrast. Radiation optimization: All CT scans at this facility use at least one of these dose optimization techniques: automated exposure control; mA and/or kV adjustment per patient size (includes targeted exams where dose is matched to clinical indication); or iterative reconstruction. Contrast material: OMNI 350; Contrast volume: 100 ml; Contrast route: INTRAVENOUS (IV); COMPARISON: 1. CR XR KUB portable [id number] 04/03/2022 8:[address] angio chest PE protcl [id number] 09/07/2021 2:07 PM RADIATION DOSE METRICS: Total DLP (mGy-cm): 1277.87 FINDINGS: Limitations: The study is technically limited by breathing motion artifact. Heart: Calcified coronary artery atherosclerotic plaque visualized. Liver: No change in the low-attenuation lesion in the superior right lobe of the liver near the hepatic vein confluence. Gallbladder and bile ducts: The gallbladder appears absent. No biliary ductal dilatation allowing for this. Pancreas: No pancreatic mass. No peripancreatic inflammation. No pancreatic ductal dilation. Spleen: The spleen is homogeneous and is not enlarged. Adrenal glands: No adrenal mass. Kidneys and ureters: No hydronephrosis, nephrolithiasis, or renal mass. Stomach and bowel: No bowel obstruction or diverticulitis. Appendix: No evidence of appendicitis. Intraperitoneal space: No ascites or pneumoperitoneum. Vasculature: No abdominal aortic aneurysm. Lymph nodes: No enlarged lymph nodes. Urinary bladder: The urinary bladder is not distended. There is mild concentric bladder wall thickening which can be due to lack of distension, chronic bladder outlet obstruction and/or cystitis. Reproductive: The prostate is enlarged. Bones/joints: There is a curvature of the lumbar spine convex to the right associated with multilevel disc degeneration and facet arthropathy. Soft tissues: There is diastasis recti without a teofilo hernia formation. There is an indirect left inguinal hernia containing colon without bowel obstruction or strangulation. CT/CT abdomen pelvis w con* [id number] IMPRESSION: 1. Diastasis recti without a teofilo umbilical hernia. 2. Left indirect inguinal hernia containing colon without bowel obstruction or strangulation.
[2022-07-19 12:24] LABS: Basophils % 0.3 %; Eosinophils # 0.1 10^3/uL (0.0-0.8); Eosinophils % 0.6 %; Hematocrit 37.7 % (42.0-52.0); Hemoglobin 12.2 g/dL (11.7-16.6); Lymphocytes # 1.2 10^3/uL (0.8-4.8); Lymphocytes % 11.9 %; Mean Corpuscular HGB Conc 32.4 g/dL (30.0-36.0); Mean Corpuscular Hemoglobin 30.2 pg (28.0-34.0); Mean Corpuscular Volume 93.3 fl (80-94); Monocytes # 0.5 10^3/uL (0.2-0.9); Monocytes % 4.9 %; Neutrophils # 7.89 10^3/uL (1.8-7.7); Neutrophils % 81.7 %; Nucleated Red Blood Cells % 0 %; Platelet Count 295 10^3/cmm (130-400); Red Blood Count 4.04 10^6/uL (4.1-5.3); Red Cell Distribution Width 14.9 % (12.1-15.1); White Blood Count 9.7 10^3/uL (4.0-10.0)
[2022-07-19 12:52] LABS: Alanine Aminotransferase 8 U/L (0-41); Albumin Level 3.8 g/dL (3.5-5.2); Alkaline Phosphatase 65 U/L (40-130); Blood Urea Nitrogen 28 mg/dL (8-23); Calcium 8.8 mg/dL (8.5-10.5); Carbon Dioxide 30 mmol/L (22-29); Chloride 99 mmol/L (98-107); Creatinine Clr Calc Pharmacy 82.9826; Glucose 124 mg/dL (65-115); Osmolality Calculated 293 mOsm/kg (285-295); Sodium 138 mmol/L (136-145); Total Bilirubin 0.2 mg/dL (0.15-1.2); Total Protein 6.8 g/dL (6.6-8.7)
[2022-07-19 12:53] LABS: Lactate (Lactic Acid level) 1.7 mmol/L (0.5-2.2)
[2022-07-19 12:55] LABS: Anion Gap 13.6 (5-19); Aspartate Amino Transferase 16 U/L (0-40); Potassium 4.6 mmol/L (3.5-5.1)
[2022-07-19] MEDS: iohexol 350 mg/mL 100 mL Btl IV (13:08)
--- NOTE | 2022-07-19 15:07 | PC.NURSE ---
NURSE ENTERED ROOM AND INFORMED PATIENT OF THE WAIT TIME FOR HIS RIDE BACK TO [facility] (1-3HRS) AND THAT HE WOULD BE MOVED TO A [facility] BED TO WAIT FOR RIDE. PT AND SON DID NOT WANT TO WAIT THAT LONG FOR A RIDE. SON DECIDED TO TAKE PT HOME. NURSE INFORMED PT AND SON THAT PATIENT DID NOT HAVE A PORTABLE OXYGEN TANK TO TAKE WITH HIM. PT WEARS 4L NC AT HOME. PT AND SON VERBALIZED UNDERSTANDING OF RISK ASSOCIATED WITH THIS CHOICE AND DECIDED TO PROCEED TO TAKE PT HOME POV WITH NO PORTABLE OXYGEN. PT WAS AT 100% ON THE 4L NC AT TIME THE OXYGEN WAS REMOVED.
[2022-07-19 15:11] VITALS: O2SAT 100
--- NOTE | 2022-07-22 12:26 | DCPLANNER ---
Addendum entered by Marianna Luna 07/31/22 15:49: telecom network manager received notification from general surgery that the clinic is holding off with [facility] at this time. telecom network manager was told that Dr. Smith does not have any surgery dates at this time. telecom network manager called the [facility] where [facility] and informed the staff of this. telecom network manager was told that the patient is fine at this time, and that if the patients gets worse then the [facility] will call [facility] to refer patient elsewhere. Original Note: telecom network manager had message to schedule a follow up appointment for patient with general surgery. telecom network manager sent patients information to the front office staff at general surgery. Patients information will be printed and reviewed. Clinic will call patient with appointment information.
== END 2022-07-19 15:14 | disposition home or self-care (01) ==
PROVIDERS: Emergency Provider Emergency Medicine; PCP Internal Medicine
DX: K40.90 Unilateral inguinal hernia, without obstruction or gangrene, not specified as recurrent (principal); M62.08 Separation of muscle (nontraumatic), other site; Z87.891 Personal history of nicotine dependence; Z79.82 Long term (current) use of aspirin; G30.9 Alzheimer's disease, unspecified; F02.80 Dementia in other diseases classified elsewhere, unspecified severity, without behavioral disturbance, psychotic disturbance, mood disturbance, and anxiety; E78.5 Hyperlipidemia, unspecified; I10 Essential (primary) hypertension; I25.2 Old myocardial infarction
CPT/HCPCS: 74177; 80053; 83605; 85025; 99285; Q9967

== ENCOUNTER 2022-08-31 10:41 | Emergency (ER) | payer OTHER, SELFPAY ==
[2022-08-31 10:43] VITALS: BP 150/97; PULSE 67; RESP 12; TEMP 36.3; O2SAT 91
--- NOTE | 2022-08-31 10:50 | W.ED.COVID ---
HPI - COVID General: Chief Complaint: COVID symptoms Stated Complaint: SOB; COVID+ 08-25-22 Time Seen by Provider: 08/31/22 10:50 Limitations: altered mental status History of Present Illness: Mr. Josue is a 77-year-old gentleman with history of asthma, heart failure, chronic respiratory acidosis presenting to the emergency department due to respiratory symptoms. Apparently the patient tested positive for COVID at outside facility on 08/25/2022. He endorses worsening shortness of breath and cough. He reports generalized malaise and poor p.o. intake. Intensity symptoms is moderate. Course has worsened. History is mildly limited by patient's mental status. COVID Results: SARS-CoV-2 Antigen (Rapid) negative (Negative) 08/31/22 14:27 SARS-CoV-2 RNA (RT-PCR) Not detected (NOT DETECTED) 04/02/22 16:10 Nasal/Oral Coronavirus 2019 PCR Not detected 06/20/21 17:35 SARS-CoV-2 (PCR) Not detected (NOT DETECT) 09/09/21 11:00 Coronavirus Type 229E (PCR) Not detected (NOT DETECT) 09/09/21 11:00 Review of Systems General: Reports: ROS unobtainable due to mental status PFSH ED PFSH: Medical History Acute alteration in mental status Altered mental status Alzheimer disease Anemia Asthma Carpal tunnel syndrome of left wrist Cervical radiculopathy Charcot's joint, 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 Generalized seizure Hyperlipidemia Hypertension Hypertension Hypoxia NSTEMI (non-ST elevated myocardial infarction) Peripheral neuropathy SLAC (scapholunate advanced collapse) of wrist Surgical History H/O knee surgery History of carpal tunnel surgery Family History Denies family history of Diabetes CAD (coronary artery disease) Clotting disorder Dementia Hyperlipidemia Psychiatric illness Chronic kidney disease (CKD) Suicide Anesthesia complication Bleeding disorder Family history of premature coronary artery disease Lung disease Cancer Hypertension Stroke Social History Smoking and tobacco status: former smoker Alcohol intake: never Lives independently: No Housing: Intermediate Physical Exam Const: COMMON NORMALS: patient oriented x3 and alert GENERAL APPEARANCE: cooperative, well developed and ill appearing (Somewhat) HENMT: COMMON NORMALS: normocephalic and atraumatic HEAD & SCALP: normocephalic and atraumatic THROAT: posterior oropharynx normal Eye: COMMON NORMALS: conjunctivae normal CONJUNCTIVA: Yes conjunctivae normal SCLERA: sclerae normal Neck/C-Spine: COMMON NORMALS: supple GENERAL: Yes trachea midline Resp: COMMON NORMALS: normal respiratory effort EFFORT & INSPECTION: Yes able to speak in complete sentences AUSCULTATION: diminished lung sounds Cardio: COMMON NORMALS: regular rate and regular rhythm RATE: regular rate RHYTHM: regular rhythm GI: COMMON NORMALS: Soft to palpation PALPATION: Yes Soft to palpation and No Tenderness to palpation present (GI) Extremity: GENERAL: Yes normal exam except as noted and No edema Neuro: COMMON NORMALS: patient oriented x3, CN's II-XII intact bilaterally, moves all extremities, no focal motor deficits and no sensory deficits noted SENSORIUM/ORIENTATION: Yes alert and No Orientation impaired Psych: COMMON NORMALS: mental status grossly normal and Normal thought process present THOUGHT PROCESS: Normal thought process present Course Vital Signs: Vital signs: Vital Signs Temperature 97.4 F L 08/31/22 16:15 Pulse Rate 65 08/31/22 16:15 Respiratory Rate 23 H 08/31/22 16:15 Blood Pressure 128/86 08/31/22 16:15 Pulse Oximetry 91 08/31/22 16:15 Oxygen Delivery Me thod 08/31/22 14:31 Oxygen Flow Rate 3 08/31/22 14:31 MDM - COVID Medical Decision Making 77-year-old gentleman with recent diagnosis of COVID presenting to the emergency department due to worsening respiratory symptoms. Patient is a poor historian however there are no focal neurologic deficits. EKG demonstrates sinus rhythm with right bundle branch block, no STEMI. Labs without significant hematologic panel abnormality. Metabolic panel with mild evidence of dehydration. ABG is compensated. 2-hour delta troponin is negative. Chest x-ray with mild infiltrates, no lobar consolidation or pneumothorax. Patient felt significantly proved after albuterol treatment and dexamethasone. Collateral information obtained is that patient is on his baseline oxygen currently. Given vital signs and physical exam the patient can safely be discharged for continued outpatient therapy with strict return precautions. The results of ED evaluation were discussed with the patient including prescriptions and/or symptomatic cares (if applicable) including appropriate and responsible use, followup plan, and return precautions. The patient verbalized understanding and felt safe for discharge. Medical Records I reviewed the patient's medical records. Lab Data I reviewed the patient's lab results. 08/31/22 12:27 08/31/22 12:27 Radiology Impressions Chest X-Ray 08/31/22 11: IMPRESSION: Minimal left infrahilar pulmonary subsegmental atelectasis. Laboratory Results WBC 7.5 10^3/uL (4.0-10.0) 08/31/22 12:27 RBC 4.61 10^6/uL (4.1-5.3) 08/31/22 12:27 Hgb 13.8 g/dL (11.7-16.6) 08/31/22 12:27 Hct 43.2 % (42.0-52.0) 08/31/22 12:27 MCV 93.7 fl (80-94) 08/31/22 12:27 MCH 29.9 pg (28.0-34.0) 08/31/22 12:27 MCHC 31.9 g/dL (30.0-36.0) 08/31/22 12:27 RDW 14.3 % (12.1-15.1) 08/31/22 12:27 Plt Count 304 10^3/cmm (130-400) 08/31/22 12:27 MPV 10.2 fL (7.4-10.4) 08/31/22 12:27 Neut % (Auto) 56.4 % 08/31/22 12:27 Lymph % (Auto) 28.6 % 08/31/22 12:27 [place] % (Auto) 11.2 % 08/31/22 12:27 Eos % (Auto) 2.8 % 08/31/22 12:27 Baso % (Auto) 0.7 % 08/31/22 12:27 Neut # (Auto) 4.24 10^3/uL (1.8-7.7) 08/31/22 12:27 Lymph # (Auto) 2.2 10^3/uL (0.8-4.8) 08/31/22 12:27 [place] # (Auto) 0.8 10^3/uL (0.2-0.9) 08/31/22 12: Eos # (Auto) 0.2 10^3/uL (0.0-0.8) 08/31/22 12: Baso # (Auto) 0.1 10^3/uL (0.0-0.1) 08/31/22 12: Nucleated RBC % (auto) 0 % 08/31/22 12: Nucleated RBCs # 0.0 /100WBC 08/31/22 12:27 Specimen Type Arterial 08/31/22 15:04 Sample Site Radial, right 08/31/22 15:04 ABG pH 7.42 (7.35-7.45) 08/31/22 15:04 ABG pCO2 52.3 mmHg (35-45) H 08/31/22 15:04 ABG pO2 76.6 mmHg (80.0-100.0) L 08/31/22 15:04 ABG HCO3 33.5 mmol/L (22-26) H 08/31/22 15:04 ABG Base Excess 7.3 mmol/L (-2.0-2.0) H 08/31/22 15:04 Shubham Test Pos 08/31/22 15:04 Hematocrit 43.4 % (42-52) 08/31/22 15:04 O2 Delivery Device Nc 08/31/22 15:04 O2 Liters/Min 3.0 % 08/31/22 15:04 FiO2 32.0 % 08/31/22 15:04 Hydroelectric Station Operator Chief ID [place] 08/31/22 15:04 Sodium 135 mmol/L (136-145) L 08/31/22 12: Potassium 3.6 mmol/L (3.5-5.1) 08/31/22 12: Chloride 97 mmol/L (98-107) L 08/31/22 12:27 Carbon Dioxide 30 mmol/L (22-29) H 08/31/22 12:27 Anion Gap 11.6 (5-19) 08/31/22 12:27 BUN 20 mg/dL (8-23) 08/31/22 12:27 Creatinine 0.7 mg/dL (0.7-1.2) 08/31/22 12: GFR Calculation Not Reportable 08/31/22 12:27 Glucose 115 mg/dL (65-115) 08/31/22 12:27 Calculated Osmolality 284 mOsm/kg (285-295) L 08/31/22 12:27 Calcium 9.1 mg/dL (8.5-10.5) 08/31/22 12:27 Total Bilirubin 0.2 mg/dL (0.15-1.2) 08/31/22 12:27 AST 12 U/L (0-40) 08/31/22 12:27 ALT < 5 U/L (0-41) 08/31/22 12:27 Alkaline Phosphatase 57 U/L (40-130) 08/31/22 12:27 Troponin T Baseline 18 ng/L (0-15) H 08/31/22 12:27 Troponin T 120 Minute 18.51 ng/L (0-15) H 08/31/22 14:23 Delta Troponin T 0.51 ABS# (0-10) 08/31/22 14:23 C-Reactive Protein 3.0 mg/L (0.0-4.9) 08/31/22 12:27 NT-Pro-B Natriuret Pep 99 pg/mL (0-450) 08/31/22 12:27 Total Protein 6.5 g/dL (6.6-8.7) L 08/31/22 12:27 Albumin 3.4 g/dL (3.5-5.2) L 08/31/22 12:27 Globulin 3.1 g/dL (1.3-4.6) 08/31/22 12:27 Procalcitonin 0.02 ng/mL (0-0.5) 08/31/22 12:27 TSH 3.87 uIU/mL (0.27-4.20) 08/31/22 12:27 Influenza Type A Ag negative (Negative) 08/31/22 14:27 Influenza Type B Ag negative (Negative) 08/31/22 14:27 SARS-CoV-2 Ag (Rapid) negative (Negative) 08/31/22 14:27 SARS-CoV-2 Antigen (Rapid) negative (Negative) 08/31/22 14:27 SARS-CoV-2 RNA (RT-PCR) Not detected (NOT DETECTED) 04/02/22 16:10 Nasal/Oral Coronavirus 2019 PCR Not detected 06/20/21 17:35 SARS-CoV-2 (PCR) Not detected (NOT DETECT) 09/09/21 11:00 Coronavirus Type 229E (PCR) Not detected (NOT DETECT) 09/09/21 11:00 Discharge Plan Discharge Patient Disposition: [facility] Clinical Impression: COVID-19, Chronic respiratory failure with hypoxia Condition: Stable Discharge Orders: Discharge ED (Routine); Ordered 08/31/22 Ordered By: Layo Leyva Referrals: Walter Marte DO [Primary Care Provider] - Discharge Diet: Usual diet Discharge Activity: Increase activity as tolerated Patient Instructions: Using Oxygen at Home (ED), COVID-19 (Coronavirus Disease 2019) (ED) Activity Restrictions/Additional Instructions: Thank you for visiting the emergency department. You were seen and evaluated for shortness of breath. The most likely cause of your symptoms is related to COVID-19. Given baseline oxygen use I do not feel that inpatient evaluation is required. Please ensure that you are staying hydrated. Please also use oxygen and adjust flow rate up to 6 LPM to maintain oxygen saturation greater than 90%. Please be evaluated by your primary care provider within the next 1 to 3 days. I will prescribe steroids. Please also use your albuterol metered-dose inhaler 2 puffs every 4 hours for 24 hours followed by 2 puffs every 6 hours for 24 hours followed by 2 puffs every 8 hours for 24 hours and then return to the normal schedule. Please return to the emergency department for oxygen saturation less than 90%, worsening symptoms, changes in mental status, or anything else that you are concerned about a feel needs emergency department evaluation. Coding Level of Care Code ED Reeling [employer] Tubing Machine Operator for Shyla Ramos
--- NOTE | 2022-08-31 11:26 | XRR_ITS ---
PROCEDURE INFORMATION: Exam: XR Chest Exam date and time: 08/31/2022 11:42 AM Age: 77 years old Clinical indication: Shortness of breath; Additional info: SOB TECHNIQUE: Imaging protocol: Radiologic exam of the chest. Views: 1 view. Other technique: Frontal portable upright view of the chest. COMPARISON: CR XR chest 1V portable [id number] 04/03/2022 7:15 AM FINDINGS: Tubes, catheters and devices: EKG leads are present overlying the chest. Lungs: Minimal left infrahilar pulmonary subsegmental atelectasis. The lungs are otherwise peripherally clear bilaterally. The pulmonary vasculature is normal. Pleural spaces: No pleural effusion. No pneumothorax. Heart/Mediastinum: The heart is normal in size and contour. Mediastinum: Stable. Vasculature: Moderate aortic arch atherosclerotic calcification without ectasia. Bones/joints: Right severe subacromial space narrowing, with superior humeral head subluxation and pseudoarthrosis/remodeling. Stable. XR/XR chest 1V portable [id number] IMPRESSION: Minimal left infrahilar pulmonary subsegmental atelectasis.
--- NOTE | 2022-08-31 11:40 | ECG_ITS ---
[facility] Test Date: 2022-08-31 Pat Name: Caesar Josue Department: Room: Gender: Male Program Checker: : 1945 Requested By: Layo Leyva Order Number: [id number] Markos MD: Galo Griffin M.D. Measurements Intervals [place] Rate: 64 P: 80 VT: 236 QRS: -65 QRSD: 154 T: 49 QT: 425 QTc: 440 Interpretive Statements SINUS RHYTHM WITH FIRST DEGREE AV BLOCK LEFT AXIS DEVIATION [QRS AXIS < -30] RIGHT BUNDLE BRANCH BLOCK [120+ ms QRS DURATION, UPRIGHT V1, 40+ ms S IN I/aVL/V4/V5/V6] MINIMAL VOLTAGE CRITERIA FOR LVH, CONSIDER NORMAL VARIANT [MEETS CRITERIA IN ONE OF: R(aVL), S(V1), R(V5), R(V5/V6)+S(V1)] Compared to ECG 04/02/2022 12:09:00 Ventricular premature complex(es) no longer present Electronically Signed On 08-31-2022 12:53:52 [employer]CULAR [employer] by Galo Griffin M.D. [id number]
[2022-08-31 12:34] LABS: Basophils # 0.1 10^3/uL (0.0-0.1); Basophils % 0.7 %; Eosinophils # 0.2 10^3/uL (0.0-0.8); Eosinophils % 2.8 %; Hematocrit 43.2 % (42.0-52.0); Hemoglobin 13.8 g/dL (11.7-16.6); Lymphocytes # 2.2 10^3/uL (0.8-4.8); Lymphocytes % 28.6 %; Mean Corpuscular HGB Conc 31.9 g/dL (30.0-36.0); Mean Corpuscular Hemoglobin 29.9 pg (28.0-34.0); Mean Corpuscular Volume 93.7 fl (80-94); Mean Platelet Volume 10.2 fL (7.4-10.4); Monocytes # 0.8 10^3/uL (0.2-0.9); Monocytes % 11.2 %; Neutrophils # 4.24 10^3/uL (1.8-7.7); Neutrophils % 56.4 %; Nucleated Red Blood Cells % 0 %; Platelet Count 304 10^3/cmm (130-400); Red Blood Count 4.61 10^6/uL (4.1-5.3); Red Cell Distribution Width 14.3 % (12.1-15.1); White Blood Count 7.5 10^3/uL (4.0-10.0)
[2022-08-31 13:09] VITALS: BP 140/93; PULSE 70; RESP 18; O2SAT 91; O2SAT 92
[2022-08-31 13:10] LABS: Troponin(5th) Baseline 18 ng/L (0-15)
[2022-08-31 13:16] LABS: NT Pro B Type Natriuretic Pept 99 pg/mL (0-450); Procalcitonin 0.02 ng/mL (0-0.5); Thyroid Stimulating Hormone 3.87 uIU/mL (0.27-4.20)
[2022-08-31 13:27] LABS: Alanine Aminotransferase < 5 U/L (0-41); Albumin Level 3.4 g/dL (3.5-5.2); Alkaline Phosphatase 57 U/L (40-130); Anion Gap 11.6 (5-19); Aspartate Amino Transferase 12 U/L (0-40); Blood Urea Nitrogen 20 mg/dL (8-23); Calcium 9.1 mg/dL (8.5-10.5); Carbon Dioxide 30 mmol/L (22-29); Chloride 97 mmol/L (98-107); Globulin 3.1 g/dL (1.3-4.6); Glucose 115 mg/dL (65-115); Osmolality Calculated 284 mOsm/kg (285-295); Potassium 3.6 mmol/L (3.5-5.1); Sodium 135 mmol/L (136-145); Total Bilirubin 0.2 mg/dL (0.15-1.2); Total Protein 6.5 g/dL (6.6-8.7)
--- NOTE | 2022-08-31 13:50 | ECG_ITS ---
[facility] Test Date: 2022-08-31 Pat Name: Caesar Joseu Department: Room: Gender: Male Crystallography Teacher: : 1945 Requested By: Layo Leyva Order Number: [id number] Markos MD: Galo Griffin M.D. Measurements Intervals [place] Rate: 62 P: 47 VT: 241 QRS: -62 QRSD: 157 T: 60 QT: 428 QTc: 435 Interpretive Statements SINUS RHYTHM WITH FIRST DEGREE AV BLOCK LEFT AXIS DEVIATION [QRS AXIS < -30] RIGHT BUNDLE BRANCH BLOCK [120+ ms QRS DURATION, UPRIGHT V1, 40+ ms S IN I/aVL/V4/V5/V6] MINIMAL VOLTAGE CRITERIA FOR LVH, CONSIDER NORMAL VARIANT [MEETS CRITERIA IN ONE OF: R(aVL), S(V1), R(V5), R(V5/V6)+S(V1)] Compared to ECG 08/31/2022 11:40:34 No significant changes Electronically Signed On 09-01-2022 15:00:38 [employer]PER[employer]OR [employer] by Galo Griffin M.D. [id number]
[2022-08-31] MEDS: dexamethasone 10 mg/mL INJ 6 MG IVP (14:19)
[2022-08-31] MEDS: ipratropium-albuterol 3 mL Neb INHALATION (14:25)
[2022-08-31 14:28] VITALS: PULSE 63; RESP 18; O2SAT 89
[2022-08-31 14:31] VITALS: PULSE 65; RESP 18; O2SAT 90
[2022-08-31 14:47] LABS: Troponin 5 2HR 18.51 ng/L (0-15); Troponin 5 2HR Delta 0.51 ABS# (0-10)
[2022-08-31 15:11] LABS: Influenza A by IFA negative (Negative); Influenza B by IFA negative (Negative)
[2022-08-31 15:12] LABS: SARS Covid-2 Antigen negative (Negative)
[2022-08-31 15:17] LABS: ABG PCO2 52.3 mmHg (35-45); ABG PH Result 7.42 (7.35-7.45); Arterial Blood Gas Hematocrit 43.4 % (42-52); Base Excess ABG 7.3 mmol/L (-2.0-2.0); Blood Gas Allen Test Pos; Blood Gas Operator Identificat MONRO; Blood Gas Sample Site Radial, right; Blood Gas Sample Type Arterial; HCO3 ABG 33.5 mmol/L (22-26); Oxygen Device NC; PO2 ABG 76.6 mmHg (80.0-100.0)
[2022-08-31 15:38] VITALS: BP 128/86; PULSE 65; RESP 23; O2SAT 91
[2022-08-31 16:15] VITALS: BP 128/86; PULSE 65; RESP 23; TEMP 36.3; O2SAT 91
== END 2022-08-31 16:10 ==
PROVIDERS: Emergency Provider Emergency Medicine; PCP Internal Medicine
DX: U07.1 COVID-19 (principal); J96.11 Chronic respiratory failure with hypoxia; Z87.891 Personal history of nicotine dependence; G30.9 Alzheimer's disease, unspecified; F02.80 Dementia in other diseases classified elsewhere, unspecified severity, without behavioral disturbance, psychotic disturbance, mood disturbance, and anxiety; E78.5 Hyperlipidemia, unspecified; I10 Essential (primary) hypertension; I25.2 Old myocardial infarction
CPT/HCPCS: 36600; 71045; 80053; 82803; 83880; 84145; 84443; 84484; 85025; 86140; 87426; 87804; 93005; 94640; 96374; 99285; J1100

== ENCOUNTER 2022-12-08 12:45 | Emergency (ER) | payer OTHER, SELFPAY ==
[2022-12-08] VITALS (21 sets, daily range): BP systolic 101–167; BP diastolic 70–119; PULSE 56–127; RESP 13–30; TEMP 37.2; O2SAT 92–99; BMI 29.8
--- NOTE | 2022-12-08 12:46 | W.ED.SEIZURE ---
HPI - Seizure General: Chief Complaint: Seizure Stated Complaint: SEIZURES Time Seen by Provider: 12/08/22 12:46 Limitations: altered mental status History of Present Illness: HPI Narrative: Mr Josue is a 77-year-old gentleman with seizure history presenting to the emergency department for seizure episode with altered mental status. Exact onset and characterization of symptoms is unclear as the patient still is altered mental status. He apparently woke up around 8:00 this morning with headache. He is taking his medications. Began having right-sided upper and lower extremity as well as torso twitching that appears approximately 1/s in frequency. This is inconsistent with my review of reported prior seizure history. Patient does not answer questions. He will grimace to sternal rub and spontaneously moves the left upper extremity. EMS administered intramuscular Ativan without significant improvement. They did note some degree of waxing waning of symptoms. History otherwise limited by mental state. Seizure History: Yes Review of Systems General: Reports: ROS unobtainable due to mental status PFSH ED PFSH: Medical History Acute alteration in mental status Altered mental status Alzheimer disease Anemia Asthma Carpal tunnel syndrome of left wrist Cervical radiculopathy Charcot's joint, 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 Generalized seizure Hyperlipidemia Hypertension Hypertension Hypoxia NSTEMI (non-ST elevated myocardial infarction) Peripheral neuropathy SLAC (scapholunate advanced collapse) of wrist Surgical History H/O knee surgery History of carpal tunnel surgery Family History Denies family history of Diabetes CAD (coronary artery disease) Clotting disorder Dementia Hyperlipidemia Psychiatric illness Chronic kidney disease (CKD) Suicide Anesthesia complication Bleeding disorder Family history of premature coronary artery disease Lung disease Cancer Hypertension Stroke Social History Smoking and tobacco status: former smoker Alcohol intake: never Lives independently: No Housing: [facility] Physical Exam Const: GENERAL APPEARANCE: ill appearing HENMT: COMMON NORMALS: normocephalic and atraumatic HEAD & SCALP: normocephalic and atraumatic Eye: COMMON NORMALS: Equal, round and reactive pupils present and conjunctivae normal CONJUNCTIVA: Yes conjunctivae normal SCLERA: sclerae normal PUPIL: Yes Equal, round and reactive pupils present Neck/C-Spine: COMMON NORMALS: supple GENERAL: Yes trachea midline Resp: EFFORT & INSPECTION: Yes abnormal respiratory pattern and Yes tachypneic AUSCULTATION: rhonchi Cardio: COMMON NORMALS: regular rhythm RATE: tachycardic RHYTHM: regular rhythm GI: COMMON NORMALS: Soft to palpation PALPATION: Yes Soft to palpation and No Tenderness to palpation present (GI) Extremity: GENERAL: Yes normal exam except as noted and No edema Neuro: OTHER: Abnormal neurological exam. Patient has right upper and lower extremity as well as abdominal wall right-sided episodic twitching like movements of sleep frequency concerning for atypical seizure. Patient moans to painful stimuli however otherwise does not respond. He did spontaneously move the left upper and left lower extremity. Procedures Intubation Time out performed: Yes sedative: Etomidate Mg Given: 30 paralytic: Vecuronium Mg Given: 10 Laryngoscope: fiber optic video scope ET Tube Size: 8 ET Tube Uncuffed: No Tube Secured Depth (cm): 23 Tube Secured Location: lips Tube Placement Confirmation: visualized tube passing through cords, equal breath sounds bilaterally, no breath sounds over epigastrium and confirmation by capnometry Patient Tolerated Procedure: well and no complications Course Vital Signs: Vital signs: Vital Signs Temperature 99.0 F 12/08/22 12:47 Pulse Rate 56 L 12/08/22 17:30 Respiratory Rate 19 H 12/08/22 17:30 Blood Pressure 101/70 12/08/22 17:45 Pulse Oximetry 97 12/08/22 16:45 Oxygen Delivery Me thod 12/08/22 12:47 Oxygen Flow Rate 4 12/08/22 12:47 Fraction of Inspir ed Oxygen 60 12/08/22 16:58 MDM - Seizure MDM Narrative Medical decision making narrative: 77-year-old male with baseline dementia though communicative, history of stroke, seizure disorder on antiepileptic medication presenting to the emergency department for mental status change. Patient developed headache at approximately 8 AM however history/timing regarding his abnormal muscle movements and other mental status changes somewhat unclear. Patient in the past has had tonic-clonic seizures per chart review. Right-sided fairly regular lower frequency muscles twitching/spasming as noted above. Keppra and IV Ativan ordered. Patient received IM Ativan from EMS. On reassessment shortly after IV Ativan administration patient has cessation of abnormal muscle movements. Initial ABG 7.3/72.3/75.9. This was after patient's persistent abnormal muscle movements however and I will closely reevaluate the patient as clinically his respiratory status appears improved with more regular respirations after Ativan. EKG demonstrates sinus tachycardia with first-degree AV block and right bundle branch block morphology. Occasional PVCs, and review of telemetry correlating with pulse oximetry of the PVCs are non-perfusing. Hematologic panel with leukocytosis, normal hemoglobin and platelet count. Metabolic panel with similar findings to prior, mild hypokalemia. Initial troponin mildly elevated though not significantly above prior. Elevated TSH with normal free T4. Urinalysis is a cath sample, there is small amount of blood however no evidence of urinary tract infection. Toxic ingestions and UDS are negative. On repeat ABG patient has worsening of hypercapnic respiratory failure. I discussed with the patient's daughter at bedside and we will proceed with intubation. Patient intubated successfully without complication as noted in procedures. Post x-ray x-ray reviewed with satisfactory ET tube placement. CTA notable for no acute hemorrhage, no evidence of large vessel occlusion. Most likely etiology of patient's symptoms is unclear. Seizure morphology is atypical for patient's baseline seizures I think based on note review. He certainly has acute on chronic respiratory failure with hypercapnia and hypoxia as well as persistent alteration in mental status. Discussed with hospitalist service however given concern for seizure and our inability to perform EEG in the outpatient setting he recommended transfer for neurology assessment and EEG monitoring. Medical Records Attestation: I reviewed the patient's medical records. Lab Data Attestation: I reviewed the patient's lab results. 12/08/22 12:06 12/08/22 12:06 Labs: Radiology Impressions Head/Neck CTA 12/08/22 13:17 IMPRESSION: 1. No arterial stenosis, occlusion or aneurysm. 2. Left mastoid and middle ear effusion. Possible mastoiditis. 3. Left greater than right occipital encephalomalacia consistent with sequelae of chronic infarction or trauma. IMPRESSION: 1. No hemodynamically significant arterial stenosis or occlusion. 2. Less than 50% stenosis of the left internal carotid artery. REFERENCES: NASCET CRITERIA. The degree of stenosis in the cervical segment of the internal carotid artery is based on NASCET criteria. Normal is no stenosis. Mild is less than 50% stenosis. Moderate is 50-69% stenosis. Severe is 70% to 99% stenosis. Total occlusion is no detectable patent lumen. Chest X-Ray 12/08/22 14:40 Impression: Satisfactory insertion of nasogastric tube and endotracheal tube. Laboratory Results WBC 13.1 10^3/uL (4.0-10.0) H 12/08/22 12:06 RBC 4.80 10^6/uL (4.1-5.3) 12/08/22 12:06 Hgb 14.2 g/dL (11.7-16.6) 12/08/22 12:06 Hct 44.3 % (42.0-52.0) 12/08/22 12:06 MCV 92.3 fl (80-94) 12/08/22 12:06 MCH 29.6 pg (28.0-34.0) 12/08/22 12:06 MCHC 32.1 g/dL (30.0-36.0) 12/08/22 12:06 RDW 13.8 % (12.1-15.1) 12/08/22 12:06 Plt Count 326 10^3/cmm (130-400) 12/08/22 12:06 MPV 10.5 fL (7.4-10.4) H 12/08/22 12:06 Neut % (Auto) 69.6 % 12/08/22 12:06 Lymph % (Auto) 21.3 % 12/08/22 12:06 [place] % (Auto) 6.5 % 12/08/22 12:06 Eos % (Auto) 1.8 % 12/08/22 12:06 Baso % (Auto) 0.5 % 12/08/22 12:06 Neut # (Auto) 9.12 10^3/uL (1.8-7.7) H 12/08/22 12:06 Lymph # (Auto) 2.8 10^3/uL (0.8-4.8) 12/08/22 12:06 [place] # (Auto) 0.9 10^3/uL (0.2-0.9) 12/08/22 12:06 Eos # (Auto) 0.2 10^3/uL (0.0-0.8) 12/08/22 12:06 Baso # (Auto) 0.1 10^3/uL (0.0-0.1) 12/08/22 12:06 Nucleated RBC % (auto) 0 % 12/08/22 12:06 Nucleated RBCs # 0.0 /100WBC 12/08/22 12:06 Specimen Type Arterial 12/08/22 16:38 Sample Site Radial, left 12/08/22 16:38 ABG pH 7.51 (7.35-7.45) H 12/08/22 16:38 ABG pCO2 40.3 mmHg (35-45) 12/08/22 16:38 ABG pO2 352.0 mmHg (80.0-100.0) H 12/08/22 16:38 ABG HCO3 31.9 mmol/L (22-26) H 12/08/22 16:38 ABG O2 Saturation 96.3 12/08/22 13:39 ABG Base Excess 8.1 mmol/L (-2.0-2.0) H 12/08/22 16:38 Shubham Test Pos 12/08/22 16:38 A-a O2 Gradient Not Reportable 12/08/22 13:39 Hematocrit 39.9 % (42-52) L 12/08/22 16:38 Hgb O2 Saturation 94.2 % (95-100) L 12/08/22 13:39 Carboxyhemoglobin 1.0 %THgb (0.4-20.1) 12/08/22 13:39 Methemoglobin 1.1 % (0.4-1.5) 12/08/22 13:39 Total Hemoglobin 13.4 g/dL (14-18) L 12/08/22 13:39 Sodium 140.0 mmol/L (131-143) 12/08/22 13:39 Potassium 3.1 mmol/L (3.5-5.0) L 12/08/22 13:39 Glucose 148.0 mg/dL (70-115) H 12/08/22 13:39 Ionized Calcium 1.2 mmol/L (1.1-1.4) 12/08/22 13:39 O2 Delivery Device Vent 12/08/22 16:38 O2 Liters/Min 4.0 % 12/08/22 13:08 FiO2 100.0 % 12/08/22 16:38 Tidal Volume 0.60 12/08/22 16:38 PEEP 5.0 cmH20 12/08/22 16:38 Small Arms Repairer ID glc 12/08/22 16:38 Sodium 138 mmol/L (136-145) 12/08/22 12:06 Potassium 3.2 mmol/L (3.5-5.1) L 12/08/22 12:06 Chloride 95 mmol/L (98-107) L 12/08/22 12:06 Carbon Dioxide 34 mmol/L (22-29) H 12/08/22 12:06 Anion Gap 12.2 (5-19) 12/08/22 12:06 BUN 15 mg/dL (8-23) 12/08/22 12:06 Creatinine 0.7 mg/dL (0.7-1.2) 12/08/22 12:06 GFR Calculation Not Reportable 12/08/22 12:06 Glucose 148 mg/dL (65-115) H 12/08/22 12:06 Calculated Osmolality 290 mOsm/kg (285-295) 12/08/22 12:06 Calcium 9.4 mg/dL (8.5-10.5) 12/08/22 12:06 Total Bilirubin 0.4 mg/dL (0.15-1.2) 12/08/22 12:06 AST 20 U/L (0-40) 12/08/22 12:06 ALT 12 U/L (0-41) 12/08/22 12:06 Alkaline Phosphatase 48 U/L (40-130) 12/08/22 12:06 Troponin T Baseline 24 ng/L (0-15) H 12/08/22 12:06 Troponin T 120 Minute 24.31 ng/L (0-15) H 12/08/22 15:01 Delta Troponin T 0.31 ABS# (0-10) 12/08/22 15:01 Total Protein 7.2 g/dL (6.6-8.7) 12/08/22 12:06 Albumin 4.0 g/dL (3.5-5.2) 12/08/22 12:06 Globulin 3.2 g/dL (1.3-4.6) 12/08/22 12:06 TSH 7.79 uIU/mL (0.27-4.20) H 12/08/22 12:06 Free T4 1.07 ng/dL (0.82-1.77) 12/08/22 12:06 Urine Color Light yellow (Yellow) 12/08/22 13:25 Urine Appearance Clear (CLEAR) 12/08/22 13:25 Urine pH 5 (5-7) 12/08/22 13:25 Ur Specific [place] 1.015 (1.005-1.030) 12/08/22 13:25 Urine Protein Neg (Negative) 12/08/22 13:25 Urine Glucose (UA) Norm (Normal) 12/08/22 13:25 Urine Ketones Negative (Negative) 12/08/22 13:25 Urine Blood 2+ (Negative) H 12/08/22 13:25 Urine Nitrate Negative (Negative) 12/08/22 13:25 Urine Bilirubin Neg (Negative) 12/08/22 13:25 Urine Urobilinogen Neg mg/dL (Negative) 12/08/22 13:25 Ur Leukocyte Esterase Negative (Negative) 12/08/22 13:25 Urine RBC 0-4 /hpf (0-2) H 12/08/22 13:25 Urine WBC None /hpf (0-5) 12/08/22 13:25 Ur Squamous Epith Cells None /hpf (0-5) 12/08/22 13:25 Amorphous Sediment Not Reportable 12/08/22 13:25 Urine Bacteria None /hpf (NONE) 12/08/22 13:25 Nasal Influ A H1 2008 PCR Not detected (NOT DETECT) 12/08/22 13:54 Salicylates < 0.3 mg/dL (3-10) L 12/08/22 12:06 Urine Opiates Screen Negative ng/mL (Negative) 12/08/22 13:25 Acetaminophen < 5.0 ug/mL (10-30) L 12/08/22 12:06 Ur Barbiturates Screen Negative ng/mL (Negative) 12/08/22 13:25 Ur Phencyclidine Scrn Negative ng/mL (Negative) 12/08/22 13:25 Ur Amphetamines Screen Negative ng/mL (Negative) 12/08/22 13:25 U Benzodiazepines Scrn Negative ng/mL (Negative) 12/08/22 13:25 Urine Cocaine Screen Negative ng/mL (Negative) 12/08/22 13:25 U Marijuana (THC) Screen Negative ng/mL (Negative) 12/08/22 13:25 Ethyl Alcohol < 10 mg/dL (0-10) 12/08/22 12:06 Adenovirus (PCR) Not detected (NOT DETECT) 12/08/22 13:54 C. pneumoniae DNA (PCR) Not detected (NOT DETECT) 12/08/22 13:54 Coronavirus 229E (PCR) Not detected (NOT DETECT) 12/08/22 13:54 Human Metapneumovir PCR Not detected (NOT DETECT) 12/08/22 13:54 Influenza A (H1) PCR Not detected (NOT DETECT) 12/08/22 13:54 Influenza A (H3) PCR Not detected (NOT DETECT) 12/08/22 13:54 Influenza Type A (PCR) Not detected (NOT DETECT) 12/08/22 13:54 Influenza Type B (PCR) Not detected (NOT DETECT) 12/08/22 13:54 M. pneumoniae (PCR) Not detected (NOT DETECT) 12/08/22 13:54 Parainfluenza 1 (PCR) Not detected (NOT DETECT) 12/08/22 13:54 Parainfluenza 2 (PCR) Not detected (NOT DETECT) 12/08/22 13:54 Parainfluenza 3 (PCR) Not detected (NOT DETECT) 12/08/22 13:54 Parainfluenza 4 (PCR) Not detected (NOT DETECT) 12/08/22 13:54 RSV Type A (PCR) Not detected (NOT DETECT) 12/08/22 13:54 RSV Type B (PCR) Not detected (NOT DETECT) 12/08/22 13:54 Entero/Rhino (PCR) Not detected (NOT DETECT) 12/08/22 13:54 SARS-CoV-2 (PCR) Not detected (NOT DETECT) 12/08/22 13:54 Critical Care Time Critical Care Time: Critical Care Time: Yes Total Critical Care Time: 55 Attestation: Due to a high probability of clinically significant, possibly life threatening deterioration, the patient required my highest level of attention and preparedness to intervene emergently and I personally spent this critical care time directly and personally managing the patient. This critical care time included obtaining a history; examining the patient; pulse oximetry; ordering and review of laboratory and imaging studies; arranging urgent treatment with development of a management plan; evaluation of patient's response to treatment; frequent reassessment; and, discussions with other providers as applicable. It was exclusive of separately billable procedures. Primary system involved is neuro and respiratory Discharge Plan Discharge Patient Disposition: Xfer Short-Term Hosp Clinical Impression: Generalized seizure, Acute respiratory failure with hypoxia and hypercapnia, Acute alteration in mental status Condition: Stable Referrals: Walter Marte DO [Primary Care Provider] - Coding Level of Care Code ED Heat Treat Operator for Shyla Ramos
--- NOTE | 2022-12-08 12:52 | XR_ITS ---
WS: [id number] Portable AP upright chest, 12/08/2022 Clinical Data: ams Comparison: Portable chest, 08/31/2022 Findings: No nodules, masses or effusions are seen. The heart is slightly enlarged. The pulmonary vas cularity is not increased. No pneumonia or pneumothorax is seen. The aortic arch and descending thora cic aorta show tortuosity. XR/XR chest 1V portable [id number] Impression: Cardiomegaly and atherosclerosis.
[2022-12-08 13:06] LABS: Basophils # 0.1 10^3/uL (0.0-0.1); Basophils % 0.5 %; Eosinophils # 0.2 10^3/uL (0.0-0.8); Eosinophils % 1.8 %; Hematocrit 44.3 % (42.0-52.0); Hemoglobin 14.2 g/dL (11.7-16.6); Lymphocytes # 2.8 10^3/uL (0.8-4.8); Lymphocytes % 21.3 %; Mean Corpuscular HGB Conc 32.1 g/dL (30.0-36.0); Mean Corpuscular Hemoglobin 29.6 pg (28.0-34.0); Mean Corpuscular Volume 92.3 fl (80-94); Mean Platelet Volume 10.5 fL (7.4-10.4); Monocytes # 0.9 10^3/uL (0.2-0.9); Monocytes % 6.5 %; Neutrophils # 9.12 10^3/uL (1.8-7.7); Neutrophils % 69.6 %; Nucleated Red Blood Cells % 0 %; Platelet Count 326 10^3/cmm (130-400); Red Cell Distribution Width 13.8 % (12.1-15.1); White Blood Count 13.1 10^3/uL (4.0-10.0)
--- NOTE | 2022-12-08 13:07 | ECG_ITS ---
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 Measurements Intervals [place] Rate: 108 P: 73 PA: 230 QRS: -66 QRSD: 150 T: 89 QT: 356 QTc: 479 Interpretive Statements SINUS TACHYCARDIA WITH FIRST DEGREE AV BLOCK WITH FREQUENT VENTRICULAR PREMATURE COMPLEXES LEFT AXIS DEVIATION [QRS AXIS < -30] RIGHT BUNDLE BRANCH BLOCK [120+ ms QRS DURATION, UPRIGHT V1, 40+ ms S IN I/aVL/V4/V5/V6] LEFT VENTRICULAR HYPERTROPHY AND ST-T CHANGE [VOLTAGE CRITERIA PLUS ST/T ABNORMALITY] Compared to ECG 08/31/2022 13:50:46 Ventricular premature complex(es) now present ST (T wave) deviation now present Sinus rhythm no longer present Electronically Signed On 12-08-2022 16:04:19 CDT by Lambert Sierra M.D. [id number]
[2022-12-08 13:17] LABS: Base Excess ABG 6.6 mmol/L (-2.0-2.0); Blood Gas Operator Identificat glc; Blood Gas Sample Site Brachial, right; Blood Gas Sample Type Arterial; HCO3 ABG 35.9 mmol/L (22-26); Oxygen Device NC; PO2 ABG 75.9 mmHg (80.0-100.0)
--- NOTE | 2022-12-08 13:17 | CTR_ITS ---
PROCEDURE INFORMATION: Exam: CTA Head Without And With Contrast, Arteriography Exam date and time: 12/08/2022 2:05 PM Age: 77 years old Clinical indication: Convulsions / seizures; Additional info: Headache, AMS, seizure activity different than baseline TECHNIQUE: Imaging protocol: Computed tomographic angiography of the head without and with contrast. Exam focused on the arteries. 3D rendering (Not supervised by radiologist): MIP and/or 3D reconstructed images were created by the technologist. Radiation optimization: All CT scans at this facility use at least one of these dose optimization techniques: automated exposure control; mA and/or kV adjustment per patient size (includes targeted exams where dose is matched to clinical indication); or iterative reconstruction. Contrast material: OMNI 350; Contrast volume: 100 ml; Contrast route: INTRAVENOUS (IV); REPORTING DATA: Count of CT and Cardiac NM exams in prior 12 months: This patient has received 2 known CTs and 0 known cardiac nuclear medicine studies in the 12 months prior to the current study. COMPARISON: CT angio headneck* [id number] 09/06/2021 7:11 PM RADIATION DOSE METRICS: Total DLP (mGy-cm): 1216.94 FINDINGS: ANTERIOR CIRCULATION: Right internal carotid artery: Intracranial segment is patent with no significant stenosis or occlusion. No aneurysm. Right middle cerebral artery: No occlusion or significant stenosis. No aneurysm. Right anterior cerebral artery: No occlusion or significant stenosis. No aneurysm. Left internal carotid artery: Intracranial segment is patent with no significant stenosis. No aneurysm. Left middle cerebral artery: No occlusion or significant stenosis. No aneurysm. Left anterior cerebral artery: No occlusion or significant stenosis. No aneurysm. POSTERIOR CIRCULATION: Right vertebral artery: The right vertebral artery is hypoplastic and does not contribute to the basilar artery. Left vertebral artery: No occlusion or significant stenosis. No aneurysm. Basilar artery: Normal Right posterior cerebral artery: No occlusion or significant stenosis. No aneurysm. Left posterior cerebral artery: No occlusion or significant stenosis. No aneurysm. Cavernous sinuses: Dural venous sinuses are patent. HEAD: Brain: There is diffuse cerebral atrophy and chronic microvascular white matter disease. Bilateral occipital encephalomalacia, greater on the left. There is no acute intracranial hemorrhage. Cerebral ventricles: There is mild ex vacuo dilation of the lateral ventricles. The basal cisterns are unremarkable. Bones/joints: The calvarium is intact. Paranasal sinuses: The paranasal sinuses are clear. Mastoid air cells: Left mastoid effusion. Right mastoid air cells are clear. Auditory system: Left middle ear effusion. Soft tissues: The visible extracranial soft tissues are unremarkable. PROCEDURE INFORMATION: Exam: CTA Neck With Contrast Exam date and time: 12/08/2022 2:05 PM Age: 77 years old Clinical indication: Convulsions / seizures; Additional info: Headache, AMS, seizure activity different than baseline TECHNIQUE: Imaging protocol: Computed tomographic angiography of the neck with contrast. 3D rendering (Not supervised by radiologist): MIP and/or 3D reconstructed images were created by the technologist. Radiation optimization: All CT scans at this facility use at least one of these dose optimization techniques: automated exposure control; mA and/or kV adjustment per patient size (includes targeted exams where dose is matched to clinical indication); or iterative reconstruction. Contrast material: OMNI 350; Contrast volume: 100 ml; Contrast route: INTRAVENOUS (IV); REPORTING DATA: Count of CT and Cardiac NM exams in prior 12 months: This patient has received 2 known CTs and 0 known cardiac nuclear medicine studies in the 12 months prior to the current study. COMPARISON: CT angio headneck* [id number] 09/06/2021 7:11 PM RADIATION DOSE METRICS: Total DLP (mGy-cm): 1216 FINDINGS: Right common carotid artery: No stenosis. No dissection or occlusion. Right internal carotid artery: There is mild calcific plaque at the origin of the right internal carotid artery without stenosis. Right external carotid artery: No occlusion or stenosis of the origin. Left common carotid artery: No stenosis. No dissection or occlusion. Left internal carotid artery: There is mild calcific plaque at the origin of the left internal carotid artery with less than 50% stenosis. Left external carotid artery: No occlusion or stenosis of the origin. Right vertebral artery: Hypoplastic right vertebral artery terminates in the posteroinferior cerebellar artery. Left vertebral artery: No stenosis. No dissection or occlusion. Soft tissues: Soft tissues in the neck and thoracic inlet are unremarkable. Bones/joints: There is moderate degenerative disc disease in the cervical spine. Lungs: Lung apices are clear. CT/CT angio headneck* [id number] IMPRESSION: 1. No arterial stenosis, occlusion or aneurysm. 2. Left mastoid and middle ear effusion. Possible mastoiditis. 3. Left greater than right occipital encephalomalacia consistent with sequelae of chronic infarction or trauma. IMPRESSION: 1. No hemodynamically significant arterial stenosis or occlusion. 2. Less than 50% stenosis of the left internal carotid artery. REFERENCES: NASCET CRITERIA. The degree of stenosis in the cervical segment of the internal carotid artery is based on NASCET criteria. Normal is no stenosis. Mild is less than 50% stenosis. Moderate is 50-69% stenosis. Severe is 70% to 99% stenosis. Total occlusion is no detectable patent lumen.
[2022-12-08] MEDS: LORazepam 2 mg/mL INJ 1 mL IV (13:18)
[2022-12-08 13:27] LABS: Troponin(5th) Baseline 24 ng/L (0-15)
[2022-12-08 13:36] LABS: Alanine Aminotransferase 12 U/L (0-41); Alkaline Phosphatase 48 U/L (40-130); Anion Gap 12.2 (5-19); Aspartate Amino Transferase 20 U/L (0-40); Blood Urea Nitrogen 15 mg/dL (8-23); Calcium 9.4 mg/dL (8.5-10.5); Carbon Dioxide 34 mmol/L (22-29); Chloride 95 mmol/L (98-107); Globulin 3.2 g/dL (1.3-4.6); Glucose 148 mg/dL (65-115); Osmolality Calculated 290 mOsm/kg (285-295); Potassium 3.2 mmol/L (3.5-5.1); Sodium 138 mmol/L (136-145); Thyroid Stimulating Hormone 7.79 uIU/mL (0.27-4.20); Total Bilirubin 0.4 mg/dL (0.15-1.2); Total Protein 7.2 g/dL (6.6-8.7)
[2022-12-08 13:38] LABS: Acetaminophen < 5.0 ug/mL (10-30); Alcohol Level < 10 mg/dL (0-10); Salicylate < 0.3 mg/dL (3-10)
[2022-12-08 13:55] LABS: ABG PH Result 7.28 (7.35-7.45); Base Excess ABG 7.6 mmol/L (-2.0-2.0); Blood Gas Allen Test Pos; Blood Gas Operator Identificat D; Blood Gas Sample Site Radial, left; Blood Gas Sample Type Arterial; HCO3 ABG 37.5 mmol/L (22-26); HGB O2 Sat 94.2 % (95-100); Ionized Calcium Level - ABG 1.2 mmol/L (1.1-1.4); Methemoglobin 1.1 % (0.4-1.5); Oxygen Device NC; Oxygen Saturation ABG 96.3; PO2 ABG 90.4 mmHg (80.0-100.0); Potassium Level - ABG 3.1 mmol/L (3.5-5.0); Total Hemoglobin 13.4 g/dL (14-18)
[2022-12-08 13:56] LABS: ABG PCO2 80.2 mmHg (35-45)
[2022-12-08 13:56] LABS: ABG PCO2 72.3 mmHg (35-45)
[2022-12-08 14:22] LABS: Amphetamines Screen Urine Negative (Negative); Barbiturates Screen Urine Negative (Negative); Benzodiazepines Screen Urine Negative (Negative); Cocaine Screen Urine Negative (Negative); Opiate Screen Urine Negative (Negative); PCP Screen Urine Negative (Negative); THC Screen Urine Negative (Negative)
[2022-12-08 14:25] LABS: Free T4 Free Thyroxine 1.07 ng/dL (0.82-1.77)
[2022-12-08] MEDS: iohexol 350 mg/mL 500 mL Btl (per mL) IV (14:30)
[2022-12-08 14:31] LABS: Add Urine Culture? No; Add Urine Microscopic? YES; Bilirubin Urine Neg (Negative); Blood Urine 2+ (Negative); Glucose Urine UA Norm (Normal); Ketones Urine Negative (Negative); Leukocyte Esterase Urine Negative (Negative); Nitrate Urine Negative (Negative); Protein Urine Neg (Negative); RBC Urine 0-4 /hpf (0-2); Specific Gravity, Urine 1.015 (1.005-1.030); Urine Appearance Clear (CLEAR); Urine Color Light yellow (Yellow); Urobilinogen Urine Neg (Negative); pH Urine 5 (5-7)
[2022-12-08] MEDS: etomidate 2 mg/mL INJ SDV 10 mL 30 MG IVP (14:36)
[2022-12-08] MEDS: vecuronium 10 mg SDV IVP (14:37)
[2022-12-08] MEDS: propofol 1,000 MG/100 ML INJ 2.99 MG IV (14:39)
--- NOTE | 2022-12-08 14:40 | XR_ITS ---
WS: [id number] Portable AP upright chest, 12/08/2022, 1451 hours Clinical Data: post intubation Comparison: Portable chest, 12/08/2022, 1301 hours Findings: There is an endotracheal tube which ends above the aura. The nasogastric tube is seen bel ow the diaphragm. No pneumothorax is seen. The heart and lungs have not changed. XR/XR chest 1V portable [id number] Impression: Satisfactory insertion of nasogastric tube and endotracheal tube.
[2022-12-08] MEDS: lidocaine 1% 5 ML in potassium chloride premix 100 ML 26.25 ML IV (14:59)
--- NOTE | 2022-12-08 15:14 | ECG_ITS ---
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 Measurements Intervals [place] Rate: 72 P: 67 MO: 240 QRS: -58 QRSD: 171 T: 19 QT: 432 QTc: 475 Interpretive Statements SINUS RHYTHM WITH FIRST DEGREE AV BLOCK LEFT AXIS DEVIATION [QRS AXIS < -30] RIGHT BUNDLE BRANCH BLOCK [120+ ms QRS DURATION, UPRIGHT V1, 40+ ms S IN I/aVL/V4/V5/V6] POSSIBLE LEFT VENTRICULAR HYPERTROPHY [VOLTAGE CRITERIA PLUS LAE OR QRS WIDENING] POSSIBLE ANTERIOR MYOCARDIAL INFARCTION , PROBABLY OLD [30 ms Q WAVE IN V3/V4, OR R < 0.2 mV IN V4] Compared to ECG 12/08/2022 13:07:01 Myocardial infarct finding now present Sinus tachycardia no longer present Ventricular premature complex(es) no longer present ST (T wave) deviation no longer present Electronically Signed On 12-08-2022 16:02:25 CDT by Lambert Sierra M.D. [id number]
[2022-12-08 15:27] LABS: Troponin 5 2HR 24.31 ng/L (0-15)
[2022-12-08 15:33] LABS: Troponin 5 2HR Delta 0.31 ABS# (0-10)
--- NOTE | 2022-12-08 16:28 | PC.NURSE ---
DR. CHAPA VO TO PUT PROPOFOL AT 70MCG/KG/MIN.
--- NOTE | 2022-12-08 16:43 | PC.NURSE ---
REPORT GIVEN TO KRYS IVERSON IN NEURO ICU.
[2022-12-08 16:50] LABS: ABG PCO2 40.3 mmHg (35-45); ABG PH Result 7.51 (7.35-7.45); Arterial Blood Gas Hematocrit 39.9 % (42-52); Base Excess ABG 8.1 mmol/L (-2.0-2.0); Blood Gas Allen Test Pos; Blood Gas Operator Identificat glc; Blood Gas Sample Site Radial, left; Blood Gas Sample Type Arterial; HCO3 ABG 31.9 mmol/L (22-26); Oxygen Device VENT
[2022-12-08 16:58] LABS: Adenovirus Not Detected (NOT DETECT); Chlamydia Pneumoniae Not Detected (NOT DETECT); Coronavirus 229E,HKU1,NL63,OC4 Not Detected (NOT DETECT); Human Metapneumovirus Not Detected (NOT DETECT); Human Rhinovirus/Enterovirus Not Detected (NOT DETECT); Influenza A Not Detected (NOT DETECT); Influenza A H1 Not Detected (NOT DETECT); Influenza A H1-2009 Not Detected (NOT DETECT); Influenza A H3 Not Detected (NOT DETECT); Influenza B Not Detected (NOT DETECT); Mycoplasma Pneumoniae Not Detected (NOT DETECT); Parainfluenza Virus Type 1 Not Detected (NOT DETECT); Parainfluenza Virus Type 2 Not Detected (NOT DETECT); Parainfluenza Virus Type 3 Not Detected (NOT DETECT); Parainfluenza Virus Type 4 Not Detected (NOT DETECT); Respiratory Syncytial Virus A Not Detected (NOT DETECT); Respiratory Syncytial Virus B Not Detected (NOT DETECT); SARS-COV-2 Not Detected (NOT DETECT)
== END 2022-12-08 17:59 | disposition short-term general hospital (02) ==
PROVIDERS: Emergency Provider Emergency Medicine; PCP Internal Medicine
DX: G40.89 Other seizures (principal); R41.82 Altered mental status, unspecified; J96.02 Acute respiratory failure with hypercapnia; J96.01 Acute respiratory failure with hypoxia; Z20.822 Contact with and (suspected) exposure to COVID-19; Z87.891 Personal history of nicotine dependence; G30.9 Alzheimer's disease, unspecified; F02.80 Dementia in other diseases classified elsewhere, unspecified severity, without behavioral disturbance, psychotic disturbance, mood disturbance, and anxiety; E78.5 Hyperlipidemia, unspecified; I10 Essential (primary) hypertension; I25.2 Old myocardial infarction; I51.7 Cardiomegaly
CPT/HCPCS: 31500; 36415; 36600; 51702; 70496; 70498; 71045; 80051; 80053; 80306; 80307; 81001; 82330; 82803; 82805; 84439; 84443; 84484; 85025; 87040; 87070; 87205; 87486; 87581; 87633; 93005; 94002; 94799; 96365; 96366; 96367; 96375; 99291; 99292; J1953; J2060; J2704; J3010; J3480; J3490; Q9967

== ENCOUNTER 2023-04-16 07:07 | Emergency (ER) | payer OTHER, SELFPAY ==
[2023-04-16] VITALS (35 sets, daily range): BP systolic 125–193; BP diastolic 81–112; PULSE 69–140; RESP 9–29; TEMP 38.1; O2SAT 84–98; BMI 31.1
--- NOTE | 2023-04-16 07:22 | XR_ITS ---
WS: [id number] EXAMINATION: XR chest 1V portable [id number] REASON FOR EXAM: dyspnea/cough COMPARISON: Previous study ORDER DATE: 04/16/2023 7:27 AM TECHNIQUE: A single, portable frontal chest x-ray was obtained. X-RAY FINDINGS: The lungs are clear. Pleural spaces are clear. No pleural effusions or pneumothorax. Cardiomediastinal silhouette is normal. No evidence for pulmonary edema. Soft tissue and osseous structures are unremarkable. No tubes or lines remain XR/XR chest 1V portable [id number] IMPRESSION: Unremarkable frontal portable chest x-ray.
--- NOTE | 2023-04-16 07:23 | CT_ITS ---
WS: [id number] CT HEAD TECHNIQUE: Noncontrast CT of the head obtained from the skullbase to the vertex. CLINICAL INFORMATION: AMS COMPARISON: CT head 04/11 DLP: 1250.[address] scans at [facility] use at least one of these dose optimization techniques: automated e xposure control; mA and/or kV adjustment per patient size (includes targeted exams where dose is matc hed to clinical indication); or iterative reconstruction. FINDINGS: No evidence of intracranial hemorrhage or mass effect. Ventricular system and basal cisterns are carnes nt. Moderate small vessel changes with moderate parenchymal volume loss. No extra-axial fluid collect ions. No evidence of mass or mass effect. Intracranial vascular calcification. Chronic lacunar infarc t RIGHT cerebellum. 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 Tiny chronic lacunar infarct RIGHT caudate. Mild mucosal thickening paranasal sinuses. Mastoid air cells well aerated. CT/CT head wo con* [id number] IMPRESSION: 1. No evidence of intracranial hemorrhage or mass effect. 2. 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 3. Small chronic lacunar infarcts RIGHT cerebellum. 4. Moderate small vessel changes moderate parenchymal volume loss. 5. No acute intracranial findings.
--- NOTE | 2023-04-16 07:24 | W.ED.GENADLT ---
HPI - General Adult General: Chief complaint: Seizure Stated complaint: seizures Time Seen by Provider: 04/16/23 07:08 Mode of arrival: EMS History of Present Illness: 77-year-old male brought in by EMS he is nonresponsive his son when he first encountered the patient he is in the room still having intermittent seizures according to the EMS crew they were called because of the seizure activity there is a hospice nurse at the bedside he is currently on hospice for COPD he has known history of seizures he did not receive any of his morning medications. He was found down on the floor. Continues to have intermittent seizures and is tachycardic with a low-grade fever no complaints of fever sweats chills or change in baseline cough or breathing that anyone is aware of prior to this episode this morning. There is no family at the bedside. Other history per chart. Review of Systems General: Reports: ROS unobtainable due to mental status PFS ED PFSH: Medical History Acute alteration in mental status Altered mental status Alzheimer disease Anemia Asthma Carpal tunnel syndrome of left wrist Cervical radiculopathy Charcot's joint, 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 Generalized seizure Hyperlipidemia Hypertension Hypertension Hypoxia NSTEMI (non-ST elevated myocardial infarction) Peripheral neuropathy SLAC (scapholunate advanced collapse) of wrist Surgical History H/O knee surgery History of carpal tunnel surgery Family History Denies family history of Diabetes CAD (coronary artery disease) Clotting disorder Dementia Hyperlipidemia Psychiatric illness Chronic kidney disease (CKD) Suicide Anesthesia complication Bleeding disorder Family history of premature coronary artery disease Lung disease Cancer Hypertension Stroke Social History Smoking and tobacco status: former smoker Alcohol intake: never Substance/Drug Use: never Lives independently: No Housing: Long-Term Physical Exam HENMT: COMMON NORMALS: normocephalic, atraumatic and hearing grossly normal bilaterally HEAD & SCALP: normocephalic and atraumatic Resp: COMMON NORMALS: normal respiratory effort, No retractions, No use of accessory muscles and clear to auscultation bilaterally AUSCULTATION: clear to auscultation bilaterally Cardio: RATE: tachycardic GI: COMMON NORMALS: Soft to palpation and No hepatosplenomegaly present AUSCULTATION: Yes normoactive bowel sounds PALPATION: Yes Soft to palpation, No Tenderness to palpation present (GI), No Guarding due to palpation present (GI) and Yes No hepatosplenomegaly present Extremity: COMMON NORMALS: normal to inspection, capillary refill normal, no clubbing, cyanosis or edema, no calf tenderness and no pedal edema Skin: COMMON NORMALS: no rashes or lesions noted GENERAL SKIN EXAM: no rashes or lesions noted Course Vital Signs: Vital signs: Vital Signs Temperature 100.6 F H 04/16/23 07:12 Pulse Rate 73 04/16/23 11:20 Respiratory Rate 16 04/16/23 10:40 Blood Pressure 139/97 04/16/23 11:25 Pulse Oximetry 84 L 04/16/23 11:25 Oxygen Delivery Me thod BiPAP 04/16/23 08:20 Oxygen Flow Rate 2 04/16/23 07:12 Fraction of Inspir ed Oxygen 40 04/16/23 09:16 MDM - General Adult Medical Decision Making Patient hypercapnic respiratory failure and status epilepticus. Family is not present at first initiated BiPAP and gave Keppra and repeated doses of Ativan eventually family did arrive. He is currently on hospice after some discussion with them in a family conference among some cells they elected the patient to stop all treatments and go to comfort cares and return to the residential. BiPAP was stopped he had had some slight improvement with it. Called his attending physician notified him of the change. Is also noticed he had a low-grade fever that may be due to his seizure in either event they do not wish to pursue any further treatment for it patient was transferred back to the residential to continue hospice comfort cares. Medical Records I reviewed the patient's medical records. Lab Data I reviewed the patient's lab results. 04/16/23 07:45 04/16/23 08:16 Radiology Impressions Chest X-Ray 04/16/23 07:22 IMPRESSION: Unremarkable frontal portable chest x-ray. Head CT 04/16/23 07:23 IMPRESSION: 1. No evidence of intracranial hemorrhage or mass effect. 2. 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 3. Small chronic lacunar infarcts RIGHT cerebellum. 4. Moderate small vessel changes moderate parenchymal volume loss. 5. No acute intracranial findings. Laboratory Results WBC 11.7 10^3/uL (4.0-10.0) H 04/16/23 07:45 RBC 4.17 10^6/uL (4.1-5.3) 04/16/23 07:45 Hgb 12.2 g/dL (11.7-16.6) 04/16/23 07:45 Hct 39.2 % (42.0-52.0) L 04/16/23 07:45 MCV 94.0 fl (80-94) 04/16/23 07:45 MCH 29.3 pg (28.0-34.0) 04/16/23 07:45 MCHC 31.1 g/dL (30.0-36.0) 04/16/23 07:45 RDW 14.7 % (12.1-15.1) 04/16/23 07:45 Plt Count 275 10^3/cmm (130-400) 04/16/23 07:45 MPV 10.5 fL (7.4-10.4) H 04/16/23 07:45 Neut % (Auto) 76.0 % 04/16/23 07:45 Lymph % (Auto) 16.0 % 04/16/23 07:45 [place] % (Auto) 5.9 % 04/16/23 07:45 Eos % (Auto) 0.8 % 04/16/23 07:45 Baso % (Auto) 0.8 % 04/16/23 07:45 Neut # (Auto) 8.92 10^3/uL (1.8-7.7) H 04/16/23 07:45 Lymph # (Auto) 1.9 10^3/uL (0.8-4.8) 04/16/23 07:45 [place] # (Auto) 0.7 10^3/uL (0.2-0.9) 04/16/23 07:45 Eos # (Auto) 0.1 10^3/uL (0.0-0.8) 04/16/23 07:45 Baso # (Auto) 0.1 10^3/uL (0.0-0.1) 04/16/23 07:45 Nucleated RBC % (auto) 0 % 04/16/23 07:45 Nucleated RBCs # 0.0 /100WBC 04/16/23 07:45 Specimen Type Arterial 04/16/23 10:03 Sample Site Radial, left 04/16/23 10:03 ABG pH 7.29 (7.35-7.45) L 04/16/23 10:03 ABG pCO2 72.2 mmHg (35-45) H* 04/16/23 10:03 ABG pO2 90.5 mmHg (80.0-100.0) 04/16/23 10:03 ABG HCO3 34.5 mmol/L (22-26) H 04/16/23 10:03 ABG O2 Saturation 97.0 04/16/23 07:53 ABG Base Excess 5.5 mmol/L (-2.0-2.0) H 04/16/23 10:03 [place] Test Pos 04/16/23 10:03 A-a O2 Gradient Not Reportable 04/16/23 07:53 Hematocrit 39.4 % (42-52) L 04/16/23 10:03 Hgb O2 Saturation 95.9 % (95-100) 04/16/23 07:53 Carboxyhemoglobin 0.4 %THgb (0.4-20.1) 04/16/23 07:53 Methemoglobin 0.7 % (0.4-1.5) 04/16/23 07:53 Total Hemoglobin 13.1 g/dL (14-18) L 04/16/23 07:53 Sodium 141.0 mmol/L (131-143) 04/16/23 07:53 Potassium 3.4 mmol/L (3.5-5.0) L 04/16/23 07:53 Glucose 163.0 mg/dL (70-115) H 04/16/23 07:53 Ionized Calcium 1.3 mmol/L (1.1-1.4) 04/16/23 07:53 O2 Delivery Device Bipap 04/16/23 10:03 O2 Liters/Min 4.0 % 04/16/23 07:53 FiO2 40.0 % 04/16/23 10:03 Wire Rigger ID Cak 04/16/23 10:03 Sodium 138 mmol/L (136-145) 04/16/23 08:16 Potassium 3.7 mmol/L (3.5-5.1) 04/16/23 08:16 Chloride 96 mmol/L (98-107) L 04/16/23 08:16 Carbon Dioxide 26 mmol/L (22-29) 04/16/23 08:16 Anion Gap 19.7 (5-19) H 04/16/23 08:16 BUN 20 mg/dL (8-23) 04/16/23 08:16 Creatinine 0.9 mg/dL (0.7-1.2) 04/16/23 08:16 GFR Calculation Not Reportable 04/16/23 08:16 Glucose 164 mg/dL (65-115) H 04/16/23 08:16 Calculated Osmolality 292 mOsm/kg (285-295) 04/16/23 08:16 Lactic Acid Cancelled 04/16/23 07:45 Lactate 4.1 mmol/L (0.5-2.2) H* 04/16/23 08:16 Calcium 8.8 mg/dL (8.5-10.5) 04/16/23 08:16 Magnesium 2.0 mg/dL (1.7-2.3) 04/16/23 08:16 Total Bilirubin 0.2 mg/dL (0.15-1.2) 04/16/23 08:16 AST 17 U/L (0-40) 04/16/23 08:16 ALT 18 U/L (0-41) 04/16/23 08:16 Alkaline Phosphatase 92 U/L (40-130) 04/16/23 08:16 Creatine Kinase 85 U/L (39-308) 04/16/23 08:16 Troponin T Baseline 55 ng/L (0-15) H 04/16/23 08:16 Troponin T 120 Minute Cancelled 04/16/23 10:00 Delta Troponin T Cancelled 04/16/23 10:00 Total Protein 6.3 g/dL (6.6-8.7) L 04/16/23 08:16 Albumin 3.8 g/dL (3.5-5.2) 04/16/23 08:16 Globulin 2.5 g/dL (1.3-4.6) 04/16/23 08:16 Lipase 16 U/L (13-60) 04/16/23 08:16 Urine Color Yellow (Yellow) 04/16/23 09:15 Urine Appearance Clear (CLEAR) 04/16/23 09:15 Urine pH 6.5 (5-7) 04/16/23 09:15 Ur Specific [place] 1.015 (1.005-1.030) 04/16/23 09:15 Urine Protein Neg (Negative) 04/16/23 09:15 Urine Glucose (UA) Norm (Normal) 04/16/23 09:15 Urine Ketones Negative (Negative) 04/16/23 09:15 Urine Blood Neg (Negative) 04/16/23 09:15 Urine Nitrate Negative (Negative) 04/16/23 09:15 Urine Bilirubin Neg (Negative) 04/16/23 09:15 Urine Urobilinogen Norm mg/dL (Negative) 04/16/23 09:15 Ur Leukocyte Esterase Negative (Negative) 04/16/23 09:15 Discharge Plan Discharge Patient Disposition: Home Clinical Impression: COPD (chronic obstructive pulmonary disease), Status epilepticus, Acute hypercapnic respiratory failure Condition: Stable Prescriptions: No Action magnesium hydroxide [Milk of Magnesia] 400 mg/5 mL Suspension 30 ml PO DAILY PRN (Reason: Constipation) Rx Instructions: IF NO BM IN 3 DAYS, DO NOT GIVE TO RENAL PTS GO TO DULCOLAX ORDERS bisacodyl [Dulcolax (bisacodyl)] 10 mg Suppository 10 mg ID DAILY PRN (Reason: Constipation) Rx Instructions: give pr if cant take po -if no results from mom Fleet Enema 19-7 gram/118 mL Enema 118 ml ID DAILY PRN (Reason: Constipation) Rx Instructions: GIVE IF NO RESULTS FROM MOM AND DULCOLAX bisacodyl [Dulcolax (bisacodyl)] 5 mg Tablet,Delayed Release (Dr/Ec) 10 mg PO DAILY PRN (Reason: Constipation) Rx Instructions: GIVE IF NO RESULTS FROM MOM albuterol sulfate 2.5 mg /3 mL (0.083 %) Solution For Nebulization 2.5 mg INHALATION Q4H PRN (Reason: Shortness Of Breath Or Wheezing) levetiracetam 500 mg tablet 1,500 mg PO BID [place] 5-325 mg Tablet 1 tab PO Q4H PRN (Reason: Pain) Ativan 0.5 mg Tablet 0.5 mg PO Q1H PRN (Reason: Anxiety) Rx Instructions: before shower Roxanol 20 mg/5 mL (4 mg/mL) Solution 20 mg PO Q1H PRN (Reason: Pain) Discharge Orders: Discharge ED (Routine); Ordered 04/16/23 Ordered By: Abel Garcia Referrals: Walter Marte DO [Primary Care Provider] - Patient Instructions: Opioid Safety, Pain Management Activity Restrictions/Additional Instructions: Patient was seen and evaluated for hypercapnia, exacerbation COPD, and persistent seizures. Will be discharged back to the residential to continue hospice care per the family's request. Coding Level of Care Code ED [employer] Supervisor for Shyla Ramos
--- NOTE | 2023-04-16 07:27 | ECG_ITS ---
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 Measurements Intervals [place] Rate: 139 P: 0 OK: 0 QRS: -60 QRSD: 147 T: 29 QT: 307 QTc: 468 Interpretive Statements ATRIAL FLUTTE WITH RAPID VENTRICULAR RESPONSE LEFT AXIS DEVIATION [QRS AXIS < -30] RIGHT BUNDLE BRANCH BLOCK [120+ ms QRS DURATION, UPRIGHT V1, 40+ ms S IN I/aVL/V4/V5/V6] LEFT VENTRICULAR HYPERTROPHY AND ST-T CHANGE [VOLTAGE CRITERIA PLUS ST/T ABNORMALITY] POSSIBLE SEPTAL MYOCARDIAL INFARCTION , PROBABLY OLD [30 ms Q WAVE IN V1/V2] Compared to ECG 12/08/2022 15:14:21 ST (T wave) deviation now present Sinus rhythm no longer present First degree AV block no longer present Myocardial infarct finding still present Electronically Signed On 04-16-2023 13:59:38 CDT by Lambert Sierra M.D. [id number]
[2023-04-16] MEDS: LORazepam 2 mg/mL INJ 1 mL IVP ×3 (07:34→10:45)
[2023-04-16] MEDS: labetalol 5 mg/mL SDV 20mL 10 MG IVP (07:36)
[2023-04-16 07:56] LABS: Basophils # 0.1 10^3/uL (0.0-0.1); Basophils % 0.8 %; Eosinophils # 0.1 10^3/uL (0.0-0.8); Eosinophils % 0.8 %; Hematocrit 39.2 % (42.0-52.0); Hemoglobin 12.2 g/dL (11.7-16.6); Lymphocytes # 1.9 10^3/uL (0.8-4.8); Mean Corpuscular HGB Conc 31.1 g/dL (30.0-36.0); Mean Corpuscular Hemoglobin 29.3 pg (28.0-34.0); Mean Platelet Volume 10.5 fL (7.4-10.4); Monocytes # 0.7 10^3/uL (0.2-0.9); Monocytes % 5.9 %; Neutrophils # 8.92 10^3/uL (1.8-7.7); Nucleated Red Blood Cells % 0 %; Platelet Count 275 10^3/cmm (130-400); Red Blood Count 4.17 10^6/uL (4.1-5.3); Red Cell Distribution Width 14.7 % (12.1-15.1); White Blood Count 11.7 10^3/uL (4.0-10.0)
[2023-04-16 08:04] LABS: ABG PH Result 7.12 (7.35-7.45); Base Excess ABG -1.2 mmol/L (-2.0-2.0); Blood Gas Allen Test Pos; Blood Gas Operator Identificat CAK; Blood Gas Sample Site Radial, left; Blood Gas Sample Type Arterial; Carboxyhemoglobin 0.4 %THgb (0.4-20.1); HCO3 ABG 30.9 mmol/L (22-26); HGB O2 Sat 95.9 % (95-100); Ionized Calcium Level - ABG 1.3 mmol/L (1.1-1.4); Methemoglobin 0.7 % (0.4-1.5); Oxygen Device SIMPLE MASK; Potassium Level - ABG 3.4 mmol/L (3.5-5.0); Total Hemoglobin 13.1 g/dL (14-18)
[2023-04-16 08:05] LABS: ABG PCO2 95.9 mmHg (35-45)
[2023-04-16] MEDS: ipratropium-albuterol 3 mL Neb INHALATION (08:24)
[2023-04-16 08:43] LABS: Alanine Aminotransferase 18 U/L (0-41); Albumin Level 3.8 g/dL (3.5-5.2); Alkaline Phosphatase 92 U/L (40-130); Anion Gap 19.7 (5-19); Aspartate Amino Transferase 17 U/L (0-40); Blood Urea Nitrogen 20 mg/dL (8-23); Calcium 8.8 mg/dL (8.5-10.5); Carbon Dioxide 26 mmol/L (22-29); Chloride 96 mmol/L (98-107); Creatine Phosphokinase 85 U/L (39-308); Globulin 2.5 g/dL (1.3-4.6); Glucose 164 mg/dL (65-115); Lipase 16 U/L (13-60); Osmolality Calculated 292 mOsm/kg (285-295); Potassium 3.7 mmol/L (3.5-5.1); Sodium 138 mmol/L (136-145); Total Bilirubin 0.2 mg/dL (0.15-1.2); Total Protein 6.3 g/dL (6.6-8.7)
[2023-04-16 08:47] LABS: Troponin(5th) Baseline 55 ng/L (0-15)
[2023-04-16 08:55] LABS: Lactate (Lactic Acid level) 4.1 mmol/L (0.5-2.2)
--- NOTE | 2023-04-16 09:22 | ECG_ITS ---
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 Measurements Intervals [place] Rate: 81 P: 71 ID: [id number] QRS: -57 QRSD: 157 T: 50 QT: 429 QTc: 501 Interpretive Statements SINUS RHYTHM WITH FIRST DEGREE AV BLOCK LEFT AXIS DEVIATION [QRS AXIS < -30] RIGHT BUNDLE BRANCH BLOCK [120+ ms QRS DURATION, UPRIGHT V1, 40+ ms S IN I/aVL/V4/V5/V6] POSSIBLE SEPTAL MYOCARDIAL INFARCTION , OF INDETERMINATE AGE [30 ms Q WAVE IN V1/V2] Compared to ECG 12/08/2022 15:14:21 No significant changes Electronically Signed On 04-16-2023 14:02:46 CDT by Lambert Sierra M.D. [id number]
[2023-04-16 09:38] LABS: Add Urine Microscopic? NO; Charge for UA Resulting for Rev
[2023-04-16 09:50] LABS: Bilirubin Urine Neg (Negative); Blood Urine Neg (Negative); Glucose Urine UA Norm (Normal); Ketones Urine Negative (Negative); Leukocyte Esterase Urine Negative (Negative); Nitrate Urine Negative (Negative); Protein Urine Neg (Negative); Specific Gravity, Urine 1.015 (1.005-1.030); Urine Appearance Clear (CLEAR); Urine Color Yellow (Yellow); Urobilinogen Urine Norm (Negative); pH Urine 6.5 (5-7)
[2023-04-16 10:15] LABS: ABG PCO2 72.2 mmHg (35-45); ABG PH Result 7.29 (7.35-7.45); Arterial Blood Gas Hematocrit 39.4 % (42-52); Base Excess ABG 5.5 mmol/L (-2.0-2.0); Blood Gas Allen Test Pos; Blood Gas Operator Identificat CAK; Blood Gas Sample Site Radial, left; Blood Gas Sample Type Arterial; HCO3 ABG 34.5 mmol/L (22-26); Oxygen Device BIPAP; PO2 ABG 90.5 mmHg (80.0-100.0)
== END 2023-04-16 11:35 | disposition home or self-care (01) ==
PROVIDERS: Emergency Provider Family Medicine; PCP Internal Medicine
DX: G40.901 Epilepsy, unspecified, not intractable, with status epilepticus (principal); J44.9 Chronic obstructive pulmonary disease, unspecified; J96.02 Acute respiratory failure with hypercapnia; Z87.891 Personal history of nicotine dependence; G30.9 Alzheimer's disease, unspecified; F02.80 Dementia in other diseases classified elsewhere, unspecified severity, without behavioral disturbance, psychotic disturbance, mood disturbance, and anxiety; E78.5 Hyperlipidemia, unspecified; I10 Essential (primary) hypertension; I25.2 Old myocardial infarction
CPT/HCPCS: 36415; 36600; 70450; 71045; 80051; 80053; 81003; 82330; 82550; 82803; 82805; 83605; 83690; 83735; 84484; 85025; 93005; 94640; 94660; 96365; 96366; 96375; 96376; 99285; J1953; J2060; J3490